=== PATIENT | female | born 1960 | race Caucasian/White ===

== ENCOUNTER 2016-07-20 15:25 | Emergency (ER) | payer BC ==
[2015-07-27 12:39] VITALS: BMI 34.2
[~2016-07-20 15:25] MED LIST: ADVAIR 500/501 DISK INH; AMITRIPTYLINE100 MG PO; HYDROCODONE-APA1 TAB PO; KLONOPIN0.5 MG PO; LASIX20 MG PO; LEVAQUIN500 MG PO; LISINOPRIL10 MG PO; NEURONTIN600 MG PO; PLAVIX75 MG PO; PREDNISONE20 MG PO; TESSALON PERLE100 MG PO; ZANAFLEX4 MG PO
[2016-07-20 16:06] LABS: BASOPHILS 0.3 % (0.0-2.0); EOSINOPHILS 2.7 % (0-7); HEMATOCRIT 42.4 % (36.0-48.0); HEMOGLOBIN 12.9 g/dL (12-16); IMMATURE GRANULOCYTES 0.4 % (0-5); MCH 30.1 pg (26.0-34.0); MCHC 30.4 g/dL (31.0-37.0); MCV 99.1 fL (80.0-100.0); MEAN PLATELET VOLUME 10.4 fL (7.4-10.4); MONOCYTES 8.1 % (2-11); NEUTROPHILS 71.5 % (40-80); PLATELET COUNT 229 10x3/uL (130-400); RBC 4.28 10x6/uL (4.00-5.40); RDW 15.4 % (11.5-14.5); WBC 11.9 10x3/uL (4.8-10.8)
[2016-07-20 16:35] LABS: ALBUMIN 3.5 g/dL (3.4-5.0); ANION GAP 14.5 mmol/L (8-16); BILIRUBIN - TOTAL 0.31 mg/dL (0.2-1.3); CALCIUM 8.7 mg/dL (8.5-10.1); CARBON DIOXIDE 29.9 mmol/L (21.0-32.0); CREATININE - SERUM 1.4 mg/dL (0.6-1.3); POTASSIUM - SERUM 4.4 mmol/L (3.5-5.1); PROTEIN - SERUM 7.3 g/dL (6.4-8.2)
[2016-07-20 19:43] LABS: APPEARANCE CLEAR (CLEAR); BILIRUBIN NEGATIVE (NEGATIVE); COLOR YELLOW (YELLOW); GLUCOSE 100 mg/dL (NEGATIVE); KETONE NEGATIVE (NEGATIVE); LEUKOCYTE ESTERASE NEGATIVE (NEGATIVE); NITRITE NEGATIVE (NEGATIVE); PROTEIN TRACE mg/dL (NEGATIVE); UROBILINOGEN NORMAL (NORMAL)
[2016-07-20 19:44] LABS: HEMOGLOBIN A1C 5.6 % (4.8-6.0)
[2016-07-20 19:55] LABS: CREATINE KINASE 150 UL (21-215); PRO BNP 970 pg/mL (0-125)
[2016-07-20 19:56] LABS: TROPONIN-I < 0.017 ng/mL (0.000-0.060)
== END 2016-07-20 22:32 | disposition home or self-care (01) ==
LOC: D.ER 15:25
PROVIDERS: Emergency Medicine; Family Medicine
DX: E11.9 Type 2 diabetes mellitus without complications (principal); R53.1 Weakness; I50.9 Heart failure, unspecified; J44.9 Chronic obstructive pulmonary disease, unspecified; I10 Essential (primary) hypertension; E87.5 Hyperkalemia

== ENCOUNTER → 2016-07-31 17:04 | Outpatient (CLI) | payer BC ==
[2015-07-27 12:39] VITALS: BMI 34.2
[~2016-07-31 17:04] MED LIST changes: +LOPRESSOR25 MG PO; +PRINIVIL20 MG PO; +PROAIR HFA8.5 GM INH
== END | disposition home or self-care (01) ==
LOC: D.US 11:30 → D.MAMMO 11:30
DX: N63 Unspecified lump in breast (principal); N64.4 Mastodynia

== ENCOUNTER → 2016-08-07 09:44 | Outpatient (CLI) | payer BC ==
[2015-07-27 12:39] VITALS: BMI 34.2
[~2016-08-07 09:44] MED LIST changes: -LOPRESSOR25 MG PO; -PRINIVIL20 MG PO; -PROAIR HFA8.5 GM INH
== END | disposition home or self-care (01) ==
LOC: D.US 09:44
DX: N63 Unspecified lump in breast (principal)

== ENCOUNTER 2016-08-14 19:47 | Emergency (ER) | payer BC ==
[2015-07-27 12:39] VITALS: BMI 34.2
[2016-08-14 20:49] LABS: BASOPHILS 0.2 % (0.0-2.0); EOSINOPHILS 0.2 % (0-7); HEMATOCRIT 44.4 % (36.0-48.0); HEMOGLOBIN 14.5 g/dL (12-16); IMMATURE GRANULOCYTES 0.4 % (0-5); LYMPHOCYTES 18.6 % (15-50); MCH 30.1 pg (26.0-34.0); MCHC 32.7 g/dL (31.0-37.0); MCV 92.3 fL (80.0-100.0); MEAN PLATELET VOLUME 10.7 fL (7.4-10.4); MONOCYTES 8.2 % (2-11); NEUTROPHILS 72.4 % (40-80); PLATELET COUNT 247 10x3/uL (130-400); RBC 4.81 10x6/uL (4.00-5.40); RDW 14.2 % (11.5-14.5); WBC 5.7 10x3/uL (4.8-10.8)
[2016-08-14 21:26] LABS: ALBUMIN 3.8 g/dL (3.4-5.0); ANION GAP 16.2 mmol/L (8-16); BILIRUBIN - TOTAL 0.63 mg/dL (0.2-1.3); CALCIUM 9.7 mg/dL (8.5-10.1); CARBON DIOXIDE 27.3 mmol/L (21.0-32.0); CREATININE - SERUM 1.2 mg/dL (0.6-1.3); POTASSIUM - SERUM 4.5 mmol/L (3.5-5.1)
[2016-08-15 01:32] LABS: APPEARANCE CLOUDY (CLEAR); BILIRUBIN NEGATIVE (NEGATIVE); COLOR YELLOW (YELLOW); GLUCOSE 500 mg/dL (NEGATIVE); KETONE NEGATIVE (NEGATIVE); LEUKOCYTE ESTERASE TRACE (NEGATIVE); NITRITE NEGATIVE (NEGATIVE); PH 7.5 (5.0-6.0); PROTEIN 1+ mg/dL (NEGATIVE); SPECIFIC GRAVITY 1.015 (1.005-1.020); UROBILINOGEN NORMAL (NORMAL)
[2016-08-15 01:40] LABS: BACTERIA MANY /hpf (NONE SEEN); EPITHELIAL CELLS 0-5 /hpf (0-5); GRANULAR CAST OCC /lpf (NONE SEEN); HYALINE CAST OCC /lpf (NONE SEEN); RED CELLS - URINE OCC /hpf (0-5); WHITE CELLS - URINE 0-5 /hpf (0-5); YEAST >1+ /hpf (NONE SEEN)
[2016-09-20] MEDS ORDERED: PROAIR HFA8.5 GM INH (14:16)
[2016-09-20] MEDS ORDERED: AMITRIPTYLINE100 MG PO (14:17)
[2016-09-20] MEDS ORDERED: LOPRESSOR25 MG PO (14:17)
[2016-09-20] MEDS ORDERED: PRINIVIL20 MG PO (14:17)
== END 2016-08-15 03:27 | disposition home or self-care (01) ==
LOC: D.ER 19:47
PROVIDERS: Family Medicine
DX: R11.2 Nausea with vomiting, unspecified (principal); J44.9 Chronic obstructive pulmonary disease, unspecified; I10 Essential (primary) hypertension; E87.5 Hyperkalemia; E11.9 Type 2 diabetes mellitus without complications; C50.919 Malignant neoplasm of unspecified site of unspecified female breast

== ENCOUNTER 2016-09-21 05:30 | Day surgery (SDC) | payer OTHER ==
--- NOTE | 2016-09-20 14:35 | NUR ---
JACKSON NOTE: PATIENT REPORTS CURRENTLY TAKING PLAVIX 75MG DAILY WITH LAST DOSE 09/20/16. CHANTEL AT DR. CHAMBERS'S OFFICE NOTIFIED.
[~2016-09-21] VITALS: Ht 149.9 cm; Wt 108.9 kg
[2016-09-21] VITALS (9 sets, daily range): BP systolic 94–183; BP diastolic 62–85; BMI 48.6
--- NOTE | ~2016-09-21 | CN ---
PATIENT NAME:ANNY CALVILLO MEDICAL RECORD: [id number] : 62 LOCATION:D.MS Lee2204 ADMIT DATE: ACCOUNT: [id number] CONSULTING PHYSICIAN: ROOPA BRYANT MD REFERRING PHYSICIAN: MAHSA CHAMBERS MD DATE OF CONSULTATION: 09/22/2016 HISTORY OF PRESENT ILLNESS: Ms. Calvillo is a 56-year-old female who underwent bilateral mastectomy for CA of the breast yesterday. Overnight, the patient had fever of 102. This morning, the patient became severely hypoxic after x-ray, her oxygen flow was off. A rapid response was called, the patient was resuscitated and now the patient is doing well, but she is very weak and lethargic. Also, she has running fever and shortness of breath. She is coughing with very little sputum production. The patient does have history of COPD and chronic hypoxic respiratory failure in the past. REVIEW OF SYSTEMS: Mainly in the history of present illness. PAST MEDICAL HISTORY: 1. COPD. 2. Chronic hypoxic respiratory failure. 3. Coronary artery disease. 4. Type 2 diabetes mellitus. 5. Hypertension. 6. History of peripheral neuropathy secondary to diabetes. 7. Chronic kidney disease. 8. Hypertension. PAST SURGICAL HISTORY: She is status post CABG and now she is status post bilateral mastectomy. ALLERGIES: SHE IS ALLERGIC TO ASPIRIN AND LYRICA. CURRENT MEDICATIONS: [employer] was reviewed. PERSONAL AND SOCIAL HISTORY: The patient has remote history of smoking. She is a nondrinker. FAMILY HISTORY: Noncontributory. PHYSICAL EXAMINATION: GENERAL: Now, the patient is lying comfortably. She is not in acute distress. VITAL SIGNS: The blood pressure is 91/53, pulse is 102, respirations 18, temperature 99.9 and SpO2 is 94% on 4 liters oxymizer. HEENT: Conjunctivae are pink, sclerae nonicteric. NECK: Supple. No JVD. CHEST: There are bilateral crackles, wheeze on forceful expiration and very decreased breath sounds at the lower base. HEART: Rhythm regular, normal sound, no murmur. ABDOMEN: Soft. Bowel sounds present. No hepatosplenomegaly. RECTAL: Deferred. EXTREMITIES: No cyanosis, no clubbing and no pedal edema. SKIN: Warm, normal turgor. CENTRAL NERVOUS SYSTEM: The patient is awake and alert, but she was sleepy and lethargic. There is no obvious cranial nerve abnormality. CONSULT REPORT [id number] ANNY CALVILLO LABORATORY DATA: ABG: The pH is 7.727, pCO2 is 65, pO2 is 101, bicarb is 30. Chemistry: Sodium 138, potassium 4.9, BUN is 18, creatinine 1.2, glucose 137. CBC: The WBC is 10.7, hemoglobin 11.9, hematocrit 38.2 and platelet count 257. IMPRESSION: 1. Ogkik-vk-ioxytsv hypoxic hypercapnic respiratory failure. 2. Respiratory acidosis secondary to zihuu-hx-ywmenqd hypoxic hypercapnic respiratory failure. 3. Pneumonia, left lower lobe, possible community-acquired pneumonia. 4. Pulmonary edema, possible secondary to congestive heart failure, possible fluid overload. 5. Left pleural effusion. 6. Chronic obstructive pulmonary disease exacerbation, status post mastectomy. RECOMMENDATION: 1. Start on albuterol/ipratropium nebulizer, Brovana and budesonide nebulizer. Start her on doxycycline and cefepime to cover for Gram-positive cocci and Gram-negative rods. 2. Check the CTA of the chest. Followup labs in the morning. 3. BiPAP if required. Check the ammonia level. Dr. Chambers, once again thank you for involving me in the care of Ms. Calvillo. TRANSINT:[id number] Voice Confirmation ID: [id number] DOCUMENT ID: [id number] ROOPA BRYANT MD CC: MAHSA CHAMBERS MD [id number] DICTATION DATE: 09/22/16 1438 TRAUMA COORDINATOR: 09/22/16 2314 [facility] [address] [id number]
--- NOTE | ~2016-09-21 | OP ---
PATIENT NAME: ANNY HERRERA MEDICAL RECORD: [id number] :62 LOCATION:D.MS Lee2205 ADMISSION DATE: SURGEON: CHARLI CHAMBERS MD DATE OF OPERATION: 09/21/2016 PREOPERATIVE DIAGNOSES: 1. Left breast cancer. 2. Morbid obesity. 3. Hypertension. 4. Diabetes mellitus. 5. Coronary artery disease. 6. Congestive heart failure. 7. Chronic obstructive pulmonary disease. POSTOPERATIVE DIAGNOSES: 1. Left breast cancer. 2. Morbid obesity. 3. Hypertension. 4. Diabetes mellitus. 5. Coronary artery disease. 6. Congestive heart failure. 7. Chronic obstructive pulmonary disease. PROCEDURE: Bilateral simple mastectomies with left sentinel lymph node biopsy. SURGEON: Charli Chambers MD REPORT OF PROCEDURE: The patient's chest was prepped and draped in sterile fashion. The right breast was approached first. An ovoid incision was made around the patient's nipple areolar complex. An electrocautery was used to dissect under the subcutaneous tissue and the entire breast was removed off of the patient's pectoral muscle. This dissection was continued medially from the sternum and superiorly from the clavicle this extended out laterally into the axillary space. Once this entire breast was removed, it was marked appropriately and sent off for permanent specimen. We then packed this wound and approached the left side. Again, an ovoid incision was made around the nipple areolar complex. The breast tissue was removed from the subcutaneous tissues and the breast was completely removed off the patient's pectoral muscle. The margins medially started at the sternum and superiorly started at the patient's clavicle. We extended laterally to the patient's axillary space. Once in the axilla, we inspected the area and found a firm nodular tissue which had some radiotracer within it. Preoperatively, the patient had undergone lymphoscintigraphy for sentinel lymph node localization. This had a reading of around 20, this was at the highest reading we found in the area. This firm nodule was sent off for permanent specimen and at this point, the remainder of breast tissue was removed from the patient's chest wall. This was marked appropriately and sent off for permanent specimen. We then irrigated out the wound with sterile water solution then inserted a 10 flat LORAINE drains times 2 into each side. The subcutaneous tissues were inspected closely and any bleeding that was found was treated either with electrocautery or with 3-0 silk stick ties. At the conclusion of the case, there was no sign of any active bleeding. The subcutaneous tissues were reapproximated with multiple interrupted 3-0 Vicryl and the skin was closed with suha. COMPLICATIONS: None. OPERATIVE REPORT [id number] ANNY HERRERA CONDITION: Stable. ANESTHESIA: General endotracheal. BLOOD LOSS: 150 mL. TRANSINT:[id number] Voice Confirmation ID: [id number] DOCUMENT ID: [id number] CHARLI CHAMBERS MD CC: ALMA ADAMS MD [id number] DICTATION DATE: 09/21/16 1423 CONTAINER COORDINATOR: 09/22/16 0045 [facility] [address] [id number]
[~2016-09-21 05:30] MED LIST changes: +LOPRESSOR25 MG PO; +PRINIVIL20 MG PO; +PROAIR HFA8.5 GM INH
[2016-09-21 06:49] LABS: ANION GAP 7.1 mmol/L (8-16); CALCIUM 9.4 mg/dL (8.5-10.1); CREATININE - SERUM 1.3 mg/dL (0.6-1.3); POTASSIUM - SERUM 4.1 mmol/L (3.5-5.1)
[2016-09-21] MEDS ORDERED: PROAIR HFA8.5 GM INH (06:49)
[2016-09-21] MEDS ORDERED: ZOFRAN4 MG PO (06:52)
[2016-09-21 07:00] LABS: APTT 27.4 SECONDS (22.8-39.4); INR 0.9 (0.85-1.17)
[2016-09-21 07:02] LABS: BASOPHILS 0.2 % (0-2); EOSINOPHILS 2.7 % (0-7); HEMOGLOBIN 12.3 g/dL (12-16); IMMATURE GRANULOCYTES 0.2 % (0-5); LYMPHOCYTES 31.4 % (15-50); MCH 29.3 pg (26.0-34.0); MCHC 30.8 g/dL (31.0-37.0); MCV 95.2 fL (80.0-100.0); MEAN PLATELET VOLUME 11.4 fL (7.4-10.4); MONOCYTES 9.7 % (2-11); NEUTROPHILS 55.8 % (40-80); PLATELET COUNT 219 10x3/uL (130-400); RDW 13.8 % (11.5-14.5); WBC 6.4 10x3/uL (4.8-10.8)
[2016-09-21] MEDS ORDERED: GLUCOTROL ER2.5 MG PO (07:39)
--- NOTE | 2016-09-21 16:05 | NUR ---
RECEIVED TO ROOM 2205 VIA BED FROM PACU. A/O X3. NO C/O AT THIS TIME. DRESSINGS TO BILATERAL BREAST DRY AND INTACT.
--- NOTE | 2016-09-21 17:30 | NUR ---
ATE ABOUT HALF OF SUPPER. DENIES NEEDS AT THIS TIME.
--- NOTE | 2016-09-21 19:44 | NUR ---
REQUESTED AND GIVNE 1MG DILAUDID SLOW IVP FOR C/O BILATERAL BREAST PAIN LEVEL 9. WILL MONITOR.
[2016-09-22] VITALS: BP 133/85
--- NOTE | 2016-09-22 01:07 | NUR ---
ASSESSED AT THE BEGINNING OF THE SHIFT. PT IS ALERT AND ORIENTED, WITH FAMILY AT THE BEDSIDE. SHE IS WEARING AN OXYMIZER WITH O2 AT 5 LITERS. ALL 4 LORAINE DRAINS ARE ACTIVATED. DRESSINGS ARE IN PLACE WITH NO BLEEDING NOTED. PAIN MEDS GIVEN ORDERED AND NEEDED.
[2016-09-22 04:00] VITALS: BP 105/54
[2016-09-22 05:21] LABS: BASOPHILS 0.2 % (0-2); EOSINOPHILS 0.3 % (0-7); HEMATOCRIT 38.2 % (36.0-48.0); HEMOGLOBIN 11.9 g/dL (12-16); IMMATURE GRANULOCYTES 0.3 % (0-5); LYMPHOCYTES 14.6 % (15-50); MCH 29.7 pg (26.0-34.0); MCHC 31.2 g/dL (31.0-37.0); MCV 95.3 fL (80.0-100.0); MEAN PLATELET VOLUME 11.2 fL (7.4-10.4); MONOCYTES 10.3 % (2-11); NEUTROPHILS 74.3 % (40-80); PLATELET COUNT 257 10x3/uL (130-400); RBC 4.01 10x6/uL (4.00-5.40); RDW 14.1 % (11.5-14.5)
[2016-09-22 05:24] LABS: WBC 10.7 10x3/uL (4.8-10.8)
[2016-09-22 05:41] LABS: ANION GAP 10.4 mmol/L (8-16); CALCIUM 8.9 mg/dL (8.5-10.1); CARBON DIOXIDE 32.5 mmol/L (21.0-32.0); CREATININE - SERUM 1.2 mg/dL (0.6-1.3); POTASSIUM - SERUM 4.9 mmol/L (3.5-5.1)
--- NOTE | 2016-09-22 07:30 | NUR ---
AWAKE AND ALERT. ORIENTED X3. UP TO BSC WITH STAFF ASSIST. VOIDED LESS THAN 50 CC OF URINE. WILL MONITOR. LUNGS ARE CLEAR BUT DIMINISHED THROUGHOUT LUNG MCCAIN. OCCASSIONAL DRY COUGH NOTED. SKIN IS INTACT WITHOUT REDNESS EXCEPT INCISIONS TO BILATERAL CHEST. THESE HAVE CLEAN AND DRY DRESSINGS IN PLACE. LORAINE X4 PATENT WITH SEROUS SANGUINESS DISCHARGE. IV TO RIGHT AC IS PATENT WITHOUT REDNESS AT INSERTION SITE. NO NEEDS NOTED.
[2016-09-22 08:05] VITALS: BP 91/53
--- NOTE | 2016-09-22 09:00 | NUR ---
ATE MOST OF BREAKFAST WITHOUT DIFFICULTY. SISTER AT BEDSIDE.
--- NOTE | 2016-09-22 09:45 | NUR ---
OFF UNIT VIA WC FOR EXRAY. UP TO WC PER SELF.
--- NOTE | 2016-09-22 10:10 | NUR ---
BLADDER SCAN SHOWED ONLY 14cc. WILL CONTINUE TO MONITOR.
--- NOTE | 2016-09-22 10:20 | NUR ---
PATIENT FOUND GURGELING AND NOT RESPONDING TO QUESTIONS EXCEPT YES/NO. RAPID RESPONSE CALLED. BP 116/65, HEART RATE 134, FSBS 198. SKIN IS DIAPHORETIC. SUCTIONED PER STAFF. O2 REPLACED AT 5L OXYMYZER. O2 SAT 78 WHEN FIRST FOUND. SATS UP TO 98% WHEN O2 APPLIED. WAS INCONTINENT OF URINE AT THIS TIME. RESPONDED READILY TO OXYGEN. ABG'S DRAWN WELL. WILL MONITOR.
--- NOTE | 2016-09-22 11:00 | NUR ---
NO CHANGES NOTED. RESPONDS TO VERBAL AND TACTILE STIMULATION BUT ONLY NODS IN RESPONSE. WILL CONTINUE TO MONITOR.
--- NOTE | 2016-09-22 12:30 | NUR ---
REFUSED OFFER OF LUNCH TRAY. INCONTINENT OF URINE AGAIN. I/O CATH DONE USING STERILE TECHNIQUE WITH 200cc CLEAR YELLOW URINE RETURNED. SKIN CARE PER STAFF. LINENS CHANGED.
[2016-09-22 12:33] VITALS: Ht 149.9 cm; Wt 108.9 kg
[2016-09-22 15:48] VITALS: BP 109/54
[2016-09-22 20:00] VITALS: BP 148/89
--- NOTE | 2016-09-22 20:06 | NUR ---
OFF UNIT VIA FOR CTA. RETURNED WITHOUT INCIDENT. RESTING QUIETLY IN BED. IN ROOM. DENIES NEEDS.
[2016-09-23] VITALS: BP 64/39
--- NOTE | 2016-09-23 01:01 | NUR ---
ASSESSED AT THE BEGINNING OF THE SHIFT. PT WAS ALERT AND ORIENTED, ABLE TO VERBALIZE NEEDS. SHE WAS ASSISTED UP TO THE BATHROOM TO VOID AND DID WELL WITH ASSIST. SHE HAD RECEIVED PAIN MEDS PRIOR TO SHIFT CHANGE. HER VISITED HER AND SHE WAS GIVEN HER NIGHT MEDS AND SETTLED DOWN TO SLEEP. AT MIDNIGHT WHEN THE PAPER REWINDER OPERATOR WENT TO TAKE VISTAL SIGNS SHE WAS SLEEPING AND THE B/P WAS 64/39 TAKEN SEVERAL TIMES IT STATED UNDER 75/25 AND PT WOUND NOT RESPOND. THE ICU NURSES WERE CALLED TO CHECK ON HER AND AT THAT TIME WERE WERE BOLUSING HER NORMAL SALINE. SHE ALSO HAD A TEMP OF 101.4 AND WHEN THE BLOOD SUGAR WAS TAKEN IT WAS 425. DR THAKKAR WAS AGRICULTURE TEACHER AND CONTACTED. ORDERS WERE RECEIVED AND STARTED. SHE NOW HAS A MCCULLOUGH AND WILL BE GETTING 2 LITERS OF BOLUSED NS. SHE HAS ALSO HAD ABG'S, CHEST X RAY, AND BLOOD CULTURES. THE EKG RESULTS WERE CALLED TO DR THAKKAR AND MORE LABS WERE ORDERED.AT 0100 SHE WAS GIVEN 10 UNITS OF REGULAR INSULIN FOR HER BLOOD SUGAR.
--- NOTE | 2016-09-23 01:40 | NUR ---
PLACED ON BIPAP AND IS STILL UNRESPONSIVE
[2016-09-23 01:59] LABS: CKMB 0.6 U/L (0.0-3.6); CREATINE KINASE 104 UL (21-215); TROPONIN-I 0.034 ng/mL (0.000-0.060)
[2016-09-23 02:00] LABS: APPEARANCE CLEAR (CLEAR); BILIRUBIN NEGATIVE (NEGATIVE); COLOR YELLOW (YELLOW); GLUCOSE NEGATIVE (NEGATIVE); KETONE NEGATIVE (NEGATIVE); LEUKOCYTE ESTERASE NEGATIVE (NEGATIVE); NITRITE NEGATIVE (NEGATIVE); PROTEIN NEGATIVE (NEGATIVE); SPECIFIC GRAVITY 1.015 (1.005-1.020); UROBILINOGEN NORMAL (NORMAL)
[2016-09-23 04:00] VITALS: BP 120/53
[2016-09-23 05:58] LABS: BASOPHILS 0 % (0-2); EOSINOPHILS 0 % (0-7); HEMATOCRIT 34.1 % (36.0-48.0); HEMOGLOBIN 10.6 g/dL (12-16); IMMATURE GRANULOCYTES 0.3 % (0-5); LYMPHOCYTES 4.8 % (15-50); MCH 29.5 pg (26.0-34.0); MCHC 31.1 g/dL (31.0-37.0); MEAN PLATELET VOLUME 10.8 fL (7.4-10.4); MONOCYTES 6.9 % (2-11); RBC 3.59 10x6/uL (4.00-5.40); RDW 13.9 % (11.5-14.5)
[2016-09-23 06:02] LABS: PLATELET COUNT 205 10x3/uL (130-400); WBC 13.7 10x3/uL (4.8-10.8)
[2016-09-23 06:29] LABS: ALBUMIN 2.5 g/dL (3.4-5.0); ALKALINE PHOSPHATASE 86 U/L (46-116); ALT (SGPT) 37 U/L (10-68); CALC OSMOLALITY 287 mosm/kg (275-300); CALCIUM 8.5 mg/dL (8.5-10.1); CARBON DIOXIDE 30.6 mmol/L (21.0-32.0); CHLORIDE - SERUM 100 mmol/L (98-107); CKMB 0.8 U/L (0.0-3.6); CREATINE KINASE 88 UL (21-215); CREATININE - SERUM 1.3 mg/dL (0.6-1.3); MAGNESIUM - SERUM 1.5 mg/dL (1.8-2.4); PHOSPHOROUS 3.1 mg/dL (2.5-4.9); POTASSIUM - SERUM 4.8 mmol/L (3.5-5.1); PROTEIN - SERUM 6.6 g/dL (6.4-8.2); SODIUM 137 mmol/L (136-145); TROPONIN-I 0.031 ng/mL (0.000-0.060); UREA NITROGEN 21 mg/dL (7-18); eGFR NON AFRICAN AMERICAN 45 mL/min (90-120)
[2016-09-23 06:32] LABS: GLUCOSE 293 mg/dL (74-106)
--- NOTE | 2016-09-23 09:27 | NUR ---
PATIENT IS RESTING IN BED. NO S/S OF DISTRESS NOTED. FAMILY AT THE BEDSIDE. SCHEDULED MORNING MEDICATIONS GIVEN TO PATIENT. PATIENT TOLERATED WELL. PATIENT DENIES ANY FURTHER NEEDS. CALL LIGHT IN PATIENT'S REACH. WILL MONITOR.
[2016-09-23 09:57] VITALS: BP 124/58
[2016-09-23 11:56] VITALS: BP 96/60
[2016-09-23 13:00] LABS: CKMB 0.7 U/L (0.0-3.6); CREATINE KINASE 53 UL (21-215); TROPONIN-I 0.023 ng/mL (0.000-0.060)
[2016-09-23 16:32] VITALS: BP 118/71
[2016-09-23 20:00] VITALS: BP 137/84
--- NOTE | 2016-09-23 20:00 | NUR ---
PT. IN BED WITH HOB UP FOR COMFORT AND WATCHING TV. ASSESSMENT COMPLETED. 4 LORAINE DRAINS COMPRESSED AND WITHOUT PROBLEM. CALL LIGHT WITHIN REACH.
--- NOTE | 2016-09-23 23:08 | NUR ---
PT. IN BED WITH HOB UP FOR COMFORT WITH OXIMIZER VIA N/C AT 5L/MIN. SPOUSE IN ROOM WITH PT. PT'S EYES CLOSED AND RESP. EVEN. CALL LIGHT WITHIN REACH.
--- NOTE | 2016-09-24 03:23 | NUR ---
PT. IN BED WITH HOB UP FOR COMFORT WITH EYES CLOSED AND RESP. EVEN. IV INFUSING VIA PUMP WITHOUT PROBLEMS. SPOUSE REMAINS IN ROOM WITH PT. CALL LIGHT WITHIN REACH.
[2016-09-24 04:00] VITALS: BP 126/66
[2016-09-24 07:00] VITALS: BP 109/54
--- NOTE | 2016-09-24 07:14 | NUR ---
PATIENT RESTING IN BED. PATIENT IS AWAKE, ALERT, AND ORIENTED X4. NO COMPLAINTS OF PAIN. PATIENT DENIES ANY NEEDS AT PRESENT TIME. CALL LIGHT IN PATIENT'S REACH. WILL MONITOR.
--- NOTE | 2016-09-24 08:17 | NUR ---
PATIENT IN BED AND EATING HER BREAKFAST TRAY. AT HER BEDSIDE. PATIENT IS AWAKE, ALERT, AND ORIENTED X4. NO COMPLAINTS OF PAIN AT PRESENT TIME. SCHEDULED MORNING MEDICATIONS GIVEN TO PATIENT. PATIENT TOLERATED WELL. ASSESSMENT COMPLETED. SEE FLOWSHEET FOR ANY DETAILS. PATIENT DENIES ANY NEEDS AT PRESENT TIME. CALL LIGHT IN PATIENT'S REACH. WILL MONITOR PATIENT.
[2016-09-24] MEDS ORDERED: OXYCODONE HCL5 MG PO (09:49)
--- NOTE | 2016-09-24 11:11 | NUR ---
PT LYING IN BED WITH AT BEDSIDE. REMOVED MCCULLOUGH AFTER DEFLATING BALLOON, TIP INTACT, TOLERATED WELL. REMOVED MCCULLOUGH SECURE TAB. PROVIDED PERICARE AND PATTED DRY. STATES NO FURTHER NEEDS AT THIS TIME.
--- NOTE | 2016-09-24 11:29 | NUR ---
DC'd IV ORDERED. PATENT TO RIGHT AC, TIP WAS INTACT. TOLERATED WELL. STATES NO FURTHER NEEDS AT THIS TIME. RESTATED THE NEED TO USE CALL LIGHT FOR NURSING HELP WHEN UP TO VOID FIRST TIME. PLACED HAT IN BR. PT STATES UNDERSTANDING.
[2016-09-24 12:32] VITALS: BP 124/78
--- NOTE | 2016-09-24 13:30 | NUR ---
NEW ABD DRESSINGS APPLIED TO BILATERAL BREAST/CHEST AREAS. DONNA ARE C/D/I TO INCISION AREAS. LARGE CHACE DRESSING APPLIED OVER ABD PADS AND WRAPPED AROUND PATIENT'S CHEST AND BREAST AREAS. PATIENT TOLERATED WELL.
--- NOTE | 2016-09-24 13:45 | NUR ---
DISCHARGE INSTRUCTIONS VERBALIZED TO PATIENT. PATIENT VERBALIZED UNDERSTANDING AND SIGNED DISCHARGE SHEETS. OXYCODONE IR PRESCRIPTION GIVEN TO PATIENT.
--- NOTE | 2016-09-24 14:00 | NUR ---
LORAINE DRAIN CARE AND INSTRUCTIONS TAUGHT TO PATIENT. PATIENT VERBALIZED UNDERSTANDING OF EMPTYING AND CARING FOR HER 4 LORAINE DRAINS. PATIENT DISCHARGED VIA WHEELCHAIR TO THE CAR. HERE TO DRIVE PATIENT HOME.
== END 2016-09-24 14:00 | disposition home or self-care (01) ==
LOC: D.MS 05:30 → D.OPS 05:30 → D.PAN 07:30 → D.NM 07:30 → D.MS 13:07 → D.OPS 09-24 14:00
PROVIDERS: Anesthesiology; Surgery
DX: C50.412 Malignant neoplasm of upper-outer quadrant of left female breast (principal); I25.10 Atherosclerotic heart disease of native coronary artery without angina pectoris; J44.9 Chronic obstructive pulmonary disease, unspecified; G47.30 Sleep apnea, unspecified; Z95.5 Presence of coronary angioplasty implant and graft; Z95.1 Presence of aortocoronary bypass graft; K21.9 Gastro-esophageal reflux disease without esophagitis; I11.0 Hypertensive heart disease with heart failure; I50.9 Heart failure, unspecified; E66.01 Morbid (severe) obesity due to excess calories; Z68.33 Body mass index [BMI] 33.0-33.9, adult; Z01.812 Encounter for preprocedural laboratory examination

== ENCOUNTER 2016-10-10 06:18 | Inpatient (IN) | payer OTHER ==
[~2016-10-10] VITALS: Ht 149.9 cm; Wt 106.6 kg
[2016-10-10] VITALS (31 sets, daily range): BP systolic 67–149; BP diastolic 49–97; BMI 46.7
[~2016-10-10 06:18] MED LIST changes: +GLUCOTROL ER2.5 MG PO; +OXYCODONE HCL5 MG PO; +ZOFRAN4 MG PO
[2016-10-10 06:42] LABS: BASOPHILS 0.2 % (0-2); EOSINOPHILS 3.9 % (0-7); HEMATOCRIT 36.9 % (36.0-48.0); HEMOGLOBIN 11.2 g/dL (12-16); IMMATURE GRANULOCYTES 0.6 % (0-5); MCH 28.9 pg (26.0-34.0); MCHC 30.4 g/dL (31.0-37.0); MCV 95.3 fL (80.0-100.0); MEAN PLATELET VOLUME 10.4 fL (7.4-10.4); MONOCYTES 10.3 % (2-11); RBC 3.87 10x6/uL (4.00-5.40); RDW 14.9 % (11.5-14.5); WBC 12.4 10x3/uL (4.8-10.8)
[2016-10-10 06:44] LABS: PLATELET COUNT 320 10x3/uL (130-400)
[2016-10-10 06:58] LABS: ANION GAP 14.2 mmol/L (8-16); BILIRUBIN - TOTAL 0.4 mg/dL (0.2-1.3); CALCIUM 9.5 mg/dL (8.5-10.1); CARBON DIOXIDE 28.7 mmol/L (21.0-32.0); CREATININE - SERUM 3.5 mg/dL (0.6-1.3); POTASSIUM - SERUM 5.9 mmol/L (3.5-5.1); PROTEIN - SERUM 8.2 g/dL (6.4-8.2)
[2016-10-10 07:03] LABS: HCG SERUM NEGATIVE (NEGATIVE)
[2016-10-10 07:07] LABS: UDS - AMPHET NEGATIVE QUAL (NEGATIVE); UDS - BARB NEGATIVE QUAL (NEGATIVE); UDS - BENZO NEGATIVE QUAL (NEGATIVE); UDS - COCAINE NEGATIVE QUAL (NEGATIVE); UDS - METH NEGATIVE QUAL (NEGATIVE); UDS - OPIATE POSITIVE QUAL (NEGATIVE); UDS - PCP NEGATIVE QUAL (NEGATIVE); UDS - THC NEGATIVE QUAL (NEGATIVE)
[2016-10-10 07:28] LABS: APPEARANCE SLT CLOUDY (CLEAR); BILIRUBIN NEGATIVE (NEGATIVE); COLOR YELLOW (YELLOW); GLUCOSE 250 mg/dL (NEGATIVE); KETONE NEGATIVE (NEGATIVE); NITRITE NEGATIVE (NEGATIVE); PROTEIN NEGATIVE (NEGATIVE); UROBILINOGEN NORMAL (NORMAL)
[2016-10-10 07:29] LABS: LEUKOCYTE ESTERASE TRACE (NEGATIVE)
[2016-10-10 07:30] LABS: AMORPHOUS SEDIMENT <1+ /lpf (NONE SEEN); BACTERIA FEW /hpf (NONE SEEN); EPITHELIAL CELLS 0-5 /hpf (0-5); GRANULAR CAST 0-5 /lpf (NONE SEEN); HYALINE CAST RARE /lpf (NONE SEEN); MUCUS <1+ /lpf (NONE SEEN); RED CELLS - URINE OCC /hpf (0-5); WHITE CELLS - URINE OCC /hpf (0-5)
--- NOTE | 2016-10-10 12:18 | NUR ---
2000ML NS BOLUS REPORTED GIVEN IN ER. ORDER FOR 1200ML NS BOLUS TO MEET SEPSIS PROTOCOL.
--- NOTE | 2016-10-10 12:38 | NUR ---
NOTIFIED DR. CHAMBERS OF BLOOD GASES AND LOW BP. ORDERS RECEIVED.
--- NOTE | 2016-10-10 12:39 | NUR ---
PAGED DR. BURTON ABOUT CONSULT
--- NOTE | 2016-10-10 12:59 | NUR ---
ADMITTING ASSESSMENT COMPLETE. PT LETHARGIC. OPENS EYES WITH DEEP STIMULI, SAYS HER NAME, THEN DRIFTS OFF TO SLEEP. SINUS TACHYCARDIA. S1S2 NOTED, RADIAL AND PEDAL PULSES PALP. 4L NC. RUL, RML EXPIRATORY WHEEZE. LLL, RLL DIMINISHED. FOLLOWS COMMANDS BUT IS INCONSITANT. PERRLA 2-3MM BRISK. HYPOACTIVE BOWEL SOUNDS X4. GENERALIZED WEAKNESS. MCCULLOUGH DRAINING CLOUDY URINE. LOWER EXTREMETY SCABS BILAT. LT BREAST INCISION, DONNA INTACT, REDNESS PRESENT. RT BREAST INCISION WITH DONNA INTACT, SOME RED AREAS BUT MOSTLY NECROTIC AT INCISION. DR. CHAMBERS PREPARING TO REMOVE NECROTIC TISSUE. LAC RAC PIV PATENT, SEE IV FLOWSHEET
--- NOTE | 2016-10-10 13:00 | NUR ---
DR. CHAMBERS AT BEDSIDE. REMOVING NECROTIC SKIN FROM RIGHT MASTECTOMY. ORDERS TO CLEAN OPEN AREA WITH HYDROGEN PEROXIDE THEN PUT GAUZE WRAP IN OPEN AREA. 2 GAUZE WRAPS APPLIED. PUT ABD PAD ON TOP OF MASTECTOMY/ OPEN AREA. DR. CHAMBERS THEN WENT OUT TO TALK WITH FAMILY.
--- NOTE | 2016-10-10 13:30 | NUR ---
DR. BURTON AT BEDSIDE.
--- NOTE | 2016-10-10 13:42 | NUR ---
NOTIFIED DR. EISENBERG'S OFFICE ABOUT CONSULT.
--- NOTE | 2016-10-10 13:42 | NUR ---
TRIED TO GIVE FAMILY UPDATE AFTER LETTING THEM VISIT PATIENT BUT THEY REFUSED AN UPDATE AND WALKED OUT THE DOOR.
--- NOTE | 2016-10-10 14:05 | NUR ---
DR. RAMIREZ AT BEDSIDE
--- NOTE | 2016-10-10 14:10 | NUR ---
SPOKE WITH ON PHONE. UPDATE PROVIDED. SAID HE WOULD BE ON HIS WAY UP HERE SOON
--- NOTE | 2016-10-10 15:10 | NUR ---
NOTIFIED DR. CHAMBERS THAT PATIENT'S LORAINE DRAIN IS NOT COMPRESSING. HE SAID TO LEAVE IT IN PLACE AND THAT HE DOES NOT EXPECT IT TO COMPRESS. ASKED IF HE WANTED TO PUT IN A CVL, SAID HE WANTED TO WAIT UNTIL RENAL SAW HER TO SEE IF THEY WANTED HIM TO PLACE A TRIALYSIS.
--- NOTE | 2016-10-10 16:45 | NUR ---
ADMISSION ASSESSMENT WAS COMPLETED AT 1300.
[2016-10-10 16:56] LABS: CKMB 7.1 U/L (0.0-3.6)
[2016-10-10 16:58] LABS: CREATINE KINASE 1137 UL (21-215); TROPONIN-I < 0.017 ng/mL (0.000-0.060)
--- NOTE | 2016-10-10 17:06 | NUR ---
SPOKE WITH PATIENT'S . GOT ADMISSION INFORMATION. DENIES NEEDS
--- NOTE | 2016-10-10 19:20 | NUR ---
ASSESSMENT COMPLETE. S1S2. NSR SHOWING ON MONITOR. RR SHALLOW. WHEEZE NOTED IN UPPER LOBES; DIMINISHED BILATERALLY IN LOWER LOBES. PT LETHARGIC; RESPONDS TO PAINFUL STIMULI. PERRLA. PIV TO LEFT AND RIGHT AC; BOTH PATENT. PT BIPAP @ 45%. RIGHT BREAST OPENED DONNA INCISION; LORAINE DRAIN IN PLACE; LORAINE DRAIN DOES NOT COMPRESS. NECROTIC TISSUE NOTED AT SITE. MCCULLOUGH CATH IN PLACE. HYPOACTIVE BOWEL SOUNDS X4.
--- NOTE | 2016-10-10 20:15 | NUR ---
CALLED TO CHECK ON PT. UPDATE GIVEN.
--- NOTE | 2016-10-10 21:12 | NUR ---
SPOKE WITH AND SISTER MANSI; BOTH AGREED TO RELEASE ANY INFORMATION TO WHO EVER CALLS; WOULD NOT LIKE TO SET UP PASSWORD
--- NOTE | 2016-10-10 22:14 | NUR ---
PT OPENS EYES SPONTANEOUSLY; KNODS HEAD TO QUESTIONS; UNCLEAR IF UNDERSTANDING WHAT IS BEING ASKED.
--- NOTE | 2016-10-10 23:15 | NUR ---
REASSESSMENT COMPLETE. S1S2. NSR SHOWING ON MONITOR. PT AROUSES TO SPEECH; QUICKLY CLOSES EYES AND GOES BACK TO RESTING.
[2016-10-11] VITALS (24 sets, daily range): BP systolic 113–154; BP diastolic 60–98; Ht 149.9 cm; Wt 106.6 kg
--- NOTE | 2016-10-11 01:35 | NUR ---
PT RESTING; EYES CLOSED. VSS. NO DISTRESS NOTED. ON BIPAP. WILL CONTINUE TO MONITOR CLOSELY.
--- NOTE | 2016-10-11 02:10 | NUR ---
PT AWAKE AND ALERT. ANSWERS QUESTIONS APPROPRIATELY. UNAWARE OF WHAT HAPPENED OR LOCATION. ANSWERED QUESTIONS. OBEYS COMMANDS. CLEAR SPEECH. REQUEST WATER. ORAL CARE PROVIDED.
--- NOTE | 2016-10-11 03:15 | NUR ---
REASSESSMENT COMPLETE. PT AWAKE AND ALERT. SHORT TERM MEMORY INTACT.
--- NOTE | 2016-10-11 03:40 | NUR ---
RIGHT BREAST WOUND CLEANED AND REPACKED WITH GAUZE X1. CLEANED AND REDRESSED.
--- NOTE | 2016-10-11 03:45 | NUR ---
BED BATH GIVEN. YEAST NOTED TO PERINEAL AREA AND UNDER ABDOMINAL SKIN FOLDS. PARTIAL LINEN CHANGE.
[2016-10-11 04:37] LABS: BASOPHILS 0.2 % (0-2); EOSINOPHILS 0.4 % (0-7); HEMATOCRIT 35.1 % (36.0-48.0); HEMOGLOBIN 10.8 g/dL (12-16); IMMATURE GRANULOCYTES 0.2 % (0-5); LYMPHOCYTES 5.6 % (15-50); MCH 28.7 pg (26.0-34.0); MCHC 30.8 g/dL (31.0-37.0); MCV 93.4 fL (80.0-100.0); MEAN PLATELET VOLUME 10.8 fL (7.4-10.4); MONOCYTES 7.7 % (2-11); NEUTROPHILS 85.9 % (40-80); PLATELET COUNT 307 10x3/uL (130-400); RBC 3.76 10x6/uL (4.00-5.40); RDW 14.1 % (11.5-14.5)
[2016-10-11 04:48] LABS: WBC 8.4 10x3/uL (4.8-10.8)
[2016-10-11 05:22] LABS: ALBUMIN 2.5 g/dL (3.4-5.0); BILIRUBIN - TOTAL 0.32 mg/dL (0.2-1.3); CALCIUM 8.5 mg/dL (8.5-10.1); CARBON DIOXIDE 34.6 mmol/L (21.0-32.0); MAGNESIUM - SERUM 1.9 mg/dL (1.8-2.4); PHOSPHOROUS 2.5 mg/dL (2.5-4.9); PROTEIN - SERUM 7.4 g/dL (6.4-8.2); TROPONIN-I 0.033 ng/mL (0.000-0.060); VANCOMYCIN - RANDOM 24.6 ug/mL (10.0-20.0)
[2016-10-11 05:31] LABS: ANION GAP 10.2 mmol/L (8-16); POTASSIUM - SERUM 4.8 mmol/L (3.5-5.1)
--- NOTE | 2016-10-11 18:11 | NUR ---
DCD LORAINE DRAIN AND DONNA REMOVED BILAT BREAST. WTD DSNG TO RT BREAST WND. PT ADINA WELL.
--- NOTE | 2016-10-11 19:00 | NUR ---
REPORT REC'D. ASSUMED PT'S CARE. ASSESSMENT COMPLETED. PT A/O X4, DENIES ANY DISSCOMFORT AT THIS TIME. SR ON CM. LUNG SOUNDS DIMINISHED TO LLB, UNLABORED ON 4L VIA NC. RT BREAST DRESSING C,D,I. LEFT BREAST INCISION WELL APPROXIMATED. NO DRAINGE NOTED. LEFT AC PIV INTACT INFUSING ZOSYN PER ORDER VIA PUMP. NO S/S OF IRRITATION OR REDNESS NOTED. LEFT AC PIV INTACT SL, NO S/S OF IRRITATION OR REDNESS NOTED..MCCULLOUGH INTACT TO GRAVITY WITH YELLOW DRAINAGE TO BAG. PPP. CALL LIGHT AND BST IN REACH. WILL CONT TO MONITOR.
--- NOTE | 2016-10-11 21:00 | NUR ---
NO VISITORS AT THIS TIME. SCHEDULED MEDS GIVEN PER ORDER. PT ADINA WELL. VSS. NO NEEDS VOICES. CALL LIGHT IN REACH.
--- NOTE | 2016-10-11 23:00 | NUR ---
REASSESSMENT COMPLETED. SEE FLOW SHEET FOR ALL FINDINGS. PT RESTING QUIETLY WITHOUT DISTRESS. SR ON CM. NO ACUTE CHANGES IN PT'S STATUS AT THIS TIME. CALL LIGHT IN REACH. WILL CONT TO MONITOR.
[2016-10-12] VITALS (13 sets, daily range): BP systolic 138–169; BP diastolic 72–97
--- NOTE | 2016-10-12 01:00 | NUR ---
PT RESTING QUIELTY WITHOUT DISTRESS, VSS, NO NEEDS VOICES AT THIS TIME. CALL LIGHT IN REACH. CPOC
--- NOTE | 2016-10-12 02:30 | NUR ---
REASSESSMENT COMPLETED PER FLOW SHEETS. NO ACUTE CHANGES NOTED ON PT'S STATUS. SR ON CM. DENIES ANY DISCOMFORT AT THIS TIME. CALL LIGHT IN REACH. CPOC.
[2016-10-12 04:18] LABS: BASOPHILS 0.1 % (0-2); EOSINOPHILS 0 % (0-7); HEMATOCRIT 31.4 % (36.0-48.0); HEMOGLOBIN 9.7 g/dL (12-16); IMMATURE GRANULOCYTES 0.4 % (0-5); LYMPHOCYTES 10.2 % (15-50); MCH 28.9 pg (26.0-34.0); MCHC 30.9 g/dL (31.0-37.0); MCV 93.5 fL (80.0-100.0); MEAN PLATELET VOLUME 10.5 fL (7.4-10.4); MONOCYTES 6.6 % (2-11); NEUTROPHILS 82.7 % (40-80); PLATELET COUNT 280 10x3/uL (130-400); RBC 3.36 10x6/uL (4.00-5.40); RDW 13.8 % (11.5-14.5)
[2016-10-12 04:41] LABS: ANION GAP 8.2 mmol/L (8-16); CALCIUM 7.8 mg/dL (8.5-10.1); CARBON DIOXIDE 37.7 mmol/L (21.0-32.0); CREATININE - SERUM 1.8 mg/dL (0.6-1.3); MAGNESIUM - SERUM 1.5 mg/dL (1.8-2.4)
[2016-10-12 04:46] LABS: PHOSPHOROUS 3.4 mg/dL (2.5-4.9); POTASSIUM - SERUM 3.9 mmol/L (3.5-5.1)
--- NOTE | 2016-10-12 15:03 | NUR ---
Is the patient Alert and Oriented? Yes 0 * How many steps to enter\exit or inside your home? RAMP 0 * PCP DR. ADAMS 0 * Pharmacy [facility] IN [facility] 0 * Preadmission Environment Home with Family 0 * ADLs Independent 0 * Equipment None 0 * List name and contact numbers for known caregivers / representatives who currently or will assist patient after discharge: SPOUSE: ALMA [phone] 0 * Community resources currently utilized None 0 * Additional services required to return to the preadmission environment? No 0 * Can the patient safely return to the preadmission environment? Yes 0 * Has this patient been hospitalized within the prior 30 days at any hospital? Yes PATIENT IS AWAKE AND ALERT. SHE STATES SHE LIVES AT HOME WITH HER , ALMA. SHE WAS INDEPENDENT IN HER ADL'S PRIOR TO COMING INTO THE HOSPITAL. SHE WILL BE AVAILABLE TO DRIVE HER HOME AT DISCHARGE. PATIENT'S PCP IS DR. ADAMS. SHE GETS HER MEDS FROM [facility] IN [place], [place]. PATIENT DENIES USE OF ANY DME. SHE STATES SHE HAD HOME HEALTH IN THE PAST BUT DOES NOT RECALL THE NAME OF THE AGENCY. PATIENT STATES THERE IS A RAMP TO ENTER HER HOME. PATIENT MAY BENEFIT FROM HOME HEALTH AT DISCHARGE.
--- NOTE | 2016-10-12 17:22 | NUR ---
WND CARE NS WTD PACKING TO RT BREAST WND. PT ADINA WELL.
--- NOTE | 2016-10-12 17:28 | NUR ---
RECIEVED PATIENT VIA WHEELCHAIR FROM ICU. PATIENT IS AWAKE, ALERT AND ORIENTED X'S 4. RESPIRATIONS ARE EVEN AND UNLABORED. PATIENT IS EATING DINNER. DENIES NEEDS. PATIENT IS RECIEVING OXYGEN VIA NASAL CANNULA AT 2L/MIN. ORIENTED PATIENT TO THE CALL LIGHT. PATIENT DENIES QUESTIONS. OFFERED TO CALL PATIENT'S FAMILY TO TELL THEM SHE HAS BEEN MOVED TO A NEW ROOM. PATIENT STATED "THE ICU NURSE I THINK ALREADY DID THAT." PUT PATIENT'S PHONE IN REACH.
--- NOTE | 2016-10-12 19:00 | NUR ---
BEDSIDE REPORT RECEIVED AND CARE OF PT ASSUMED. PT LYING IN HIGH RIVAS'S POSITION WATCHING TV. O2 IN USE AT 2L, WITH BIPAP AT BEDSIDE. IV IN LEFT AC PATENT WITH NS INFUSING AT 75 ML / HR. MCCULLOUGH CATHETER DRAINING TO GRAVITY WITY YELLOW URINE IN COLLECTION BAG. WILL MONITOR CLOSEY FOR NEEDS.
--- NOTE | 2016-10-12 20:15 | NUR ---
GAVE HS SNACK OF SHERBET AND ORANGE JUICE.
--- NOTE | 2016-10-12 20:48 | NUR ---
HS MEDICATIONS GIVEN. FSBS 91 THIS CHECK REQUIRING NO COVERAGE PER SLIDING SCALE.
--- NOTE | 2016-10-12 22:10 | NUR ---
ASSISTED PT UP TO USE BSC FOR BM.
--- NOTE | 2016-10-12 23:14 | NUR ---
PT BLOOD PRESSURE ELEVATED THIS CHECK AND C/O PAIN AT LEVEL 9/10 - GENERALIZED. CONSULTED RT ABOUT GIVING PATIENT DILAUDID FOR PAIN....OK TO GIVE AND WILL MONITOR CLOSELY. SIDE RAILS UP X2 FOR SAFETY.
[2016-10-13] VITALS (7 sets, daily range): BP systolic 154–179; BP diastolic 54–103
--- NOTE | 2016-10-13 01:13 | NUR ---
PT RESTING QUIETLY AT THIS TIME...BLOOD PRESSURE REDUCED AND PAIN CONTROLLED. WILL CONTINUE TO MONITOR FOR NEEDS. CALL LIGHT WITHIN REACH.
--- NOTE | 2016-10-13 07:45 | NUR ---
PT ASSESSMENT COMPLETE AWAKE AND ALERT ORIENTED X 3 LUNGS CLAER BIALTERALLY HAS DRESSING NOTED TO RIGHT BREAST AREA WET TO DRY DRESSING NOTED. BSA X 4 QUADS NO TENDERNESS WITH PALPATION NOTED CALL LIGHT IN REACH SIDE RAILS UP X 2
--- NOTE | 2016-10-13 10:32 | NUR ---
LYING IN BED,WITHOUT DISTRESS.DOOR OPEN.CALL LIGHT IN REACH
[2016-10-13 11:43] LABS: BASOPHILS 0.2 % (0-2); EOSINOPHILS 1.2 % (0-7); HEMATOCRIT 31.4 % (36.0-48.0); HEMOGLOBIN 9.3 g/dL (12-16); IMMATURE GRANULOCYTES 0.5 % (0-5); LYMPHOCYTES 10.2 % (15-50); MCH 28.4 pg (26.0-34.0); MCHC 29.6 g/dL (31.0-37.0); MEAN PLATELET VOLUME 10.7 fL (7.4-10.4); MONOCYTES 7.3 % (2-11); NEUTROPHILS 80.6 % (40-80); PLATELET COUNT 296 10x3/uL (130-400); RBC 3.27 10x6/uL (4.00-5.40); RDW 14.2 % (11.5-14.5)
[2016-10-13 11:45] LABS: WBC 9.4 10x3/uL (4.8-10.8)
[2016-10-13 12:03] LABS: ANION GAP 9.3 mmol/L (8-16); CALCIUM 7.7 mg/dL (8.5-10.1); CARBON DIOXIDE 34.5 mmol/L (21.0-32.0); CREATININE - SERUM 1.5 mg/dL (0.6-1.3); POTASSIUM - SERUM 3.8 mmol/L (3.5-5.1); VANCOMYCIN - RANDOM 16.4 ug/mL (10.0-20.0)
--- NOTE | 2016-10-13 18:37 | NUR ---
PT SITTING UP IN BED WITH NO ACUTE DISTRESS NOTED DRESSING CHANGED PER DR CHAMBERS EARLIER THIS SHIFT.
--- NOTE | 2016-10-13 20:42 | NUR ---
PATIENT RESTING IN BED. ALERT AND ORIENTED. C/O PAIN 01/28. PRN DILAUDID GIVEN ORDERED. SCHEDULED MEDS GIVEN. SHIFT ASSESSMENT COMPLETED. DENIES ANY OTHER NEEDS AT THIS TIME. BED LOW CALL LIGHT IN REACH
[2016-10-14] VITALS: BP 182/84
[2016-10-14 04:00] VITALS: BP 166/83
[2016-10-14 08:20] VITALS: BP 192/86
--- NOTE | 2016-10-14 08:49 | NUR ---
PT ASSESSMENT COMLETE ON WALKING ROUNDS AWAKE AND ALERT ORINETD X 3 LUNGS CLAER BIALTERALLY HAS INCISIONS NOTED TO BILATERAL MASTECTOMY SITES. DRESSING NOTED TO LEFT BREAST MCCULLOUGH PATENT TO DARK YELLOW URINE PER GRAVITY FLOW.
[2016-10-14 11:53] VITALS: BP 161/59
--- NOTE | 2016-10-14 12:27 | NUR ---
PT HAS BEEN UP IN HALLWAY NO ACUTE DISTRESS NOTED AMBULATED WITH THERAPY.
--- NOTE | 2016-10-14 14:27 | NUR ---
AWAKE AND ALERT. OXYGEN ON 3L VIA NC. BI-PAP ON STANDBY, BUT NOT IN USE. IV PATENT WITH NO S/S OF INFILTRATION PRESENT. PT UP WITH ASSIST FOR AMBULATION.
[2016-10-14 15:56] VITALS: BP 180/91
--- NOTE | 2016-10-14 17:32 | NUR ---
PT COMPLAINS OF GENERALIZED NOT FEELING WELL STATES THAT SHE THINKS HER LEFT BREAST HAS SOME SWELLING AND STATES IT FEELS LIKE A BAND AROUND HER SIDE INTO HER BACK UPON ASSESSMENT PT NOTED TO HAVE SOME SWELLING TO LEFT SIDE OF BACK HOWEVER PT IS OBESE SO UNSURE OF ACTUAL SWELLING VERSUS ANATOMY.
[2016-10-14 20:00] VITALS: BP 182/84
--- NOTE | 2016-10-14 20:00 | NUR ---
REPORT RECEIVED AND CARE ASSUMED. ASSESSMENT COMPLETED, SEE FLOW SHEET FOR FINDINGS. LYING IN BED RESTING QUIETLY. NO DISTRESS AT THIS TIME. RIGHT CHEST WALL DRESSING C/D/I. MCCULLOUGH PATENT WITH NONI COLOR URINE. CALL LIGHT IN REACH. WILL CONTINUE WITH PLAN OF CARE.
--- NOTE | 2016-10-14 23:52 | NUR ---
DILAUDID 1 MG IVP SLOWLY IN RIGHT AC FOR LEFT SIDE CHEST PAIN AT LEVEL #9.
[2016-10-15] VITALS: BP 115/49; BP 154/76
--- NOTE | 2016-10-15 01:14 | NUR ---
TELEMETRY = SINUS TACHYCARDIA RATE 103 RESTING WITH EYES CLOSED.
[2016-10-15 04:00] VITALS: BP 148/79
[2016-10-15 06:14] LABS: BASOPHILS 0.2 % (0-2); EOSINOPHILS 6.5 % (0-7); HEMATOCRIT 31.5 % (36.0-48.0); HEMOGLOBIN 9.5 g/dL (12-16); IMMATURE GRANULOCYTES 0.5 % (0-5); LYMPHOCYTES 19.2 % (15-50); MCH 28.7 pg (26.0-34.0); MCHC 30.2 g/dL (31.0-37.0); MCV 95.2 fL (80.0-100.0); MEAN PLATELET VOLUME 10.1 fL (7.4-10.4); MONOCYTES 9.5 % (2-11); NEUTROPHILS 64.1 % (40-80); PLATELET COUNT 282 10x3/uL (130-400); RBC 3.31 10x6/uL (4.00-5.40); RDW 14.6 % (11.5-14.5); WBC 8.4 10x3/uL (4.8-10.8)
[2016-10-15 06:24] LABS: ANION GAP 9.2 mmol/L (8-16); CALCIUM 7.8 mg/dL (8.5-10.1); CARBON DIOXIDE 31.5 mmol/L (21.0-32.0); CREATININE - SERUM 0.9 mg/dL (0.6-1.3); MAGNESIUM - SERUM 1.8 mg/dL (1.8-2.4); POTASSIUM - SERUM 3.7 mmol/L (3.5-5.1)
--- NOTE | 2016-10-15 07:20 | NUR ---
PATIENT RECEIVED IN LOW RIVAS POSITION RESTING WITH EYES CLOSED. RESPIRATIONS EVEN AND UNLABORED. SIDE RAILS UP X2. BED IN LOW POSITION. CALL LIGHT IN REACH.
[2016-10-15 08:23] VITALS: BP 166/77
--- NOTE | 2016-10-15 09:23 | NUR ---
ALERT IN BED EATING BREAKFAST. TOLERATING WELL. SCHEDULED MEDICATION ADMINISTERED. DENIES NEEDS. SIDE RAILS UP X2. BED IN LOW POSITION. CALL LIGHT IN REACH.
--- NOTE | 2016-10-15 11:10 | NUR ---
ALERT IN BED WITH FAMILY PRESENT. NO SIGNS OF DITSRESS NOTED. ACCU CHECK 143. NO INSULIN PER SLIDING SCALE. SIDE RAILS UP X2. BED IN LOW POSITION. CALL LIGHT IN REACH.
[2016-10-15 12:42] VITALS: BP 167/82
--- NOTE | 2016-10-15 13:50 | NUR ---
SITTING UP ON SIDE OF BED ALERT AFTER AMBULATING IN HALLWAY WITH PT. NO SIGNS OF DISTRESS NOTED. FAMILY AT BEDSIDE. CALL LIGHT IN REACH.
--- NOTE | 2016-10-15 14:50 | NUR ---
DRESSING TO RIGHT BREAST CHANGED PER ORDERS. WOUND BED BEEFY RED. NO DRAINAGE OR ODOR NOTED. SITE REPACKED WITH SALINE MOISTENED KERLEX, COVERED WITH 4X4, ABD PAD AND SECURED WITH TAPE. WELL TOLERATED.
--- NOTE | 2016-10-15 16:25 | NUR ---
ALERT IN BED. NO SIGNS OF DISTRESS NOTED. ACCU CHECK 144. IV ABX INITIATED PER ORDER. SIDE RAILS UP X2. BED IN LOW POSITION. CALL LIGHT IN REACH.
[2016-10-15 17:04] VITALS: BP 178/84
--- NOTE | 2016-10-15 17:40 | NUR ---
PATIENT ALERT IN BED EATING DINNER. TOLERATING WELL. SIDE RAILS UP X2. BED IN LOW POSITION. CLAL LIGHT IN REACH.
--- NOTE | 2016-10-15 21:55 | NUR ---
REC'D PATIENT DOING A BREATHING TREATMENT. ALERT AND ORIENTED X4. STATED PAIN WAS "8/10" IS WANTING SOMETHING FOR PAIN, WILL ADMINISTER PM MEDS PRESCRIBED. DENIED FURTHER NEEDS AT THIS TIME. INSTRUCTED TO CALL IF NEEDED ANYTHING. BED LOW, LOCKED, CALL LIGHT IN REACH. AT BEDSIDE.
[2016-10-15 23:24] VITALS: BP 155/77
[2016-10-16 04:00] VITALS: BP 145/77
--- NOTE | 2016-10-16 04:50 | NUR ---
PATIENT RESTING WITH EYES CLOSED. NO VISIBLE SIGNS OF DISTRESS. BED IN LOWEST POSITION AND CALL LIGHT WITHIN REACH.
--- NOTE | 2016-10-16 06:32 | NUR ---
PATIENT IS ASLEEP. NO DISTRESS NOTED. ADMIN AM MEDS PRESCRIBED. WILL CONT TO MONITOR AND REPORT OFF IN THE AM.
[2016-10-16 07:05] LABS: CALCIUM 8.6 mg/dL (8.5-10.1); CARBON DIOXIDE 32.9 mmol/L (21.0-32.0); POTASSIUM - SERUM 3.9 mmol/L (3.5-5.1)
--- NOTE | 2016-10-16 07:20 | NUR ---
PATIENT IS RESTING IN THE BED. PATIENT IS AWAKE, ALERT, AND ORIENTED X4. NO COMPLAINTS OF PAIN AT PRESENT TIME. PATIENT IS CURRENTLY RECEIVING A BREATHING TREATMENT PER RT. FAMILY AT HER BEDSIDE. PATIENT DENIES ANY NEEDS AT PRESENT TIME. CALL LIGHT IN PATIENT'S REACH. WILL MONITOR PATIENT.
[2016-10-16 08:24] VITALS: BP 198/106
[2016-10-16 11:20] VITALS: BP 132/60
[2016-10-16 16:12] VITALS: BP 153/77
[2016-10-16 19:00] VITALS: BP 136/63
--- NOTE | 2016-10-16 20:53 | NUR ---
REC'D PATIENT LYING IN BED. ALERT AND ORIENTED X4. REPORTED PAIN 8/10 AND IS WANTING SOME PAIN MEDICATION. WILL ADMINSITER PM MEDS PRESCRIBED. DENIED FURTHER NEEDS AT THIS TIME. INSTRUCTED TO CALL IF NEEDED ANYTHING. VERBALIZED UNDERSTANDING. NO DISTRESS NOTED. BED LOW, LOCKED, CALL LIGHT IN REACH.
[2016-10-17] VITALS: BP 153/75
[2016-10-17 04:00] VITALS: BP 171/92
--- NOTE | 2016-10-17 05:01 | NUR ---
EYES CLOSED RESPIRATIONS WITH EASE AND UNLABORED.
[2016-10-17 05:50] LABS: BASOPHILS 0.4 % (0-2); HEMATOCRIT 30.9 % (36.0-48.0); HEMOGLOBIN 9.3 g/dL (12-16); IMMATURE GRANULOCYTES 1.8 % (0-5); LYMPHOCYTES 16.5 % (15-50); MCH 28.6 pg (26.0-34.0); MCHC 30.1 g/dL (31.0-37.0); MCV 95.1 fL (80.0-100.0); MEAN PLATELET VOLUME 10.2 fL (7.4-10.4); MONOCYTES 6.8 % (2-11); NEUTROPHILS 68.5 % (40-80); PLATELET COUNT 320 10x3/uL (130-400); RBC 3.25 10x6/uL (4.00-5.40)
[2016-10-17 05:53] LABS: WBC 10.8 10x3/uL (4.8-10.8)
[2016-10-17 06:16] LABS: ALBUMIN 2.2 g/dL (3.4-5.0); ANION GAP 5.5 mmol/L (8-16); BILIRUBIN - TOTAL 0.3 mg/dL (0.2-1.3); CALCIUM 8.7 mg/dL (8.5-10.1); CARBON DIOXIDE 34.4 mmol/L (21.0-32.0); CREATININE - SERUM 0.9 mg/dL (0.6-1.3); MAGNESIUM - SERUM 1.8 mg/dL (1.8-2.4); PHOSPHOROUS 3.8 mg/dL (2.5-4.9); POTASSIUM - SERUM 3.9 mmol/L (3.5-5.1); PROTEIN - SERUM 6.2 g/dL (6.4-8.2)
--- NOTE | 2016-10-17 08:29 | NUR ---
PT ASSESSMENT COMPLETE AWAKE AND ALERT ORIENTED X 3 LUNGS WITH DIMINISHED BASES BILAT DRESSING NOTED TO RIGHT BREAST CDI. DENIES PAIN AT THIS TIME. WILL MONITOR SEE FLOWSHEET FOR COMPLETE ASSESSMENT
[2016-10-17 08:32] VITALS: BP 114/94
[2016-10-17 12:51] VITALS: BP 149/75
--- NOTE | 2016-10-17 14:21 | NUR ---
CM note: CM met with patient about home health. Explained to patient that Dr Brunner ordered HH for dressing changes. Pt ra REAVES with [facility]. Will send information to [facility] . CM will continue to follow and assist as needed Ambar Hernandez RN
--- NOTE | 2016-10-17 14:42 | NUR ---
CM NOTE: PT IS DISCHARGING TODAY, FAMILY TO DRIVE HOME. HOME HEALTH ORDERS RECEIVED & REFERRAL SENT TO [facility] , SPOKE TO MARCI. MARCI STATED THAT THE EARLIEST THEY CAN SEE PATIENT WILL BE SUNDAY, DR CHAMBERS NOTIFIED AND STATED THAT WAS OK. BLAYNE ARCHER RN
[2016-10-17] MEDS ORDERED: AUGMENTIN 875-11 TAB PO (14:44)
[2016-10-17] MEDS ORDERED: MEDROL DOSE PACK4 MG PO (14:45)
--- NOTE | 2016-10-17 16:14 | NUR ---
PT WITH DISCHARGE ORDERS TO DISCHARGE TO HOME WITH [facility]. DRESSING CHANGED PER ORDER. CATHETER DISCONTINUED 800 ML IN DRAIN BAG. PIV DISCONTINUED PER ORDER.
--- NOTE | 2016-10-17 16:53 | NUR ---
PT DISCHARGED TO HOME WITH SON AT THIS TIME VIA WHEELCHAIR HOME O2 AT 3LPM PER NASAL CANULA
--- NOTE | 2016-10-18 13:05 | NUR ---
RAMY note: Received a phone call from Cherie from [employer] tell me that the patients insurance does not cover Home Health. Pt opted out of this and does not have coverage. Dr Brunner's office notified and I spoke with Saad. Saad stated that she would let the patient know that the patient would need to come to the office and learn how to do the dressing changes. I also spoke with Dr Brunner to make him aware and he said that Saad was taking care of it. Ambar ARCHER RN
[2016-10-18 16:13] LABS: AEROBE ID Preliminary report (())
== END 2016-10-17 16:54 | disposition home or self-care (01) | DRG 871 ==
LOC: D.ER 06:18 → D.MS 11:25 → D.ICU 11:25 → D.MS 10-12 17:20
PROVIDERS: Family Medicine; Internal Medicine; Internal Medicine Pulmonary Disease; ADMIT Surgery
PROC: 3E10X8Z Irrigation of Skin and Mucous Membranes using Irrigating Substance (ICD-10-PCS; principal; 2016-10-10)
DX: A41.9 Sepsis, unspecified organism (principal); R65.21 Severe sepsis with septic shock; J96.22 Acute and chronic respiratory failure with hypercapnia; J96.21 Acute and chronic respiratory failure with hypoxia; N17.0 Acute kidney failure with tubular necrosis; E87.4 Mixed disorder of acid-base balance; J98.11 Atelectasis; J44.1 Chronic obstructive pulmonary disease with (acute) exacerbation; T81.31XA Disruption of external operation (surgical) wound, not elsewhere classified, initial encounter; Z68.42 Body mass index [BMI] 45.0-49.9, adult; I50.20 Unspecified systolic (congestive) heart failure; I11.0 Hypertensive heart disease with heart failure; G47.33 Obstructive sleep apnea (adult) (pediatric); F51.9 Sleep disorder not due to a substance or known physiological condition, unspecified; I08.1 Rheumatic disorders of both mitral and tricuspid valves; E87.5 Hyperkalemia; E83.42 Hypomagnesemia; I25.10 Atherosclerotic heart disease of native coronary artery without angina pectoris; E11.9 Type 2 diabetes mellitus without complications; Z99.81 Dependence on supplemental oxygen; E66.01 Morbid (severe) obesity due to excess calories; Z90.13 Acquired absence of bilateral breasts and nipples

== ENCOUNTER 2016-10-22 20:12 | Inpatient (IN) | payer OTHER ==
[~2016-10-22] VITALS: Ht 149.9 cm; Wt 104.6 kg
[~2016-10-22 20:12] MED LIST changes: +AUGMENTIN 875-11 TAB PO; +MEDROL DOSE PACK4 MG PO
[2016-10-22 22:30] LABS: BASOPHILS 0.2 % (0-2); EOSINOPHILS 2.9 % (0-7); HEMATOCRIT 34.8 % (36.0-48.0); LYMPHOCYTES 14.6 % (15-50); MCHC 31.6 g/dL (31.0-37.0); MCV 91.8 fL (80.0-100.0); MEAN PLATELET VOLUME 10.4 fL (7.4-10.4); MONOCYTES 11.6 % (2-11); NEUTROPHILS 69.7 % (40-80); PLATELET COUNT 360 10x3/uL (130-400); RBC 3.79 10x6/uL (4.00-5.40); RDW 15.4 % (11.5-14.5)
[2016-10-22 22:42] LABS: ALBUMIN 3.2 g/dL (3.4-5.0); ANION GAP 12.8 mmol/L (8-16); BILIRUBIN - TOTAL 0.57 mg/dL (0.2-1.3); CALCIUM 9.7 mg/dL (8.5-10.1); CARBON DIOXIDE 27.7 mmol/L (21.0-32.0); POTASSIUM - SERUM 4.5 mmol/L (3.5-5.1); PROTEIN - SERUM 7.9 g/dL (6.4-8.2)
[2016-10-22] MEDS ORDERED: VOLTAREN100 GM TOPICAL (22:42)
[2016-10-22 22:55] VITALS: BP 166/78
--- NOTE | 2016-10-23 00:52 | NUR ---
PATIENT RECIEVED FROM ER VIA WHEELCHAIR. LEAD INGOT MOLDER AND SPOUSE IN TOWE. 20G PIV TO LEFT AC INFILTRATED UPON RECIEVING PATIENT ON FLOOR WITH VANCOMYCIN INFUSING CONTROLLED BY THE CLAMP CLOSED HALF WAY. PALPATATION OF THE REDDENED AREA ABOVE THE IV INSERTION SITE HAD A SOFT/HARDENED SPOT 2 INCHES TALL AND 4 INCHES WIDE. NEW PIV STARTED IN LEFT WRIST AFTER 2 FAILED ATTEMPS IN RIGHT ARM. PATIENT DID REPORT THAT SHE MIGHT HAVE HAD 1 LYMPHNODE REMOVED FROM HER LEFT ARM AFTERWARDS. RIGHT BREAST DRESSING WAS REMOVED AND INSPECTED. INFECTED INCISION IS ABOUT 10 INCHES WIDE AND 3 TO 6 INCHES DEEP IN THE AREA TOWARDS THE AUXILLARY BEING THE DEEPEST. ESCHAR NOTED TOWARDS THE OUTER ASPECT OF THE BREAST WITH MODERATE ABOUT OF PURLENT DISCHARGE AND LARGE WHITE PATCHES. WOUND WAS FLUSHED WITH NORMAL SALINE AND WAS PACKED WITH 1 LARGE ROLL OF KERLEX AND COVERED WITH TAPE.
[2016-10-23 04:00] VITALS: BP 119/51
[2016-10-23 05:49] LABS: BASOPHILS 0.2 % (0-2); EOSINOPHILS 2.2 % (0-7); HEMATOCRIT 31.8 % (36.0-48.0); HEMOGLOBIN 9.6 g/dL (12-16); IMMATURE GRANULOCYTES 0.8 % (0-5); LYMPHOCYTES 11.7 % (15-50); MCH 28.2 pg (26.0-34.0); MCHC 30.2 g/dL (31.0-37.0); MCV 93.3 fL (80.0-100.0); MEAN PLATELET VOLUME 10.2 fL (7.4-10.4); MONOCYTES 10.7 % (2-11); NEUTROPHILS 74.4 % (40-80); PLATELET COUNT 346 10x3/uL (130-400); RBC 3.41 10x6/uL (4.00-5.40); RDW 15.5 % (11.5-14.5)
[2016-10-23 05:57] LABS: WBC 10.5 10x3/uL (4.8-10.8)
[2016-10-23 06:17] LABS: ALBUMIN 2.7 g/dL (3.4-5.0); ANION GAP 8.8 mmol/L (8-16); BILIRUBIN - TOTAL 0.37 mg/dL (0.2-1.3); CALCIUM 8.7 mg/dL (8.5-10.1); CARBON DIOXIDE 30.2 mmol/L (21.0-32.0); CREATININE - SERUM 1.2 mg/dL (0.6-1.3); PROTEIN - SERUM 6.8 g/dL (6.4-8.2)
--- NOTE | 2016-10-23 07:30 | NUR ---
A&O, DENIES NEEDS, BED LOWEST POSITION, CALL LIGHT IN REACH, WILL CONTINUE TO MONITOR
[2016-10-23 07:51] VITALS: BP 157/61
--- NOTE | 2016-10-23 08:55 | NUR ---
SITTING UP ON SIDE OF BED ALERT. NO SIGNS OF DISTRESS NOTED. BED IN LOW POSITION. CALL LIGHT IN REACH.
[2016-10-23 11:56] VITALS: BP 168/73
[2016-10-23 12:58] VITALS: Ht 149.9 cm; Wt 104.6 kg
--- NOTE | 2016-10-23 14:59 | NUR ---
Patient Name: ANNY HERRERA Admission Status: ER Accout number: [id number] Admission Date: 10-22-2016 : 1960 Admission Diagnosis: Attending: TAN Current LOS: 1 Anticipated DC Date: 10-26-2016 Planned Disposition: Home Primary Insurance: [facility] PPO Discharge Planning Comments: CM MET WITH PATIENT REGARDING D/C NEEDS AND PLANS. PATIENT STATED SHE LIVES WITH HER SPOUSE (ALMA) AND HE WILL DRIVE HER HOME AT DISCHARGE. PATIENT STATED SHE HAS A RAMP TO ENTER HER HOME AND NO STAIRS ONCE INSIDE. PATIENT IS INDEPENDENT WITH HER CARE AND HAS A WALKER, SHOWER CHAIR, OXYGEN (3L), NEBULIZER, PORTABLE O2, AND GLUCOMETER AT HOME. PATIENT STATED SHE DOES NOT CHECK HER SUGARS. PATIENTS PCP IS DR. ADAMS AND PHARMACY IS [facility] IN [place]. PCP DR. ANGIE JUNIOR IN [place]- [phone] ALMA (SPOUSE) [phone] Sales Team Leader: Josy Shannon Is the patient Alert and Oriented? Yes 0 * How many steps to enter\exit or inside your home? RAMP 0 * PCP ANGIE 0 * Pharmacy [facility] IN [place] 0 * Preadmission Environment Home with Family 0 * ADLs Independent 0 * Equipment Glucometer Nebulizer Oxygen Shower Chair Walker 0 * Other Equipment PORTABLE O2 ([employer] SUPPLIER OF O2) 0 * List name and contact numbers for known caregivers / representatives who currently or will assist patient after discharge: ALMA (SPOUSE) [phone] 0 * Community resources currently utilized None 0 * Additional services required to return to the preadmission environment? Yes 0 * Can the patient safely return to the preadmission environment? Yes 0 * Has this patient been hospitalized within the prior 30 days at any hospital? Yes 0 Grand Total: 0
[2016-10-23 16:13] VITALS: BP 137/67
[2016-10-23 18:00] VITALS: BP 134/54
--- NOTE | 2016-10-23 22:56 | NUR ---
REC'D PATIENT SITTING UP ON SIDE OF BED. ALERT AND ORIENTED X4. NO DISTRESS NOTED. DENIED PAIN AT THIS TIME. DENIED FURTHER NEEDS AT THIS TIME. INSTRUCTED TO CALL IF NEEDED ANYTHING. VERBLAIZED UNDERSTANDING. WILL ADMIN PM MEDS PRESCRIBED. BED LOW, LOCKED, CALL LIGHT IN REACH.
--- NOTE | 2016-10-23 23:00 | NUR ---
CHANGED WET TO DRY DRESSING ON RIGHT BREAST. NO BLEEDING OCCURED WHEN TAKING OF THE OLD DRESSING. PATIENT TOLERATED WELL. ADMIN PAIN MED. PATIENT STATED HER PAIN WAS 8/10. WILL REASSES. BED LOW, LOCKED CALL LIGHT IN REACH.
[2016-10-24 04:00] VITALS: BP 173/93
[2016-10-24 05:43] LABS: BASOPHILS 0.3 % (0-2); EOSINOPHILS 3.8 % (0-7); HEMATOCRIT 33.5 % (36.0-48.0); HEMOGLOBIN 10.1 g/dL (12-16); IMMATURE GRANULOCYTES 0.5 % (0-5); LYMPHOCYTES 11.9 % (15-50); MCH 28.6 pg (26.0-34.0); MCHC 30.1 g/dL (31.0-37.0); MCV 94.9 fL (80.0-100.0); MEAN PLATELET VOLUME 10.3 fL (7.4-10.4); MONOCYTES 11.8 % (2-11); NEUTROPHILS 71.7 % (40-80); PLATELET COUNT 308 10x3/uL (130-400); RBC 3.53 10x6/uL (4.00-5.40); RDW 16.1 % (11.5-14.5); WBC 8.7 10x3/uL (4.8-10.8)
[2016-10-24 06:33] LABS: ALBUMIN 2.8 g/dL (3.4-5.0); ANION GAP 14.4 mmol/L (8-16); BILIRUBIN - TOTAL 0.27 mg/dL (0.2-1.3); CALCIUM 8.4 mg/dL (8.5-10.1); CARBON DIOXIDE 26.6 mmol/L (21.0-32.0); PROTEIN - SERUM 6.6 g/dL (6.4-8.2)
--- NOTE | 2016-10-24 07:40 | NUR ---
ASSESSMENT PER FLOW SHEET.PT WITHOUT DISTRESS.DRESSING TO RIGHT BREAST CDI.INCISION LEFT BREAST HEALING WITHOUT DRAINAGE.REDNESS NOTED TO BUTTOCK.CALL LIGHT IN REACH
[2016-10-24 08:18] VITALS: BP 139/77
--- NOTE | 2016-10-24 10:00 | NUR ---
PT VERY SLEEPY TODAY.GAIT HAS BECOME UNSTEADY.PT IS WEAK.FALL PREVENTION INITIATED WITH BED ALARM,BAND,SOCKS.DOOR OPEN
[2016-10-24 11:47] VITALS: BP 160/74
--- NOTE | 2016-10-24 12:23 | NUR ---
PT SILL VERY SEDATED.DOES RESPOND TO STERNAL RUB,BUT THEN STATES TIRED AND GOES BACK TO SLEEP.ALSO STATES SHE DID NOT SLEEP LAST NIGHT.
--- NOTE | 2016-10-24 12:26 | NUR ---
AKIN PINA APN HAS BEEN IN PT ROOM TO SEE PT ALSO.LI RECIEVED AND INITIATED
--- NOTE | 2016-10-24 14:15 | NUR ---
AWAKE AND UP TO CHAIR.HAS EATEN SOME LUNCH.WITHOUT DISTRESS
--- NOTE | 2016-10-24 15:17 | NUR ---
DRESSING CHANGE TO RIGHT BREAST ORDERED.MINIMAL STRAW AND PINK TINTED DRAINAGE NOTED ON PACKING.MINIMAL SLOUGHING OF TISSUE ON OUTER BREAST SEGMENT.MIDDLE AND INNER SEGMENT PINK IN COLOR.SITE WITHOUT BLEEDING AND ODOR.TOLERATED WELL
[2016-10-24 15:40] VITALS: BP 126/51
--- NOTE | 2016-10-24 19:12 | NUR ---
REMAINS WITHOUT NEEDS,WITHOUT DISTRESS.CONT PLAN OF CARE
--- NOTE | 2016-10-24 20:23 | NUR ---
CORRECTION TO IV SITE. LEFT WRIST IV INFILTRATION
--- NOTE | 2016-10-24 20:23 | NUR ---
AWAKE,COMPLAINTS OF PAIN TO RIGHT BREAST. NORCO GIVEN FOR PAIN RELIEF. IV TO RIGHT HAND INFILTRATED. DC'D. AT BEDSIDE.
--- NOTE | 2016-10-24 22:15 | NUR ---
NURSING DIRECTOR WRITING CALLED TO ROOM PER NORA. PATIENT CONTINUES TO COMPLAIN OF PAIN AND ASK IF IV CAN STAY OUT BECAUSE SHE IS A HARD STICK,AND ABTIBIOTICS BE GIVEN PO?. CALL PLACED TO SAW MAKER WITH ORDERS RECIEVED TO RESTART HOME MED NORCO AND TO LEAVE IV OUT UNTIL MAKES ROUNDS IN AM.
[2016-10-25 00:04] VITALS: BP 137/62
--- NOTE | 2016-10-25 01:21 | NUR ---
RESTING QUIETYL NO DISTRESS NOTED. CL IN REACH.
--- NOTE | 2016-10-25 02:00 | NUR ---
PT IN BED WITH NO DISTRESS. RESPIRATIONS EVEN AND UNLABORED. SIDE RAILS X 2. BED LOW. CALL LIGHT IN REACH.
[2016-10-25 04:00] VITALS: BP 112/39
[2016-10-25 05:17] LABS: BASOPHILS 0.1 % (0-2); HEMATOCRIT 30.7 % (36.0-48.0); HEMOGLOBIN 9.2 g/dL (12-16); IMMATURE GRANULOCYTES 0.4 % (0-5); LYMPHOCYTES 22.6 % (15-50); MCH 28.7 pg (26.0-34.0); MCV 95.6 fL (80.0-100.0); MEAN PLATELET VOLUME 10.1 fL (7.4-10.4); MONOCYTES 12.8 % (2-11); NEUTROPHILS 59.1 % (40-80); PLATELET COUNT 289 10x3/uL (130-400); RBC 3.21 10x6/uL (4.00-5.40); RDW 15.9 % (11.5-14.5)
[2016-10-25 05:47] LABS: ALBUMIN 2.5 g/dL (3.4-5.0); ANION GAP 10.3 mmol/L (8-16); BILIRUBIN - TOTAL 0.23 mg/dL (0.2-1.3); CALCIUM 8.2 mg/dL (8.5-10.1); CARBON DIOXIDE 27.7 mmol/L (21.0-32.0); CREATININE - SERUM 1.2 mg/dL (0.6-1.3); PROTEIN - SERUM 6.5 g/dL (6.4-8.2)
--- NOTE | 2016-10-25 06:13 | NUR ---
AWAKE WIHT NO COMPLIANTS VOICED. CL IN REACH
--- NOTE | 2016-10-25 07:20 | NUR ---
REPORT RECEIVED FROM WASTE CHOPPER NURSE. KIM LIGHT IN REACH.
[2016-10-25 07:49] VITALS: BP 105/56
--- NOTE | 2016-10-25 08:57 | NUR ---
ASSEESSMENT COMPLETED. NORCO PO PER PATIENT REQUEST WITH AM MEDS. SCDs APPLIED TO BLE. DRSG TO RIGHT BREAST CHANGED PER MD ORDER AND PATIENT REQUEST. ONE PAIN PILL WAS DROPPED BY PATIENT SO SHE HAD TO GET ANOTHER ONE. STATES "I KEEP DROPPING THINGS". ALSO REQUESTING HER GAPAPENTIN. WILL SPEAK WITH DR. LANCASTER OR CONSTANCE. CALL LIGHT IN REACH. WILL CONTINUE WITH PLAN OF CARE.
--- NOTE | 2016-10-25 10:20 | NUR ---
FAMILY IN ROOM. NO NEEDS VOICED AT THIS TIME. STATES PAIN IS DOWN TO A 6. ALSO REQUESTING ROOM TO GET CLEANED. HOUSEKEEPING IN ROOM AT THIS TIME.
--- NOTE | 2016-10-25 11:54 | NUR ---
ROSAS PO. FSBS 141 SO NO COVERAGE REQUIRED. FAMILY IN ROOM. CALL LIGHT IN REACH.
[2016-10-25 12:19] VITALS: BP 107/41
[2016-10-25] MEDS ORDERED: FLORAJEN3 CAPS460 MG PO (12:51)
--- NOTE | 2016-10-25 12:53 | NUR ---
RAMY SPOKE WITH ROJELIO AT [facility] REGARDING PATIENTS D/C PLANS. HOME HEALTH WAS AN ISSUE AT LAST VISIT. ROJELIO STATED FOR HOME HEALTH TO TRY RE-AUTH HER FOR CARE WHEN DISCHARGED. [facility] HAD TRIED LAST VISIT AND WILL TRY AGAIN THIS VISIT.
--- NOTE | 2016-10-25 13:25 | NUR ---
NO NEEDS VOICED AT THIS TIME. CALL LIGHT IN REACH.
--- NOTE | 2016-10-25 15:20 | NUR ---
DENIES PAIN OR DISTRESS AT THIS TIME. FAMILY IN ROOM. CALL LIGHT IN REACH.
--- NOTE | 2016-10-25 15:20 | NUR ---
NO NEEDS VOICED AT THIS TIME. CALL LIGHT IN REACH.
[2016-10-25 15:35] VITALS: BP 128/71
--- NOTE | 2016-10-25 16:19 | NUR ---
CM REASSESSMENT NOTE: PHONE CALL FROM [facility] STATING PATIENT COULD HAVE 10 HH VISITS BUT HAS NOT BEEN APPROVED. CM EXPLAINED PATIENT WAS DISCHARGING TODAY AND TO CALL DR. RAMIREZ OFFICE IF APPROVAL COMES IN TO SEE WHAT HE WOULD WANT TO DO ABOUT VISITS SINCE THERE WOULD ONLY BE 10. DR. RAMIREZ OFFICE IS CHANGING DRESSINGS 3X A WEEK AND SPOUSE THE OTHER DAYS
--- NOTE | 2016-10-25 16:27 | NUR ---
DC INSTRUCTIONS EXPLAINED TO PATIENT AND FAMILY. SUPPLIES SENT HOME FOR DRSG CARE FOR MULTIPLE DAYS. WAITING ON RIDE HOME.
--- NOTE | 2016-10-25 16:30 | NUR ---
PATIENT IS SITTING UP ON THE SIDE OF THE BED. PATIENT IS RECIEVING OXYGEN VIA NASAL CANNULA AT 3L/MIN. FAMILY AT BEDSIDE.
--- NOTE | 2016-10-25 17:14 | NUR ---
DC'D TO VEHICLE VIA WC WITH FAMILY.
== END 2016-10-25 17:14 | disposition home health service (06) | DRG 949 ==
LOC: D.ER 20:12 → D.MS 21:36
PROVIDERS: Family Medicine; Nurse Practitioner Family; ADMIT Family Medicine
DX: T81.4XXD Infection following a procedure, subsequent encounter (principal); N17.9 Acute kidney failure, unspecified; T81.32XD Disruption of internal operation (surgical) wound, not elsewhere classified, subsequent encounter; G62.9 Polyneuropathy, unspecified; E11.9 Type 2 diabetes mellitus without complications; I25.10 Atherosclerotic heart disease of native coronary artery without angina pectoris; I50.9 Heart failure, unspecified; J44.9 Chronic obstructive pulmonary disease, unspecified

== ENCOUNTER 2016-11-10 05:21 | Inpatient (IN) | payer OTHER ==
[2016-11-10] VITALS (9 sets, daily range): BP systolic 93–129; BP diastolic 42–81; BMI 45.1; BMI 44.3
[~2016-11-10] VITALS: Ht 149.9 cm; Wt 99.3 kg
[~2016-11-10 05:21] MED LIST changes: +FLORAJEN3 CAPS460 MG PO; +VOLTAREN100 GM TOPICAL
[2016-11-10 06:05] LABS: BASOPHILS 0.2 % (0-2); HEMATOCRIT 35.6 % (36.0-48.0); HEMOGLOBIN 10.8 g/dL (12-16); IMMATURE GRANULOCYTES 1.3 % (0-5); LYMPHOCYTES 17.4 % (15-50); MCH 28.2 pg (26.0-34.0); MCHC 30.3 g/dL (31.0-37.0); MEAN PLATELET VOLUME 10.1 fL (7.4-10.4); MONOCYTES 9.5 % (2-11); NEUTROPHILS 67.6 % (40-80); RBC 3.83 10x6/uL (4.00-5.40); RDW 16.3 % (11.5-14.5); WBC 14.3 10x3/uL (4.8-10.8)
[2016-11-10 06:13] LABS: PLATELET COUNT 352 10x3/uL (130-400)
[2016-11-10 06:15] LABS: ANION GAP 16.9 mmol/L (8-16); CARBON DIOXIDE 27.7 mmol/L (21.0-32.0); CREATININE - SERUM 2.8 mg/dL (0.6-1.3); POTASSIUM - SERUM 4.6 mmol/L (3.5-5.1)
[2016-11-10 06:17] LABS: INR 0.97 (0.85-1.17); PROTIME 12.7 SECONDS (11.6-15.0)
[2016-11-10 06:18] LABS: APTT 28.7 SECONDS (22.8-39.4)
--- NOTE | 2016-11-10 09:34 | NUR ---
CONSULTED DR MOBLEY REGARDING LOW BLOOD PRESSURE. NO CONCERNS AT THIS TIME. NO FURTHER ORDERS AT THIS TIME. WILL CONTINUE TO MONITOR. INCREASED IV FLOW RATE TO KVO. PT ASYMTOMATIC. ALERT X4. PT STATES SHE DID TAKE ALL OF HER BLOOD PRESSURE MEDICINES THIS MORNING BEFORE SURGERY.
--- NOTE | 2016-11-10 13:12 | OP ---
PATIENT NAME: ANNY HERRERA MEDICAL RECORD: [id number] :[birth year] LOCATION:D.[id number] ADMISSION DATE: SURGEON: CHARLI CHAMBERS MD DATE OF OPERATION: 11/10/2016 PREOPERATIVE DIAGNOSES: 1. Open right breast wound. 2. Breast cancer. 3. Chronic obstructive pulmonary disease. 4. Congestive heart failure. 5. Hypertension. POSTOPERATIVE DIAGNOSES: 1. Open right breast wound. 2. Breast cancer. 3. Chronic obstructive pulmonary disease. 4. Congestive heart failure. 5. Hypertension. PROCEDURE: Revision and debridement of right chest wound. SURGEON: Charli Chambers MD REPORT OF PROCEDURE: The patient's right chest was prepped and draped in sterile fashion. There was an opening in the previous mastectomy incision, totalling 30 cm in length. This incision tract into the subcutaneous space overlying the pectoral fascia, there was some necrotic tissue present on the most medial aspect and this was debrided with sharp excisional debridement. There was no sign of any purulence or abscess present. There was no sign of any infection visible. The wound edges were firm with granulation tissue and the skin edges were rolled over. We excised the skin edges and took out a lot of the excess granulation tissue in order to allow more aesthetically appealing closure. Once these were done, then we elevated the superior flap because this had adhered to the chest wall incorrectly causing some dimpling of the tissue. Once this flap was elevated then we treated any bleeding that was noted with electrocautery. We then irrigated out the wound bed with peroxide and saline solution. A 19-Wolof Matt drain was then inserted into the subcutaneous space and the subcutaneous tissues were reapproximated with interrupted 3-0 Vicryls. The skin was closed with suha and dressed appropriately. The drain was sutured into place with 3-0 nylon. COMPLICATIONS: None. CONDITION: Stable. ANESTHESIA: General endotracheal. BLOOD LOSS: 100 mL. TRANSINT:[id number] Voice Confirmation ID: [id number] DOCUMENT ID: [id number] OPERATIVE REPORT [id number] JAVIERKIRSTENANNYCHARLI MCDONALD MD at 1312 CC: ALMA ADAMS MD [id number] DICTATION DATE: 11/10/16 0904 RECEPTIONIST: 11/10/16 1109 [facility] [address] [place] [address]
--- NOTE | 2016-11-10 16:49 | NUR ---
IV KEPT BEEPING OCCULDED IN RIGHT HAND. STARTED IV TO RIGHT UPPER ARM X'S 2 ATTEMPTS. 22G, PATIENT TOLERATED WELL. D/C IV WITH CATHETER INTACT FROM RIGHT HAND.
[2016-11-11] VITALS (63 sets, daily range): BP systolic 81–135; BP diastolic 43–88
--- NOTE | 2016-11-11 07:30 | NUR ---
WALKING ROUNDS THIS AM.PT ONLY AWAKENS BRIEFLY,100.7,91,16,97 ON 2 LITERS PER NASAL CANULA,BP 64/37.RAPID RESPONCE CALLED,SEE SHEET.
--- NOTE | 2016-11-11 07:32 | NUR ---
ARRIVED AT THIS TIME FROM RR CALL. DISORIENTED TO TIME. WAS SATTING IN 80'S ON 2L VIA NC. INCREASED O2 TO 3L VIA NC. SATTING 92%. HYPOTENSIVE, BP 64/37. GAVE 250 CC NS BOLUS AND CALLED DR. CHAMBERS. ORDERS REC'D FOR ANOTHER 250 CC BOLUS IF NEEDED. ABG'S DRAWN. PLACED ON BIPAP BY ALLISON CASEY. SATTING 98% ON BIPAP. BP INCREASED TO 100/70 AFTER 250 CC NS BOLUS.
[2016-11-11 07:35] LABS: BASOPHILS 0.2 % (0-2); EOSINOPHILS 2.1 % (0-7); HEMATOCRIT 29.5 % (36.0-48.0); HEMOGLOBIN 8.8 g/dL (12-16); IMMATURE GRANULOCYTES 0.7 % (0-5); LYMPHOCYTES 12.7 % (15-50); MCH 27.8 pg (26.0-34.0); MCHC 29.8 g/dL (31.0-37.0); MCV 93.4 fL (80.0-100.0); MEAN PLATELET VOLUME 10.4 fL (7.4-10.4); MONOCYTES 12.8 % (2-11); NEUTROPHILS 71.5 % (40-80); PLATELET COUNT 293 10x3/uL (130-400); RBC 3.16 10x6/uL (4.00-5.40); RDW 16.3 % (11.5-14.5); WBC 13.8 10x3/uL (4.8-10.8)
--- NOTE | 2016-11-11 08:15 | NUR ---
CONTINUING TO MONITOR. BP DROPPED AGAIN IN 60'S. ADMN ORDERED BOLUS OF 250 CC NS. WILL ASSESS AFTER INFUSING.
[2016-11-11 08:16] LABS: ALBUMIN 2.7 g/dL (3.4-5.0); ANION GAP 13.6 mmol/L (8-16); BILIRUBIN - TOTAL 0.39 mg/dL (0.2-1.3); CARBON DIOXIDE 23.7 mmol/L (21.0-32.0); CREATININE - SERUM 2.4 mg/dL (0.6-1.3); POTASSIUM - SERUM 5.3 mmol/L (3.5-5.1); PROTEIN - SERUM 6.7 g/dL (6.4-8.2)
--- NOTE | 2016-11-11 08:23 | NUR ---
CONFFTINIES TO RESPOND TO VERBAL STIMULI. REMAINS ON BIPAP SATTING ON 96% RR 16 EVEN AND UNLABORED.
--- NOTE | 2016-11-11 08:25 | NUR ---
CONTINUES TO BED HYPOTENSIVE. I CALLED DR. CHAMBERS AND ORDERS REC'D TO START LEVOPHED AND MOVE TO ICU.
--- NOTE | 2016-11-11 08:40 | NUR ---
PT TRANSFERRED TO ICU VIA BED.
--- NOTE | 2016-11-11 08:45 | NUR ---
RECIEVED PT AT THIS TIME TO UNIT. NOTED PT IS HYPERTENSIVE AND LETHARGIC. BIPAP AT 30% NOTED AT THIS TIME. WILL CONTACT PHYSICIAN TO RECIEVE ORDERS. ALSO RECIEVED REPORT FROM TREY. PT ARRIVED TO UNIT VIA BED ACCOMPANIED BY HOSPITAL STAFF. WILL CONTINUE PLAN OF CARE.
--- NOTE | 2016-11-11 08:59 | NUR ---
TITRATING LEVOPHED TO EFFECT.
--- NOTE | 2016-11-11 09:14 | NUR ---
SPOKE WITH PTS HIUSBAND AT THIS TIME, UPDATES GIVEN. WILL CONTINUE PLAN OF CARE.
--- NOTE | 2016-11-11 09:30 | NUR ---
PTS SISTER HERE AT THIS TIME. UDPATE GIVEN. PTS SISTER HAS TAKEN PTS CELLPHONE HOME TO BRING TO PTS . WILL CONTINUE PLAN OF CARE.
[2016-11-11 09:54] LABS: ALBUMIN 2.7 g/dL (3.4-5.0); ALKALINE PHOSPHATASE 99 U/L (46-116); ALT (SGPT) 24 U/L (10-68); CALC OSMOLALITY 277 mosm/kg (275-300); CARBON DIOXIDE 24.2 mmol/L (21.0-32.0); CHLORIDE - SERUM 103 mmol/L (98-107); CREATINE KINASE 31 UL (21-215); CREATININE - SERUM 2.5 mg/dL (0.6-1.3); GLUCOSE 149 mg/dL (74-106); POTASSIUM - SERUM 5.5 mmol/L (3.5-5.1); PROTEIN - SERUM 6.8 g/dL (6.4-8.2); SODIUM 134 mmol/L (136-145); TROPONIN-I < 0.017 ng/mL (0.000-0.060); UREA NITROGEN 33 mg/dL (7-18); eGFR NON AFRICAN AMERICAN 21 mL/min (90-120)
--- NOTE | 2016-11-11 11:06 | NUR ---
MCCULLOUGH PLACED AT THIS TIME, NOTED CLEAR YELLOW RETURN INTO CLOSED CONTAINER. IVORY CUTE DISTRESS NOTED. WILL CONTINUE PLAN OF CARE.
[2016-11-11 11:10] LABS: APPEARANCE CLEAR (CLEAR); BILIRUBIN NEGATIVE (NEGATIVE); COLOR YELLOW (YELLOW); GLUCOSE 100 mg/dL (NEGATIVE); KETONE NEGATIVE (NEGATIVE); LEUKOCYTE ESTERASE NEGATIVE (NEGATIVE); NITRITE NEGATIVE (NEGATIVE); PROTEIN NEGATIVE (NEGATIVE); UROBILINOGEN NORMAL (NORMAL)
--- NOTE | 2016-11-11 13:14 | NUR ---
NO CHANGE NOTED AT THIS TIME, NO ACUTE DISTRESS NOTED. BIPAP IN PLACE. WILL CONTINUE PLAN OF CARE.
--- NOTE | 2016-11-11 14:20 | NUR ---
PT AWOKE AT THIS TIME, TOOK OFF BIPAP, AND STATED SHE WANTED TO GO HOME. EXPALINED TO PT MEDICAL SITUATION AND THAT SHE NEEDED TO STAY IN THE HOSPITAL AT THIS TIME. DR MORALES CALLED AND NOTIFIED. DR CHAMBERS CAME TO THE UNIT AND ASSESSED THE PT. DR CHAMBERS ALSO SPOKE WITH PT THAT SHE STILL REQUIRED MEDICAL CARE. PT STATED UNDERSTANDING. ALSO AT THIS TIME CALLED AND NOTIFIED PTS SISTER TAMY. WILL CONTINUE PLAN OF CARE.
[2016-11-11 15:46] LABS: CKMB 0.3 U/L (0.0-3.6); CREATINE KINASE 30 UL (21-215)
[2016-11-11 15:47] LABS: TROPONIN-I < 0.017 ng/mL (0.000-0.060)
--- NOTE | 2016-11-11 16:00 | NUR ---
RECIEVED CALL FROM PTS SISTER STATING THAT SHE BELIEVED PT HAD SOME MEDICATIONS IN HER PURSE AND WAS AFRAID THAT SHE HAD BEEN TAKING THEM. LOOKED THROUGH PTS PURSE WITH SUPERVISION OF CHARGE NURSE, AND FOUND AMITRIPTYLINE 100MG (2 TABLETS LEFT), TIZANIDINE 4MG (2 TABLETS LEFT), AND HYDROCODONE 10-325MG (ONE TABLET LEFT). CALLED DR CHAMBERS TO NOTIFY, DID NOT RECIEVE FURTHER ORDERS. CALLED PHARMACY TO HAVE MEDS PICKED UP FOR SAFE KEEPING.
--- NOTE | 2016-11-11 17:42 | NUR ---
PT LETHARGIC AT THIS TIME. RESTING WITH EYES CLOSED, NO DISTRESS NOTED. ABLE TO WAKE PT UP WITH RUBBING SHOULDER THEN PATIENT QUICKLY GOES BACK TO SLEEP. OXYGEN SATURATION AT 96% AT 3L O2 VIA NC. LEVOFED TITRATED TO PARAMETERS FOR BLOOD PRESSURE. WILL CONTINUE PLAN OF CARE.
--- NOTE | 2016-11-11 17:53 | NUR ---
SPOKE WITH DR EISENBERG OF CONSULT, NO NEW ORDERS. WILL CONTINUE PLAN OF CARE.
--- NOTE | 2016-11-11 18:15 | NUR ---
PT RESTING AT THIS TIME. NO ACUTE DISTRESS NOTED. PT AWAKENS EASILY WHEN STAFF STATES PT NAME. DENIES ANY NEEDS. WILL CONTINUE PLAN OF CARE.
--- NOTE | 2016-11-11 18:29 | NUR ---
ALL MEDS ADMIN VIA MANIFOLD
--- NOTE | 2016-11-11 19:40 | NUR ---
PT SLEEPING UPON ENTERING ROOM, EASILY AROUSES, AOX4. VSS AT THIS TIME, LEVOPHED INFUSING @ 5MCG/MIN TO MAINTAIN BP WITHIN GIVEN PARAMETERS. O2 @ 3L NC, SPO2 98, RESPIRATIONS UNLABORED AT THIS TIME. LUNG SOUNDS DIMINISHED THROUGHOUT. S1S2 HEARD, PERIPHERAL PULSES PRESENT. BOWEL SOUNDS ACTIVE IN ALL QUADS. RT BREAST WITH INCISION AND LORAINE DRAIN. DSG CDI. LT BREAST WITH SCAR FROM PREVIOUS MASTECTOMY. COUGH/DB WITH GOOD EFFORT. PT REPOSITIONED FOR COMFORT. FRESH WATER TO BEDSIDE. PT DENIES FURTHER NEEDS AT THIS TIME. CALL LIGHT AND BEDSIDE TABLE WITHIN PT REACH. CPOC.
--- NOTE | 2016-11-11 21:52 | NUR ---
COMPLETE LINEN CHANGE AND PARTIAL BATH GIVEN. PRN PAIN MED GIVEN UPON REQUEST, PAIN 8. VSS AT THIS TIME, LEVOPHED INFUSING AT 5MCG/MIN. FRESH WATER TO BEDSIDE. PT REPOSITIONED FOR COMFORT. DENIES FURTHER NEEDS AT THIS TIME. CALL LIGHT AND BEDSIDE TABLE WITHIN PT REACH. CPOC.
[2016-11-11 22:00] LABS: UDS - AMPHET NEGATIVE QUAL (NEGATIVE); UDS - BARB NEGATIVE QUAL (NEGATIVE); UDS - BENZO NEGATIVE QUAL (NEGATIVE); UDS - COCAINE NEGATIVE QUAL (NEGATIVE); UDS - METH NEGATIVE QUAL (NEGATIVE); UDS - OPIATE POSITIVE QUAL (NEGATIVE); UDS - PCP NEGATIVE QUAL (NEGATIVE); UDS - THC NEGATIVE QUAL (NEGATIVE)
[2016-11-11 22:27] LABS: CKMB 0.2 U/L (0.0-3.6); CREATINE KINASE 62 UL (21-215)
[2016-11-11 22:28] LABS: TROPONIN-I < 0.017 ng/mL (0.000-0.060)
--- NOTE | 2016-11-11 23:36 | NUR ---
DR. HARRISON AT BEDSIDE TO PRONOUCE PT.
--- NOTE | 2016-11-11 23:50 | NUR ---
PT REFUSES BIPAP. SPO2 98, RESPIRATIONS UNLABORED. LUNG SOUNDS DIMINISHED.
[2016-11-12] VITALS (30 sets, daily range): BP systolic 91–141; BP diastolic 50–114
--- NOTE | 2016-11-12 01:45 | NUR ---
LEVOPHED WEANED OFF AT THIS TIME.
--- NOTE | 2016-11-12 03:28 | NUR ---
PT RESTING QUIETLY WITH UNLABORED RESPIRATIONS. SPO2 96, LUNG SOUNDS DIMINISHED ON 3L O2 NC. PT REPOSITIONED FOR COMFORT. VSS, MAP REMAINS GREATER THAN 65 WITH LEVOPHED OFF. PT DENIES FURTHER NEEDS AT THIS TIME. CALL LIGHT AND BEDSIDE TABLE WITHIN PT REACH. CPOC.
--- NOTE | 2016-11-12 07:00 | NUR ---
REC'D CARE OF PT. A&O X3.
[2016-11-12 07:32] LABS: BASOPHILS 0.2 % (0-2); EOSINOPHILS 2.4 % (0-7); HEMATOCRIT 29.2 % (36.0-48.0); HEMOGLOBIN 8.7 g/dL (12-16); IMMATURE GRANULOCYTES 0.7 % (0-5); LYMPHOCYTES 15.3 % (15-50); MCHC 29.8 g/dL (31.0-37.0); MCV 93.9 fL (80.0-100.0); MEAN PLATELET VOLUME 10.1 fL (7.4-10.4); MONOCYTES 12.6 % (2-11); NEUTROPHILS 68.8 % (40-80); PLATELET COUNT 294 10x3/uL (130-400); RBC 3.11 10x6/uL (4.00-5.40); RDW 16.2 % (11.5-14.5)
[2016-11-12 07:34] LABS: WBC 9.4 10x3/uL (4.8-10.8)
[2016-11-12 07:43] LABS: ALBUMIN 2.7 g/dL (3.4-5.0); ANION GAP 12.7 mmol/L (8-16); BILIRUBIN - TOTAL 0.3 mg/dL (0.2-1.3); CALCIUM 8.2 mg/dL (8.5-10.1); CARBON DIOXIDE 25.2 mmol/L (21.0-32.0); POTASSIUM - SERUM 4.9 mmol/L (3.5-5.1); PROTEIN - SERUM 6.6 g/dL (6.4-8.2)
--- NOTE | 2016-11-12 07:49 | NUR ---
BREAKFAST TRAY SERVED. DENIES NEEDS. RATES INCISIONAL PAIN 10/10 ACHING/THROBBING. CHECKING ON AVAILABILITY OF PAIN MEDS. CPOC. CLWR.
[2016-11-12 07:52] LABS: CREATININE - SERUM 1.3 mg/dL (0.6-1.3)
--- NOTE | 2016-11-12 08:18 | NUR ---
INITIAL ASSESSENT COMPLETED PER FLOW SHEET. ON 3L O2 VIA NC. SATTING 95%. LUNGS WITH SOME FINE CRACKLES. DIMINISHED IN LOWER LOBES. BS + X4 QUADS. RR 24 EVEN AND UNLABORED. RIGHT BREAST INCISIONAL DRSG CD&I. RIGHT BREAST LORAINE DRAIN WITH BLOODY DRAINAGE. BULB COMPRESSED. PPP. NARAYANAN. FOLLOWS COMMANDS. DENIES NEEDS. CLWR. CPOC. MCCULLOUGH PATENT TO GRAVITY.
[2016-11-12 08:41] LABS: MAGNESIUM - SERUM 1.6 mg/dL (1.8-2.4); PHOSPHOROUS 2.9 mg/dL (2.5-4.9)
--- NOTE | 2016-11-12 08:56 | NUR ---
CONTINUES TO RATE INCISIONAL PAIN 10/10. NORCO GAVE EARLIER. WILL CONTINUE TO MONITOR.
--- NOTE | 2016-11-12 08:57 | NUR ---
ALL IV MEDS/INFUSIONS BEING ADMN VIA MANIFOLD AT RIGHT UPPER ARM PIV. NO S/S OF INFILTRATION. STERILE CAPS ARE ON. DRSG IN PLACE. CLWR. CPOC.
--- NOTE | 2016-11-12 09:00 | NUR ---
VISITORS AT BEDSIDE. UPDATED.
--- NOTE | 2016-11-12 09:30 | NUR ---
REMAINS OFF OF LEVOPHED.
--- NOTE | 2016-11-12 10:20 | NUR ---
REASSESSMENT PER FLOW SHEET COPLETED.NO ACUTE CHANGES
--- NOTE | 2016-11-12 12:10 | NUR ---
LUNCH TRAY SERVED
--- NOTE | 2016-11-12 13:12 | NUR ---
DENIES NEEDS.VSS.
--- NOTE | 2016-11-12 14:21 | NUR ---
REASSESSMENT COMPLETED PER FLOW SHEET. NO ACUTE CHANGES.
--- NOTE | 2016-11-12 16:29 | NUR ---
ZOFRAN GAVE FOR NAUSEATED.
--- NOTE | 2016-11-12 17:04 | NUR ---
NAUSEA IS BETTER.
--- NOTE | 2016-11-12 17:25 | NUR ---
DINNER TRAY HELD FOR NAUSEA.
--- NOTE | 2016-11-12 19:45 | NUR ---
SHIFT ASSESSMENT COMPLETE. LOC X4. PUPILS 3MM, BRISK REACTION TO LIGHT. NC @ 2 L/MIN. RIGHT BREAST TENDER, RED. DONNA IN TACT. RIGHT LORAINE DRAIN DRAINING BLOODY FLUID. LT BREAST MASECTOMY SCAR. BOWEL SOUNDS ACTIVE X4. PULSES PALP. S1S2 AUDIBLE. HR 103 SINUS TACH, VIA TELEMETRY. BP CUFF MOVED TO HER R ARM. RESERVING HER L ARM. 20 G IV IN R UPPER ARM. SEE IV FLOWSHEET FOR FLUIDS. SKIN PINK AND WARM TO TOUCH. RATES PAIN IS A 10/10 GENERALIZED OVER HER WHOLE BODY. SCDS REMOVED AND SKIN ASSESSED, WNL. BED IN LOWEST POSITION, CALL LIGHT IN REACH. WILL CONTINUE TO MONITOR.
--- NOTE | 2016-11-12 21:00 | NUR ---
WILL ADMINISTER PRN PAIN MEDS RX. EXPLAINED THIS TO THE PT. REPOSITIONED FOR COMFORT. WILL CONTINUE TO MONITOR.
--- NOTE | 2016-11-12 21:00 | NUR ---
CLEANED WOUND AND COVERED R BREAST INCISION PER PT REQUEST. REASSESSED HER PAIN AND SHE STATES IT IS A 04/29. I INFORMED HER THAT SHE DOES NOT HAVE ANY MORE PAIN MEDS AT THIS TIME. ROOTBEER GIVEN TO PT PER REQUEST. WILL CONTINUE TO MONITOR. CALL LIGHT IN REACH.
--- NOTE | 2016-11-12 21:20 | NUR ---
PT SHOWING NO S/S OF PAIN VIA FLACC SCALE. REPOSITONED FOR COMFORT. WILL CONTINUE TO MONITOR.
--- NOTE | 2016-11-12 23:20 | NUR ---
PT WEARING BIPAP. JON EDUCATED HER ON THE BENEFITS OF WEARING THE BIPAP AND SHE IS COMPLIANT AT THIS TIME. REASSESSMENT COMPLETE. VSS. CALL LIGHT IN REACH. RT BREAST DRESSING CDI. NO FURTHER REQUESTS. IV TUBING SWAB CAPPED AND LABELED. BED IN LOWEST POSITION. WILL CONTINUE TO MONITOR.
[2016-11-13] VITALS (16 sets, daily range): BP systolic 116–151; BP diastolic 53–94; Ht 149.9 cm; Wt 99.3 kg
--- NOTE | 2016-11-13 00:20 | NUR ---
RT IN TO DO TREATMENT AND PT VOMITED. RINSED MOUTH OUT WITH MOUTHWASH. ZOFRAN ADMINISTERED. CLEANED PT UP AND GAVE HER NEW GOWN, SHEETS, AND BLANKET. BIPAP OFF FOR REST. WILL CONTINUE TO MONITOR.
--- NOTE | 2016-11-13 02:10 | NUR ---
ADMINISTERED PRN PAIN MED PER PT REQUEST. SHE STATES THAT HER ABDOMEN IS HURTING HER. PT SWEATING. REPOSITIONED HER FOR COMFORT. APPLIED COOL, WET CLOTHS TO HER FOREHEAD AND NECK AREA. PT STATES THAT IT IS HELPING HER. TOOK TEMP AND IT READ 98.2 ORAL. FOLDED BACK BLANKETS AND SHEETS. WILL CONTINUE TO MONITOR.
--- NOTE | 2016-11-13 02:40 | NUR ---
PT PROJECTILE VOMITED 200 ML GREEN VOMIT. ADMIN ZOFRAN IV. NEW GOWN, SHEETS, AND BLANKETS. APPLIED NEW COLD RAGS TO CHEST AND NECK. PT STATING THAT SHE FEELS A "TINY" BIT BETTER AT THIS TIME. WILL REASSESS IN 20 MINUTES.
--- NOTE | 2016-11-13 03:15 | NUR ---
PT ASLEEP IN BED. REASSESSMENT COMPLETE. PT STATES NO NAUSEA AT THIS TIME. RAISED HOB TO 40-45 DEGREES AND EMESIS BAG IS WITHIN REACH. BED IN LOWEST POSITON. WILL CONTINUE TO MONITOR.
[2016-11-13 03:35] LABS: BASOPHILS 0.1 % (0-2); EOSINOPHILS 1.7 % (0-7); HEMATOCRIT 29.5 % (36.0-48.0); HEMOGLOBIN 8.8 g/dL (12-16); IMMATURE GRANULOCYTES 0.8 % (0-5); LYMPHOCYTES 13.6 % (15-50); MCH 27.8 pg (26.0-34.0); MCHC 29.8 g/dL (31.0-37.0); MCV 93.4 fL (80.0-100.0); MEAN PLATELET VOLUME 10.2 fL (7.4-10.4); MONOCYTES 12.6 % (2-11); NEUTROPHILS 71.2 % (40-80); PLATELET COUNT 303 10x3/uL (130-400); RBC 3.16 10x6/uL (4.00-5.40); RDW 15.9 % (11.5-14.5); WBC 8.4 10x3/uL (4.8-10.8)
[2016-11-13 03:58] LABS: ALBUMIN 2.7 g/dL (3.4-5.0); ANION GAP 11.7 mmol/L (8-16); BILIRUBIN - TOTAL 0.3 mg/dL (0.2-1.3); CARBON DIOXIDE 27.8 mmol/L (21.0-32.0); MAGNESIUM - SERUM 1.6 mg/dL (1.8-2.4); PHOSPHOROUS 3.3 mg/dL (2.5-4.9); POTASSIUM - SERUM 4.5 mmol/L (3.5-5.1); PROTEIN - SERUM 6.9 g/dL (6.4-8.2)
--- NOTE | 2016-11-13 04:30 | NUR ---
PT IV D/C. NEHA FUENTES PUT A 22 G IN THE R HAND, ONE ATTEMPT. IV FLUID INFUSING.
--- NOTE | 2016-11-13 05:20 | NUR ---
PT SLEEPING. BED IN LOWEST POSITION. DID NOT DISTURB AT THIS TIME. SKIN COOL TO TOUCH. WILL CONTINUE TO MONITOR.
--- NOTE | 2016-11-13 06:17 | NUR ---
PT REFUSED MCCULLOUGH CATH CARE. TRIED TO EDUCATE ON WHY THIS IS IMPORTANT, BUT STILL REFUSED. BED IN LOWEST POSITION. WILL CONTINUE TO MONITIOR.
--- NOTE | 2016-11-13 07:00 | NUR ---
SHIFT REPORT RECEIVED. PT ASLEEP BUT AWAKES EASILY. R-HAND IV PATENT. WITH NS RUNNING AT 50ML/HR. NO REDNESS OR SWELLING NOTED. DRESSING INTACT. DRESSING ON RIGHT BREAST INTACT. SCD'S ON BOTH LEGS. MCCULLOUGH SECURED TO LEFT THIGH. BED IN LOW POSITION, CALL LIGHT IN REACH. NO OTHER NEEDS AT THIS TIME. BREAKFAST TRAY BROUGHT TO ROOM. PT DOES NOT WANT TO SIT UP TO EAT AT THIS TIME.
--- NOTE | 2016-11-13 09:19 | NUR ---
AM MEDS GIVEN WITH NO COMPLICATIONS. PT SAT UP FOR BREAKFAST. PAIN 3/10, NO PAIN MEDS GIVEN. REPOSITIONED PT. TALKED TO SON ON PHONE AND GAVE UPDATE.
--- NOTE | 2016-11-13 10:00 | NUR ---
PT REPORTED BEING COLD. WARM BLANKET PROVIDED.
--- NOTE | 2016-11-13 10:23 | NUR ---
PT RESTING QUIETLY IN ROOM.
--- NOTE | 2016-11-13 11:01 | NUR ---
* Is the patient Alert and Oriented? Yes 0 * How many steps to enter\exit or inside your home? Ramp 0 * PCP Dr. Gottlieb 0 * Pharmacy [facility] in [place] 0 * Preadmission Environment Home with Family 0 * ADLs Independent 0 * Equipment Bedside Commode Nebulizer Oxygen Rolling Walker Shower Chair 0 * List name and contact numbers for known caregivers / representatives who currently or will assist patient after discharge: Spouse - Arcadio [phone] 0 * Community resources currently utilized Home Health 0 * Please name any agencies selected above. [facility] 0 * Additional services required to return to the preadmission environment? No 0 * Can the patient safely return to the preadmission environment? Yes 0 * Has this patient been hospitalized within the prior 30 days at any hospital? Yes 11/13/2016 10:53 DCP: Discharge Planning Patient Name: ANNY HERRERA Admission Status: Elective Accout number: [id number] Admission Date: 11-11-2016 : 1960 Admission Diagnosis: Attending: JOSY Current LOS: 2 Planned Disposition: Home with Home Health Primary Insurance: [employer] O Discharge Planning Comments: CM met with patient to assess dc plans/needs. Patient is alert & oriented, but sleepy - is easily awakened. She states she lives at home with her , Arcadio, and two of their adult children. She reports she is independent with ADL's. She has a walker & shower chair at home but states she hasn't been using them. She also has home O2 @ 3L & home nebulizer through [facility]. Order rec'd to arrange home Bipap - Order sent to [facility] - patient will have to have a home overnight pulse ox, which will be completed by [facility]. CM will follow. Foundry Supervisor: Poppy Alcantar
--- NOTE | 2016-11-13 11:53 | NUR ---
LUNCH TRAY PLACED ON BEDSIDE TABLE. PT REFUSES TO EAT IT AT THIS TIME. WILL LET ME KNOW WHEN SHE IS READY TO EAT. DR. HICKS ASSESESSED PT. ENCOURAGED PT TO USE BIPAP DURING THE NIGHT. PT AGREED TO USE IT. DR. BURTON WANTS TO SEND HER HOME ON THE BIPAP BUT PT NEEDS TO USE IT HERE IN THE HOSPITAL IN ORDER TO QUALIFY.
--- NOTE | 2016-11-13 12:23 | NUR ---
PT APPEARS ASLEEP. O2 SAT AT 96%, RR 16. NO NEEDS AT THIS TIME.
--- NOTE | 2016-11-13 13:21 | NUR ---
PT RESTING COMFORTABLY. APPEARS DIAPHORETIC AROUND THE UPPER LIP. TEMPERATURE REASSESED 98.7. REPORTS NO PAIN AT THIS TIME. WET WASHCLOTH USED TO WIPE FACE.
--- NOTE | 2016-11-13 13:29 | NUR ---
BLOOD SUGAR 115.
--- NOTE | 2016-11-13 13:39 | NUR ---
PT PULLED UP IN BED. PILLOW PLACED UNDER RIGHT SIDE. X 2 ASSIST. REMOVED ONE OF THE BLANKETS.
--- NOTE | 2016-11-13 14:06 | NUR ---
SPOKE WITH SISTER TAMY. UPDATED HER ON HOW PT IS DOING.
--- NOTE | 2016-11-13 14:30 | NUR ---
RECEIVED TO ROOM 2234 FROM ICU VIA BED AT THIS TIME. ALERT AND ORIENTED. CALL LIGHT IN REACH, WILL CONTINUE WITH PLAN OF CARE.
--- NOTE | 2016-11-13 14:49 | NUR ---
PT TRANSFERRED TO ROOM 2234. REPORT GIVEN TO NURSE. TRANSFERRED WITH BELONGINGS PURSE, DENTURE, CELL PHONE.
--- NOTE | 2016-11-13 15:40 | NUR ---
SCHEDULED MEDICATIONS ADMINISTERED AT THIS TIME WELL PRN NORCO FOR PAIN 8/10 TO RIGHT BREAST AREA. DENIES FURTHER NEEDS AT THIS TIME. WILL CONTINUE WITH PLAN OF CARE.
--- NOTE | 2016-11-13 17:45 | NUR ---
PRN ZOFRAN ADMINISTERED PER ORDER FOR C/O NAUSEA WITHOUT EMESIS. DENIES FUTHER NEEDS. CALL LIGHT IN REACH, WILL CONTINUE WITH PLAN OF CARE.
--- NOTE | 2016-11-13 23:40 | NUR ---
REC'D PATIENT LYING IN BED. ALERT AND ORIENTED X 4. DENIED PAIN AT THIS TIME. REPORTED FEELING NAUSOUS. HAD PHENERGRAN IM AROUND 1830. DENIED FURTHER NEEDS AT THIS TIME. WILL ADMIN PM/AM MEDS PRESCRIBED. WILL CONT TO MONITOR THOUGHOUT NIGHT. BED LOW, LOCKED, CALL LIGHT IN REACH.
--- NOTE | 2016-11-13 23:42 | NUR ---
THREW UP AROUND 2100. REPORTS FEELING MUCH BETTER SINCE. TOOK HER NIGHT MEDS AND TOLERATED THEM WELL. WILL CONT TO MONITOR.
[2016-11-14 03:47] LABS: BASOPHILS 0.3 % (0-2); EOSINOPHILS 4.2 % (0-7); HEMATOCRIT 30.4 % (36.0-48.0); HEMOGLOBIN 9.3 g/dL (12-16); IMMATURE GRANULOCYTES 0.9 % (0-5); LYMPHOCYTES 26.1 % (15-50); MCH 28.2 pg (26.0-34.0); MCHC 30.6 g/dL (31.0-37.0); MCV 92.1 fL (80.0-100.0); MEAN PLATELET VOLUME 10.1 fL (7.4-10.4); MONOCYTES 12.1 % (2-11); NEUTROPHILS 56.4 % (40-80); PLATELET COUNT 303 10x3/uL (130-400); RDW 15.7 % (11.5-14.5); WBC 6.9 10x3/uL (4.8-10.8)
[2016-11-14 04:00] VITALS: BP 127/57
[2016-11-14 04:03] LABS: ALBUMIN 2.6 g/dL (3.4-5.0); BILIRUBIN - TOTAL 0.32 mg/dL (0.2-1.3); CALCIUM 9.1 mg/dL (8.5-10.1); CARBON DIOXIDE 27.4 mmol/L (21.0-32.0); CREATININE - SERUM 0.9 mg/dL (0.6-1.3); PROTEIN - SERUM 7.4 g/dL (6.4-8.2)
[2016-11-14 04:04] LABS: ANION GAP 13.3 mmol/L (8-16); POTASSIUM - SERUM 3.7 mmol/L (3.5-5.1)
--- NOTE | 2016-11-14 05:26 | NUR ---
RESTING IN BED COMFORTABLY. DENIED NEEDS AT THIS TIME. REPORTED PAIN 12/28 WILL ADMIN PAIN MEDS PRESCRIBED. WILL CONT TO MONITOR. BED LOW, LOCKED, CALL LIGHT IN REACH.
--- NOTE | 2016-11-14 08:00 | NUR ---
PT AOX4 RESP EVEN AND NONLABORED PT DENIES NEEDS AT THIS TIME IV TO RIGHT FOREARM PATENT AND INTACT SRX2 BED AT LOWEST SETTING CALL LIGHT WITHIN REACH WILL CONTINUE TO MONITOR
[2016-11-14 08:58] VITALS: BP 109/43
[2016-11-14 11:44] VITALS: BP 93/44
[2016-11-14] MEDS ORDERED: VIBRAMYCIN 100100 MG PO (14:52)
[2016-11-14] MEDS ORDERED: IPRAT-ALBUT 0.5-3 ML UPD (14:55)
[2016-11-14] MEDS ORDERED: PULMICORT0.5 MG/21 INH (14:55)
[2016-11-14] MEDS ORDERED: BROVANA15 MCG/2 M INH (14:55)
--- NOTE | 2016-11-14 15:24 | NUR ---
CM REASSESSMENT NOTE: PATIENT IS DISCHARGING HOME-FAMILY DRIVING HER. PATIENT IS HAVING AN OVERNIGHT PULSE OX TO QUALIFY FOR BI-PAP. [employer] IS CURRENT WITH PATIENT AND HAS BEEN NOTIFIED OF PATIENTS D/C TODAY.
[2016-11-14 16:06] VITALS: BP 92/41
--- NOTE | 2016-11-14 18:01 | NUR ---
PT IV DISCONTINUED WITH CATHETER INTACT AT THIS TIME PT GIVEN PERSONAL MEDICATIONS FROM PHARMACY AT THIS TIME. PT GIVEN DISCHARGE INSTRUCTIONS AND 3 PRESCRIPTIONS AT THIS TIME PT TAKEN VIA WHEELCHAIR VIA PRIVATE VEHICLE AT THIS TIME
== END 2016-11-14 18:03 | disposition home health service (06) | DRG 189 ==
LOC: D.OPS 05:21 → D.MS 05:21 → D.PAN 07:30 → D.OPS 07:30 → D.MS 10:56 → D.OPS 11-11 08:39 → D.MS 11-11 08:39 → D.ICU 11-11 08:39 → D.MS 11-13 14:36
PROVIDERS: Family Medicine; Internal Medicine Pulmonary Disease; ADMIT Surgery
PROC: 5A09357 Assistance with Respiratory Ventilation, Less than 24 Consecutive Hours, Continuous Positive Airway Pressure (ICD-10-PCS; principal; 2016-11-11)
DX: J96.22 Acute and chronic respiratory failure with hypercapnia (principal); N17.9 Acute kidney failure, unspecified; E66.2 Morbid (severe) obesity with alveolar hypoventilation; Z68.41 Body mass index [BMI] 40.0-44.9, adult; E87.2 Acidosis; I13.0 Hypertensive heart and chronic kidney disease with heart failure and stage 1 through stage 4 chronic kidney disease, or unspecified chronic kidney disease; I50.20 Unspecified systolic (congestive) heart failure; J96.21 Acute and chronic respiratory failure with hypoxia; F17.200 Nicotine dependence, unspecified, uncomplicated; J44.9 Chronic obstructive pulmonary disease, unspecified; E11.40 Type 2 diabetes mellitus with diabetic neuropathy, unspecified; E11.21 Type 2 diabetes mellitus with diabetic nephropathy; I08.1 Rheumatic disorders of both mitral and tricuspid valves; I25.10 Atherosclerotic heart disease of native coronary artery without angina pectoris; D64.9 Anemia, unspecified; Z99.81 Dependence on supplemental oxygen; E83.42 Hypomagnesemia; E87.5 Hyperkalemia; N18.9 Chronic kidney disease, unspecified; E11.22 Type 2 diabetes mellitus with diabetic chronic kidney disease

== ENCOUNTER 2016-12-02 12:30 | Emergency (ER) | payer OTHER ==
[2016-11-13 09:36] VITALS: BMI 44.2
[~2016-12-02 12:30] MED LIST changes: +BROVANA15 MCG/2 M INH; +IPRAT-ALBUT 0.5-3 ML UPD; +PULMICORT0.5 MG/21 INH; +VIBRAMYCIN 100100 MG PO
== END 2016-12-02 15:05 | disposition home or self-care (01) ==
LOC: D.ER 12:30
DX: J44.1 Chronic obstructive pulmonary disease with (acute) exacerbation (principal); Z87.891 Personal history of nicotine dependence; I10 Essential (primary) hypertension

== ENCOUNTER 2016-12-10 23:23 | Observation (INO) | payer OTHER ==
[~2016-12-10] VITALS: Ht 149.9 cm; Wt 99.8 kg
[2016-12-10 23:54] LABS: HEMATOCRIT 30.2 % (36.0-48.0); HEMOGLOBIN 9.5 g/dL (12-16); LYMPHOCYTES 13.7 % (15-50); MCH 28.7 pg (26.0-34.0); MCHC 31.5 g/dL (31.0-37.0); MCV 91.2 fL (80.0-100.0); MEAN PLATELET VOLUME 9.8 fL (7.4-10.4); NEUTROPHILS 75.9 % (40-80); RBC 3.31 10x6/uL (4.00-5.40); WBC 8.5 10x3/uL (4.8-10.8)
[2016-12-10 23:57] LABS: PLATELET COUNT 237 10x3/uL (130-400)
[2016-12-11 00:07] LABS: ANION GAP 10.5 mmol/L (8-16); BILIRUBIN - TOTAL 0.3 mg/dL (0.2-1.3); CALCIUM 8.5 mg/dL (8.5-10.1); CARBON DIOXIDE 30.2 mmol/L (21.0-32.0); CREATININE - SERUM 1.6 mg/dL (0.6-1.3); POTASSIUM - SERUM 4.7 mmol/L (3.5-5.1); PROTEIN - SERUM 7.1 g/dL (6.4-8.2)
[2016-12-11 00:12] LABS: APPEARANCE CLEAR (CLEAR); BILIRUBIN NEGATIVE (NEGATIVE); COLOR YELLOW (YELLOW); GLUCOSE 50 mg/dL (NEGATIVE); KETONE NEGATIVE (NEGATIVE); LEUKOCYTE ESTERASE 1+ (NEGATIVE); NITRITE NEGATIVE (NEGATIVE); PROTEIN TRACE mg/dL (NEGATIVE); UROBILINOGEN NORMAL (NORMAL)
[2016-12-11 00:14] LABS: BACTERIA MANY /hpf (NONE SEEN); EPITHELIAL CELLS 0-5 /hpf (0-5); RED CELLS - URINE 0-5 /hpf (0-5); WHITE CELLS - URINE 0-5 /hpf (0-5)
[2016-12-11 03:34] VITALS: BP 131/69; BMI 44.5
--- NOTE | 2016-12-11 07:30 | NUR ---
PT ASSESSMENT COMPLETE AWAKE AND ALERT ORINETD X 3 LORAINE DRAIN NOTED TO RIGHT CHEST BSA X 4 QUADS COMPLAINS OF PAIN TO LEFT HAND AND ARM S/P FALL WELL PAIN TO BILATERAL LOWER EXTREMITES FROM FALL. CALL LIGHT IN REACH SIDE RAILS UP X 2
[2016-12-11 08:25] VITALS: BP 130/59
[2016-12-11 10:57] LABS: BASOPHILS 0.3 % (0-2); EOSINOPHILS 5.4 % (0-7); HEMOGLOBIN 9.6 g/dL (12-16); IMMATURE GRANULOCYTES 0.6 % (0-5); LYMPHOCYTES 18.8 % (15-50); MCH 28.2 pg (26.0-34.0); MEAN PLATELET VOLUME 10.7 fL (7.4-10.4); MONOCYTES 11.6 % (2-11); NEUTROPHILS 63.3 % (40-80); PLATELET COUNT 258 10x3/uL (130-400); RDW 17.1 % (11.5-14.5); WBC 7.2 10x3/uL (4.8-10.8)
[2016-12-11 11:00] LABS: MCV 94.1 fL (80.0-100.0)
--- NOTE | 2016-12-11 11:30 | NUR ---
PATIENT SITTING UP IN BED WITH NO COMPLAINTS AT THIS TIME. IV INTACT. FAMILY AT BEDSIDE. CALL LIGHT WITHIN REACH.
--- NOTE | 2016-12-11 12:00 | NUR ---
IV OUT AND LEAKING REMOVED AND DISPOSED OF IN SHARPS. REISTED TO RIGHT UPPER ARM 20 GA X 1 STICK TOLERATED WELL
[2016-12-11 13:20] VITALS: Ht 149.9 cm; Wt 99.8 kg
--- NOTE | 2016-12-11 14:28 | NUR ---
PT RESTING WELL IN BED SEMI FOWLERS POSITION NO DISTRESS NOTD
[2016-12-11 16:15] VITALS: BP 122/68
[2016-12-11 19:00] VITALS: BP 133/63
--- NOTE | 2016-12-11 19:25 | NUR ---
RECIEVED SHIFT REPORT. PT IS LYING IN BED. ALERT AND ORIENTED AND ABLE TO VERBALIZE NEEDS. IV IS PATENT AND FLUIDS ARE RUNNING PER ORDER. MCCULLOUGH IS DRAINING URINE BY GRAVITY. PT REQUIRES ASSISTANCE TURNING IN BED FOR COMFORT AND SKIN CARE, HOWEVER PT NEEDS MORE TEACHING ON THIS BECAUSE SHE DOES NOT ALWAYS WANT TO TURN. PT DENIES ANY PAIN AT THIS TIME. NO NEEDS ARE VERBALIZED AT THIS TIME. WILL CONTINUE TO MONITOR. SIDE RAILS ARE UP X 2. BED IS IN LOWEST POSITION. CALL LIGHT IS WITHIN REACH.
--- NOTE | 2016-12-11 21:12 | NUR ---
SHIFT ASSESSMENT COMPLETED. NIGHT MEDS GIVEN WITH NO PROBLEMS. PT RECIEVED NO INSULIN PER SLIDING SCALE FOR [id number]. NO NEEDS ARE VOICED AT THIS TIME. WILL MONITOR. SIDE RAILS X 2. BED LOW. CALL LIGHT IN REACH.
[2016-12-12 04:00] VITALS: BP 113/57
[2016-12-12 06:38] LABS: BASOPHILS 0.7 % (0-2); EOSINOPHILS 5.9 % (0-7); HEMATOCRIT 32.3 % (36.0-48.0); HEMOGLOBIN 9.6 g/dL (12-16); IMMATURE GRANULOCYTES 0.7 % (0-5); LYMPHOCYTES 23.3 % (15-50); MCHC 29.7 g/dL (31.0-37.0); MCV 94.2 fL (80.0-100.0); MEAN PLATELET VOLUME 10.4 fL (7.4-10.4); MONOCYTES 16.3 % (2-11); NEUTROPHILS 53.1 % (40-80); PLATELET COUNT 230 10x3/uL (130-400); RBC 3.43 10x6/uL (4.00-5.40); RDW 16.9 % (11.5-14.5); WBC 5.7 10x3/uL (4.8-10.8)
[2016-12-12 06:49] LABS: ALBUMIN 2.7 g/dL (3.4-5.0); ANION GAP 8.9 mmol/L (8-16); BILIRUBIN - TOTAL 0.2 mg/dL (0.2-1.3); CALCIUM 8.7 mg/dL (8.5-10.1); CARBON DIOXIDE 30.8 mmol/L (21.0-32.0); POTASSIUM - SERUM 4.7 mmol/L (3.5-5.1); PROTEIN - SERUM 6.6 g/dL (6.4-8.2)
[2016-12-12 06:52] LABS: CREATININE - SERUM 0.9 mg/dL (0.6-1.3)
--- NOTE | 2016-12-12 07:00 | NUR ---
REPORT RECIEVED ASSUMED CARE. PATIENT IN BED WITH IV INTACT. NO COMPLAINTS, CALL LIGHT WITHIN REACH.
[2016-12-12 08:30] VITALS: BP 111/63
--- NOTE | 2016-12-12 10:20 | NUR ---
PATIENT DONNA REMOVED AT THIS TIME PER PHYSICIAN ORDER. PATIENT TOLERATED WITH SMALL AMOUNT OF PAIN. INCISION CDI. NO DRAINAGE. SMALL SCABS NOTED OVER SOME OF THE STAPLE SITES.
--- NOTE | 2016-12-12 18:45 | NUR ---
PATIENT IN BED WITH IV INTACT. NO COMPLAINTS. FAMILY AT BEDSIDE. CALL LIGHT WITHIN REACH.
[2016-12-12 19:00] VITALS: BP 133/56
--- NOTE | 2016-12-12 19:20 | NUR ---
RECIEVED SHIFT REPORT. PT IS LYING IN BED. ALERT AND ORIENTED AND ABLE TO VERBALIZE NEEDS. IV IS PATENT AND FLUIDS ARE RUNNING PER ORDER. PT HAS AMBULATED WITH ASSISTANCE OF WALKER TO CHAIR TODAY. PT STATES PAIN IS 7/10. MCCULLOUGH IS DRAINING URINE BY GRAVITY. PT REFUSES SCD'S. NO NEEDS ARE VERBALIZED AT THIS TIME. WILL CONTINUE TO MONITOR. SIDE RAILS ARE UP X 2. BED IS IN LOWEST POSITION. BOX ALARM IS ON FOR SAFETY. CALL LIGHT IS WITHIN REACH.
--- NOTE | 2016-12-12 20:38 | NUR ---
SHIFT ASSESSMENT COMPLETED. NIGHT MEDS GIVEN WITH NO PROBLEMS. PT RECIEVED 2 UNITS INSULIN PER SLIDING SCALE FOR [id number]. NO NEEDS ARE VOICED. WILL MONITOR. SIDE RAILS X 2. BED LOW. BOX ALARM ON. CALL LIGHT IN REACH.
[2016-12-13 04:00] VITALS: BP 107/63
[2016-12-13 06:01] LABS: BASOPHILS 0.3 % (0-2); EOSINOPHILS 5.9 % (0-7); HEMATOCRIT 31.9 % (36.0-48.0); HEMOGLOBIN 9.6 g/dL (12-16); IMMATURE GRANULOCYTES 0.7 % (0-5); LYMPHOCYTES 25.4 % (15-50); MCH 27.9 pg (26.0-34.0); MCHC 30.1 g/dL (31.0-37.0); MCV 92.7 fL (80.0-100.0); MEAN PLATELET VOLUME 10.5 fL (7.4-10.4); NEUTROPHILS 54.7 % (40-80); PLATELET COUNT 237 10x3/uL (130-400); RBC 3.44 10x6/uL (4.00-5.40); RDW 17.2 % (11.5-14.5); WBC 7.1 10x3/uL (4.8-10.8)
[2016-12-13 06:17] LABS: ALBUMIN 2.7 g/dL (3.4-5.0); ANION GAP 13.9 mmol/L (8-16); BILIRUBIN - TOTAL 0.21 mg/dL (0.2-1.3); CALCIUM 8.3 mg/dL (8.5-10.1); CARBON DIOXIDE 27.5 mmol/L (21.0-32.0); POTASSIUM - SERUM 4.4 mmol/L (3.5-5.1); PROTEIN - SERUM 6.3 g/dL (6.4-8.2)
--- NOTE | 2016-12-13 07:00 | NUR ---
PT REC'D FROM NAVID SHAY. RESTING IN BED WATCHING TV AND EATING BREAKFAST. AAOX4. RATING CURRENT PAIN AT INCISION SITE 11/27. WILL REASSESS. REGULAR HEART RATE AND RHYTHM. LUNG SOUNDS CLEAR AND EQAUL BILAT. BOWEL SOUNDS ACTIVE X4 QUADS. INCISION SITE TO R CHEST FREE OF REDNESS AND SWELLING. SITE APPROXIMATE AND NO DRAINAGE NOTED. MCCULLOUGH CATHETER IN PLACE DRAINING YELLOW URINE WITH SOME SEDIMENT TO GRAVITY. PIV TO R UPPER ARM FREE OF REDNESS AND SWELLING. BED LOW, CALL LIGHT IN REACH, DENIES NEEDS. CPOC.
[2016-12-13 08:18] VITALS: BP 114/45
--- NOTE | 2016-12-13 09:00 | NUR ---
MONRING MEDS PASSED AT THIS TIME. TOLERATED WELL. LYNDSAY SIFUENTES, AT BEDSIDE DISCUSSING DISCHARGE. MCCULLOUGH CATHETER CLAMPED AT THIS TIME. WILL BLADDER TRAIN. BED LOW, CALL LIGHT IN REACH, DENIES NEEDS. CPOC.
[2016-12-13] MEDS ORDERED: MACROBID100 MG PO (11:09)
[2016-12-13] MEDS ORDERED: OMNICEF300 MG PO (11:43)
--- NOTE | 2016-12-13 12:13 | NUR ---
Wound care consult: Incision site to right breast is intact with a few scabs at site of suha. LORAINE drain and suha were removed 12/12 by primary RN. Wound care will monitor as needed.
--- NOTE | 2016-12-13 13:00 | NUR ---
PRN PAIN MEDICATION ADMINISTERED PER PT COMPLAINTS OF 01/28 TO INCISION AND R FOOT PAIN. WILL REASSESS. PARTIAL BED BATH AND LINEN CHANGE PROVIDED DUE TO INCONTINENCE OF BOWEL. REPOSITIONED UP IN BED. BED LOW, CALL LIGHT IN REACH, DENIES NEEDS. CPOC.
--- NOTE | 2016-12-13 13:42 | NUR ---
MCCULLOUGH CATHETER PULLED AT THIS TIME. PT ABLE TO VOID LARGE AMOUNT OF CLOUDY YELLOW URINE. JACOB CARE PROVIDED. BED LOW, CALL LIGHT IN REACH, DENIES NEEDS. CPOC.
--- NOTE | 2016-12-13 13:46 | NUR ---
PT AOX4 RESP EVEN AND NONLABORED PT DENIES NEEDS AT THIS TIME IV TO RIGHT UPPER ARM PATENT AND INTACT AT THIS TIME SRX2 BED AT LOWEST SETTING CALL LIGHT WITHIN REACH WILL CONTINUE TO MONITOR PT HERE FOR DISABILITY FOR THIS VISIT
--- NOTE | 2016-12-13 16:24 | NUR ---
PT DISCHARGE INSTRUCTIONS DISCUSSED AND REVIEWED AT THIS TIME. NO QUESTIONS OR CONCERNS VOICED. UNDERSTANDS WHEN F/U APPOINTMENTS WILL BE AND WHEN TO PICK PRESCRIPTIONS UP. PIV TO R UPPER ARM DC'D WITH CATHETER INTACT. PRESSURE AND DRESSING APPLIED. ESCORTED OUT BY TAMMY BARRIOS, VIA WC.
== END 2016-12-13 16:29 | disposition home or self-care (01) ==
LOC: D.ER 23:23 → D.MS 12-11 02:33 → OBSVTIME 12-11 02:33 → D.MS 12-11 02:33
PROVIDERS: Nurse Practitioner Family; ADMIT Family Medicine
DX: N39.0 Urinary tract infection, site not specified (principal); W17.89XA Other fall from one level to another, initial encounter; I95.9 Hypotension, unspecified; S70.01XA Contusion of right hip, initial encounter; E11.40 Type 2 diabetes mellitus with diabetic neuropathy, unspecified; Z99.81 Dependence on supplemental oxygen; I10 Essential (primary) hypertension; J44.9 Chronic obstructive pulmonary disease, unspecified; I25.10 Atherosclerotic heart disease of native coronary artery without angina pectoris

== ENCOUNTER 2017-04-05 12:08 | Inpatient (IN) | payer OTHER ==
[2017-04-05] VITALS (17 sets, daily range): BP systolic 61–113; BP diastolic 35–92; BMI 44.5
[~2017-04-05] VITALS: Ht 149.9 cm; Wt 99.0 kg
[~2017-04-05 12:08] MED LIST changes: +HYDROCODONE-APA1 TAB; -HYDROCODONE-APA1 TAB PO; +MACROBID100 MG PO; +OMNICEF300 MG PO
[2017-04-05 12:33] LABS: HEMATOCRIT 38.3 % (36.0-48.0); HEMOGLOBIN 11.9 g/dL (12-16); MCH 27.4 pg (26.0-34.0); MCHC 31.1 g/dL (31.0-37.0); MCV 88.2 fL (80.0-100.0); PLATELET COUNT 415 10x3/uL (130-400); RBC 4.34 10x6/uL (4.00-5.40); WBC 16.8 10x3/uL (4.8-10.8)
[2017-04-05 12:50] LABS: ALBUMIN 3.4 g/dL (3.4-5.0); ALKALINE PHOSPHATASE 195 U/L (46-116); ALT (SGPT) 82 U/L (10-68); BILIRUBIN - TOTAL 0.28 mg/dL (0.2-1.3); CALC OSMOLALITY 284 mosm/kg (275-300); CALCIUM 9.3 mg/dL (8.5-10.1); CARBON DIOXIDE 23.9 mmol/L (21.0-32.0); CHLORIDE - SERUM 98 mmol/L (98-107); CKMB 0.9 U/L (0.0-3.6); CREATINE KINASE 83 UL (21-215); CREATININE - SERUM 2.6 mg/dL (0.6-1.3); GLUCOSE 140 mg/dL (74-106); POTASSIUM - SERUM 5.6 mmol/L (3.5-5.1); PROTEIN - SERUM 7.6 g/dL (6.4-8.2); SODIUM 136 mmol/L (136-145); UREA NITROGEN 42 mg/dL (7-18); eGFR NON AFRICAN AMERICAN 20 mL/min (90-120)
[2017-04-05 12:56] LABS: TROPONIN-I < 0.017 ng/mL (0.000-0.060)
[2017-04-05 13:01] LABS: ANISOCYTOSIS OCC; EOSINOPHILS 6 % (0-7); LYMPHOCYTES 12 % (15-50); MONOCYTES 23 % (2-11); NEUTROPHILS 35 % (40-80); PLATELET ESTIMATE INCREASED; POLYCHROMASIA OCC
[2017-04-05 14:55] LABS: UDS - AMPHET NEGATIVE QUAL (NEGATIVE); UDS - BARB NEGATIVE QUAL (NEGATIVE); UDS - BENZO NEGATIVE QUAL (NEGATIVE); UDS - COCAINE NEGATIVE QUAL (NEGATIVE); UDS - OPIATE POSITIVE QUAL (NEGATIVE); UDS - PCP NEGATIVE QUAL (NEGATIVE); UDS - THC NEGATIVE QUAL (NEGATIVE)
[2017-04-05 14:57] LABS: APPEARANCE CLOUDY (CLEAR); BILIRUBIN NEGATIVE (NEGATIVE); COLOR YELLOW (YELLOW); GLUCOSE NEGATIVE (NEGATIVE); KETONE NEGATIVE (NEGATIVE); NITRITE POSITIVE (NEGATIVE); PROTEIN TRACE mg/dL (NEGATIVE); SPECIFIC GRAVITY 1.015 (1.005-1.020); UROBILINOGEN NORMAL (NORMAL)
[2017-04-05 14:58] LABS: BACTERIA MANY /hpf (NONE SEEN)
[2017-04-05 14:59] LABS: AMORPHOUS SEDIMENT <1+ /lpf (NONE SEEN)
[2017-04-05 19:58] LABS: CREATINE KINASE 66 UL (21-215)
[2017-04-05 19:59] LABS: TROPONIN-I < 0.017 ng/mL (0.000-0.060)
--- NOTE | 2017-04-05 20:00 | NUR ---
PT ARRIVES TO ICU VIA HOSPITAL BED. PT ABLE TO MOVE INDEPENDENTLY TO ICU HOSPITAL BED. BP ON ARRIVAL 70/48 ON 12 MCG OF DOPAMINE. 4L VIA NC. PIV TO RIGHT UPPER ARM AND RIGHT FOREARM; PATENT.
--- NOTE | 2017-04-05 21:15 | NUR ---
SPOKE WITH SISTER; UPDATE GIVEN. QUESTIONS ANSWERED.
--- NOTE | 2017-04-05 21:53 | NUR ---
ASSESSMENT COMPLETE. S1S2. NSR SHOWING ON MONITOR. RR SHALLOW; DYSPNEA ON EXERTION. DIMINISHED BILATERALLY IN MID AND LOWER LOBES. RADIAL PULSES +2; PEDAL PULSES +1. C/O FEET TENDERNESS. BRUSING NOTED BILATERALLY TO UPPER EXTREMITIES. BUTTOCKS REDDENED. SCARS NOTED TO BILATERAL BREAST; BILATERAL MASECTOMY 2016. PT STATED HAVING RADIATION 2 WEEKS PRIOR TO ADMISSION. AAO. PERRLA. MAKES CHANGES IN POSITION INDEPENDENTLY. URINARY INCONTINENCE NOTED WITH COUGHING EPISODES. OCCASIONAL COUGH; NO PRODUCTIVE. C/O HIP PAIN FROM FALL BEFORE ADMISSION.
--- NOTE | 2017-04-05 22:20 | NUR ---
SPOKE WITH SISTER, TAMY, UPDATE GIVEN.
--- NOTE | 2017-04-05 23:30 | NUR ---
REASSESSMENT COMPLETE. NO ACUTE CHANGES FROM PREVIOUS ASSESSMENT. MONITORING BP CLOSELY. ATTEMPTING TO TITRATE DOPAMINE.
[2017-04-06] VITALS (74 sets, daily range): BP systolic 60–157; BP diastolic 35–118; Ht 149.9 cm; Wt 99.0 kg
--- NOTE | 2017-04-06 00:52 | NUR ---
PT RESTING; EYES CLOSED. VSS. MONITORING BP CLOSELY.
--- NOTE | 2017-04-06 01:45 | NUR ---
20 GAUGE PIV STARTED TO RIGHT SHOULDER.
[2017-04-06 01:51] LABS: CKMB 0.8 U/L (0.0-3.6); CREATINE KINASE 70 UL (21-215); TROPONIN-I < 0.017 ng/mL (0.000-0.060)
--- NOTE | 2017-04-06 03:20 | NUR ---
REASSESSMENT COMPLETE. NO ACUTE CHANGES FROM PREVIOUS ASSESSMENT. PIV TO RIGHT SHOULDER.
--- NOTE | 2017-04-06 04:30 | NUR ---
PT INCONTINENT OF URINE. LINENS CHANGED. NEW GOWN PROVIDED. PT CLEANED.
--- NOTE | 2017-04-06 06:19 | NUR ---
PT ASSISTED TO BEDPAN. VSS. MINIMAL ASSISTANCE. CALL LIGHT IN REACH.
--- NOTE | 2017-04-06 06:44 | NUR ---
COMPLETE LINEN CHANGE. NEW GOWN PROVIDED.
[2017-04-06 07:00] LABS: ALKALINE PHOSPHATASE 164 U/L (46-116); ALT (SGPT) 45 U/L (10-68); CALC OSMOLALITY 292 mosm/kg (275-300); CALCIUM 8.3 mg/dL (8.5-10.1); CARBON DIOXIDE 22.6 mmol/L (21.0-32.0); CHLORIDE - SERUM 101 mmol/L (98-107); CKMB 0.9 U/L (0.0-3.6); CREATINE KINASE 104 UL (21-215); CREATININE - SERUM 2.8 mg/dL (0.6-1.3); GLUCOSE 182 mg/dL (74-106); HEMATOCRIT 34.2 % (36.0-48.0); HEMOGLOBIN 10.7 g/dL (12-16); MAGNESIUM - SERUM 1.9 mg/dL (1.8-2.4); MCH 27.4 pg (26.0-34.0); MCHC 31.3 g/dL (31.0-37.0); MCV 87.7 fL (80.0-100.0); MEAN PLATELET VOLUME 10.9 fL (7.4-10.4); PHOSPHOROUS 4.4 mg/dL (2.5-4.9); PLATELET COUNT 363 10x3/uL (130-400); RDW 16.2 % (11.5-14.5); SODIUM 139 mmol/L (136-145); TROPONIN-I < 0.017 ng/mL (0.000-0.060); UREA NITROGEN 41 mg/dL (7-18); WBC 25.7 10x3/uL (4.8-10.8); eGFR NON AFRICAN AMERICAN 19 mL/min (90-120)
[2017-04-06 08:16] LABS: EOSINOPHILS 2 % (0-7); LYMPHOCYTES 16 % (15-50); MONOCYTES 13 % (2-11); NEUTROPHILS 44 % (40-80); PLATELET ESTIMATE NORMAL; ROULEAUX OCC
--- NOTE | 2017-04-06 08:39 | NUR ---
IHSAN GERARDO NOTIFIED OF NEED FOR PICC LINE PLACEMENT.
--- NOTE | 2017-04-06 10:52 | NUR ---
PATIENT'S BP HAS DECREASED TO 70'S INCREASED LEVOPHED TO 7MCG/MIN BP INCREASED TO SYSTOLIC OF 103 WITH MAP OF 80.
--- NOTE | 2017-04-06 12:30 | NUR ---
PATIENT VOIDED IN BED [place]ACKSON WITH YELLOW URINE NOTED 400ML. PATIENT SITTING UP TALKING WITH AT THIS TIME.
--- NOTE | 2017-04-06 13:54 | NUR ---
DECREASED DOPAMINE TO 5MCG/KG/MIN. PATIENT VOIDED 400ML OF YELLOW URINE NOTED.
--- NOTE | 2017-04-06 15:39 | NUR ---
SPOKE WITH LYNDSAY COVARRUBIAS ABOUT INABLILITY OF VASCULAR ACCESS NURSE BEING ABLE TO DO A PICC LINE ON THIS PATIENT. WILL CONSULT DR. CHAMBERS FOR CVL.
--- NOTE | 2017-04-06 15:51 | NUR ---
PATIENT VOIDED 400ML OF CLEAR YELLOW URINE. PATIENT HAD URGENCY STATES IT JUST HIT HER.
--- NOTE | 2017-04-06 17:00 | NUR ---
PATIENT VOIDED 400ML OF YELLOW URINE, DENIES ANY NEEDS AT THIS TIME. DINNER SERVED.
--- NOTE | 2017-04-06 17:00 | NUR ---
DOPAMINE DC'D DUE TO SYSTOLIC BP IN 140'S
--- NOTE | 2017-04-06 17:08 | NUR ---
LEVOPHED STOPPED AT THIS TIME D/T BP BEING IN 140'S SYSTOLIC
--- NOTE | 2017-04-06 17:09 | NUR ---
DR. THAKKAR IN TO SEE PATIENT DECISION MADE TO WAIT ON CVL SINCE PATIENT IS IMPROVING.
--- NOTE | 2017-04-06 20:16 | NUR ---
REC'D LYING IN BED. ALERT AND ORIENTED X4. REPORTED PAIN 5/10. IS WANTING SOMETHING FOR PAIN. WILL ADMIN PAIN MEDS PRESCRIBED. DENIED FURTHER NEEDS AT THIS TIME. NO DISTRESS NOTED. INSTRUCTED TO CALL IF NEEDED ANYTHING. VERBALIZED UNDERSTANDING. BED LOW, LOCKED, CALL LIGHT IN REACH.
--- NOTE | 2017-04-06 20:41 | NUR ---
SISTER IS HERE AND IS VERY UPSET WITH [facility]. IS UPSET THAT WHEN SHE CALLED UP HERE TO CHECK ON HIS SISTER, SHE WOULD NOT TELL HER ANYTHING AFTER SHE TOLD HER THE PASSWORD. IS WANTING TO BE THE EMERGENCY CONTACT AND THEN THE BECAUSE SHE CAN GET UP HERE FASTER THAN THE . MANSI PURDY [phone] IS TO BE CONTACTED FIRST. WILL UPDATE EMERGENCY CONTACT PER MRS. HERRERA.
--- NOTE | 2017-04-06 22:00 | NUR ---
HAD COMPLAINTS OF [place] EARLIER IN THE NIGHT. CALLED DR. PRADO AND LYNDSAY COVARRUBIAS CALLED BACK AND ORDERED 4MG ZOFRAN Q4 PRN. ADMIN PRESCRIBED. WILL CONT TO MONITOR.
--- NOTE | 2017-04-06 22:33 | NUR ---
CHECKED IN ON PATIENT, AWAKE AND SITTING UP IN BED, C/O NAUSEA, DENIES PAIN BUT WORRIED ABOUT DISTENTION IN ABDOMEN. VSS ATT, RR EVEN AND UNLABORED BUT TACHYPNIC DUE TO NAUSEA. NOTIFIED JANIE QUINTANA OF PATIENT CONCERNS AND SHE IS AWARE, SHE STATED SHE NOTIFIED MD AND RECIEVED ORDERS FOR ZOFRAN TO GIVE AND THAT THE MD IS AWARE OF DISTENTION AND IS NORMAL ATT. NO S&S OF ACUTE DISTRESS NOTED. BED IS LOW AND LOCKED, CALL LIGHT IN REACH. WILL CPOC.
--- NOTE | 2017-04-06 23:01 | NUR ---
IV LINE THAT HAD NS GOING INTO THE SHOULDER WAS HOOKED UP TO THE LEVOPHED, I DID NOT REALIZE. LEVOPHED WAS TURNED OFF ON DAY SHIFT SO IT WAS NOT RUNNING. PUSHED SOME ZOFRAN INTO THAT LINE AND SHE COMPLAINED OF ELECTRICTY GOING THROUGHOUT HER BODY. STOPPED PUSHING. GOT NAVID BRITO AND SHE ASSESSED. EDUCATIED THAT THERE WAS STILL A LITTLE LEVOPHED LEFT IN THE LINE AND SHE GOT IT. BP GOT TO 161/83. STAYED WITH HER FOR 10 MINS AFTERWARDS BP CAME DOWN TO 146/61. IS NO LONGER SYMTOMATIC. WILL CONT TO MONITOR.
[2017-04-07] VITALS (21 sets, daily range): BP systolic 129–186; BP diastolic 72–97
--- NOTE | 2017-04-07 01:16 | NUR ---
HAS THROWN UP 3 TIMES IS COMPLAINING OF SEVERE PAIN IN HER UPPER ABDOMEN, REPORTED PAIN 20/10. ABDOMEN IS RIGID. CALLED DR. PRADO AND LYNDSAY COVARRUBIAS CALLED BACK AND AM TO ORDER A CT SCAN OF THE ABDOMEN WITH CONTRAST, AND IV MORPHINE 4MG Q4 PRN. PUT IN THE ORDER AND CANNOT GIVE WITH CONTRAST BC CREATINE IS HIGH AT A 2.5.
--- NOTE | 2017-04-07 02:00 | NUR ---
CALLED LYNDSAY COVARRUBIAS BACK WITH THE RESULTS OF THE CT SCAN AND WAS TOLD TO PLACE HER NPO, START HER ON MIRALAX IN AM IF ABD IS BETTER. IF NOT AND STILL COMPLAINING OF ABD PAIN TO PLACE AND NGT IN. RELAYED TO PATIENT AND SHE REFUSED THE NGT.
--- NOTE | 2017-04-07 04:23 | NUR ---
BELL RN TALKED TO HER AND SHE LET US ATTEMPT TO PLACE THE NGT. WE TRIED TWICE AND SHE DID NOT TOLERATE IT WELL. STATED "IT HURTS TOO MUCH" NOTIFIED FAMILY BEFORE TRYING AND THEY AGREED THEY WANTED HER TO HAVE IT IN PLACE. NOTIFIED FAMILY AFTERWARDS THAT WE DID NOT GET IT DOWN, THEY STATED "WE WILL BE UP THERE IN THE MORNING" IS NOW SITTING STRAIGHT UP IN BED, SEEMS TO BE MORE COMFORTABLE THAT WAY. WILL CONT TO MONITOR.
[2017-04-07 05:05] LABS: BASOPHILS 0.7 % (0-2); EOSINOPHILS 0.4 % (0-7); HEMATOCRIT 31.6 % (36.0-48.0); HEMOGLOBIN 9.9 g/dL (12-16); IMMATURE GRANULOCYTES 16.8 % (0-5); LYMPHOCYTES 5.9 % (15-50); MCH 27.6 pg (26.0-34.0); MCHC 31.3 g/dL (31.0-37.0); MEAN PLATELET VOLUME 10.7 fL (7.4-10.4); MONOCYTES 7.8 % (2-11); NEUTROPHILS 68.4 % (40-80); PLATELET COUNT 314 10x3/uL (130-400); RBC 3.59 10x6/uL (4.00-5.40); WBC 24.8 10x3/uL (4.8-10.8)
[2017-04-07 05:27] LABS: ALBUMIN 2.7 g/dL (3.4-5.0); ANION GAP 11.7 mmol/L (8-16); BILIRUBIN - TOTAL 0.13 mg/dL (0.2-1.3); CALCIUM 7.4 mg/dL (8.5-10.1); CARBON DIOXIDE 31.4 mmol/L (21.0-32.0); CREATININE - SERUM 1.3 mg/dL (0.6-1.3); POTASSIUM - SERUM 4.1 mmol/L (3.5-5.1); PROTEIN - SERUM 6.2 g/dL (6.4-8.2)
--- NOTE | 2017-04-07 08:25 | NUR ---
PT NOTED TO HAVE MULTIPLE EMESIS AT THIS TIME, CLEAR YELLOW. PT ALSO AT THIS TIME REFUSED NGT STATING "THEY TRIED PUTTING THAT THING IN TWICE LAST NIGHT, AINT NOONE GOING TO TRY TO PUT THAT THING DOWN MY NOSE AGAIN." VOMITING HAS STOPPED FOR A FEW MINUITES, PT STATED IT COMES IN WAVES. ALSO NOTED PT TO HAVE HYPERTENSION. WILL NOTIFY PHYSICIAN AND CONTINUE PLAN OF CARE.
--- NOTE | 2017-04-07 08:38 | NUR ---
DR PRADO PAGED AT THIS TIME. WAITING FOR CALLBACK.
--- NOTE | 2017-04-07 08:46 | NUR ---
DR EVE COVARRUBIAS CALLED BACK AT THIS TIME. ORDERS RECIEVED FOR CONSULT DR THAKKAR FOR NAUSEA/VOMITING, DECREASE FLUID RATE FROM NS 200 TO NS 100ML/HOUR. AND START LABETALOL IV 10MG Q6H PRN FOR SYSTOLIC BP ABOVE 140 OR DIASTOLIC BP OVER [address]. [address] ORDERS.
--- NOTE | 2017-04-07 11:25 | NUR ---
UP IN BED AWAKE AT THIS TIME. NO ACUTE DISTRESS NOTED. PT ALERT AND ORIENTED. ABLE TO STATE NEEDS. ASSISTED WITH TURNING Q2H. WILL CONTINUE PLAN OF CARE.
--- NOTE | 2017-04-07 14:24 | NUR ---
LYING IN BED AT THIS TIME. NO ACUTE DISTRESS NOTED. WILL CONTINUE PLAN OF CARE.
--- NOTE | 2017-04-07 16:00 | NUR ---
ATTEMPTED TO PLACE NGT PER ORDERS. ATTEMPTED X 2 TIMES AT THIS TIME AND NOTED UNSUSSCESSFUL. DR THAKKAR NOTIFIED. NO NEW ORDERS.
--- NOTE | 2017-04-07 18:04 | NUR ---
INCONTINENT BOWEL MOVEMENT AND VOID NOTED AT THIS TIME. JACOB CARE PROVIDED AND TOTAL LINEN CHANGE PROVIDED. NO ACUTE DISTRESS NOTED. WILL CONTINUE PLAN OF CARE.
--- NOTE | 2017-04-07 19:00 | NUR ---
REPORT RECIEVED, SHIFT ASSESSMENT COMPLETE, PLEASE SEE FLOW SHEETS FOR DETAILS. ALERT AND ORIENTED X4, C/O PAIN 8/10 IN ABDOMEN, ALSO C/O HEART BURN WILL CONTACT MD AND HAVE THIS ADDESSED. LUNGS CLEAR IN ALL LOBES, NO RESPIRATORY DISTRESS NOTED. 3L NC ON. S1S2 HEARD, NSR NOTED ON MONITOR AT 86. PPP. CAP REFIL <3 SECONDS. BS HYPOACTIVE X4, ABDOMINAL DISTENTION NOTED, FIRM TO PALPATION AND TENDER. INCONTINENT OF STOOL AND URINE AT MOST TIMES WHEN COUGHING ESPECIALLY. PIV IN RIGHT UPPER ARM INFUSING D5LR @ 100 DRESSING CDI. PROVIDES SELF ORAL CARE AND TURNING. BED LOW AND LOCKED, CALL LIGHT IN REACH. WILL CPOC.
--- NOTE | 2017-04-07 20:15 | NUR ---
CALLED AND SPOKE WITH ANGEL UMANA, RECIEVED NEW ORDERS CONCERNING PT COMPLAINTS OF HEART BURN. WILL CPOC.
--- NOTE | 2017-04-07 21:00 | NUR ---
INSTRUCTED ON ORAL CARE, GAVE ORDERED CARAFATE AND PROTONIX, PT EXPERIENCED IMMEDIATE RELIEF. NO COMPLAINTS OF N/V. VSS, PROVIDES SELF ORAL CARE AND TURNING. BED LOW AND LOCKED, CALL LIGHT IN REACH. WILL CPOC.
--- NOTE | 2017-04-07 23:00 | NUR ---
REASSESSMENT COMPLETE, PLEASE SEE FLOW SHEETS FOR DETAILS. NO CHANGES FROM PREVIOUS ASSESSMENT TO NOTE. PROVIDED TOILETING, VOIDED 160ML CONCENTRATED URINE. TURNS SELF, PROVIDES SELF ORAL CARE. VSS, BED LOW AND LOCKED, CALL LIGHT IN REACH. WILL CPOC.
[2017-04-08] VITALS (24 sets, daily range): BP systolic 153–193; BP diastolic 75–142
--- NOTE | 2017-04-08 00:55 | NUR ---
C/O HEART BURN, INFORMED HER I DID NOT HAVE ANYTHING FOR HER UNTIL 0700. SHE WAS NOT VERY HAPPY WITH THIS, SUGGESTED SHE TURN TO HER LEFT SIDE FOR SOME RELIEF, SHE SAID SHE WOULD TRY THIS. VSS ATT, BED LOW AND LOCKED, CALL LIGHT IN REACH. WILL CPOC.
--- NOTE | 2017-04-08 03:00 | NUR ---
REASSESSMENT COMPLETE, PLEASE SEE FLOW SHEETS FOR DETAILS. DOES NOT C/O PAIN ATT, THOUGH IN SOME DISCOMFORT, DENIES ANY NEEDS. NO OTHER CHANGES FROM PREVIOUS ASSESSMENT TO NOTED. VSS, BED LOW AND LOCKED, CALL LIGHT IN REACH. WILL CPOC.
--- NOTE | 2017-04-08 05:00 | NUR ---
SLEEPING, NO S&S OF DISTRESS NOTED. BED LOW AND LOCKED, CALL LIGHT IN REACH. VSS, WILL CPOC.
--- NOTE | 2017-04-08 07:23 | NUR ---
LYING IN BED RESTING AT THIS TIME. FOWLERS POSITION. RESPIRATIONS STEADY AND UNLABORED. AWAKENS EASILY WHEN SPOKEN TO. NO ACUTE DISTRESS NOTED. WILL CONTINUE PLAN OF CARE.
--- NOTE | 2017-04-08 09:19 | NUR ---
NOTED PT HAS HYPERTENSION. DR EVE UMANA ROUNDING ON PT AT THIS TIME. NOTIFIED. ORDERS RECIEVED. WILL CONTINUE PLAN OF CARE.
[2017-04-08 10:24] LABS: BASOPHILS 0.8 % (0-2); EOSINOPHILS 0.7 % (0-7); HEMATOCRIT 32.8 % (36.0-48.0); HEMOGLOBIN 9.7 g/dL (12-16); IMMATURE GRANULOCYTES 14.9 % (0-5); LYMPHOCYTES 11.3 % (15-50); MCH 27.1 pg (26.0-34.0); MCHC 29.6 g/dL (31.0-37.0); MEAN PLATELET VOLUME 10.4 fL (7.4-10.4); MONOCYTES 5.5 % (2-11); NEUTROPHILS 66.8 % (40-80); PLATELET COUNT 260 10x3/uL (130-400); RBC 3.58 10x6/uL (4.00-5.40); RDW 16.3 % (11.5-14.5); WBC 19.8 10x3/uL (4.8-10.8)
[2017-04-08 10:32] LABS: MCV 91.6 fL (80.0-100.0)
[2017-04-08 10:39] LABS: ALBUMIN 2.5 g/dL (3.4-5.0); ANION GAP 12.1 mmol/L (8-16); BILIRUBIN - TOTAL 0.19 mg/dL (0.2-1.3); CALCIUM 7.9 mg/dL (8.5-10.1); POTASSIUM - SERUM 4.1 mmol/L (3.5-5.1); PROTEIN - SERUM 6.6 g/dL (6.4-8.2)
--- NOTE | 2017-04-08 11:50 | NUR ---
PT EXPERIENCED EPISODE OF SHORTNESS OF BREATH WITH PRESSURE PAIN ON CHEST LIKE AN "ELEPHANT IS SITTING ON MY CHEST" PER PT. CALLED DR EVE COVARRUBIAS, RECIEVED ORDERS FOR EKG, CARDIAC ENZYMES, AND ATIVAN. NOTED CTA CHEST HAS ALREADY BEEN ORDERED TO RULE PUT PE. WILL PLACE ORDERS. WILL CONTINUE PLAN OF CARE.
[2017-04-08 12:34] LABS: CKMB 0.9 U/L (0.0-3.6); CREATINE KINASE 77 UL (21-215); TROPONIN-I 0.031 ng/mL (0.000-0.060)
--- NOTE | 2017-04-08 13:03 | NUR ---
PER DR THAKKAR, ONLY SWABS AND ICE CHIPS BY MOUTH.
--- NOTE | 2017-04-08 13:25 | NUR ---
LEFT AT THIS TIME FOR CT VIA BED WITH HOSPITAL STAFF. NO ACUTE DISTRESS NOTED. WILL CONTINUE PLAN OF CARE.
--- NOTE | 2017-04-08 13:50 | NUR ---
RETURNED FROM CT AT THIS TIME. NOTED PT WAS UNABLE TO TOLERATE CT BECUASE OF SHORTNESS OF BREATH STATED PER PT AND PER CT STAFF. CALLED MARCI BOURNE APN AND NOTIFIED. NEW ORDERS OBTAINED OF ABRAHAN AND TO CONSULT DR BURTON FOR SUDDEN ONSET SHORTNESS OF BREATH, UNABLE TO LAY FLAT. WILL PLACE ORDERS. PT NOW UP IN BED SITTING IN HIGH FOWLERS POSITION VISITING WITH SISTER. PT RESPIRATIONS ARE BECOMING MORE STEADY AND UNLABORED AT THIS TIME. OXYGEN SATURATION 96% TO 3L O2. WILL CONTINUE PLAN OF CARE.
--- NOTE | 2017-04-08 14:38 | NUR ---
DR BURTON HAS SEEN PT. ORDERS PLACED.
--- NOTE | 2017-04-08 15:25 | NUR ---
INCONTINENT VOID AND BOWEL MOVEMENT NOTED. JACOB CARE PROVIDED VIA TOTAL ASSIST ALONG WITH TOTAL BED CHANGE. PT ABLE TO HELP STAFF WITH TURNING. NO ACUTE DISTRESS NOTED. PT TURNED Q2H. WILL CONTINUE PLAN OF CARE.
--- NOTE | 2017-04-08 17:23 | NUR ---
UP IN BED AT THIS TIME VISITING WITH . NO ACUTE DISTRESS NOTED. PT USES BIPAP AT 40% FIO2 PRN. DENIES ANY NEEDS. WILL CONTINUE PLAN OF CARE.
--- NOTE | 2017-04-08 18:39 | NUR ---
PT NOTED INCONTINENT VOID. TOTAL BED CHANGE PROVIDED AT THIS TIME. JACOB CARE PROVIDED VIA TOTAL ASSIST. PT ABLE TO HELP WITH TURNING. NO ACUTE DISTRESS NOTED. SITTING UP IN BED WATCHING TV NOW. WILL CONTINUE PLAN OF CARE.
--- NOTE | 2017-04-08 19:35 | NUR ---
PT IN BED WITH EYES OPEN WATCHING TV WITH NO S/S OF DISTRESS. B/P CONTINUES TO BE ELEVATED. RECEIVING D5LR AT 5 MLS/HR VIA RIGHT UPPER ARM WITH A SALINE LOCK TO LOWER RIGHT UPPER ARM AND IS PATENT. INCONTENT OF BOWEL WITH PERICARE PROVIDED AND NEW PAD PROVIDED. CALL LIGHT IN REACH. WILL CONTINUE TO OBSERVE.
--- NOTE | 2017-04-08 21:25 | NUR ---
PT UP SITTING ON SIDE OF BED WITH NO CONCERNS NOTED. NO S/S OF DISTRESS NOTED. CALL LIGHT IN REACH. WILL CONTINUE TO OBSERVE.
--- NOTE | 2017-04-08 23:30 | NUR ---
PT SITTING ON SIDE OF BED WITH ASSISTANCE GIVEN TO BEDSIDE COMMODE AND BACK TO BED. IN BED WITH NO CONCERNS NOTED AT THIS TIME. CALL LIGHT IN REACH. WILL CONTINUE TO OBSERVE.
[2017-04-09] VITALS (24 sets, daily range): BP systolic 147–200; BP diastolic 67–110
--- NOTE | 2017-04-09 01:20 | NUR ---
PT IN BED WITH EYES CLOSED AND CHEST RISING. NO S/S OF DISTRESS. O2 SAT WITHIN NORMAL LIMITS ON 3LPM N/C. CALL LIGHT IN REACH. WILL CONTINUE TO OBSERVE.
--- NOTE | 2017-04-09 03:13 | NUR ---
PT IN BED WITH EYES CLOSED AND CHEST RISING. AROUSED TO VERBAL STIMULI. ON BIPAP AT 40%. NO S/S OF DISTRES. WILL CONTINUE TO OBSERVE. CALL LIGHT IN REACH.
[2017-04-09 03:55] LABS: BASOPHILS 0.6 % (0-2); EOSINOPHILS 0.2 % (0-7); HEMATOCRIT 33.7 % (36.0-48.0); HEMOGLOBIN 10.2 g/dL (12-16); IMMATURE GRANULOCYTES 11.5 % (0-5); LYMPHOCYTES 5.7 % (15-50); MCH 27.3 pg (26.0-34.0); MCHC 30.3 g/dL (31.0-37.0); MCV 90.1 fL (80.0-100.0); MEAN PLATELET VOLUME 10.2 fL (7.4-10.4); MONOCYTES 3.4 % (2-11); NEUTROPHILS 78.6 % (40-80); PLATELET COUNT 249 10x3/uL (130-400); RBC 3.74 10x6/uL (4.00-5.40); RDW 16.2 % (11.5-14.5)
[2017-04-09 04:21] LABS: ANION GAP 16.8 mmol/L (8-16); BILIRUBIN - TOTAL 0.36 mg/dL (0.2-1.3); CALCIUM 8.3 mg/dL (8.5-10.1); CARBON DIOXIDE 27.5 mmol/L (21.0-32.0); CREATININE - SERUM 1.1 mg/dL (0.6-1.3); MAGNESIUM - SERUM 1.6 mg/dL (1.8-2.4); PHOSPHOROUS 4.1 mg/dL (2.5-4.9); POTASSIUM - SERUM 4.3 mmol/L (3.5-5.1)
--- NOTE | 2017-04-09 10:26 | NUR ---
PT UP TO BSC TO VOID. NEUROCRITICAL CARE PHYSICIAN HERE. REPORTED THAT PT REFUSED MOM AND SHE DID TAKE HER MIRALAX. CTA ORDERED.
--- NOTE | 2017-04-09 10:41 | NUR ---
NUTRITION F/U PT REMAINS NPO. MAY BENEFIT FROM PROCALAMINE AND INTRALIPIDS IF UNABLE TO RESUME DIET [address] FOLLOWING
--- NOTE | 2017-04-09 17:55 | NUR ---
PT INC OF URINE AND STOOL. ASSISTED UP TO BSC. BATHED AND LINENS CHANGED. PT C/O PAIN GENERALIZED PAIN. RATES 5 ON SCALE OF 1 TO 10.
--- NOTE | 2017-04-09 19:35 | NUR ---
PT IN BED WITH EYES CLOSED AND CHEST RISING. PT USES CALL LIGHT WITH PT INCONTINENT OF BLADDER. LINENS CHANGED AND PERICARE PROVIDED. NO S/S OF DISTRESS. PT RECEIVING IV FUROSIMIDE. NO COMPLAINTS OR OTHER CONCERNS MADE KNOWN AT THIS TIME. CALL LIGHT IN REACH. WILL CONTINUE TO OBSERVE.
--- NOTE | 2017-04-09 21:20 | NUR ---
PT IN BED WITH EYES OPEN WATCHING TV. PT RECEIVED MEDICATION WITH DIFFICULTY. NO CONCERNS OR COMPLAINTS MADE KNOWN. WILL CONTINUE TO OBSERVE. CALL LIGHT IN REACH.
--- NOTE | 2017-04-09 23:37 | NUR ---
PT IN BED WITH EYES CLOSED AND CHEST RISING. NO S/S OF DISTRESS NOTED. BP ELEVATED AND PRN CLONIDINE TO BE GIVEN. CALL LIGHT IN REACH. WILL CONTINUE TO OBSERVE.
[2017-04-10] VITALS (10 sets, daily range): BP systolic 139–178; BP diastolic 65–94
--- NOTE | 2017-04-10 01:15 | NUR ---
PT IN BED WITH EYES OPEN WATCHING TV. NO CONCERNS MADE KNOWN. INCONTINENT OF BLADDER WITH COMPLETE LINEN CHANGE. WILL CONTINUE TO OBSERVE.
--- NOTE | 2017-04-10 03:35 | NUR ---
PT IN BED WITH EYES OPEN WATCHING TV. NO COMPLAINTS NOTED AT THIS TIME. NO S/S OF DISTRESS. CALL LIGHT IN REACH. WILL CONTINUE TO OBSERVE.
[2017-04-10 03:57] LABS: BASOPHILS 0.7 % (0-2); EOSINOPHILS 0.1 % (0-7); HEMATOCRIT 33.3 % (36.0-48.0); HEMOGLOBIN 10.3 g/dL (12-16); IMMATURE GRANULOCYTES 11.1 % (0-5); LYMPHOCYTES 7.8 % (15-50); MCH 27.3 pg (26.0-34.0); MCHC 30.9 g/dL (31.0-37.0); MCV 88.3 fL (80.0-100.0); MEAN PLATELET VOLUME 10.5 fL (7.4-10.4); MONOCYTES 3.8 % (2-11); NEUTROPHILS 76.5 % (40-80); PLATELET COUNT 225 10x3/uL (130-400); RBC 3.77 10x6/uL (4.00-5.40)
[2017-04-10 04:06] LABS: WBC 16.4 10x3/uL (4.8-10.8)
[2017-04-10 04:16] LABS: ALBUMIN 3.1 g/dL (3.4-5.0); ANION GAP 16.9 mmol/L (8-16); BILIRUBIN - TOTAL 0.39 mg/dL (0.2-1.3); CALCIUM 8.5 mg/dL (8.5-10.1); CREATININE - SERUM 1.2 mg/dL (0.6-1.3); MAGNESIUM - SERUM 1.9 mg/dL (1.8-2.4); PHOSPHOROUS 4.4 mg/dL (2.5-4.9); POTASSIUM - SERUM 3.9 mmol/L (3.5-5.1); PROTEIN - SERUM 6.9 g/dL (6.4-8.2)
--- NOTE | 2017-04-10 05:11 | NUR ---
PT IN BED WITH EYES OPEN WATCHING TV. ON BEDPAN AT THIS TIME. NO OTHER CONCERNS NOTED AT THIS TIME. CALL LIGHT IN REACH. WILL CONTINUE TO OBSERVE.
--- NOTE | 2017-04-10 08:19 | NUR ---
ASSISTED PT WITH [facility]. SERVICE WORKER FROM DR CALVO OFFICE HERE. PT DENIES NEEDS.
--- NOTE | 2017-04-10 14:00 | NUR ---
PT INC OF URINE AND STOOL. LINENS CHANGED AND PT BATHED.
--- NOTE | 2017-04-10 15:05 | NUR ---
PT ARRIVED TO MED SURGICAL FLOOR WITH HOSPITAL STAFF, PT ALERT AND ORIENTED.
--- NOTE | 2017-04-10 16:01 | NUR ---
REST IN BED AND WATCH TV.
--- NOTE | 2017-04-10 17:55 | NUR ---
PT TAKE OUT IV. AND COMBATIVE.
--- NOTE | 2017-04-10 19:59 | NUR ---
PATIENT RESTING IN BED WITH GUEST AT BEDSIDE. NO VISIBLE SIGNS OF DISTRESS. PATIENT DENIES NEEDS AT THIS TIME. BED IN LOWEST POSITION AND CALL LIGHT WITHIN REACH. ENCOURAGED THE PATIENT TO CALL IF SHE HAS NEEDS.
[2017-04-11] VITALS: BP 169/71
[2017-04-11 04:00] VITALS: BP 172/73
[2017-04-11 05:42] LABS: BASOPHILS 0.3 % (0-2); EOSINOPHILS 0 % (0-7); HEMOGLOBIN 10.5 g/dL (12-16); IMMATURE GRANULOCYTES 7.3 % (0-5); LYMPHOCYTES 5.4 % (15-50); MCH 27.4 pg (26.0-34.0); MCHC 30.9 g/dL (31.0-37.0); MCV 88.8 fL (80.0-100.0); MEAN PLATELET VOLUME 10.8 fL (7.4-10.4); MONOCYTES 3.6 % (2-11); NEUTROPHILS 83.4 % (40-80); PLATELET COUNT 238 10x3/uL (130-400); RBC 3.83 10x6/uL (4.00-5.40); RDW 16.3 % (11.5-14.5)
[2017-04-11 06:13] LABS: ALBUMIN 3.1 g/dL (3.4-5.0); ANION GAP 17.4 mmol/L (8-16); BILIRUBIN - TOTAL 0.45 mg/dL (0.2-1.3); CALCIUM 8.7 mg/dL (8.5-10.1); CARBON DIOXIDE 29.2 mmol/L (21.0-32.0); CREATININE - SERUM 1.5 mg/dL (0.6-1.3); POTASSIUM - SERUM 3.6 mmol/L (3.5-5.1); PROTEIN - SERUM 7.5 g/dL (6.4-8.2)
--- NOTE | 2017-04-11 08:39 | NUR ---
Patient Name: ANNY HERRERA Admission Status: ER Accout number: [id number] Admission Date: 04-05-2017 : 1960 Admission Diagnosis:WEAKNESS Attending: JERAMY PRADO Current LOS: 1 Planned Disposition: Home with Home Health Primary Insurance: [facility] PPO Discharge Planning Comments: CM met with patient to assess dc plans/needs. Patient states she lives at home with her , Arcadio. She reports she uses a walker for ambulating, but otherwise is independent with ADL's. She states she has had home health in the past but unable to recall which agency. At dc, she is agreeable to home health services. CM will follow & assist as needed. Pot Reliner: Poppy Alcantar
[2017-04-11 08:45] VITALS: BP 141/80
--- NOTE | 2017-04-11 11:09 | NUR ---
Vancomycin trough completed 04-11 at 0930 was 32.4. Held Vancomycin and ordered random level for 11-23 AM. Will dose further based on random level.
--- NOTE | 2017-04-11 11:56 | NUR ---
PT IS RESTING IN BED. SHE REQUESTED HER PAIN BED. I TOLD HER THAT HER PAIN MED WAS ORDERED Q 8 HRS. IT WAS GIVEN AT 0630. SHE WAS OK WITH THIS.
--- NOTE | 2017-04-11 12:22 | NUR ---
FAXED ORDER FOR HER ZOSYN AND TOLD THEM WE NEEDED THIS FOR HER 12:00 DOSE.
[2017-04-11 12:36] VITALS: BP 159/83
--- NOTE | 2017-04-11 13:06 | NUR ---
NUTRITION F/U CHART REVIEWED, PT VISIT. TOLERATING REG DIET. GOOD INTAKE RECENT MEALS. WILL CONTINUE TO PROVIDE DIET, MONITOR INTAKE. RD FOLLOWING
--- NOTE | 2017-04-11 16:30 | NUR ---
DR BURTON CAME BY TO SEE PT. HE STATED THAT SHE COULS PROBABLY GO HOME IN THE AM. PT IS HAPPY.
[2017-04-11 16:47] VITALS: BP 144/72
--- NOTE | 2017-04-11 17:00 | NUR ---
PT UP TO SHOWER. IV SALINE LOCKED. PT IS FEELING OK.
--- NOTE | 2017-04-11 17:55 | NUR ---
PT IS OUT OF SHOWER. IS HELPING HER. TOLERATED WELL.
[2017-04-11 21:36] VITALS: BP 170/77
--- NOTE | 2017-04-12 02:19 | NUR ---
EYES CLOSED RESPIRATIONS WITH EASE AND UNLABORED. SR UP X2 CALL LIGHT WITHIN REACH.
[2017-04-12 04:00] VITALS: BP 113/86
[2017-04-12 06:40] VITALS: BP 142/75
--- NOTE | 2017-04-12 07:59 | NUR ---
RANDOM VANCOMYCIN THIS AM = 15.4 ORDERED 1 GRAM X 1 AND A RANDOM LEVEL IN AM. WILL DOSE FURTHER BASED ON LEVEL
--- NOTE | 2017-04-12 09:11 | NUR ---
PT AOX4 RESP EVEN AND NONLABORED PT DENIES NEEDS AT THIS TIME IV TO RIGHT UPPER ARM PATENT AND INTACT AT THIS TIME SRX2 BED AT LOWEST SETTING CALL LIGHT WITHIN REACH WILL CONTINUE TO MONITOR
[2017-04-12 09:13] VITALS: BP 136/76
[2017-04-12 12:30] VITALS: BP 139/76
[2017-04-12 17:39] VITALS: BP 160/85
--- NOTE | 2017-04-12 17:51 | NUR ---
IV TO RIGHT UPPER ARM LEAKING. RESITED TO RIGHT FOREARM AC AREA AFTER ONE ATTEMPT WITH 22G. OLD IV D/C WITH CATHETER INTACT.
[2017-04-12 21:54] VITALS: BP 186/91
[2017-04-13] VITALS: BP 163/75
--- NOTE | 2017-04-13 02:47 | NUR ---
2000) REC'D. SITTING ON SIDE OF BED UPSET OVER NOT BE DISCHARGED TODAY.DENIES ANY FURTHER COMPLAINTS WILL CONTINUE TO MOITOR FOR ANY CHGES AND FOLLOW CURRENT PLAN OF CARE
--- NOTE | 2017-04-13 03:31 | NUR ---
PT RESTING QUIETLY WITH RESPIRATIONS EQUAL AT THIS TIME. NO DISTRESS NOTED. CALL LIGHT IN REACH, BED IN LOWEST POSITION. WILL CONTINUE WITH PLAN OF CARE.
[2017-04-13 04:00] VITALS: BP 141/81
[2017-04-13 06:18] LABS: ALBUMIN 3.1 g/dL (3.4-5.0); ANION GAP 14.2 mmol/L (8-16); BILIRUBIN - TOTAL 0.4 mg/dL (0.2-1.3); CALCIUM 9.1 mg/dL (8.5-10.1); CARBON DIOXIDE 29.2 mmol/L (21.0-32.0); CREATININE - SERUM 1.3 mg/dL (0.6-1.3); POTASSIUM - SERUM 4.4 mmol/L (3.5-5.1); PROTEIN - SERUM 7.2 g/dL (6.4-8.2); VANCOMYCIN - RANDOM 16.9 ug/mL (10.0-20.0)
[2017-04-13 06:24] LABS: BASOPHILS 0.1 % (0-2); EOSINOPHILS 0 % (0-7); HEMATOCRIT 36.5 % (36.0-48.0); HEMOGLOBIN 11.2 g/dL (12-16); IMMATURE GRANULOCYTES 4.3 % (0-5); MCH 27.7 pg (26.0-34.0); MCHC 30.7 g/dL (31.0-37.0); MCV 90.1 fL (80.0-100.0); MEAN PLATELET VOLUME 11.3 fL (7.4-10.4); MONOCYTES 7.5 % (2-11); NEUTROPHILS 80.1 % (40-80); PLATELET COUNT 255 10x3/uL (130-400); RBC 4.05 10x6/uL (4.00-5.40); RDW 15.9 % (11.5-14.5)
--- NOTE | 2017-04-13 07:04 | NUR ---
RANDOM VANCOMYCIN LEVEL WAS 16.9. PATIENT SEEMS TO BE TOLERATING 1 GRAM Q 24H. WILL GO AHEAD AND SCHEDULE THE REMAINING 4 DAYS OF TREATMENT AT A Q 24H INTERVAL. I WILL ALSO GET RANDOMS WITH AM LABS JUST TO KEEP AN EYE ON THE LEVELS.
[2017-04-13 08:29] VITALS: BP 176/70
[2017-04-13] MEDS ORDERED: K-DUR20 MEQ PO (10:56)
[2017-04-13] MEDS ORDERED: MOBIC7.5 MG PO (10:56)
[2017-04-13] MEDS ORDERED: CARAFATE1 G/10 ML PO (10:59)
[2017-04-13] MEDS ORDERED: PROTONIX40 MG PO (10:59)
[2017-04-13] MEDS ORDERED: MIRALAX17 GM PO (10:59)
[2017-04-13] MEDS ORDERED: PREDNISONE20 MG PO (11:01)
--- NOTE | 2017-04-13 11:53 | NUR ---
CM REASSESSMENT NOTE: PATIENT IS DISCHARGING HOME TODAY / SPOUSE DRIVING/ DID NOT WANT HH
[2017-04-13] MEDS ORDERED: AUGMENTIN 875-11 TAB PO (11:55)
[2017-04-13] MEDS ORDERED: LEVAQUIN500 MG PO (11:55)
--- NOTE | 2017-04-13 13:33 | NUR ---
IV DISCONTINUED WITH CATHETER INTACT AT THIS TIME PT GIVEN DISCHARGE INSTRUCTIONS AND TAKEN VIA WHEELCHAIR VIA PRIVATE VEHICLE AT THIS TIME
== END 2017-04-13 13:34 | disposition home or self-care (01) | DRG 871 ==
LOC: D.ER 12:08 → D.ICU 18:48 → D.MS 04-10 15:03
PROVIDERS: Family Medicine; Nurse Practitioner Family; ADMIT Legal Medicine
DX: A41.9 Sepsis, unspecified organism (principal); R65.21 Severe sepsis with septic shock; J15.6 Pneumonia due to other Gram-negative bacteria; J15.211 Pneumonia due to Methicillin susceptible Staphylococcus aureus; J96.21 Acute and chronic respiratory failure with hypoxia; N17.9 Acute kidney failure, unspecified; J44.1 Chronic obstructive pulmonary disease with (acute) exacerbation; N30.00 Acute cystitis without hematuria; K56.600 Partial intestinal obstruction, unspecified as to cause; E11.40 Type 2 diabetes mellitus with diabetic neuropathy, unspecified; F32.9 Major depressive disorder, single episode, unspecified; J44.9 Chronic obstructive pulmonary disease, unspecified; I25.10 Atherosclerotic heart disease of native coronary artery without angina pectoris; Z95.5 Presence of coronary angioplasty implant and graft; W19.XXXA Unspecified fall, initial encounter; Z72.0 Tobacco use

== ENCOUNTER 2017-09-13 02:25 | Inpatient (IN) | payer MEDICAID ==
[2017-09-13] VITALS (20 sets, daily range): BP systolic 74–202; BP diastolic 35–117; Ht 149.9 cm; Wt 101.3 kg
[~2017-09-13] VITALS: Ht 149.9 cm; Wt 101.3 kg
[~2017-09-13 02:25] MED LIST changes: +CARAFATE1 G/10 ML PO; +K-DUR20 MEQ PO; +MIRALAX17 GM PO; +MOBIC7.5 MG PO; +PROTONIX40 MG PO
[2017-09-13 03:25] LABS: BASOPHILS 0.3 % (0-2); EOSINOPHILS 2.5 % (0-7); HEMATOCRIT 32.8 % (36.0-48.0); HEMOGLOBIN 10.1 g/dL (12-16); IMMATURE GRANULOCYTES 0.4 % (0-5); LYMPHOCYTES 23.8 % (15-50); MCH 27.5 pg (26.0-34.0); MCHC 30.8 g/dL (31.0-37.0); MCV 89.4 fL (80.0-100.0); MEAN PLATELET VOLUME 10.1 fL (7.4-10.4); MONOCYTES 14.1 % (2-11); NEUTROPHILS 58.9 % (40-80); RBC 3.67 10x6/uL (4.00-5.40); RDW 15.5 % (11.5-14.5); WBC 9.3 10x3/uL (4.8-10.8)
[2017-09-13 03:29] LABS: UDS - AMPHET NEGATIVE QUAL (NEGATIVE); UDS - BARB NEGATIVE QUAL (NEGATIVE); UDS - BENZO NEGATIVE QUAL (NEGATIVE); UDS - COCAINE NEGATIVE QUAL (NEGATIVE); UDS - OPIATE POSITIVE QUAL (NEGATIVE); UDS - PCP NEGATIVE QUAL (NEGATIVE); UDS - THC NEGATIVE QUAL (NEGATIVE)
[2017-09-13 03:32] LABS: PLATELET COUNT 197 10x3/uL (130-400)
[2017-09-13 03:37] LABS: ALBUMIN 2.6 g/dL (3.4-5.0); ANION GAP 8.6 mmol/L (8-16); BILIRUBIN - TOTAL 0.22 mg/dL (0.2-1.3); CALCIUM 8.3 mg/dL (8.5-10.1); CARBON DIOXIDE 33.2 mmol/L (21.0-32.0); CREATININE - SERUM 1.9 mg/dL (0.6-1.3); POTASSIUM - SERUM 4.8 mmol/L (3.5-5.1); PROTEIN - SERUM 6.8 g/dL (6.4-8.2)
[2017-09-13 03:39] LABS: APPEARANCE CLOUDY (CLEAR); COLOR YELLOW (YELLOW); SPECIFIC GRAVITY 1.015 (1.005-1.020)
[2017-09-13 03:40] LABS: BACTERIA MANY /hpf (NONE SEEN); BILIRUBIN NEGATIVE (NEGATIVE); EPITHELIAL CELLS 0-5 /hpf (0-5); GLUCOSE 1000 mg/dL (NEGATIVE); KETONE NEGATIVE (NEGATIVE); NITRITE NEGATIVE (NEGATIVE); PROTEIN 1+ mg/dL (NEGATIVE); RED CELLS - URINE 0-5 /hpf (0-5); UROBILINOGEN NORMAL (NORMAL)
[2017-09-14] VITALS (21 sets, daily range): BP systolic 79–201; BP diastolic 48–102
[2017-09-14 04:33] LABS: BASOPHILS 0.1 % (0-2); EOSINOPHILS 3.4 % (0-7); HEMATOCRIT 33.6 % (36.0-48.0); HEMOGLOBIN 10.1 g/dL (12-16); IMMATURE GRANULOCYTES 0.1 % (0-5); LYMPHOCYTES 28.4 % (15-50); MCH 26.7 pg (26.0-34.0); MCHC 30.1 g/dL (31.0-37.0); MCV 88.9 fL (80.0-100.0); MEAN PLATELET VOLUME 9.9 fL (7.4-10.4); MONOCYTES 10.1 % (2-11); NEUTROPHILS 57.9 % (40-80); PLATELET COUNT 170 10x3/uL (130-400); RBC 3.78 10x6/uL (4.00-5.40); RDW 15.3 % (11.5-14.5); WBC 7.9 10x3/uL (4.8-10.8)
[2017-09-14 04:47] LABS: ANION GAP 9.8 mmol/L (8-16); CALCIUM 7.5 mg/dL (8.5-10.1); CARBON DIOXIDE 29.2 mmol/L (21.0-32.0); CREATININE - SERUM 1.5 mg/dL (0.6-1.3)
[2017-09-15] VITALS (13 sets, daily range): BP systolic 132–225; BP diastolic 81–118
[2017-09-15 04:09] LABS: BASOPHILS 0.1 % (0-2); EOSINOPHILS 2.3 % (0-7); HEMATOCRIT 33.3 % (36.0-48.0); HEMOGLOBIN 10.4 g/dL (12-16); IMMATURE GRANULOCYTES 0.2 % (0-5); LYMPHOCYTES 19.9 % (15-50); MCH 27.3 pg (26.0-34.0); MCHC 31.2 g/dL (31.0-37.0); MCV 87.4 fL (80.0-100.0); MEAN PLATELET VOLUME 10.1 fL (7.4-10.4); MONOCYTES 8.6 % (2-11); NEUTROPHILS 68.9 % (40-80); PLATELET COUNT 197 10x3/uL (130-400); RBC 3.81 10x6/uL (4.00-5.40); RDW 15.4 % (11.5-14.5); WBC 8.3 10x3/uL (4.8-10.8)
[2017-09-15 04:20] LABS: CALCIUM 8.1 mg/dL (8.5-10.1); CARBON DIOXIDE 26.6 mmol/L (21.0-32.0); POTASSIUM - SERUM 4.6 mmol/L (3.5-5.1)
[2017-09-15 04:21] LABS: CREATININE - SERUM 1.1 mg/dL (0.6-1.3)
[2017-09-16] VITALS (9 sets, daily range): BP systolic 112–158; BP diastolic 60–90
[2017-09-16 03:27] LABS: BASOPHILS 0.2 % (0-2); EOSINOPHILS 1.4 % (0-7); HEMATOCRIT 37.7 % (36.0-48.0); HEMOGLOBIN 12.1 g/dL (12-16); IMMATURE GRANULOCYTES 0.4 % (0-5); MCH 27.3 pg (26.0-34.0); MCHC 32.1 g/dL (31.0-37.0); MEAN PLATELET VOLUME 10.1 fL (7.4-10.4); MONOCYTES 8.5 % (2-11); NEUTROPHILS 69.5 % (40-80); PLATELET COUNT 227 10x3/uL (130-400); RBC 4.43 10x6/uL (4.00-5.40); WBC 9.8 10x3/uL (4.8-10.8)
[2017-09-16 03:34] LABS: MCV 85.1 fL (80.0-100.0)
[2017-09-16 03:49] LABS: ANION GAP 14.5 mmol/L (8-16); CALCIUM 8.5 mg/dL (8.5-10.1); CARBON DIOXIDE 27.4 mmol/L (21.0-32.0); CREATININE - SERUM 1.2 mg/dL (0.6-1.3)
[2017-09-16 03:51] LABS: POTASSIUM - SERUM 3.9 mmol/L (3.5-5.1)
[2017-09-16] MEDS ORDERED: NORVASC5 MG PO (12:06)
[2017-09-16] MEDS ORDERED: PRINIVIL20 MG PO (12:06)
== END 2017-09-16 14:11 | disposition home or self-care (01) | DRG 918 ==
LOC: D.ER 02:25 → D.ICU 04:00 → D.EDHOLD 04:00 → D.ICU 04:09
PROVIDERS: Emergency Medicine; Internal Medicine Nephrology
DX: T50.901A Poisoning by unspecified drugs, medicaments and biological substances, accidental (unintentional), initial encounter (principal); N17.9 Acute kidney failure, unspecified; N39.0 Urinary tract infection, site not specified; I95.9 Hypotension, unspecified; J44.9 Chronic obstructive pulmonary disease, unspecified; K59.00 Constipation, unspecified; E11.9 Type 2 diabetes mellitus without complications; D64.9 Anemia, unspecified; I10 Essential (primary) hypertension; G89.29 Other chronic pain; I25.10 Atherosclerotic heart disease of native coronary artery without angina pectoris; Z90.13 Acquired absence of bilateral breasts and nipples; E86.9 Volume depletion, unspecified

== ENCOUNTER 2018-04-21 16:32 | Inpatient (IN) | payer MEDICAID ==
[~2018-04-21] VITALS: Ht 149.9 cm; Wt 110.5 kg
--- NOTE | ~2018-04-21 | MORECARE ---
CASE MANAGEMENT DISCHARGE SUMMARY PATIENT: ANNY HERRERA UNIT: [id number] ADM DATE: 04/21/18 AGE: 57 : 62 SEX: F ROOM/BED: D.3056 AUTHOR: MAINE,DOC PHYSICIAN: REFERRING PHYSICIAN: KEIKO KELLY MD DATE OF SERVICE: 04/24/18 Discharge Plan Patient Name: ANNY HERRERA Facility: [facility]:[place] : 1960 Planned Disposition: Home Anticipated Discharge Date: 04/24/18 Discharge Date: 04/24/2018 Expected LOS: 3 Initial Reviewer: [email or web address] Initial Review Date: 04/24/2018 Generated: 04/24/18 7:50 pm Comments DCP- Discharge Planning Updated by [email or web address]: Abraham Price on 04/24/18 5:[address] Patient Name: ANNY HERRERA Admission Status: ER Accout number: [id number] Admission Date: 04-21-2018 : 1960 Admission Diagnosis:SHORTNESS OF BREATH Attending: KEIKO KELLY Current LOS: 3 Anticipated DC Date: 04-24-2018 Planned Disposition: Home Primary Insurance: [employer] Verbal [facility] [facility] Discharge Planning Comments: CM MET WITH PT IN ROOM TO DISCUSS DISCHARGE PLANNING AND NEEDS. PT REPORTS LIVING AT HOME INDEPENDENTLY WITH SPOUSE. PT HAS WALKER THAT SHE DOES NOT USE, HOME AND PORTABLE OXYGEN, NEBULIZER AND CPAP FROM [facility] [place]. PT HAS NO OUTSIDE SERVICES ASSISTING IN THE HOME. CM DISCUSSED AVAILABILITY OF HOME HEALTH, REHAB SERVICES AND MEDICAL EQUIPMENT. PT DENIES DISCHARGE NEEDS, REPORTS HER SPOUSE WILL PICK HER UP FOR DISCHARGE HOME. HOT KNIFE FOXING CUTTER NURSE NOTIFIED. Trader: Abraham Price DCPIA - Discharge Planning Initial Assessment Updated by [id number]: Abraham Price on 04/24/18 6:48 pm * Is the patient Alert and Oriented? Yes * How many steps to enter\exit or inside your home? NONE * PCP DR. ADAMS * Pharmacy [facility] IN [place] * Preadmission Environment Home with Family * ADLs Independent * Equipment CPAP Nebulizer Oxygen Walker * Other Equipment HOME AND PORTABLE OXYGEN [employer] - MEDICAL EQUIPMENT PROVIDER * List name and contact numbers for known caregivers / representatives who currently or will assist patient after discharge: ALMA HERRERA, SPOUSE, * Verbal permission to speak to the caregivers and representatives has been obtained from the patient. N/A * Community resources currently utilized None * Please name any agencies selected above. NONE * Additional services required to return to the preadmission environment? No * Can the patient safely return to the preadmission environment? Yes * Has this patient been hospitalized within the prior 30 days at any hospital? No Patient Name: ANNY HERRERA Page [phone] at 1850 All edits/amendments must be made on the electronic document DICTATION DATE: 04/24/181849 LABORATORY ASSISTANT: ELE 04/24/181849 RPT#: [id number] PA DATE:04/24/18 STATUS: DIS IN [facility] [address] [place] [address] END OF REPORT
[~2018-04-21 16:32] MED LIST changes: -HYDROCODONE-APA1 TAB; +NORCO 10-325 TA1 TAB PO; +NORVASC5 MG PO
[2018-04-21 16:47] VITALS: BP 109/64
[2018-04-21] MEDS ORDERED: LIPITOR20 MG PO (16:47)
[2018-04-21] MEDS ORDERED: LOMOTIL 2.5-0.1 EAC1 PO (16:48)
[2018-04-21 17:20] LABS: BASOPHILS 0.3 % (0-2); EOSINOPHILS 1.1 % (0-7); HEMATOCRIT 36.6 % (36.0-48.0); HEMOGLOBIN 11.1 g/dL (12-16); IMMATURE GRANULOCYTES 0.4 % (0-5); MCHC 30.3 g/dL (31.0-37.0); MCV 92.4 fL (80.0-100.0); MEAN PLATELET VOLUME 10.6 fL (7.4-10.4); MONOCYTES 8.2 % (2-11); PLATELET COUNT 320 10x3/uL (130-400); RBC 3.96 10x6/uL (4.00-5.40); RDW 14.1 % (11.5-14.5)
[2018-04-21 17:41] LABS: ALBUMIN 2.9 g/dL (3.4-5.0); ALKALINE PHOSPHATASE 115 U/L (46-116); ALT (SGPT) 79 U/L (10-68); BILIRUBIN - TOTAL 0.26 mg/dL (0.2-1.3); CALC OSMOLALITY 287 mosm/kg (275-300); CALCIUM 8.8 mg/dL (8.5-10.1); CARBON DIOXIDE 31.5 mmol/L (21.0-32.0); CHLORIDE - SERUM 100 mmol/L (98-107); CREATININE - SERUM 2.5 mg/dL (0.6-1.3); GLUCOSE 152 mg/dL (74-106); POTASSIUM - SERUM 4.5 mmol/L (3.5-5.1); PROTEIN - SERUM 7.7 g/dL (6.4-8.2); SODIUM 139 mmol/L (136-145); UREA NITROGEN 32 mg/dL (7-18); eGFR NON AFRICAN AMERICAN 21 mL/min (90-120)
[2018-04-21 17:57] LABS: CKMB 11.3 U/L (0.0-3.6); CREATINE KINASE 587 UL (21-215); MAGNESIUM - SERUM 1.6 mg/dL (1.8-2.4); PRO BNP 15618 pg/mL (0-125)
[2018-04-21 18:00] VITALS: BP 105/47
[2018-04-21 19:00] VITALS: BP 112/69
[2018-04-21 20:05] VITALS: BP 105/67
[2018-04-21 23:53] VITALS: BP 125/79; BMI 49.0
[2018-04-22 01:09] VITALS: BP 141/67
[2018-04-22 05:32] VITALS: BP 128/68
[2018-04-22 05:50] LABS: BASOPHILS 0.3 % (0-2); EOSINOPHILS 3.3 % (0-7); HEMATOCRIT 35.1 % (36.0-48.0); HEMOGLOBIN 10.9 g/dL (12-16); IMMATURE GRANULOCYTES 0.5 % (0-5); LYMPHOCYTES 25.9 % (15-50); MCHC 31.1 g/dL (31.0-37.0); MEAN PLATELET VOLUME 10.4 fL (7.4-10.4); MONOCYTES 11.4 % (2-11); NEUTROPHILS 58.6 % (40-80); PLATELET COUNT 295 10x3/uL (130-400); RBC 3.89 10x6/uL (4.00-5.40); RDW 14.1 % (11.5-14.5); WBC 9.2 10x3/uL (4.8-10.8)
[2018-04-22 06:00] LABS: MCV 90.2 fL (80.0-100.0)
[2018-04-22 06:30] LABS: ALBUMIN 2.7 g/dL (3.4-5.0); ALKALINE PHOSPHATASE 105 U/L (46-116); ALT (SGPT) 73 U/L (10-68); CALC OSMOLALITY 291 mosm/kg (275-300); CALCIUM 8.6 mg/dL (8.5-10.1); CARBON DIOXIDE 31.2 mmol/L (21.0-32.0); CHLORIDE - SERUM 101 mmol/L (98-107); GLUCOSE 135 mg/dL (74-106); POTASSIUM - SERUM 4.7 mmol/L (3.5-5.1); PROTEIN - SERUM 7.3 g/dL (6.4-8.2); SODIUM 141 mmol/L (136-145); UREA NITROGEN 37 mg/dL (7-18)
[2018-04-22 06:31] LABS: CREATINE KINASE 357 UL (21-215); CREATININE - SERUM 1.6 mg/dL (0.6-1.3); TROPONIN-I 0.875 ng/mL (0.000-0.060); eGFR NON AFRICAN AMERICAN 35 mL/min (90-120)
[2018-04-22 07:00] LABS: CKMB 6.5 U/L (0.0-3.6); PRO BNP 9408 pg/mL (0-125)
[2018-04-22 08:54] VITALS: BP 114/54
[2018-04-22 13:05] VITALS: BMI 48.9
[2018-04-22 15:14] VITALS: Ht 149.9 cm; Wt 110.5 kg
[2018-04-22 15:58] LABS: % SATURATION 22 % (15-55); IRON 58 ug/dl (35-150); TOTAL IRON BIND CAPACITY 263 ug/dl (260-445); UNSAT IRON BIND CAPACITY 205 ug/dl (150-375)
[2018-04-22 21:04] VITALS: BP 116/82
[2018-04-23] VITALS: BP 125/53
[2018-04-23 04:45] LABS: BASOPHILS 0.2 % (0-2); EOSINOPHILS 3.6 % (0-7); HEMOGLOBIN 12.7 g/dL (12-16); IMMATURE GRANULOCYTES 0.6 % (0-5); LYMPHOCYTES 23.4 % (15-50); MCH 28.3 pg (26.0-34.0); MCV 91.3 fL (80.0-100.0); MEAN PLATELET VOLUME 10.9 fL (7.4-10.4); MONOCYTES 10.1 % (2-11); NEUTROPHILS 62.1 % (40-80); RBC 4.49 10x6/uL (4.00-5.40); RDW 14.1 % (11.5-14.5); WBC 9.9 10x3/uL (4.8-10.8)
[2018-04-23 05:01] LABS: PLATELET COUNT 381 10x3/uL (130-400)
[2018-04-23 05:03] VITALS: BP 126/76
[2018-04-23 05:14] LABS: CALCIUM 9.5 mg/dL (8.5-10.1); CHOL - HDL RATIO 4.6 ratio (2.3-4.1); MAGNESIUM - SERUM 1.6 mg/dL (1.8-2.4)
[2018-04-23 05:59] LABS: CREATININE - SERUM 1.1 mg/dL (0.6-1.3)
[2018-04-23 07:06] LABS: ANION GAP 13.2 mmol/L (8-16); POTASSIUM - SERUM 5.2 mmol/L (3.5-5.1)
[2018-04-23 08:20] LABS: FOLATE (FOLIC ACID) - SERUM 6.6 ng/mL (>3.0)
[2018-04-23 08:49] LABS: APPEARANCE CLEAR (CLEAR); BILIRUBIN NEGATIVE (NEGATIVE); COLOR STRAW (YELLOW); GLUCOSE NEGATIVE (NEGATIVE); KETONE NEGATIVE (NEGATIVE); NITRITE NEGATIVE (NEGATIVE); PROTEIN NEGATIVE (NEGATIVE); SPECIFIC GRAVITY 1.015 (1.005-1.020); UROBILINOGEN NORMAL (NORMAL)
[2018-04-23 08:56] VITALS: BP 107/60
[2018-04-23 11:36] VITALS: BP 108/61
[2018-04-23 15:46] VITALS: BP 114/76
[2018-04-23 21:10] VITALS: BP 104/57
[2018-04-24] VITALS: BP 104/56
[2018-04-24 05:43] LABS: BASOPHILS 0.2 % (0-2); EOSINOPHILS 2.9 % (0-7); HEMOGLOBIN 12.3 g/dL (12-16); IMMATURE GRANULOCYTES 0.9 % (0-5); LYMPHOCYTES 27.1 % (15-50); MCH 28.3 pg (26.0-34.0); MCHC 30.8 g/dL (31.0-37.0); MEAN PLATELET VOLUME 10.8 fL (7.4-10.4); MONOCYTES 13.5 % (2-11); NEUTROPHILS 55.4 % (40-80); PLATELET COUNT 322 10x3/uL (130-400); RBC 4.35 10x6/uL (4.00-5.40); RDW 14.6 % (11.5-14.5); WBC 9.4 10x3/uL (4.8-10.8)
[2018-04-24 05:44] VITALS: BP 122/63
[2018-04-24 06:08] LABS: ANION GAP 13.5 mmol/L (8-16); CALCIUM 8.9 mg/dL (8.5-10.1); CARBON DIOXIDE 35.9 mmol/L (21.0-32.0); CREATININE - SERUM 1.2 mg/dL (0.6-1.3)
[2018-04-24 06:11] LABS: POTASSIUM - SERUM 4.4 mmol/L (3.5-5.1)
[2018-04-24 08:48] VITALS: BP 101/45
[2018-04-24] MEDS ORDERED: COREG 3.1253.125 MG PO (08:59)
== END 2018-04-24 13:34 | disposition home or self-care (01) | DRG 291 ==
LOC: D.ER 16:32 → D.M2 18:45 → D.EDHOLD 18:45 → D.M2 19:54
PROVIDERS: Family Medicine; Internal Medicine Nephrology
DX: I11.0 Hypertensive heart disease with heart failure (principal); J96.22 Acute and chronic respiratory failure with hypercapnia; I50.21 Acute systolic (congestive) heart failure; J96.21 Acute and chronic respiratory failure with hypoxia; J44.1 Chronic obstructive pulmonary disease with (acute) exacerbation; N17.9 Acute kidney failure, unspecified; I25.10 Atherosclerotic heart disease of native coronary artery without angina pectoris; E78.5 Hyperlipidemia, unspecified; E11.42 Type 2 diabetes mellitus with diabetic polyneuropathy; F32.9 Major depressive disorder, single episode, unspecified; F41.9 Anxiety disorder, unspecified; G47.00 Insomnia, unspecified; E83.42 Hypomagnesemia; Z95.1 Presence of aortocoronary bypass graft; Z95.5 Presence of coronary angioplasty implant and graft; Z85.3 Personal history of malignant neoplasm of breast

== ENCOUNTER 2019-04-08 05:23 | Inpatient (IN) | payer MEDICAID ==
[~2019-04-08] VITALS: Ht 149.9 cm; Wt 101.7 kg
[2019-04-08] VITALS (36 sets, daily range): BP systolic 93–156; BP diastolic 42–93; BMI 51.2
[~2019-04-08 05:23] MED LIST changes: +COREG 3.1253.125 MG PO; +LIPITOR20 MG PO; +LOMOTIL 2.5-0.1 EAC1 PO
--- NOTE | 2019-04-08 06:10 | NUR ---
ASSISTED MD WITH RSI. PLACED IN NONVIOLENT RESTRAINTS
[2019-04-08 06:23] LABS: BASOPHILS 0.1 % (0-2); EOSINOPHILS 1.1 % (0-7); HEMATOCRIT 35.3 % (36.0-48.0); HEMOGLOBIN 10.4 g/dL (12-16); IMMATURE GRANULOCYTES 0.5 % (0-5); MCH 28.2 pg (26.0-34.0); MCHC 29.5 g/dL (31.0-37.0); MCV 95.7 fL (80.0-100.0); MEAN PLATELET VOLUME 10.9 fL (7.4-10.4); NEUTROPHILS 82.3 % (40-80); RBC 3.69 10x6/uL (4.00-5.40)
[2019-04-08 06:33] LABS: ALBUMIN 2.7 g/dL (3.4-5.0); BILIRUBIN - TOTAL 0.25 mg/dL (0.2-1.3); CALCIUM 7.6 mg/dL (8.5-10.1); CARBON DIOXIDE 29.2 mmol/L (21.0-32.0); CREATININE - SERUM 3.1 mg/dL (0.6-1.3); MAGNESIUM - SERUM 2.2 mg/dL (1.8-2.4); PROTEIN - SERUM 7.1 g/dL (6.4-8.2)
[2019-04-08 06:47] LABS: UDS - AMPHET NEGATIVE QUAL (NEGATIVE); UDS - BARB NEGATIVE QUAL (NEGATIVE); UDS - BENZO NEGATIVE QUAL (NEGATIVE); UDS - COCAINE NEGATIVE QUAL (NEGATIVE); UDS - OPIATE NEGATIVE QUAL (NEGATIVE); UDS - PCP NEGATIVE QUAL (NEGATIVE); UDS - THC NEGATIVE QUAL (NEGATIVE)
[2019-04-08 06:50] LABS: APPEARANCE SL CLDY (CLEAR); BILIRUBIN NEGATIVE (NEGATIVE); COLOR YELLOW (YELLOW); GLUCOSE 500 mg/dL (NEGATIVE); KETONE NEGATIVE (NEGATIVE); NITRITE POSITIVE (NEGATIVE); PROTEIN 1+ mg/dL (NEGATIVE); SPECIFIC GRAVITY 1.015 (1.005-1.020); UROBILINOGEN NORMAL (NORMAL)
[2019-04-08 06:55] LABS: PLATELET COUNT 166 10x3/uL (130-400)
[2019-04-08 06:55] LABS: AMORPHOUS SEDIMENT <1+ /lpf (NONE SEEN); BACTERIA MODERATE /hpf (NEGATIVE); EPITHELIAL CELLS 0-5 /hpf (0-5); MUCUS <1+ /lpf (NONE SEEN); RED CELLS - URINE 0-5 /hpf (0-5); WHITE CELLS - URINE 0-5 /hpf (NEGATIVE)
--- NOTE | 2019-04-08 07:05 | NUR ---
ASSUMED CARE OF PT. VSS. INTUBATED. PROPOFOLA ND IVF BOLUS INFUSING
--- NOTE | 2019-04-08 07:08 | NUR ---
PT BITING ET AND PULLING AT RESTRAINTS. PROPOFOL GTT INCREASED TO 10 MCG
[2019-04-08 07:15] LABS: ANION GAP 13.1 mmol/L (8-16)
--- NOTE | 2019-04-08 07:16 | NUR ---
RESTING COMFORABLY, NO AGGITATION NOTED. AWAITING RT TO TRANSPORT TO CT
[2019-04-08 07:17] LABS: POTASSIUM - SERUM 6.3 mmol/L (3.5-5.1)
--- NOTE | 2019-04-08 07:25 | NUR ---
TO CT VIA STRETCHER WITH CM, RT AND PORTABLE VENT, AND SOLAR PROJECT COORDINATION SPECIALIST
--- NOTE | 2019-04-08 07:40 | NUR ---
RTN TO T2, CONDITION STABLE.
--- NOTE | 2019-04-08 07:55 | NUR ---
BC X 2 DRAWN PER BAG BLEACHER THEN ABXS INITIATED AND IVF BOLUSES
--- NOTE | 2019-04-08 08:13 | NUR ---
NOEMY SEDATION SCORE 3 (SEDATED)
--- NOTE | 2019-04-08 08:35 | NUR ---
REPORT CALLED TO NAVID SOLER
--- NOTE | 2019-04-08 08:42 | NUR ---
FSBS= 356 MG/DL
--- NOTE | 2019-04-08 08:50 | NUR ---
NS X 3 LITERS AND PROPOFOL GTT INFUSING UPON TRANSPORT TO ICU
--- NOTE | 2019-04-08 08:50 | NUR ---
TRANSPORTED TO ICU ROOM #2304. CONDITION STABLE. WITH, RT, RNX2, CM AND PORTABLE VENT.
--- NOTE | 2019-04-08 08:52 | MORECARE ---
CASE MANAGEMENT DISCHARGE SUMMARY PATIENT: ANNY HERRERA UNIT: [id number] ADM DATE: 04/08/19 AGE: 58 : 62 SEX: F ROOM/BED: D.2304 AUTHOR: SUZI GROVE PHYSICIAN: REFERRING PHYSICIAN: PRIYA HARDING MD DATE OF SERVICE: 04/08/19 Discharge Plan Patient Name: ANNY HERRERA Facility: [facility]:[place] : 1960 Planned Disposition: Home Anticipated Discharge Date: 04/11/19 Discharge Date: Expected LOS: 3 Initial Reviewer: [email or web address] Initial Review Date: 04/08/2019 Generated: 04/08/19 9:52 am Patient Name: ANNY HERRERA Page [phone] at 0852 All edits/amendments must be made on the electronic document DICTATION DATE: 04/08/19851 PEDIATRIC NURSE: ELE 04/08/19851 RPT#: [id number] DC DATE: STATUS: ADM IN [facility] [address] [place] [address] END OF REPORT
--- NOTE | 2019-04-08 08:59 | MORECARE ---
CASE MANAGEMENT DISCHARGE SUMMARY PATIENT: ANNY CALVILLO UNIT: [id number] ADM DATE: 04/08/19 AGE: 58 : 62 SEX: F ROOM/BED: D.2304 AUTHOR: SUZI GROVE PHYSICIAN: REFERRING PHYSICIAN: PRIYA HARDING MD DATE OF SERVICE: 04/08/19 Discharge Plan Patient Name: ANNY CALVILLO Facility: [facility]:[place] : 1960 Planned Disposition: Home Anticipated Discharge Date: 04/11/19 Discharge Date: Expected LOS: 3 Initial Reviewer: [email or web address] Initial Review Date: 04/08/2019 Generated: 04/08/19 9:59 am DCPIA - Discharge Planning Initial Assessment Updated by [email or web address]: Annette Cole on 04/08/19 8:52 am * Is the patient Alert and Oriented? No * PCP Dr. Gottlieb * Pharmacy Sister unsure of pharmacy * Preadmission Environment Home with Family * ADLs Partial Dependent * Partial ADLs (Assistance needed) Ambulation Bathing Dressing Medication Management Toileting Transfers * Equipment Bedside Commode Nebulizer Oxygen Rolling Walker * Other Equipment Sister unsure who O2 provider is. She does have portability. She is pretty sure the patient has a nebulizer at home. * List name and contact numbers for known caregivers / representatives who currently or will assist patient after discharge: Arcadio Calvillo - spouse - [phone] Mariel Ayers - sister - [phone] * Verbal permission to speak to the caregivers and representatives has been obtained from the patient. Yes * Community resources currently utilized None * Can the patient safely return to the preadmission environment? Yes * Has this patient been hospitalized within the prior 30 days at any hospital? No Last DP export: 04/08/19 7:52 Patient Name: ANNY CALVILLO Page [phone] at 0859 All edits/amendments must be made on the electronic document DICTATION DATE: 04/08/19858 CHUCK WAGON COOK: ELE 04/08/1958 RPT#: [id number] DC DATE: STATUS: ADM IN [facility] [address] [place] [address] END OF REPORT
--- NOTE | 2019-04-08 09:00 | NUR ---
RECEIVED PATIENT FROM ER VIA STRETCHER, SEDATED ON VENT, PATIENT RESPONSIVE TO DEEP PAINFUL STIMULI, PUPILS AT 2 MM AND SLUGGISH, BBS - CLEAR AND EQUAL, DIMINSHED IN BASES, VENT SETTINGS, TV - 450, A/C - 25, FIO2 - 80%, PEEP - 5. BILATERAL FA IVS 20, PATENT AND INFUSING 4/4 NS BOLUS AND PROPOFOL AT 10 MCG/KG/MIN. MCCULLOUGH CATH IN PLACE WITH APPROXIMATELY 200 CC STRAW COLORED URING OUTPUT, STATLOCK IN PLACE. PATIENT IN SOFT WRIST RESTRAINTS, BILATERALLY. SCDS PLACED. HEAD TO TOE ASSESSMENT COMPLETE.
[2019-04-08 09:15] LABS: CKMB 5.8 U/L (0.0-3.6); CREATINE KINASE 378 UL (21-215); TROPONIN-I 0.029 ng/mL (0.000-0.060)
--- NOTE | 2019-04-08 09:20 | MORECARE ---
CASE MANAGEMENT DISCHARGE SUMMARY PATIENT: ANNY CALVILLO UNIT: [id number] ADM DATE: 04/08/19 AGE: 58 : 62 SEX: F ROOM/BED: D.2304 AUTHOR: SUZI GROVE PHYSICIAN: REFERRING PHYSICIAN: PRIYA HARDING MD DATE OF SERVICE: 04/08/19 Discharge Plan Patient Name: ANNY CALVILLO Facility: [facility]:[place] : 1960 Planned Disposition: Home Anticipated Discharge Date: 04/11/19 Discharge Date: Expected LOS: 3 Initial Reviewer: [email or web address] Initial Review Date: 04/08/2019 Generated: 04/08/19 10:20 am DCP- Discharge Planning Updated by [email or web address]: Annette Cole on 04/08/19 8:[address] DC PLAN: Return home with if able. ANTICIPATED DC NEEDS: Unknown at this time. Patient on the vent. CM met with patient who is on the vent and unable to complete assessment. CM called her and phone went to voice mail. CM called her sister, next emergency contact, Mariel Ayers [phone] to complete initial dc planning assessment. CM educated Mariel on the CM role and verbal consent given by Mariel to complete assessment. CM verified patient's address, phone number, and emergency contact phone numbers. Patient's phone number is actually [phone]. Patient lives at home with her who is her primary caregiver. Mariel reports he assists her in all areas of her ADL's. She wears oxygen at 3 liters all the time and she does have portability. She is not sure who her DME provider is nor does she know what pharmacy she gets her medication from. She stated the patient stays in her bedroom most of the time. At discharge the patient will return home with her if able. Being the patient is on the vent the dc plan will have to be re-evaluated once she closer to discharge. CM tried to contact patient's but voice mail was an automated voice mail with no name given. No message left. CM will continue to follow and will assist as needed with dc plans/needs. Annette Cole RN, [facility] DCPIA - Discharge Planning Initial Assessment Updated by [email or web address]: Annette Cole on 04/08/19 8:52 am * Is the patient Alert and Oriented? No * PCP Dr. Gottlieb * Pharmacy Sister unsure of pharmacy * Preadmission Environment Home with Family * ADLs Partial Dependent * Partial ADLs (Assistance needed) Ambulation Bathing Dressing Medication Management Toileting Transfers * Equipment Bedside Commode Nebulizer Oxygen Rolling Walker * Other Equipment Sister unsure who O2 provider is. She does have portability. She is pretty sure the patient has a nebulizer at home. * List name and contact numbers for known caregivers / representatives who currently or will assist patient after discharge: Arcadio Calvillo - spouse - [phone] Mariel Ayers - sister - [phone] * Verbal permission to speak to the caregivers and representatives has been obtained from the patient. Yes * Community resources currently utilized None * Can the patient safely return to the preadmission environment? Yes * Has this patient been hospitalized within the prior 30 days at any hospital? No Last DP export: 04/08/19 7:59 Patient Name: ANNY CALVILLO Page [phone] at 0920 All edits/amendments must be made on the electronic document DICTATION DATE: 04/08/19919 ASSISTANT BRAND MANAGER: ELE 04/08/19919 RPT#: [id number] [place] DATE: STATUS: ADM IN [facility] [address] [place] [address] END OF REPORT
--- NOTE | 2019-04-08 09:30 | NUR ---
LYNDSAY GALLAGHER WITH RENAL AT ROOM UPDATED AND EXAMINES PATIENT.
--- NOTE | 2019-04-08 09:58 | NUR ---
LAB AT ROOM TO DRAW BMP AND AMMONIA LEVEL.
--- NOTE | 2019-04-08 10:00 | NUR ---
PATIENT SEDATED ON VENT. ETT 7.5, 23 AT THE TEETH. OGT PLACED TO LIWS WITH YELLOW BILIOUS OUTPUT NOTED.
[2019-04-08 10:23] LABS: ANION GAP 12.8 mmol/L (8-16); CALCIUM 7.1 mg/dL (8.5-10.1); CARBON DIOXIDE 25.5 mmol/L (21.0-32.0); CREATININE - SERUM 2.8 mg/dL (0.6-1.3)
[2019-04-08 10:24] LABS: POTASSIUM - SERUM 6.3 mmol/L (3.5-5.1)
--- NOTE | 2019-04-08 10:43 | NUR ---
JANNIE UMANA CALLED AND NOTIFIED ABOUT ELEVATED AMMONIA AND K. SEE ORDERS.
--- NOTE | 2019-04-08 11:00 | NUR ---
REASSESSMENT COMPLETE. VSS.
--- NOTE | 2019-04-08 11:05 | NUR ---
PATIENT GIVEN 12 UNITS OF REGULAR INSULIN IV, WITH AMP OF D50 IVP WITH NS FLUSH FOR POTASSIUM OF 6.3. ALSO GIVEN KAYEXELATE AND LACTULOSE VIA NG TUBE AND FLUSHED WITH 30 CC WATER. AMMONIA LEVEL - 49.
--- NOTE | 2019-04-08 11:18 | NUR ---
DR. HARDING AT ROOM UPATED AND EXAMINES PATIENT. ORDERS RECEIVED.
--- NOTE | 2019-04-08 12:10 | NUR ---
DR. BURTON AT ROOM UPDATED AND EXAMINES PATIENT. WILL NOT WEAN FROM VENT OR EXTUBATE TODAY. SPOKE TO PATIENTS , ALMA LUCASSAMMI VIA TELEPHONE, STATES HE WILL BE ENROUTE.
--- NOTE | 2019-04-08 13:12 | NUR ---
PATIENT RESTING QUIETLY, SEDATED ON VENT, AROUSES TO STIMULI AND EASILY DRIFTS BACK TO SLEEP. VENT SETTINGS CHANGED TO A/C - 20, TV - 500, FIO2 - 40% PER DR. BURTON BY RT. PATIENT TURNED AND REPOSITIONED IN BED.
--- NOTE | 2019-04-08 13:17 | NUR ---
SPUTUM CULTURE COLLECTED BY RT AND SENT TO LAB. YELLOW SPUTUM SUCTIONED FROM ETT.
--- NOTE | 2019-04-08 13:33 | NUR ---
POURER BUGGY LADLE AT ROOM.
--- NOTE | 2019-04-08 14:10 | NUR ---
URINE SODIUM AND OSMOLALITY COLLECTED AND TAKEN TO LAB.
--- NOTE | 2019-04-08 15:12 | NUR ---
REASSESSMENT COMPLETE. PATIENT TURNED AND REPOSITIONED. US TECH AT ROOM FOR US OF ABDOMEN.
[2019-04-08 15:46] LABS: CALC OSMOLALITY 297 mosm/kg (275-300); CARBON DIOXIDE 26.5 mmol/L (21.0-32.0); CHLORIDE - SERUM 107 mmol/L (98-107); CKMB 5.9 U/L (0.0-3.6); CREATINE KINASE 370 UL (21-215); CREATININE - SERUM 2.7 mg/dL (0.6-1.3); GLUCOSE 232 mg/dL (74-106); POTASSIUM - SERUM 4.7 mmol/L (3.5-5.1); SODIUM 141 mmol/L (136-145); TROPONIN-I 0.033 ng/mL (0.000-0.060); UREA NITROGEN 41 mg/dL (7-18); eGFR NON AFRICAN AMERICAN 19 mL/min (90-120)
--- NOTE | 2019-04-08 16:36 | NUR ---
PATIENTS SISTER AND GRANDSON AT ROOM, UPDATED AND QUESTIONS ANSWERED.
--- NOTE | 2019-04-08 16:45 | NUR ---
PATIENT TURNED AND REPOSITIONED IN BED. VSS. SISTER AT BEDSIDE.
--- NOTE | 2019-04-08 19:00 | NUR ---
BEDSIDE SHIFT REPORT AND SHIFT ASSESSMENT COMPLETE, SEE FLOWSHEET. VSS, NO SIGNS OF ACUTE DISTRESS NOTED. PT SEDATED, FOLLOWS COMMANDS. BILAT WRIST RESTRAINTS IN PLACE, NO SIGNS OF SKIN BREAKDOWN NOTED. OGT TO LIS. MCCULLOUGH WITH NONI URINE. VENTILATED, SEE FLOWSHEET FOR VENT SETTINGS. WILL MONITOR.
--- NOTE | 2019-04-08 20:00 | NUR ---
FAMILY AT BEDSIDE, UPDATE GIVEN. ORAL CARE COMPLETE.
[2019-04-08 21:23] LABS: CKMB 3.9 U/L (0.0-3.6); CREATINE KINASE 308 UL (21-215); TROPONIN-I 0.026 ng/mL (0.000-0.060)
--- NOTE | 2019-04-08 23:00 | NUR ---
REASSESSMENT COMPLETE, SEE FLOWSHEET. VSS, NO SIGNS OF ACUTE DISTRESS NOTED. PT INTUBATED, SEDATED, OPENS EYES AND FOLLOWS COMMANDS. WILL MONITOR.
[2019-04-09] VITALS (23 sets, daily range): BP systolic 112–189; BP diastolic 60–97; BMI 52.0
--- NOTE | 2019-04-09 01:00 | NUR ---
PT SEDATED, OPENS EYES AND FOLLOWS COMMANDS. VSS, NO SIGNS OF ACUTE DISTRESS NOTED. WILL MONITOR.
--- NOTE | 2019-04-09 03:00 | NUR ---
REASSESSMENT COMPLETE, SEE FLOWSHEET. VSS, NO SIGNS OF ACUTE DISTRESS NOTED. CHG BATH, LINEN CHANGE, MCCULLOUGH CARE COMPLETE. RED AREA NOTED ON BOTTOM, NO SIGNS OF SKIN BREAKDOWN. PT SEDATED, EASILY AROUSABLE. WILL MONITOR.
[2019-04-09 04:26] LABS: BASOPHILS 0 % (0-2); EOSINOPHILS 0.1 % (0-7); HEMATOCRIT 34.4 % (36.0-48.0); HEMOGLOBIN 10.5 g/dL (12-16); IMMATURE GRANULOCYTES 0.3 % (0-5); LYMPHOCYTES 6.7 % (15-50); MCH 27.9 pg (26.0-34.0); MCHC 30.5 g/dL (31.0-37.0); MEAN PLATELET VOLUME 11.2 fL (7.4-10.4); MONOCYTES 2.9 % (2-11); PLATELET COUNT 179 10x3/uL (130-400); RBC 3.77 10x6/uL (4.00-5.40)
[2019-04-09 04:28] LABS: MCV 91.2 fL (80.0-100.0)
[2019-04-09 04:45] LABS: ALBUMIN 2.4 g/dL (3.4-5.0); ANION GAP 12.9 mmol/L (8-16); BILIRUBIN - TOTAL 0.45 mg/dL (0.2-1.3); CALCIUM 7.6 mg/dL (8.5-10.1); CARBON DIOXIDE 25.3 mmol/L (21.0-32.0); CREATININE - SERUM 2.7 mg/dL (0.6-1.3); MAGNESIUM - SERUM 1.8 mg/dL (1.8-2.4); POTASSIUM - SERUM 4.2 mmol/L (3.5-5.1); PROTEIN - SERUM 6.6 g/dL (6.4-8.2)
[2019-04-09 04:49] LABS: PHOSPHOROUS 3.2 mg/dL (2.5-4.9)
--- NOTE | 2019-04-09 05:00 | NUR ---
SISTER, TAMY CALLED, UPDATE GIVEN.
--- NOTE | 2019-04-09 07:25 | NUR ---
AWAKES TO STIMULATION, OBEYING COMMANDS. ETT SECURE TO VENT BILATERAL LUNG SOUNDS EQUAL AND CLEAR. MONITOR SR. OG TO LOW INTERMITTENT SUCTION PIERRE GREEN DRAINAGE 700 ML IN CONTAINER. RIGHT FOREARM IV INFUSING WITH DIPRIVAN AT 20 MCG/KG/MIN. LEFT FOREARM INFUSING NS AT 75 ML HOUR. MCCULLOUGH CATH PATENT DRAINING CLEAR YELLOW URINE. HEAD OF BED ELEVATED 30 DEGREES. NO DISTRESS
--- NOTE | 2019-04-09 09:00 | NUR ---
REPOSITIONED ON RIGHT SIDE WITH WEDGES USED FOR POSITIONING. HANDS ELEVATED ON PILLOWS HEALS BRIDGED WITH PILLOW SCD ON LOWER LEGS. GROINS AREA BETWEEN THIGHS AND ABD RED PURPLISH IN COLOR NO RASH NOTED.
--- NOTE | 2019-04-09 11:00 | NUR ---
REPOSITIONED. SEDATION OFF, AWAKES EASILY ASSIST WITH TURNING SELF. NODES HEAD TO YES AND NO QUESITONS. NO DISTRESS. BILATERAL LUNG SOUNDS EQUAL. SOME CONGESTION NOTED. IV RIGHT FOREARM SWOLLEN AND RED RESTARTED WITH 20 G RIGHT UPPER ARM. PATIENT TOLERATED FAIR.
--- NOTE | 2019-04-09 13:30 | NUR ---
DR. BURTON HERE. BRONCHOSCOPY IN PROGRESS.
--- NOTE | 2019-04-09 14:08 | NUR ---
PATIENT TOLERATED BRONCH WELL.
--- NOTE | 2019-04-09 16:00 | NUR ---
RESTING WELL ON DIPRIVAN. NO DISTRESS. NOT GAGGING ON ETT TUBE. OR COUGHING AGAINST THE ETT TUBE. HEAD OF BED ELEVATED 30 DEGREES. FAMILY CALLING UPDATES GIVEN
--- NOTE | 2019-04-09 18:00 | NUR ---
NO CHANGES. RESTING COMFORTABLY NO DISTRESS
--- NOTE | 2019-04-09 19:00 | NUR ---
SHIFT ASSESSMENT COMPLETE. PT IS SEDATED ON VENT. ETT SIZE 7.5, 24 CM LIP. VENT SETTINGS: A/C RATE OF 20, TIDAL VOLUME 500, FIO2 @ 60%, PEEP 5.0. CLEAR BREATH SOUNDS HEARD THROUGHOUT MOST LOBES, DIMINISHED AT THE BASES. OGT LIWS, GREEN BILE NOTED. S1S2 AUDIBLE, HR 75 NSR SHOWING ON MONITOR. ABD LARGE AND SOFT, BS HYPOACTIVE X4. MCCULLOUGH CATH INTACT DRAINING CLEAR YELLOW URINE. R CHEST PIV INFUSING PROPOFOL @ 40 MCG/KG/MIN AND NS @ KVO. R SHOULDER AND R UPPER ARM PIV S/L. L FA PIV S/L. SCDS ON AND FUNCTIONING. SHE IS ABLE TO FOLLOW ALL COMMANDS. PERRLA, 4 MM, BRISK REACTION TO LIGHT. GENERALIZED SWELLING NOTED. REPOSITIONED FOR COMFORT. ORAL CARE PROVIDED VIA RT. WILL CONT TO MONITOR CLOSELY. TIGHT PARAMETERS SET ON ICU MONITORS.
--- NOTE | 2019-04-09 21:00 | NUR ---
REPOSITIONED FOR COMFORT. ORAL CARE PROVIDED. NO FAMILY AT PM VISITATION. FSBS 228, INSULIN ADMIN PER SLIDING SCALE. VSS. NO FURTHER FINDINGS. WILL CONT WITH POC.
--- NOTE | 2019-04-09 22:45 | NUR ---
CALLED [facility]SE [facility] FOR DIFLUCAN. AWAITING MED. PHARMACY NOT OPEN.
--- NOTE | 2019-04-09 23:00 | NUR ---
REASSESSMENT COMPLETE. NO CHANGES IN PT CONDITION. SEE FLOWSHEET FOR FURTHER DETAILS. PT SEDATED ON VENT, NO SIGNS OF ACUTE DISTRESS NOTED. WILL CONT TO MONITOR CLOSELY.
[2019-04-10] VITALS (23 sets, daily range): BP systolic 148–190; BP diastolic 66–98
--- NOTE | 2019-04-10 01:00 | NUR ---
CHG BATH AND COMPLETE LINEN CHANGE PROVIDED. LARGE LIQUID BM. PT TOLERATED WELL.
--- NOTE | 2019-04-10 03:00 | NUR ---
REASSESSMENT COMPLETE, SEE FLOWSHEET. VSS, NO SIGNS OF ACUTE DISTRESS NOTED. ORAL CARE AND REPOSITIONING COMPLETE. RT AT BEDSIDE FOR BREATHING TX.
[2019-04-10 04:11] LABS: BASOPHILS 0.1 % (0-2); EOSINOPHILS 0 % (0-7); HEMATOCRIT 35.5 % (36.0-48.0); HEMOGLOBIN 11.1 g/dL (12-16); IMMATURE GRANULOCYTES 0.3 % (0-5); LYMPHOCYTES 9.2 % (15-50); MCH 28.5 pg (26.0-34.0); MCHC 31.3 g/dL (31.0-37.0); MEAN PLATELET VOLUME 11.1 fL (7.4-10.4); MONOCYTES 6.4 % (2-11); RDW 15.3 % (11.5-14.5); WBC 9.9 10x3/uL (4.8-10.8)
[2019-04-10 04:30] LABS: ALBUMIN 2.5 g/dL (3.4-5.0); BILIRUBIN - TOTAL 0.33 mg/dL (0.2-1.3); CALCIUM 7.9 mg/dL (8.5-10.1); CREATININE - SERUM 2.8 mg/dL (0.6-1.3); PROTEIN - SERUM 6.7 g/dL (6.4-8.2)
[2019-04-10 04:34] LABS: PLATELET COUNT 231 10x3/uL (130-400)
--- NOTE | 2019-04-10 05:00 | NUR ---
MEDS GIVEN PER MAR. ORAL CARE COMPLETE. VSS, NO SIGNS OF DISTRESS NOTED. WILL MONITOR.
--- NOTE | 2019-04-10 07:00 | NUR ---
REPORT RECEIVED. PT ON VENT AND SEDATED. MULTIPLE IVS TO RIGHT UPPER ARM, RIGHT SHOULDER, RIGHT CHEST, AND LEFT FOREARM. PT HAS PROPOFOL AND NS INFUSING. SHE IS IN RESTRAINTS. SHE HAS A MCCULLOUGH. SHE IS A FSBS ACHS. VSS. WILL CONTINUE TO MONITOR.
--- NOTE | 2019-04-10 09:00 | NUR ---
PT RESTING QUIETLY. VSS. ON VENT. IN RESTRAINTS. WILL CONTINUE TO MONITOR.
--- NOTE | 2019-04-10 11:45 | NUR ---
PT RESTING QUIETLY. DR BURTON ROUNDED. STATED WE WOULD TRY CPAP TRIAL TOMORROW.
--- NOTE | 2019-04-10 13:00 | NUR ---
PT REPOSITIONED. VSS. WILL CONTINUE TO MONITOR.
--- NOTE | 2019-04-10 14:21 | NUR ---
PT INCONTINENT OF BOWEL. CLEANED AND REPOSITIONED. VSS. WILL CONTINUE TO MONITOR.
[2019-04-10 17:08] LABS: ACID FAST SMEAR Negative (()); AFB SPECIMEN PROCESSING Concentration (())
--- NOTE | 2019-04-10 17:39 | NUR ---
PT LEAKING AROUND MCCULLOUGH CATHETER. CHANGED LINENS. CLEANED PT. PLACED NEW 16 [place] MCCULLOUGH. QUICK RETURN OF LIGHT YELLOW URINE (400ML).
--- NOTE | 2019-04-10 19:00 | NUR ---
PT REPORT RECEIVED FROM DAY SHIFT NURSE. SHIFT ASSESSMENT COMPLETED AT THIS TIME. NO VISIBLE SIGNS OF DISTRESS NOTED. WILL CONTINUE TO MONITOR
--- NOTE | 2019-04-10 21:00 | NUR ---
PT RESTING IN BED. SEDATED OPENS EYES. NO VISIBLE SIGNS OF DISTRESS NOTED. WILL CONTINUE TO MONITOR
--- NOTE | 2019-04-10 23:00 | NUR ---
PT RESTING IN BED. NO VISIBLE SIGNS OF DISTRESS NOTED. REASSESSMENT COMPLETED. WILL CONTINUE TO MONITOR
[2019-04-11] VITALS (25 sets, daily range): BP systolic 136–181; BP diastolic 54–102
--- NOTE | 2019-04-11 01:00 | NUR ---
PT RESTING IN BED. NO VISIBLE SIGNS OF DISTRESS NOTED. VSS. WILL CONTINUE TO MONITOR
--- NOTE | 2019-04-11 03:00 | NUR ---
PT RESTING IN BED. HAD A BM. CLEANED UP AND CHANGED LINEN. PT TOLERATED WELL. REASSESSMENT COMPLETED. WILL CONTINUE TO MONITOR
[2019-04-11 03:41] LABS: ALBUMIN 2.6 g/dL (3.4-5.0); ANION GAP 17.1 mmol/L (8-16); BILIRUBIN - TOTAL 0.49 mg/dL (0.2-1.3); CALCIUM 8.4 mg/dL (8.5-10.1); CREATININE - SERUM 2.6 mg/dL (0.6-1.3); POTASSIUM - SERUM 4.1 mmol/L (3.5-5.1); PROTEIN - SERUM 7.1 g/dL (6.4-8.2); VANCOMYCIN - RANDOM 16.5 ug/mL (10.0-20.0); VANCOMYCIN - TROUGH 16.5 ug/mL (10.0-20.0)
[2019-04-11 03:42] LABS: PHOSPHOROUS 4.5 mg/dL (2.5-4.9)
--- NOTE | 2019-04-11 04:56 | NUR ---
PT RESTING IN BED. ORAL CARE PROVIDED BY RN. NO VISIBLE SIGNS OF DISTRESS NOTED. VSS. WILL CONTINUE TO MONITOR
--- NOTE | 2019-04-11 06:32 | NUR ---
PAGED DR QUIÑONES CONCERNING 15 BEAT RUN OF V-TAC. AWAITING CALL BACK.
[2019-04-11 07:00] LABS: HEMATOCRIT 35.8 % (36.0-48.0); HEMOGLOBIN 11.5 g/dL (12-16); LYMPHOCYTES 6.6 % (15-50); MCH 28.3 pg (26.0-34.0); MCHC 32.1 g/dL (31.0-37.0); MEAN PLATELET VOLUME 10.7 fL (7.4-10.4); PLATELET COUNT 225 10x3/uL (130-400); RBC 4.06 10x6/uL (4.00-5.40); RDW 15.1 % (11.5-14.5); WBC 10.7 10x3/uL (4.8-10.8)
[2019-04-11 07:05] LABS: MCV 88.2 fL (80.0-100.0)
--- NOTE | 2019-04-11 07:20 | NUR ---
REPORT RECEIVED. PT INTUBATED. IN RESTRAINTS. IV TO RIGHT SHOULDER, RIGHT CHEST, AND RIGHT UPPER ARM. NS AND PROPOFOL INFUSING. PT HAS MCCULLOUGH. VSS. WILL CONTINUE TO MONITOR.
--- NOTE | 2019-04-11 09:24 | NUR ---
PT RESTING QUIETLY. VANCOMYCIN INFUSING. SUCTION TURNED OFF AFTER GIVING FAMVIR. WILL TURN BACK TO LIS AFTER 30 MINUTES. VSS. WILL CONTINUE TO MONITOR.
--- NOTE | 2019-04-11 09:32 | NUR ---
Nutrition follow-up: Pt NPO; intubated, sedated Now with pneumonia, sepsis Labs reviewed Wt: 249# Recommend Pulmocare start @ 20 ml/hr with increase to goal rate of l50 ml/hr RDN following.
--- NOTE | 2019-04-11 10:13 | NUR ---
PT INCONTINENT OF BOWEL. PT CLEANED UP AND LINENS CHANGED. REPOSITIONED TO LEFT SIDE. SCDS ON. VSS. WILL CONTINUE TO MONITOR.
--- NOTE | 2019-04-11 10:19 | NUR ---
NANCY, CARDIOLOGY RESEARCH TECHNICIAN, AWARE OF RUN ON EKG THIS AM. WILL LOOK AT MEDICATIONS AND ADDRESS.
--- NOTE | 2019-04-11 11:45 | NUR ---
DR BURTON WANTS TO WAIT TO EXTUBATE PT SINCE PT HAD ARRHYTHMIAS DURING THE NIGHT. PT HAS HAD SOME PVCS TODAY. NANCY MACIAS APN, AWARE. WILL CONTINUE TO MONITOR.
[2019-04-11 13:10] LABS: FUNGUS STAIN Final report (())
--- NOTE | 2019-04-11 13:48 | NUR ---
PT SUCTIONED AND REPOSITIONED. RECEIVING BREATHING TREATMENT AT THIS TIME. WILL CONTINUE TO MONITOR.
--- NOTE | 2019-04-11 14:19 | NUR ---
HYDRALAZINE GIVEN FOR ELEVATED BP OF 173/78.
--- NOTE | 2019-04-11 16:19 | NUR ---
PULMOCARE TUBE FEED INITIATED. AT 20ML/HR. TO INCREASE BY 10ML Q12H. RESIDUAL IS 50. REINSTILLED. WILL CONTINUE TO MONITOR.
--- NOTE | 2019-04-11 17:21 | NUR ---
PT SUCTIONED. ORAL CARE PROVIDED. VSS. WILL CONTINUE TO MONITOR.
--- NOTE | 2019-04-11 19:00 | NUR ---
REPORT RECEIVED. INITIAL ASSESSMENT COMPLETE SEE FLOWSHEET FOR COMPLETE DETAILS. PT LYING IN BED HOB 30 MORBIDLY OBESE ORALLY INTUBATED TO VENT SEE RESP THERAPIST NOTES AND FLOWSHEETS. SEDATED OPENS EYES SPOMTANEOUSLY. CM READING SR WITH PVC'S ALARMS ON AND AUDIBLE. BED IN LOW POSITION SIDE RAILS UP TIMES 3 FOR BED MOBILITY AND SAFETY CL IN REACH. WILL CONTINUE TO MONITOR
--- NOTE | 2019-04-11 20:00 | NUR ---
FAMILY AT BEDSIDE FOR VISITATION UPDATE GIVEN
--- NOTE | 2019-04-11 23:00 | NUR ---
REASSESSMENT MADE NO CHANGES CPOC REPOSITIONED FOR COMFORT ORAL CARE DONE
[2019-04-12] VITALS (24 sets, daily range): BP systolic 038–165; BP diastolic 59–107
--- NOTE | 2019-04-12 00:08 | NUR ---
ACCUCHECK 248 COVERED PER SLIDING SCALE SEE EMAR. VSS CPOC
--- NOTE | 2019-04-12 01:35 | NUR ---
PT INCONTINENT BOWEL LIQUID BROWN STOOL PARTIAL BED BATH AND LINEN CHANGE
--- NOTE | 2019-04-12 03:00 | NUR ---
REASSESSMENT MADE VSS CPOC
[2019-04-12 04:04] LABS: BASOPHILS 0 % (0-2); EOSINOPHILS 0 % (0-7); HEMATOCRIT 38.5 % (36.0-48.0); HEMOGLOBIN 12.1 g/dL (12-16); IMMATURE GRANULOCYTES 1.3 % (0-5); LYMPHOCYTES 7.3 % (15-50); MCH 28.5 pg (26.0-34.0); MCHC 31.4 g/dL (31.0-37.0); MEAN PLATELET VOLUME 10.6 fL (7.4-10.4); MONOCYTES 7.2 % (2-11); NEUTROPHILS 84.2 % (40-80); RBC 4.25 10x6/uL (4.00-5.40); RDW 15.9 % (11.5-14.5); WBC 10.8 10x3/uL (4.8-10.8)
[2019-04-12 04:13] LABS: MCV 90.6 fL (80.0-100.0); PLATELET COUNT 299 10x3/uL (130-400)
[2019-04-12 04:20] LABS: ALBUMIN 2.7 g/dL (3.4-5.0); ANION GAP 14.7 mmol/L (8-16); BILIRUBIN - TOTAL 0.4 mg/dL (0.2-1.3); CALCIUM 8.5 mg/dL (8.5-10.1); CARBON DIOXIDE 25.3 mmol/L (21.0-32.0); CREATININE - SERUM 2.4 mg/dL (0.6-1.3); PROTEIN - SERUM 7.3 g/dL (6.4-8.2)
--- NOTE | 2019-04-12 06:00 | NUR ---
INCONTINENT BOWEL COMPLETE CHG BED BATH AND COMPLETE LINEN CHANGE
--- NOTE | 2019-04-12 07:00 | NUR ---
OPENS EYES TO VERBAL STIMULI SKIN WARM AND DRY. IV RIGHT SHOULDER WITHOUT REDNESS OR SWELLING INFUSING WITH DIPRIVAN AT 50 MCG/KG/MIN. NS AT KVO FOR IVPB. MCCULLOUGH CATH PATENT DRAINING CLEAR YELLOW URINE. TRACH SECURE BILATERAL LUNGS EQUAL. LARGE AMOUNT OF FROTHY SPUTUM, MOSTLY ORALLY, SOME FROM ETT. OG INFUSING WITH PULMOCARE AT 30 ML HOUR. MONITOR SR WITH OCC BIGEMINAL PJC AND OCC PAC. NO PVC'S NOTED.
--- NOTE | 2019-04-12 09:00 | NUR ---
NO RESIDUAL FROM OG TUBE. PULMOCARE CONTINUES AT 30 ML HOUR. REPOSITIONED. TOLERATES FAIR. STILL LARGE AMOUNT OF FROTHY SPUTUM ORALLY, AND SMALL AMOUNT FROM ETT.
--- NOTE | 2019-04-12 19:00 | NUR ---
REPORT RECEIVED. INITIAL ASSESSMENT COMPLETE. PT SEDATED ORALLY INTUBATED TO VENT SEE RESP THERAPISTS NOTES FOR SETTINGS. BREATH SOUNDS CLEAR DIMINISHED TO BASES. O2 SAT 100%. CM READING SR WITH PAC'S/PVC'S ALARMS ON AND AUDBILE. ABD SOFT PT MORBIDLY OBESE BS ACTIVE PT INCONTINENT OF BOWEL. GENERALIZED EDEMA BLE ELEVATED WITH PILLOWS. BED LOW POSITION SIDE RAILS UP TIMES 3 FOR BED MOBILITY AND SAFETY. VSS CPOC WILL CONTINUE TO MONITOR
--- NOTE | 2019-04-12 20:00 | NUR ---
FAMILY HERE AT BEDSIDE CPOC
--- NOTE | 2019-04-12 23:00 | NUR ---
REASSESSMENT COMPLETE VSS NO DISTRESS NOTED ORAL CARE PROVIDED CPOC
[2019-04-13] VITALS (24 sets, daily range): BP systolic 102–149; BP diastolic 56–85
--- NOTE | 2019-04-13 03:00 | NUR ---
REASSESSMENT COMPLETE NO CHANGES VSS CPOC
[2019-04-13 03:42] LABS: BASOPHILS 0.1 % (0-2); EOSINOPHILS 0 % (0-7); HEMATOCRIT 37.1 % (36.0-48.0); HEMOGLOBIN 11.7 g/dL (12-16); IMMATURE GRANULOCYTES 1.4 % (0-5); LYMPHOCYTES 5.8 % (15-50); MCH 28.3 pg (26.0-34.0); MCHC 31.5 g/dL (31.0-37.0); MCV 89.6 fL (80.0-100.0); MEAN PLATELET VOLUME 10.9 fL (7.4-10.4); MONOCYTES 8.4 % (2-11); NEUTROPHILS 84.3 % (40-80); PLATELET COUNT 322 10x3/uL (130-400); RBC 4.14 10x6/uL (4.00-5.40); RDW 15.6 % (11.5-14.5)
[2019-04-13 04:06] LABS: ALBUMIN 2.8 g/dL (3.4-5.0); ANION GAP 14.6 mmol/L (8-16); BILIRUBIN - TOTAL 0.35 mg/dL (0.2-1.3); CALCIUM 8.4 mg/dL (8.5-10.1); CARBON DIOXIDE 25.8 mmol/L (21.0-32.0); CREATININE - SERUM 2.5 mg/dL (0.6-1.3); PHOSPHOROUS 4.6 mg/dL (2.5-4.9); POTASSIUM - SERUM 4.4 mmol/L (3.5-5.1); PROTEIN - SERUM 7.1 g/dL (6.4-8.2); VANCOMYCIN - RANDOM 14.4 ug/mL (10.0-20.0)
--- NOTE | 2019-04-13 05:00 | NUR ---
COMPLETE BED BATH AND LINEN CHANGE.
--- NOTE | 2019-04-13 07:00 | NUR ---
ETT SECURE TO VENT. BILATERAL LUNG SOUNDS EQUAL AND FAIRLY CLEAR. SLOW TO RESPOND TO VERBAL STIMULI, GAGGING ON ETT WHEN AWAKEN. SUCTIONED MOD. AMOUNT OF FROTHY SPUTUM PER ETT. NONE FROM MOUTH. RIGHT SHOULDER WITHOUT REDNESS OR SWELLING IV'S INFUSING WITH DIPRIVAN AT 50 MCG/KG/MIN. NS KVO. MCCULLOUGH CATH PATENT. HEAD OF BED ELEVATED 30 DEGREES. NO DISTRESS. RESTING COMFORTABLY.
--- NOTE | 2019-04-13 08:31 | NUR ---
DR. CAMPBELL NOTIFIED OF CONTINUED ATRIAL ARRHYTHMIAS BIGEMINAL PAC, MULTIPLE FOCAL PAC'S. ORDERS RECEIVED FOR DIGOXIN 0.25 IV, CALL IF PATIENT GOES INTO ATRIAL FIB.
--- NOTE | 2019-04-13 09:00 | NUR ---
FAMILY HERE UPDATE GIVEN. OG CHECK FOR PLACEMENT WITH AIR BOLUS, AUDIBLE IN ABD. MINIMAL RESIDUAL. REPOSITIONED. ORAL CARE DONE
--- NOTE | 2019-04-13 11:00 | NUR ---
REPOSITIONED. RESTING COMFORTABLY. NO ORAL FROTHY SPUTUM NOTED THIS AM. SMALL AMOUNT PER ETT.
--- NOTE | 2019-04-13 12:00 | NUR ---
DIPRIVAN TURNED DOWN TO 20 MCG/KG/MIN TO ALLOW PATIENT TO WAKE UP SOME FOR CPAP TRIALS.
--- NOTE | 2019-04-13 13:00 | NUR ---
DR. KELLY AND DR. BURTON NOTIFIED OF ACCUCHECK'S IN 200'S LAST 24 HOURS. NO NEW ORDERS RECEIVED. REPOSITIONED. STILL RESTING COMFORTABLY WITH DIPRIVAN AT 20 MCG/KG/MIN. NO DISTRESS. RESP DEEP AND REGULAR. WILL TURN TO CPAP WHEN RESP THERAPY AVAILABLE
--- NOTE | 2019-04-13 16:00 | NUR ---
VIDHI TURNED OFF PATIENT ON CPAP. AWAKE BREAKING 20-30 TV 300-400. NO DISTRESS. OPENS EYES WHEN SPOKEN TOO
--- NOTE | 2019-04-13 17:00 | NUR ---
TOLERATING CPAP ON VENT WELL. NEEDING CALMING TALK AT TIMES TO KEEP RESP RATE BELOW 35 AND NOT TO GAG ON ETT. NO RESP DISTRESS NOTED
--- NOTE | 2019-04-13 18:00 | NUR ---
NO CHANGE TOLERATING CPAP WELL. RESP RATE 20-30. OCC GAGGING ONE TUBE, BUT WILL STOP WHEN YOU TALK WITH HER. DIPRIVAN AT 10 MCG/KG/MIN. TV IN 300'S. WILL TAKE DEEP BREATHS GREATER THAN 1200ML TV. HEAD OF BED ELEVATED.
--- NOTE | 2019-04-13 18:30 | NUR ---
NO CHANGES STILL RESTING COMFORTABLY. RESPOSITIONED. NO DISTRESS
--- NOTE | 2019-04-13 19:00 | NUR ---
REPORT RECEIVED INITIAL ASSESSMENT PT SEDATED ON VENT SEE FLOWSHEETS. BED LOW POSITION SR X 3 CL IN REACH. CPOC
--- NOTE | 2019-04-13 23:00 | NUR ---
REASSESSMENT MADE NO CHANGES ORAL CARE REPOSITIONED FOR COMFORT. VSS CPOC
[2019-04-14] VITALS (24 sets, daily range): BP systolic 112–166; BP diastolic 65–97
--- NOTE | 2019-04-14 03:00 | NUR ---
REASSESSMENT MADE NO CHANGES
[2019-04-14 03:35] LABS: BASOPHILS 0.3 % (0-2); EOSINOPHILS 0.1 % (0-7); HEMATOCRIT 36.9 % (36.0-48.0); HEMOGLOBIN 11.6 g/dL (12-16); IMMATURE GRANULOCYTES 1.7 % (0-5); LYMPHOCYTES 9.9 % (15-50); MCH 28.4 pg (26.0-34.0); MCHC 31.4 g/dL (31.0-37.0); MCV 90.2 fL (80.0-100.0); MEAN PLATELET VOLUME 11.5 fL (7.4-10.4); MONOCYTES 14.5 % (2-11); NEUTROPHILS 73.5 % (40-80); PLATELET COUNT 379 10x3/uL (130-400); RBC 4.09 10x6/uL (4.00-5.40); RDW 15.8 % (11.5-14.5)
[2019-04-14 03:40] LABS: ALBUMIN 2.8 g/dL (3.4-5.0); ANION GAP 16.9 mmol/L (8-16); BILIRUBIN - TOTAL 0.37 mg/dL (0.2-1.3); CALCIUM 8.7 mg/dL (8.5-10.1); CARBON DIOXIDE 25.4 mmol/L (21.0-32.0); CREATININE - SERUM 2.4 mg/dL (0.6-1.3); POTASSIUM - SERUM 4.3 mmol/L (3.5-5.1); PROTEIN - SERUM 6.9 g/dL (6.4-8.2); VANCOMYCIN - RANDOM 9.5 ug/mL (10.0-20.0)
--- NOTE | 2019-04-14 07:15 | NUR ---
COMPLETE BED BATH LINEN CHANGE
--- NOTE | 2019-04-14 07:51 | NUR ---
REPORT RECIEVED. ASSESSMENT DONE. R GREAT TOE WOUND. R SHOULDER IV X2. PATIENT SQUIRMS WHEN PRESSURE IS PUT ON IT. FLUSHES. NO SIGNS OF INFILTRATION AT THIS TIME. WILL CONTINUE TO MONITOR THIS SITE.
--- NOTE | 2019-04-14 08:59 | NUR ---
PER DR CARREON.. STOP LACTULOSE. WILL EXTUBATE TODAY.
--- NOTE | 2019-04-14 09:00 | NUR ---
TUBE FEEDING ON HOLD
--- NOTE | 2019-04-14 09:17 | NUR ---
Nutrition follow-up: Intubated; weaning trials with pt fully awake at this time Pulmocare @ 30 ml/hr with 50 ml goal rate via OGT Labs reviewed Wt: 247# Generalized edema Liquid stools RDN following.
--- NOTE | 2019-04-14 09:47 | NUR ---
PATIENT IS IN NS WITH PAC AND PVC. HR 93.
--- NOTE | 2019-04-14 10:35 | NUR ---
PATIENT DC RESTRAINTS. ON 4 L NC
--- NOTE | 2019-04-14 10:36 | NUR ---
family called. passcode given. update given.
--- NOTE | 2019-04-14 11:19 | NUR ---
PATIENT AWAKE. RESPONSIVE. DOES NOT PAYROLL AND BENEFITS MANAGER HANDS BILAT BUT WILL WIGGLE TOES. WHEN PROMPTED TO SUCTION PATIENT WILL TURN AWAY. PATIENT WILL NOT COUGH WHEN DIRECTED BUT WILL COUGH ON HER OWN. PATIENT HAS NO VERBALLY SAID ANYTHING. FOLLOWS SOME BUT NOT ALL COMMANDS. TOLERATING BEING EXTUBATED. WILL CONTINUE TO MONITOR
--- NOTE | 2019-04-14 12:35 | NUR ---
SPOKE WITH DR LANDIN REGARDING R ARM RED WARM AND SWOLLEN. STOPPED IV FLUIDS THAT WERE GOING IN AT KVO. ORDERS TO GET XRAY AND DOPPLER OF R ARM TO RULE OUT DVT AND FRACTURE SINCE PATIENT FELL AT HOME AND WAS FOUND DOWN.
--- NOTE | 2019-04-14 17:02 | CN ---
PATIENT NAME:ANNY CALVILLO MEDICAL RECORD: [id number] : 62 LOCATION:[facility].2304 ADMIT DATE: 04/08/19 ACCOUNT: [id number] CONSULTING PHYSICIAN: ELIOT QUIÑONES MD REFERRING PHYSICIAN: PRIYA HARDING MD DATE OF CONSULTATION: 04/08/2019 DIAGNOSES: 1. Respiratory failure requiring intubation. 2. Coronary artery disease. 3. Previous cardiac stent. 4. Previous coronary artery bypass graft surgery. 5. Hypertension. 6. Diabetes. 7. Chronic obstructive pulmonary disease. 8. Smoking history. 9. Obesity. HISTORY OF PRESENT ILLNESS: Mrs. Calvillo was found down. She is now intubated in the ICU. Her troponins are normal. She has no EKG changes. She does have a history of cardiac disease as above. We cannot get a history of any chest pain or chest discomfort. SOCIAL HISTORY: Unobtainable. FAMILY HISTORY: Unobtainable. REVIEW OF SYSTEMS: Unobtainable secondary to the patient being sedated and intubated. PHYSICAL EXAMINATION: CONSTITUTIONAL/GENERAL APPEARANCE: Well nourished, well developed, appears stated age. EYES: Lids and conjunctivae noninjected. No discharge. No pallor. ENT: Lips within normal limit. No cyanosis. No pallor. NECK: Carotid arteries, bilateral normal upstroke. No bruits. No thrills. No jugular venous pressure or distention. CERVICAL LYMPH NODES: Nontender. Nonenlarged. THYROID: Not enlarged. No nodules. CARDIOVASCULAR: Precordial exam, nondisplaced. No heaves or pericardial thrills. Rate and rhythm, regular. Heart sounds, normal S1, normal S2. No S3, no gallop, no rub. Systolic murmur, not heard. Diastolic murmur, not heard. RESPIRATORY: Respiratory effort, unlabored. Normal curvature. No thoracic deformity. No chest wall tenderness. Percussion, resonant. Auscultation, clear. No wheezes, no rales, no rhonchi. ABDOMEN: Soft, nondistended, nontender. No abdominal pain, no vomiting and normal appetite. MUSCULOSKELETAL: No joint tenderness, normal gait, normal tone. SKIN: Warm and dry. OVERALL IMPRESSION: Respiratory failure requiring mechanical intubation. At this time, there is no reason to believe that this is cardiac. We have a normal troponin, no EKG changes. Even though she does have a past history of coronary artery disease, she appears to be stable from the standpoint of ischemic heart disease. We will get an echocardiogram for an accurate ejection fraction at CONSULT REPORT [id number] ANNY CALVILLO this time. Otherwise, at this point, no other cardiac workup or treatment is necessary. TRANSINT:[id number] Voice Confirmation ID: [id number] DOCUMENT ID: [id number] ELIOT QUIÑONES MD at 1702 CC: [id number] DICTATION DATE: 04/08/19 1237 MACHINE MOLDER SQUEEZE: 04/08/19 1244 ADM IN [place] [id number] [place] [id number]
--- NOTE | 2019-04-14 17:02 | EC ---
PATIENT:NANY HERRERA DATE OF SERVICE: 04/08/19 SEX: F MEDICAL RECORD: [id number] DATE OF : 62 LOCATION:[facility] D230 AGE OF PATIENT: 58 ADMISSION DATE: 04/08/19 REFERRING PHYSICIAN: INTERPRETING PHYSICIAN: ELIOT PEREYRA MD ECHOCARDIOGRAM REPORT ECHO CHARGES 4 ECHO COMPLETE Date: 04/08/19 CLINICAL DIAGNOSIS: RESP.FAILURE ECHOCARDIOGRAPHIC MEASUREMENTS (adult normal given) AC root (d.<3.7cm) 2.7 cm LV Septum d (<1.2 cm> 0.9 cm Valve Excursion 1.5 cm LV Septum (systole) 1.4 cm Left Atria (s.<4.0cm> 3.3 cm LVPW d(<1.2cm) 1.0 cm RV (d.<2.3cm) 2.6 cm LVPW (sytole) 1.4 cm LV diastole(<5.6CM) 5.5 cm MV E-F(>70mm/sec) cm LV systole 3.8 cm LVOT Diameter 1.6 cm MV exc.(>10mm) cm Est.ejection fraction (50-75%) % DOPPLER: LVIT cm/sec A 63.0 cm/sec E 165 cm/sec LA cm/sec RVSP mmHg LVOT 97.0 cm/sec AOP1/2T m/s Asc. Ao 161 cm/sec RVOT 62.0 cm/sec RA cm/sec PA 112 cm/sec AV Gradient Peak 10.4 mmHg AV Mean 6.5 mmHg AV Area 0.9 cm MV Gradient Peak 13.0 mmHg MV Mean 3.1 mmHg MV Area cm COMMENTS: Equine Vet: 1 CALIXTO STEWARTOE Pool Finisher: 1 Dr. Pereyra TAPE# PACS Pericardial Effusion N DATE OF SERVICE: FINDINGS: 1. Left ventricular chamber size is within normal limits. Left ventricular systolic function is mildly depressed at 40%. 2. Left atrium, right atrium, and right ventricular chamber sizes are within normal limits. 3. Valvular structures have normal structure and motion. 4. Doppler interrogation reveals moderate mitral regurgitation, no other valvular insufficiency or stenosis. ECHOCARDIOGRAM REPORT [id number] ANNY HERRERA 5. No evidence of pericardial effusion or left ventricular thrombus. TRANSINT:[id number] Voice Confirmation ID: [id number] DOCUMENT ID: [id number] ELIOT PEREYRA MD at 1702 CC: [id number] DICTATION DATE: 04/08/19 1550 NURSE CLINICAL: 04/08/19 1748 ADM IN [facility] [address] [place] [id number]
--- NOTE | 2019-04-14 19:00 | NUR ---
SHIFT ASSESSMENT COMPLETE. VITAL SIGNS STABLE. NO VISUAL CUES OF DISTRESS NOTED. WILL CONTINUE TO MONITOR.
--- NOTE | 2019-04-14 21:00 | NUR ---
VITAL SIGNS STABLE. NO VISUAL CUES OF DISTRESS NOTED. WILL CONTINUE TO MONITOR.
--- NOTE | 2019-04-14 23:00 | NUR ---
VITAL SIGNS STABLE. NO VISUAL CUES OF DISTRESS NOTED. WILL CONTINUE TO MONITOR.
[2019-04-15] VITALS (24 sets, daily range): BP systolic 139–175; BP diastolic 65–104; Ht 149.9 cm; Wt 101.7 kg
--- NOTE | 2019-04-15 01:00 | NUR ---
VITAL SIGNS STABLE. NO VISUAL CUES OF DISTRESS NOTED. WILL CONTINUE TO MONITOR.
--- NOTE | 2019-04-15 03:00 | NUR ---
VITAL SIGNS STABLE. NO VISUAL CUES OF DISTRESS NOTED. WILL CONTINUE TO MONITOR.
--- NOTE | 2019-04-15 05:00 | NUR ---
VITAL SIGNS STABLE. NO VISUAL CUES OF DISTRESS NOTED. WILL CONTINUE TO MONITOR.
--- NOTE | 2019-04-15 07:20 | NUR ---
REPORT RECEIVED. PT AWAKE IN BED. HEAD TO TOE ASSESSMENT PERFORMED. SLOW TO RESPOND TO QUESTIONS. IV TO LEFT HAND WITH NS INFUSING. PT HAS MCCULLOUGH IN PLACE. VSS. WILL CONTINUE TO MONITOR.
[2019-04-15 08:02] LABS: ALBUMIN 3.1 g/dL (3.4-5.0); BILIRUBIN - TOTAL 0.54 mg/dL (0.2-1.3); CALCIUM 9.7 mg/dL (8.5-10.1); CARBON DIOXIDE 29.9 mmol/L (21.0-32.0); CREATININE - SERUM 2.2 mg/dL (0.6-1.3); PHOSPHOROUS 5.9 mg/dL (2.5-4.9); POTASSIUM - SERUM 4.9 mmol/L (3.5-5.1); PROTEIN - SERUM 7.5 g/dL (6.4-8.2)
[2019-04-15 08:06] LABS: BASOPHILS 0.1 % (0-2); EOSINOPHILS 0.1 % (0-7); HEMATOCRIT 39.9 % (36.0-48.0); HEMOGLOBIN 12.8 g/dL (12-16); IMMATURE GRANULOCYTES 2.2 % (0-5); LYMPHOCYTES 6.7 % (15-50); MCHC 32.1 g/dL (31.0-37.0); MCV 90.3 fL (80.0-100.0); MEAN PLATELET VOLUME 11.4 fL (7.4-10.4); MONOCYTES 4.6 % (2-11); NEUTROPHILS 86.3 % (40-80); PLATELET COUNT 339 10x3/uL (130-400); RBC 4.42 10x6/uL (4.00-5.40); RDW 15.7 % (11.5-14.5)
--- NOTE | 2019-04-15 09:45 | NUR ---
PT PASSED SWALLOW EVAL WITH SPEECH THERAPY. ON THIN LIQUIDS AND PUREED FOODS. PT ABLE TO TAKE ORAL MEDICATION. VSS. WILL CONTINUE TO MONITOR.
--- NOTE | 2019-04-15 11:45 | NUR ---
BLOOD SUGAR 149. NO COVERAGE NEEDED. ATTEMPTED TO ASSIST PT WITH LUNCH. PT GAGGED AFTER 1ST BITE. STATED SHE WASN'T HUNGRY. WILL CONTINUE TO MONITOR.
--- NOTE | 2019-04-15 13:29 | NUR ---
PT RESTING QUIETLY WITH EVEN, UNLABORED RESPIRATIONS. VSS. WILL CONTINUE TO MONITOR.
--- NOTE | 2019-04-15 15:39 | NUR ---
PT INCONTINENT OF BOWEL. CHG BATH GIVEN. LINENS CHANGED. VSS. WILL CONTINUE TO MONITOR.
--- NOTE | 2019-04-15 17:47 | NUR ---
PT REFUSED TO TRY TO EAT DINNER. TOOK ORAL MEDICATION WITH NO ISSUES. VSS. WILL CONTINUE TO MONITOR.
--- NOTE | 2019-04-15 18:20 | NUR ---
PAGED DR AYALA REGARDING FREQUENT PACS.
--- NOTE | 2019-04-15 19:00 | NUR ---
ASSESSMENT COMPLETED. DENIES ANY NEEDS OR COMPLAINTS. CALL LIGHT IN REACH. DISORIENTED TO TIME AND SITUATION. SOFT AND SLOW TO SPEAK. O2 AT 4L VIA NC. PIV SALINE LOCK TO LEFT HAND.
--- NOTE | 2019-04-15 21:00 | NUR ---
LAYING IN BED. FAMILY AT SIDE. DENIES ANY NEEDS. DENIES ANY NAUSEA. NO CPAP AT THIS TIME PER RT D/T HAD N/V RECENTLY. DRINKING WATER WITHOUT DIFFICULTY
--- NOTE | 2019-04-15 23:00 | NUR ---
RE-ASSESSMENT COMPLETED. NO CHANGES SINCE LAST ASSESSMENT. CALL LIGHT IN REACH
[2019-04-16] VITALS (24 sets, daily range): BP systolic 106–193; BP diastolic 63–101
--- NOTE | 2019-04-16 01:00 | NUR ---
LAYING BACK IN BED. EASILY WAKES. DENIES ANY NEEDS. CALL LIGHT IN REACH
--- NOTE | 2019-04-16 03:00 | NUR ---
BATH COMPLETE WITH LINEN CHANGE. DENIES ANY NEEDS AT THIS TIME. CALL LIGHT IN REACH
[2019-04-16 04:24] LABS: BASOPHILS 0.2 % (0-2); EOSINOPHILS 0.3 % (0-7); HEMATOCRIT 45.2 % (36.0-48.0); HEMOGLOBIN 14.1 g/dL (12-16); IMMATURE GRANULOCYTES 2.2 % (0-5); LYMPHOCYTES 7.1 % (15-50); MCH 28.6 pg (26.0-34.0); MCHC 31.2 g/dL (31.0-37.0); MCV 91.7 fL (80.0-100.0); MEAN PLATELET VOLUME 11.2 fL (7.4-10.4); MONOCYTES 11.2 % (2-11); PLATELET COUNT 369 10x3/uL (130-400); RBC 4.93 10x6/uL (4.00-5.40); RDW 15.8 % (11.5-14.5)
[2019-04-16 04:25] LABS: ALBUMIN 3.4 g/dL (3.4-5.0); BILIRUBIN - TOTAL 0.65 mg/dL (0.2-1.3); CALCIUM 9.7 mg/dL (8.5-10.1); CARBON DIOXIDE 34.1 mmol/L (21.0-32.0); CREATININE - SERUM 2.2 mg/dL (0.6-1.3)
[2019-04-16 04:26] LABS: WBC 18.1 10x3/uL (4.8-10.8)
[2019-04-16 04:32] LABS: POTASSIUM - SERUM 4.1 mmol/L (3.5-5.1)
--- NOTE | 2019-04-16 04:53 | NUR ---
SBP ELEVATED, GIVEN PRN HYDRALAZINE PER ORDERS IV. C/O PAIN ALL OVER, STATES AT HOME SHE TAKES EVERYTHING. REPOSITIONED PATIENT. WHEN ASKED, PT STATED THAT REPOSITIONING HELPED. ALSO, PVC NOTED IN LAST HOUR. HAD THEM YESTERDAY ON DAY SHIFT AND DR. AYALA WAS NOTIFIED VIA DAY NURSE WITH NO NEW ORDERS. NO OTHER ARRHYTHMIAS NOTED. HEART RATE WOULD DROP TO 30'S FOR JUST A FEW SECONDS BUT WAVE FORM WOULD NOT SHOW A 30 HEARTRATE. APICAL HEART RATE SHOWN 80'S HEART RATE. CHANGED LEADS WELL
--- NOTE | 2019-04-16 05:00 | NUR ---
LAYING IN BED, EYES OPEN. WATCHING TV. CALL LIGHT IN REACH.
--- NOTE | 2019-04-16 06:12 | NUR ---
DR. AYALA PAGED AWAITING CALL BACK
--- NOTE | 2019-04-16 06:28 | NUR ---
DR. AYALA NOTIFIED OF RHYTHM, PVC'S THAT ARE NOT PERFUSING BEATS, BP STABLE AT 170/88 AT THIS TIME, AND RUN OF [address] AYALA STATED HE WOULD COME BY TO SEE PATIENT TODAY, NO NEW ORDERS AT THIS TIME.
--- NOTE | 2019-04-16 07:00 | NUR ---
PT HR 44 WITH BIGEMINAL PVC. PT COMPLAINING OF CP. EKG PERFORMED. HERE AND GAVE ORDER TO GIVE ASA 325 AND NITRO SL. PAGED WELL. RETURNED PAGE AND STATES HE WILL BE HERE SHORTLY. PLACED ORDERS FOR STAT LABS AND ASKED RESP THERAPY TO OBTAIN ABG. PT IS HOOKED TO CRASH CART WITH PADS ATTACHED AT THIS TIME. PT HAS ONE 22G PIV THAT IS NOT FLUSHING EASILY. 2 NURSES TRIED AND FAILED X2 TIMES EACH TO PLACE PIV. GAVE ORDER TO CONSULT FOR CENTRAL LINE PLACEMENT. PAGED. PT IS CONFUSED TO YEAR. VERBAL CONSENT GIVEN WITH 2ND NURSE WITNESS TO PLACE CENTRAL LINE AND BLOOD CONSENT. WILL CONT TO FOLLOW POC
--- NOTE | 2019-04-16 07:08 | NUR ---
GIVEN INFORMATION ABOUT CALLING DR. AYALA, HEART RATE, PVC IN REPORT.
[2019-04-16 07:38] LABS: MAGNESIUM - SERUM 2.6 mg/dL (1.8-2.4); PHOSPHOROUS 5.4 mg/dL (2.5-4.9)
--- NOTE | 2019-04-16 08:30 | NUR ---
HERE AND PLACED RIGHT IJ CENTRAL LINE. PT TOLERATED WELL. CHEST XRAY ORDERED TO VERIFY PLACEMENT
--- NOTE | 2019-04-16 09:33 | NUR ---
NUTRITION F/U PT STARTED ON PUREED, THIN LIQUID DIET. PT REQUIRES FEEDING ASSIST. WILL ADD ENSURE TO MEALS. RD FOLLOWING
--- NOTE | 2019-04-16 10:30 | NUR ---
SPOKE WITH PT SPOUSE, ALMA REGARDING PTS LOW HR. ALMA STATES HE STILL WOULD LIKE PT TO BE A FULL CODE WITH INTUBATION IF NEEDED.
--- NOTE | 2019-04-16 10:54 | NUR ---
PER , RIGHT IJ IS OK FOR USE.
--- NOTE | 2019-04-16 12:00 | NUR ---
ATTEMPTED TO ASSIST PT WITH EATING LUNCH. PT TOOK A COUPLE OF BITES OF APPLESAUCE BUT WOULDN'T EAT ANYTHING ELSE. VSS AND WNL. CALL LIGHT WITHIN REACH. DENIES ANY NEEDS AT THIS TIME. WILL CONT TO FOLLOW POC
[2019-04-16 12:11] LABS: APPEARANCE CLEAR (CLEAR); BILIRUBIN NEGATIVE (NEGATIVE); COLOR YELLOW (YELLOW); GLUCOSE NEGATIVE (NEGATIVE); KETONE NEGATIVE (NEGATIVE); NITRITE NEGATIVE (NEGATIVE); PROTEIN TRACE mg/dL (NEGATIVE); UROBILINOGEN NORMAL (NORMAL)
[2019-04-16 12:12] LABS: BACTERIA FEW /hpf (NEGATIVE); RED CELLS - URINE 0-5 /hpf (0-5); WHITE CELLS - URINE 0-5 /hpf (NEGATIVE); YEAST <1+ /hpf (NONE SEEN)
[2019-04-16 12:15] LABS: URIC ACID CRYSTALS 25-50 /hpf (NONE SEEN)
--- NOTE | 2019-04-16 14:00 | NUR ---
PT HAD A BM, FULL LINEN CHANGE PROVIDED. VSS AND WNL. CRASH CART STILL CONNECTED TO PT AT THIS TIME, CALL LIGHT WITHIN REACH. WILL CONT TO FOLLOW POC
--- NOTE | 2019-04-16 14:07 | OP ---
PATIENT NAME: ANNY HERRERA MEDICAL RECORD: [id number] :62 LOCATION:[facility] D.2304 ADMISSION DATE:04/08/19 SURGEON: JONO JOHNSON MD DATE OF OPERATION: 04/16/2019 PREOPERATIVE DIAGNOSES: 1. Bigeminy. 2. Lack of significant peripheral IV access. POSTOPERATIVE DIAGNOSES: 1. Bigeminy. 2. Lack of significant peripheral IV access. PROCEDURE: Insertion of right internal jugular triple lumen central venous catheter. SURGEON: Jono Johnson MD MEDICAL REVIEWER: None. BLOOD LOSS: Minimal. ANESTHESIA: Local. COMPLICATIONS: None. The risks, possible complications and alternatives to the procedure were explained to the patient. She elects to proceed. OPERATIVE COURSE: The patient was seen in her ICU bed. Entire procedure was performed in the presence of a female nurse. The patient was positioned in the Trendelenburg position. The right neck was sterilely prepped and draped. We tried to access the right internal jugular vein several times and this was not fruitful. I brought the sterile ultrasound probe on to the field and identified that the internal jugular vein was collapsing when she inspired. I was able to percutaneously access the internal jugular vein in an antegrade fashion. A guidewire passed easily. A small skin lindsey was accomplished. A vessel dilator was used to dilate the subcutaneous tract. A 16-cm triple lumen central venous catheter was inserted to the hub. It was sutured in place times 3. All lumens flushed easily and aspirated dark, nonpulsatile blood. A stat portable chest x-ray revealed adequate placement of the central venous line. TRANSINT:[id number] Voice Confirmation ID: [id number] DOCUMENT ID: [id number] JONO JOHNSON MD at 1407 CC: [id number] DICTATION DATE: 04/16/19 1038 CAN TECHNICIAN: 04/16/19 1046 ADM IN [place] [id number] [place] [address]
--- NOTE | 2019-04-16 16:00 | NUR ---
PT RESTING IN BED. VSS AND WNL. MCCULLOUGH CATHETER EMPTIED. PT REPOSITIONED IN BED. CALL LIGHT WITHIN REACH. DENIES ANY NEEDS AT THIS TIME. WILL CONT TO FOLLOW POC
[2019-04-16 16:08] LABS: FUNGUS MYCOLOGY CULTURE Preliminary report (())
[2019-04-16 16:26] LABS: ANION GAP 14.8 mmol/L (8-16); CALCIUM 9.9 mg/dL (8.5-10.1); CARBON DIOXIDE 29.5 mmol/L (21.0-32.0); CREATININE - SERUM 2.1 mg/dL (0.6-1.3); MAGNESIUM - SERUM 3.1 mg/dL (1.8-2.4); POTASSIUM - SERUM 4.3 mmol/L (3.5-5.1)
--- NOTE | 2019-04-16 16:56 | NUR ---
PT SITTING UP IN BED EATING SUPPER WITH FAMILY ASSISTING. DENIES ANY NEEDS AT THIS TIME, VSS AND WNL. DENIES ANY NEEDS AT THIS TIME, CALL LIGHT WITHIN REACH. BED ALARM ON AND TESTED, WILL CONT TO FOLLOW POC
--- NOTE | 2019-04-16 18:17 | NUR ---
PT RESTING IN BED, VSS AND WNL. DENIES ANY NEEDS AT THIS TIME. CALL LIGHT WITHIN REACH. WILL CONT TO FOLLOW POC
--- NOTE | 2019-04-16 19:00 | NUR ---
ASSESSMENT COMPLETE. O2 AT 4L VIA NC. RIGHT IJ KVO. L HAND PIV STILL INTACT. DENIES ANY NEEDS. CALL LIGHT IN REACH
--- NOTE | 2019-04-16 21:00 | NUR ---
ATTEMPTED TO FLUSH LEFT PIV BUT WAS INFILTRATED. REMOVED THAT IV WITH TIP STILL INTACT. TOLERATED MEDS WITHOUT ANY DIFFICULTY.
--- NOTE | 2019-04-16 23:00 | NUR ---
RE-ASSESSMENT COMPLETE. NO CHANGES SINCE LAST ASSESSMENT. CPAP ON PATIENT PER ORDERS PER RT. CALL LIGHT IN REACH
[2019-04-17] VITALS (23 sets, daily range): BP systolic 95–151; BP diastolic 56–87
--- NOTE | 2019-04-17 01:00 | NUR ---
LAYING BACK IN BED, EYES CLOSED, EASILY WAKES. DENIES ANY NEEDS. CALL LIGHT IN REACH. CPAP STILL ON.
--- NOTE | 2019-04-17 03:00 | NUR ---
RE-ASSESSMENT COMPLETED. PT IS SINUS AYLA AT 41. ASYMPTOMATIC. PVC CONT. NO OTHER COMPLAINTS. CALL LIGHT IN REACH
[2019-04-17 04:22] LABS: BASOPHILS 0.1 % (0-2); EOSINOPHILS 0.2 % (0-7); HEMATOCRIT 42.8 % (36.0-48.0); HEMOGLOBIN 12.9 g/dL (12-16); IMMATURE GRANULOCYTES 1.7 % (0-5); LYMPHOCYTES 6.3 % (15-50); MCH 28.2 pg (26.0-34.0); MCHC 30.1 g/dL (31.0-37.0); MCV 93.7 fL (80.0-100.0); MEAN PLATELET VOLUME 11.7 fL (7.4-10.4); MONOCYTES 13.1 % (2-11); NEUTROPHILS 78.6 % (40-80); PLATELET COUNT 394 10x3/uL (130-400); RBC 4.57 10x6/uL (4.00-5.40); RDW 16.3 % (11.5-14.5); WBC 19.4 10x3/uL (4.8-10.8)
[2019-04-17 04:36] LABS: ALBUMIN 3.2 g/dL (3.4-5.0); ANION GAP 14.1 mmol/L (8-16); BILIRUBIN - TOTAL 0.61 mg/dL (0.2-1.3); CALCIUM 9.6 mg/dL (8.5-10.1); CARBON DIOXIDE 32.3 mmol/L (21.0-32.0); CREATININE - SERUM 2.2 mg/dL (0.6-1.3); PHOSPHOROUS 6.2 mg/dL (2.5-4.9); POTASSIUM - SERUM 4.4 mmol/L (3.5-5.1); PROTEIN - SERUM 7.5 g/dL (6.4-8.2)
--- NOTE | 2019-04-17 05:00 | NUR ---
LAYING BACK IN BED. CALL LIGHT IN REACH. DENIES NEEDS AT THIS TIME. CHG BATH WITH COMPLETE LINEN CHANGE
--- NOTE | 2019-04-17 07:00 | NUR ---
PT RESTING IN BED, SHIFT ASSESSMENT PERFORMED. VSS AND WNL. PT O2 96% ON 4L NC, TURNED PT O2 DOWN TO 3L NC. CALL LIGHT WITHIN REACH. BED ALARM ON AND TESTED. WILL CONT TO FOLLOW POC
--- NOTE | 2019-04-17 09:00 | NUR ---
PT SITTING UP IN BED, FAMILY AT BEDSIDE. VSS AND WNL. DENIES ANY NEEDS AT THIS TIME, WILL CONT TO FOLLOW POC
--- NOTE | 2019-04-17 10:18 | NUR ---
PHYSICAL THERAPY HERE TO EVALUTATE PT.
--- NOTE | 2019-04-17 10:30 | NUR ---
PT WILL NOT FOLLOW COMMANDS FOR PT.
--- NOTE | 2019-04-17 11:00 | NUR ---
PT RESTING IN BED, VSS AND WNL. CALL LIGHT WITHIN REACH. DENIES ANY NEEDS AT THIS TIME, BED ALARM ON. WILL CONT TO FOLLOW POC
--- NOTE | 2019-04-17 13:00 | NUR ---
PT RESTING IN BED, VSS AND WNL. PT REPOSITIONED AND JACOB CARE PROVIDED. DENIES ANY NEEDS AT THIS TIME, WILL CONT TO FOLLOW POC
--- NOTE | 2019-04-17 15:00 | NUR ---
PT RESTING IN BED, WASHED PT HAIR AND BRUSHED IT. VSS AND WNL. CALL LIGHT WITHIN REACH. BED ALARM ON AND TESTED. DENIES ANY NEEDS AT THIS TIME, WILL CONT TO FOLLOW POC
--- NOTE | 2019-04-17 16:00 | NUR ---
PT REPORT RECEIVED FROM DAY SHIFT NURSE. TAKING OVER CARE OF PATIENT NOW. WILL CONTINUE TO MONITOR
--- NOTE | 2019-04-17 17:00 | NUR ---
PT RESTING IN BED. ATE A COUPLE OF BITES OF FOOD. NO VISIBLE SIGNS OF DISTRESS NOTED. WILL CONTINUE TO MONITOR
[2019-04-17 18:11] LABS: ANION GAP 15.2 mmol/L (8-16); CALCIUM 9.7 mg/dL (8.5-10.1); POTASSIUM - SERUM 4.2 mmol/L (3.5-5.1)
--- NOTE | 2019-04-17 18:30 | NUR ---
PT BMP LAB RESULTS CALLED TO DR OAKLEY. WISHES TO CONTINUE CURRENT TREATMENT PLAN. WILL CONTINUE TO MONITOR
--- NOTE | 2019-04-17 19:00 | NUR ---
SHIFT ASSESSMENT COMPLETED, PT CARE ASSUMED, MONITORS ON AND WORKING, CALL LIGHT WITHIN REACH, SEE FLOW SHEET FOR FURTHER DETAILS. WILL CONTINUE TO OBSERVE.
--- NOTE | 2019-04-17 21:00 | NUR ---
PT SITTING UP IN BED, MONITORS ON AND WORKING, VITALS STABLE. FAMILY AT BEDSIDE, UPDATE PROVIDED, NO SIGNS/SYMPTOMS OF PAIN OR DISCOMFORT NOTED AT THIS TIME, CALL LIGHT WITHIN REACH, WILL CONTINUE TO OBSERVE.
--- NOTE | 2019-04-17 23:00 | NUR ---
PT LYING IN BED RESTING, MONITORS ON AND WORKING, NO SIGNS/SYMPTOMS OF PAIN OR DISCOMFORT NOTED AT THIS TIME, CALL LIGHT WITHIN REACH, WILL CONTINUE TO OBSERVE.
[2019-04-18] VITALS (25 sets, daily range): BP systolic 119–183; BP diastolic 60–99
--- NOTE | 2019-04-18 01:00 | NUR ---
COMPLETE LINEN CHANGE AND CHG BED BATH GIVEN AT THIS TIME, MONITORS ON AND WORKING, VITALS STABLE. NO FURTHER CHANGES AT THIS TIME, CALL LIGHT WITHIN REACH WILL CONTINUE TO OBSERVE.
--- NOTE | 2019-04-18 03:00 | NUR ---
PT TURNED AND REPOSTIONED FOR COMFORT, PT RESTING, MONITORS ON AND WORKING, VITALS STABLE, CALL LIGHT WITHIN REACH, SEE FLOW SHEET FOR FURTHER DETAILS. WILL CONTINUE TO OBSERVE.
--- NOTE | 2019-04-18 05:00 | NUR ---
NO CHNAGES, MONITORS ON AND WORKING, VITALS STABLE, CALL LIGHT WITHIN REACH WILL CONTINUE TO OBSERVE.
[2019-04-18 05:17] LABS: BASOPHILS 0.1 % (0-2); EOSINOPHILS 1.2 % (0-7); HEMOGLOBIN 12.2 g/dL (12-16); IMMATURE GRANULOCYTES 1.2 % (0-5); LYMPHOCYTES 14.2 % (15-50); MCH 28.1 pg (26.0-34.0); MCHC 29.8 g/dL (31.0-37.0); MCV 94.5 fL (80.0-100.0); MEAN PLATELET VOLUME 11.7 fL (7.4-10.4); MONOCYTES 13.8 % (2-11); NEUTROPHILS 69.5 % (40-80); PLATELET COUNT 331 10x3/uL (130-400); RBC 4.34 10x6/uL (4.00-5.40); RDW 15.9 % (11.5-14.5)
[2019-04-18 05:44] LABS: ANION GAP 11.6 mmol/L (8-16); BILIRUBIN - TOTAL 0.62 mg/dL (0.2-1.3); CARBON DIOXIDE 31.4 mmol/L (21.0-32.0); PROTEIN - SERUM 7.1 g/dL (6.4-8.2)
--- NOTE | 2019-04-18 07:00 | NUR ---
PT REPORT RECEIVED FROM INSPECTOR SEMICONDUCTOR WAFER NURSE. SHIFT ASSESSMENT COMPLETED. NO VISIBLE SIGNS OF DISTRESS NOTED. VSS. WILL CONTINUE TO MONITOR
--- NOTE | 2019-04-18 07:30 | NUR ---
PT ATE TWO BITES OF APPLESAUCE. STATED SHE DID NOT WANT ANYMORE TO EAT
--- NOTE | 2019-04-18 08:20 | NUR ---
NUTRITION F/U PT CURRENTLY ON BIPAP. NURSING REPORTS PT WITH POOR INTAKE PUREED DIET. WILL CONTINUE TO PROVIDE DIET, MONITOR INTAKE. MAY BENEFIT FROM DOBHOFF TUBE FEEDS. RD FOLLOWING
--- NOTE | 2019-04-18 09:00 | NUR ---
PT RESTING IN BED CURRENTLY. PHYSICAL THERAPY IN ROOM ATTEMPTING TO SIT PT UP.
--- NOTE | 2019-04-18 09:15 | NUR ---
PT UP IN BEDSIDE CHAIR. TOLERAED WITH TWO PERSON ASSIST. NO VISIBLE SIGNS OF DISTRESS NOTED. WILL CONTINUE TO MONITOR
--- NOTE | 2019-04-18 11:00 | NUR ---
PT SITTING IN CHAIR WATCHING TV. REASSESSMENT COMPLETED. NO VISIBLE SIGNS OF DISTRESS NOTED. WILL CONTINUE TO MONITOR
--- NOTE | 2019-04-18 11:30 | NUR ---
PT REFUSED TO EAT LUNCH TRAY. TOOK TRAY TO ROOM HOWEVER PT REFUSED TO TAKE A BITE.
--- NOTE | 2019-04-18 13:00 | NUR ---
PT MOVED BACK TO BED WITH TWO PERSON ASSIST. TOLERATED WELL. NO VISIBLE SIGNS OF DISTRESS NOTED. WILL CONTINUE TO MONITOR
--- NOTE | 2019-04-18 15:00 | NUR ---
PT RESTING IN BED. REASSESSMENT COMPLETED. NO VISIBLE SIGNS OF DISTRESS NOTED. WILL CONTINUE TO MONITOR
--- NOTE | 2019-04-18 16:00 | NUR ---
PT REFUSED TO EAT DINNER TRAY. WILL CONTINUE TO MONITOR
--- NOTE | 2019-04-18 17:00 | NUR ---
PT RESTING IN BED. NO VISIBLE SIGNS OF DISTRESS NOTED. WILL CONTINUE TO MONITOR
[2019-04-18 17:23] LABS: ANION GAP 13.6 mmol/L (8-16); CALCIUM 9.3 mg/dL (8.5-10.1); CARBON DIOXIDE 29.1 mmol/L (21.0-32.0); POTASSIUM - SERUM 3.7 mmol/L (3.5-5.1)
--- NOTE | 2019-04-18 19:00 | NUR ---
PT ASSESSMENT COMPLETED AT THIS TIME, NO CHANGES NOTED FROM NURSE REPORT, PT IS AWAKE AND ALERT WATCHING TV. NO DISTRESS NOTED. WILL MONITOR FOR CHANGES
--- NOTE | 2019-04-18 21:20 | NUR ---
SPOKE WITH SOCIAL SCIENCE MANAGER SOFI UMANA ABOUT FSBS AND INULIN DOSING, ADVISED TO HOLD SFSB COVERAGE AT THIS TIME
--- NOTE | 2019-04-18 23:00 | NUR ---
PT REASSESSMENT COMPLETED AT THIS TIME, NO CHANGES NOTED, PT RESTING WITH EYES CLOSED, RESP SHALLOW BUT EVEN AND NON LABORED. VSS, WILL CONT TO MONITOR FOR CHANGES
[2019-04-19] VITALS (14 sets, daily range): BP systolic 126–177; BP diastolic 43–98
--- NOTE | 2019-04-19 01:00 | NUR ---
Patient resting with eyes closed, respirations are even and nonlabored. Vital signs stable at this time. No changes noted, will continue to monitor for changes.
--- NOTE | 2019-04-19 03:00 | NUR ---
Patient reassessment completed at this time. No significant changes noted. Vital signs remained stable. We will continue to monitor for changes.
--- NOTE | 2019-04-19 05:00 | NUR ---
Patient waking up watching TV at this time. Respirations even nonlabored. Vital signs remained stable. No distress noted, will continue to monitor for changes.
[2019-04-19 05:21] LABS: BASOPHILS 0.1 % (0-2); EOSINOPHILS 3.2 % (0-7); HEMATOCRIT 40.3 % (36.0-48.0); HEMOGLOBIN 12.5 g/dL (12-16); IMMATURE GRANULOCYTES 1.2 % (0-5); LYMPHOCYTES 15.2 % (15-50); MCH 28.7 pg (26.0-34.0); MCV 92.6 fL (80.0-100.0); MEAN PLATELET VOLUME 11.6 fL (7.4-10.4); MONOCYTES 11.4 % (2-11); NEUTROPHILS 68.9 % (40-80); PLATELET COUNT 302 10x3/uL (130-400); RBC 4.35 10x6/uL (4.00-5.40); WBC 16.4 10x3/uL (4.8-10.8)
[2019-04-19 05:41] LABS: ALBUMIN 3.1 g/dL (3.4-5.0); ANION GAP 15.4 mmol/L (8-16); BILIRUBIN - TOTAL 0.72 mg/dL (0.2-1.3); CARBON DIOXIDE 26.6 mmol/L (21.0-32.0); CREATININE - SERUM 1.9 mg/dL (0.6-1.3)
--- NOTE | 2019-04-19 07:00 | NUR ---
BEDSIDE REPORT RECEIVED. SHIFT ASSESSMENT COMPLETED PER FLOWSHEET, SEE FLOWSHEET FOR INFORMATION. PT SITTING IN CHAIR AT BEDSIDE, NO ACUTE NEEDS OR DISTRESS NOTED AT THIS TIME. PT DENIED WANTING TO GET BACK IN BED. WILL CONT TO MONITOR.
--- NOTE | 2019-04-19 09:00 | NUR ---
PT CALLED AND GIVEN UPDATE. WILL CONT TO MONITOR.
--- NOTE | 2019-04-19 11:00 | NUR ---
REASSESSMENT COMPLETED PER FLOWSHEET, SEE FLOWSHEET FOR INFORMATION. CALLED PHYSICAL THERAPY TO HELP GET PT BACK IN BED. COMPLETE LINEN CHANGE COMPLETED. WILL CONT TO MONITOR.
[2019-04-19 12:15] LABS: APPEARANCE CLEAR (CLEAR); BILIRUBIN NEGATIVE (NEGATIVE); COLOR YELLOW (YELLOW); GLUCOSE NEGATIVE (NEGATIVE); KETONE NEGATIVE (NEGATIVE); NITRITE NEGATIVE (NEGATIVE); PROTEIN NEGATIVE (NEGATIVE); SPECIFIC GRAVITY 1.015 (1.005-1.020); UROBILINOGEN NORMAL (NORMAL)
[2019-04-19 12:16] LABS: BACTERIA MANY /hpf (NEGATIVE); EPITHELIAL CELLS 0-5 /hpf (0-5); RED CELLS - URINE 0-5 /hpf (0-5)
[2019-04-19 12:18] LABS: YEAST >1+ /hpf (NONE SEEN)
--- NOTE | 2019-04-19 13:00 | NUR ---
CALLED, GAVE HIM AN UPDATE. PT IN BED RESTING WITH HER EYES CLOSED. WILL CONT TO MONITOR.
--- NOTE | 2019-04-19 15:00 | NUR ---
PT IN BED RESTING WITH EYES CLOSED. NO ACUTE NEEDS OR DISTRESS NOTED AT THIS TIME. WILL CONT TO MONITOR.
--- NOTE | 2019-04-19 17:00 | NUR ---
PT FAMILY AT BEDSIDE. UPDATE GIVEN. WILL CONT TO MONITOR.
--- NOTE | 2019-04-19 17:24 | NUR ---
REPORT CALLED TO SRINATH SHOEMAKER IN MED 2. PT WILL BE TRANSFERING TO ROOM 2130. FAMILY AT BEDSIDE. WILL CONT TO MONITOR.
--- NOTE | 2019-04-19 18:15 | NUR ---
RECIVED TO ROOM 2130 PER BED FROM ICU
--- NOTE | 2019-04-19 19:36 | NUR ---
REPORT RECEIVED. PT RESTING IN BED C/O PAIN. RR EVEN AND UNALBORED ON 3L NC. NO S/S OF DISTRESS NOTED AT THIS TIME. NO FAMILY PRESENT. FALL PRECUATIONS IN PLACE. SR X2, CALL LIGHT IN REACH. WILL CTM.
[2019-04-20 00:30] VITALS: BP 123/80
--- NOTE | 2019-04-20 00:46 | NUR ---
PT JUST REPEATING "PLEASE HELP ME" BUT DOES NOT SAY WHAT SHE NEEDS. PT ALERT AND ORIENTED TO SLEF AND PLACE. REFUSES BIPAP
--- NOTE | 2019-04-20 02:33 | NUR ---
PT CONTINUES TO ASK FOR HELP. C/O FULL BODY PAIN. NO FURTHER NEEDS EXPRESSED. STILL REFUSING BIPAP FROM RT. WILL CTM.
[2019-04-20 06:58] LABS: HEMATOCRIT 44.6 % (36.0-48.0); HEMOGLOBIN 13.5 g/dL (12-16); MCH 28.5 pg (26.0-34.0); MCHC 30.3 g/dL (31.0-37.0); MCV 94.1 fL (80.0-100.0); MEAN PLATELET VOLUME 12.5 fL (7.4-10.4); PLATELET COUNT 146 10x3/uL (130-400); RBC 4.74 10x6/uL (4.00-5.40); RDW 16.2 % (11.5-14.5); WBC 17.9 10x3/uL (4.8-10.8)
[2019-04-20 07:04] LABS: ALBUMIN 3.2 g/dL (3.4-5.0); ANION GAP 16.9 mmol/L (8-16); BILIRUBIN - TOTAL 0.83 mg/dL (0.2-1.3); CALCIUM 9.3 mg/dL (8.5-10.1); CARBON DIOXIDE 23.8 mmol/L (21.0-32.0); CREATININE - SERUM 1.9 mg/dL (0.6-1.3); PROTEIN - SERUM 7.7 g/dL (6.4-8.2)
[2019-04-20 07:05] LABS: POTASSIUM - SERUM 4.7 mmol/L (3.5-5.1)
[2019-04-20 07:31] LABS: EOSINOPHILS 1 % (0-7); LYMPHOCYTES 10 % (15-50); MONOCYTES 3 % (2-11); NEUTROPHILS 86 % (40-80)
[2019-04-20 07:32] LABS: PLATELET ESTIMATE NORMAL
[2019-04-20 08:00] VITALS: BP 158/41
[2019-04-20 12:00] VITALS: BP 122/71
[2019-04-20 16:00] VITALS: BP 190/120
--- NOTE | 2019-04-20 19:35 | NUR ---
REPORT RECEIVED. PT IN BED CRYING "PLEASE HELP". REPOSTIONED. SHE IS UNABLE TO VOICE WHAT SHE NEEDS. ALERT TO PLACE AND SITUATION. RR EVEN AND UNLABORED ON 3L. NO S/S OF DISTRESS NOTED. FALL PRECATIONS IN PLACE. SR X2, CALL LIGHT IN REACH. WILL CTM.
[2019-04-20 20:30] VITALS: BP 136/41
[2019-04-21 04:26] VITALS: BP 99/63
[2019-04-21 05:17] LABS: BASOPHILS 0.1 % (0-2); EOSINOPHILS 2.5 % (0-7); HEMATOCRIT 39.4 % (36.0-48.0); HEMOGLOBIN 12.1 g/dL (12-16); IMMATURE GRANULOCYTES 0.9 % (0-5); LYMPHOCYTES 10.4 % (15-50); MCH 28.7 pg (26.0-34.0); MCHC 30.7 g/dL (31.0-37.0); MCV 93.4 fL (80.0-100.0); MONOCYTES 9.7 % (2-11); NEUTROPHILS 76.4 % (40-80); RBC 4.22 10x6/uL (4.00-5.40); WBC 17.3 10x3/uL (4.8-10.8)
[2019-04-21 05:21] LABS: PLATELET COUNT 249 10x3/uL (130-400)
[2019-04-21 05:26] LABS: BILIRUBIN - TOTAL 0.74 mg/dL (0.2-1.3); CALCIUM 9.2 mg/dL (8.5-10.1); CARBON DIOXIDE 26.4 mmol/L (21.0-32.0); CREATININE - SERUM 1.6 mg/dL (0.6-1.3); PROTEIN - SERUM 7.1 g/dL (6.4-8.2)
[2019-04-21 05:27] LABS: ANION GAP 13.3 mmol/L (8-16); POTASSIUM - SERUM 3.7 mmol/L (3.5-5.1)
--- NOTE | 2019-04-21 07:10 | NUR ---
PT RESTING IN BED. NO SIGNS OF DISTRESS. IV TO RIGHT JUGULAR PATENT NO REDNESS OR TENDERNESS. ON 3L NC. HAS MCCULLOUGH NO KINKS PATENT. DENIES ANY FURTHER NEED AT THIS TIME. CALL LIGHT IN REACH. BED LOW POSITION. NO FAMILY AT BEDSIDE AT THIS TIME.
[2019-04-21 10:42] VITALS: BP 168/85
--- NOTE | 2019-04-21 12:35 | NUR ---
I have reviewed this patient and I concur with the Shift Assessment completed by the Licensed Practical Nurse today this shift.
[2019-04-21 13:34] VITALS: BP 140/81
--- NOTE | 2019-04-21 19:00 | NUR ---
EVENING ROUNDS COMPLETE. PT LAYING IN BED, NO SIGN OF DISTRESS. PT DENIES ANY NEEDS AT THIS TIME. CL IN REACH, BED IN LOWEST POSITION.
[2019-04-21 20:35] VITALS: BP 93/63
[2019-04-22 00:30] VITALS: BP 128/77
[2019-04-22 04:30] VITALS: BP 175/71
--- NOTE | 2019-04-22 07:12 | NUR ---
REPORT RECEIVED. WILL CONTINUE WITH POC. PT CURRENTLY LYING SEMI FOWLERS. CALL LIGHT W/I REACH. PT IS CURRENTLY UNDERGOING RESP TRX. PT IS AAO AND DENIES ANY NEEDS AT THIS TIME. NO S/S OF DISTRESS NOTED. R.IJ CVL IS SALINE LOCKED. MCCULLOUGH IN PLACE AND DRAINING URINE. WILL CTM.
[2019-04-22 09:24] VITALS: BP 185/85
[2019-04-22 09:28] LABS: ALBUMIN 3.1 g/dL (3.4-5.0); ANION GAP 15.4 mmol/L (8-16); BILIRUBIN - TOTAL 0.73 mg/dL (0.2-1.3); CALCIUM 9.7 mg/dL (8.5-10.1); CARBON DIOXIDE 24.6 mmol/L (21.0-32.0); CREATININE - SERUM 1.6 mg/dL (0.6-1.3); PROTEIN - SERUM 7.4 g/dL (6.4-8.2)
[2019-04-22 09:32] LABS: HEMATOCRIT 39.5 % (36.0-48.0); HEMOGLOBIN 12.3 g/dL (12-16); MCH 28.6 pg (26.0-34.0); MCHC 31.1 g/dL (31.0-37.0); MCV 91.9 fL (80.0-100.0); MEAN PLATELET VOLUME 12.8 fL (7.4-10.4); PLATELET COUNT 242 10x3/uL (130-400); RDW 15.6 % (11.5-14.5); WBC 20.6 10x3/uL (4.8-10.8)
--- NOTE | 2019-04-22 11:22 | MORECARE ---
CASE MANAGEMENT DISCHARGE SUMMARY PATIENT: ANNY CALVILLO UNIT: [id number] ADM DATE: 04/08/19 AGE: 58 : 62 SEX: F ROOM/BED: D.1180 AUTHOR: MAINE,DOC PHYSICIAN: REFERRING PHYSICIAN: PRIYA HARDING MD DATE OF SERVICE: 04/22/19 Discharge Plan Patient Name: ANNY CALVILLO Facility: [facility]:[place] : 1960 Planned Disposition: Home with Home Health Anticipated Discharge Date: 04/23/19 Discharge Date: Expected LOS: 15 Initial Reviewer: [email or web address] Initial Review Date: 04/08/2019 Generated: 04/22/19 12:22 pm Comments DCP- Discharge Planning Updated by [id number]: Abraham Price on 04/22/19 10:[address] Patient Name: ANNY CALVILLO Encounter No: [id number] : 1960 Primary Insurance: [employer] OPTIONS SONIA Anticipated DC Date: 04-11-2019 Planned Disposition: Home with Home Health External Planned Provider: TO BE DETERMINED, NO PREFERENCE ON PROVIDER DCP follow-up note: CM MET WITH PT IN ROOM TO DISCUSS DISCHARGE NEEDS AND PLANNING. CM DISCUSSED AVAILABILITY OF HOME HEALTH, REHAB SERVICES AND MEDICAL EQUIPMENT. PT DENIES NEED OF REHAB SERVICES AND PLACEMENT; PT REPORTS HAVING ALL NEEDED MEDICAL EQUIPMENT AT HOME AND HAVING HER SPOUSE AND TWO ADULT SONS TO ASSIST WITH CARE NEEDED. CM DISCUSSED THERAPY NOTES AND NEED FOR REHAB SERVICES. PT REFUSED AND STATES SHE WILL ACCEPT HOME HEALTH BUT ASSURES CM SHE IS GOING HOME AND FAMILY WILL TRANSPORT HOME AT DISCHARGE. IMPORTANT MESSAGE FROM MEDICARE PROVIDED AND EXPLAINED. CM TO FOLLOW AND ASSIST NEEDED. CM PROVIDED LISTING OF HOME HEALTH PROVIDERS, PT HAS NO CHOICE ON HOME HEALTH PROVIDER, CHOICE COMPLETED AND SIGNED. PT REFUSED REHAB AND [facility] FACILITY PLACEMENT, REPORTS HAVING ALL NEEDED MEDICAL EQUIPMENT AND CAFETERIA COOK FAMILY ASSISTANCE AT HOME. PT WILL ACCEPT HOME HEALTH SERVICES. CM TO ARRANGE HOME HEALTH SERVICES WITH PHYSICAN AGREEMENT AND ORDER; PCP DR. ADAMS. CM TO CONTINUE TO FOLLOW AND ASSIST NEEDED. Abraham Price CASE MANAGEMENT DCP- Discharge Planning Updated by [email or web address]: Annette Cole on 04/08/19 8:[address] DC PLAN: Return home with if able. ANTICIPATED DC NEEDS: Unknown at this time. Patient on the vent. CM met with patient who is on the vent and unable to complete assessment. CM called her and phone went to voice mail. CM called her sister, next emergency contact, Mariel Ayers [phone] to complete initial dc planning assessment. CM educated Mariel on the CM role and verbal consent given by Mariel to complete assessment. CM verified patient's address, phone number, and emergency contact phone numbers. Patient's phone number is actually [phone]. Patient lives at home with her who is her primary caregiver. Mariel reports he assists her in all areas of her ADL's. She wears oxygen at 3 liters all the time and she does have portability. She is not sure who her DME provider is nor does she know what pharmacy she gets her medication from. She stated the patient stays in her bedroom most of the time. At discharge the patient will return home with her if able. Being the patient is on the vent the dc plan will have to be re-evaluated once she closer to discharge. CM tried to contact patient's but voice mail was an automated voice mail with no name given. No message left. CM will continue to follow and will assist as needed with dc plans/needs. Annette Cole RN, [facility] DCPIA - Discharge Planning Initial Assessment Updated by [id number]: Annette Cole on 04/08/19 8:52 am * Is the patient Alert and Oriented? No * PCP Dr. Adams * Pharmacy Sister unsure of pharmacy * Preadmission Environment Home with Family * ADLs Partial Dependent * Partial ADLs (Assistance needed) Ambulation Bathing Dressing Medication Management Toileting Transfers * Equipment Bedside Commode Nebulizer Oxygen Rolling Walker * Other Equipment Sister unsure who O2 provider is. She does have portability. She is pretty sure the patient has a nebulizer at home. * List name and contact numbers for known caregivers / representatives who currently or will assist patient after discharge: Arcadio Calvillo - spouse - [phone] Mariel Ayers - sister - [phone] * Verbal permission to speak to the caregivers and representatives has been obtained from the patient. Yes * Community resources currently utilized None * Can the patient safely return to the preadmission environment? Yes * Has this patient been hospitalized within the prior 30 days at any hospital? No Coverage Notice Reviewer: [id number] Gabbie Price Notice Issued Date-Time: 04/22/2019 9:35 Notice Type: Patient Choice Letter Notice Delivered To: Patient Relationship to Patient: Pneumatic Deicer Inspector Name: Delivery Method: HAND - Hand Delivered Desiree Days: Prior Verbal Notification: Recipient Understood Notice: Yes Recipient Signature: Yes Med Rec Note Co-signed by Attending: Coverage Notice Comment: NO HOME HEALTH PROVIDER PREFERENCE Last DP export: 04/08/19 8:20 Patient Name: ANNY CALVILLO Page [phone] at 1122 All edits/amendments must be made on the electronic document DICTATION DATE: 04/22/191121 LABORER [employer]ER [employer]ARM: ELE 04/22/191121 RPT#: [id number] DC DATE: STATUS: ADM IN [facility] [address] [place] [address] END OF REPORT
[2019-04-22 11:43] LABS: EOSINOPHILS 6 % (0-7); LYMPHOCYTES 9 % (15-50); MONOCYTES 11 % (2-11); NEUTROPHILS 73 % (40-80)
[2019-04-22 11:44] LABS: PLATELET ESTIMATE NORMAL
--- NOTE | 2019-04-22 12:38 | NUR ---
I have reviewed this patient and I concur with the Shift Assessment completed by the Licensed Practical Nurse today this shift.
[2019-04-22 13:56] VITALS: BP 146/78
--- NOTE | 2019-04-22 14:20 | NUR ---
Nutrition Follow-up: Pt reports poor PO intake and nausea this AM; 0% of breakfast eaten. Agreed to try Glucerna. Puree foods per ST. Diet: Diabetic, Puree Wt: 223.7# (loss of 33.7# since 04/09) Last BM: 04/20 Labs noted: Glu 144, Alb 3.1 Meds noted: Lactulose, Pepcid, Humulin, Lantus -Pt with malnutrition of acute illness R/T hospital stay for AMS AEB: 1. <=50% intake of est energy needs for >=5 days. 2. wt loss of 13% in 2 wks. -+Glucerna with meals -Rec may consider appetite stimulant and/or nutrition support. -RD following.
[2019-04-22 17:02] VITALS: BP 126/69
--- NOTE | 2019-04-22 19:00 | NUR ---
EVENING ROUNDS COMPLETE. PT LAYING IN BED, NO SIGNS OF DISTRESS. AAOX4, PT DENIES ANY NEEDS AT THIS TIME. CL IN REACH, BED IN LOWEST POSITION.
--- NOTE | 2019-04-22 20:00 | NUR ---
PT C/O PAIN, ANTONINO FARAH APN RESTARTED PT HOME MEDS AND ZOFRAN. PT SATISFIED.
[2019-04-22 20:33] VITALS: BP 131/76
[2019-04-23] VITALS (7 sets, daily range): BP systolic 113–152; BP diastolic 61–95
[2019-04-23 04:37] LABS: BASOPHILS 0.2 % (0-2); EOSINOPHILS 3.9 % (0-7); HEMATOCRIT 36.5 % (36.0-48.0); HEMOGLOBIN 11.4 g/dL (12-16); IMMATURE GRANULOCYTES 0.8 % (0-5); LYMPHOCYTES 13.5 % (15-50); MCH 28.6 pg (26.0-34.0); MCHC 31.2 g/dL (31.0-37.0); MCV 91.7 fL (80.0-100.0); MEAN PLATELET VOLUME 12.6 fL (7.4-10.4); MONOCYTES 9.9 % (2-11); NEUTROPHILS 71.7 % (40-80); PLATELET COUNT 212 10x3/uL (130-400); RBC 3.98 10x6/uL (4.00-5.40); WBC 15.7 10x3/uL (4.8-10.8)
[2019-04-23 04:57] LABS: ALBUMIN 2.7 g/dL (3.4-5.0); ANION GAP 13.6 mmol/L (8-16); BILIRUBIN - TOTAL 0.5 mg/dL (0.2-1.3); CALCIUM 8.9 mg/dL (8.5-10.1); CARBON DIOXIDE 27.2 mmol/L (21.0-32.0); CREATININE - SERUM 1.8 mg/dL (0.6-1.3); POTASSIUM - SERUM 3.8 mmol/L (3.5-5.1); PROTEIN - SERUM 6.6 g/dL (6.4-8.2)
[2019-04-23 07:13] LABS: FUNGUS CULTURE RESULT 1 Candida glabrata (())
--- NOTE | 2019-04-23 08:02 | MORECARE ---
CASE MANAGEMENT DISCHARGE SUMMARY PATIENT: ANNY CALVILLO UNIT: [id number] ADM DATE: 04/08/19 AGE: 58 : 62 SEX: F ROOM/BED: D.7655 AUTHOR: MAINE,DOC PHYSICIAN: REFERRING PHYSICIAN: PRIYA HARDING MD DATE OF SERVICE: 04/23/19 Discharge Plan Patient Name: ANNY CALVILLO Facility: [facility]:[place] : 1960 Planned Disposition: Home with Home Health Anticipated Discharge Date: 04/23/19 Discharge Date: Expected LOS: 15 Initial Reviewer: [email or web address] Initial Review Date: 04/08/2019 Generated: 04/23/19 9:01 am Comments DCP- Discharge Planning Updated by [id number]: Abraham Price on 04/22/19 10:[address] Patient Name: ANNY CALVILLO Encounter No: [id number] : 1960 Primary Insurance: [employer] PRVT OPTIONS SONIA Anticipated DC Date: 04-11-2019 Planned Disposition: Home with Home Health External Planned Provider: TO BE DETERMINED, NO PREFERENCE ON PROVIDER DCP follow-up note: CM MET WITH PT IN ROOM TO DISCUSS DISCHARGE NEEDS AND PLANNING. CM DISCUSSED AVAILABILITY OF HOME HEALTH, REHAB SERVICES AND MEDICAL EQUIPMENT. PT DENIES NEED OF REHAB SERVICES AND PLACEMENT; PT REPORTS HAVING ALL NEEDED MEDICAL EQUIPMENT AT HOME AND HAVING HER SPOUSE AND TWO ADULT SONS TO ASSIST WITH CARE NEEDED. CM DISCUSSED THERAPY NOTES AND NEED FOR REHAB SERVICES. PT REFUSED AND STATES SHE WILL ACCEPT HOME HEALTH BUT ASSURES CM SHE IS GOING HOME AND FAMILY WILL TRANSPORT HOME AT DISCHARGE. IMPORTANT MESSAGE FROM MEDICARE PROVIDED AND EXPLAINED. CM TO FOLLOW AND ASSIST NEEDED. CM PROVIDED LISTING OF HOME HEALTH PROVIDERS, PT HAS NO CHOICE ON HOME HEALTH PROVIDER, CHOICE COMPLETED AND SIGNED. PT REFUSED REHAB AND CUSTODIAL FACILITY PLACEMENT, REPORTS HAVING ALL NEEDED MEDICAL EQUIPMENT AND SOLAR DESIGNER/INSTALLER FAMILY ASSISTANCE AT HOME. PT WILL ACCEPT HOME HEALTH SERVICES. CM TO ARRANGE HOME HEALTH SERVICES WITH PHYSICAN AGREEMENT AND ORDER; PCP DR. ADAMS. CM TO CONTINUE TO FOLLOW AND ASSIST NEEDED. Abraham Price CASE MANAGEMENT DCP- Discharge Planning Updated by [id number]: Annette Cole on 04/08/19 8:[address] DC PLAN: Return home with if able. ANTICIPATED DC NEEDS: Unknown at this time. Patient on the vent. CM met with patient who is on the vent and unable to complete assessment. CM called her and phone went to voice mail. CM called her sister, next emergency contact, Mariel Ayers [phone] to complete initial dc planning assessment. CM educated Mariel on the CM role and verbal consent given by Mariel to complete assessment. CM verified patient's address, phone number, and emergency contact phone numbers. Patient's phone number is actually [phone]. Patient lives at home with her who is her primary caregiver. Mariel reports he assists her in all areas of her ADL's. She wears oxygen at 3 liters all the time and she does have portability. She is not sure who her DME provider is nor does she know what pharmacy she gets her medication from. She stated the patient stays in her bedroom most of the time. At discharge the patient will return home with her if able. Being the patient is on the vent the dc plan will have to be re-evaluated once she closer to discharge. CM tried to contact patient's but voice mail was an automated voice mail with no name given. No message left. CM will continue to follow and will assist as needed with dc plans/needs. Annette Cole RN, [facility] DCPIA - Discharge Planning Initial Assessment Updated by [id number]: Annette Cole on 04/08/19 8:52 am * Is the patient Alert and Oriented? No * PCP Dr. Adams * Pharmacy Sister unsure of pharmacy * Preadmission Environment Home with Family * ADLs Partial Dependent * Partial ADLs (Assistance needed) Ambulation Bathing Dressing Medication Management Toileting Transfers * Equipment Bedside Commode Nebulizer Oxygen Rolling Walker * Other Equipment Sister unsure who O2 provider is. She does have portability. She is pretty sure the patient has a nebulizer at home. * List name and contact numbers for known caregivers / representatives who currently or will assist patient after discharge: Arcadio Calvillo - spouse - [phone] Mariel Ayers - sister - [phone] * Verbal permission to speak to the caregivers and representatives has been obtained from the patient. Yes * Community resources currently utilized None * Can the patient safely return to the preadmission environment? Yes * Has this patient been hospitalized within the prior 30 days at any hospital? No Coverage Notice Reviewer: [id number] Gabbie Price Notice Issued Date-Time: 04/22/2019 9:35 Notice Type: Patient Choice Letter Notice Delivered To: Patient Relationship to Patient: Pipe Fitter Apprentice Name: Delivery Method: HAND - Hand Delivered Desiree Days: Prior Verbal Notification: Recipient Understood Notice: Yes Recipient Signature: Yes Med Rec Note Co-signed by Attending: Coverage Notice Comment: NO HOME HEALTH PROVIDER PREFERENCE Last DP export: 04/22/19 10:22 a Patient Name: ANNY CALVILLO Page [phone] at 0802 All edits/amendments must be made on the electronic document DICTATION DATE: 04/23/19800 NIGHT NURSE: ELE 04/23/19800 RPT#: [id number] DC DATE: STATUS: ADM IN [facility] [address] [place] [address] END OF REPORT
--- NOTE | 2019-04-23 11:30 | NUR ---
RIGHT IJ CVL DRESSING CHANGED USING STERILE TECHNIQUE. CHANGED BLUE CONNECTORS AND PLACED ON NEW SWAB CAPS. TIME, DATED, AND INITALED.
--- NOTE | 2019-04-23 11:35 | NUR ---
STAT LOCK CAME OFF. PLACED NEW STAT LOCK ON RIHGT LEG.
--- NOTE | 2019-04-23 13:57 | NUR ---
I have reviewed this patient and I concur with the Shift Assessment completed by the Licensed Practical Nurse today this shift.
[2019-04-23 14:09] LABS: SPE - A/G RATIO 0.9 (0.7-1.7); SPE - ALBUMIN 3.2 g/dL (2.9-4.4); SPE - ALPHA-1 GLOBULIN 0.3 g/dL (0.0-0.4); SPE - ALPHA-2 GLOBULIN 0.8 g/dL (0.4-1.0); SPE - BETA GLOBULIN 1.3 g/dL (0.7-1.3); SPE - M-SPIKE Not Observed g/dL (Not Observed); SPE - TOTAL PROTEIN 6.6 g/dL (6.0-8.5)
[2019-04-23 14:09] LABS: UPE RAND - ALBUMIN 17.5 % (()); UPE RAND - ALPHA 1 GLOBULIN 6.7 % (()); UPE RAND - ALPHA 2 GLOBULIN 10.9 % (()); UPE RAND - BETA GLOBULIN 27.3 % (()); UPE RAND - GAMMA GLOBULIN 37.6 % (())
--- NOTE | 2019-04-23 14:27 | NUR ---
PT WANTING TO STAY IN RECLINER CHAIR. SIMON WITH P.T. STATES FREDI ASSOCIATE DIRECTOR DATA & ANALYTICS WOULD BE ABLE TO ASSIST PT BACK INTO BED. I ASKED IF PT HAS TO BE LIFTED AND HE STATES NO SHE WILL ONLY NEED A BOOST TO GET UP. I VERBALIZED UNDERSTANDING.
--- NOTE | 2019-04-23 16:43 | MORECARE ---
CASE MANAGEMENT DISCHARGE SUMMARY PATIENT: ANNY CALVILLO UNIT: [id number] ADM DATE: 04/08/19 AGE: 58 : 62 SEX: F ROOM/BED: D.0268 AUTHOR: MAINEDOC PHYSICIAN: REFERRING PHYSICIAN: PRIYA HARDING MD DATE OF SERVICE: 04/23/19 Discharge Plan Patient Name: ANNY CALVILLO Facility: [facility]:[place] : 1960 Planned Disposition: Home with Home Health Anticipated Discharge Date: 04/25/19 Discharge Date: Expected LOS: 17 Initial Reviewer: [email or web address] Initial Review Date: 04/08/2019 Generated: 04/23/19 5:43 pm Comments DCP- Discharge Planning Updated by [email or web address]: Abraham Price on 04/22/19 10:[address] Patient Name: ANNY CALVILLO Encounter No: [id number] : 1960 Primary Insurance: [employer] PRVT OPTIONS SONIA Anticipated DC Date: 04-11-2019 Planned Disposition: Home with Home Health External Planned Provider: TO BE DETERMINED, NO PREFERENCE ON PROVIDER DCP follow-up note: CM MET WITH PT IN ROOM TO DISCUSS DISCHARGE NEEDS AND PLANNING. CM DISCUSSED AVAILABILITY OF HOME HEALTH, REHAB SERVICES AND MEDICAL EQUIPMENT. PT DENIES NEED OF REHAB SERVICES AND PLACEMENT; PT REPORTS HAVING ALL NEEDED MEDICAL EQUIPMENT AT HOME AND HAVING HER SPOUSE AND TWO ADULT SONS TO ASSIST WITH CARE NEEDED. CM DISCUSSED THERAPY NOTES AND NEED FOR REHAB SERVICES. PT REFUSED AND STATES SHE WILL ACCEPT HOME HEALTH BUT ASSURES CM SHE IS GOING HOME AND FAMILY WILL TRANSPORT HOME AT DISCHARGE. IMPORTANT MESSAGE FROM MEDICARE PROVIDED AND EXPLAINED. CM TO FOLLOW AND ASSIST NEEDED. CM PROVIDED LISTING OF HOME HEALTH PROVIDERS, PT HAS NO CHOICE ON HOME HEALTH PROVIDER, CHOICE COMPLETED AND SIGNED. 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 PT WILL ACCEPT HOME HEALTH SERVICES. CM TO ARRANGE HOME HEALTH SERVICES WITH PHYSICAN AGREEMENT AND ORDER; PCP DR. ADAMS. CM TO CONTINUE TO FOLLOW AND ASSIST NEEDED. Abraham Price CASE KM DCP- Discharge Planning Updated by [email or web address]: Annette Cole on 04/08/19 8:[address] DC PLAN: Return home with if able. ANTICIPATED DC NEEDS: Unknown at this time. Patient on the vent. CM met with patient who is on the vent and unable to complete assessment. CM called her and phone went to voice mail. CM called her sister, next emergency contact, Mariel Ayers [phone] to complete initial dc planning assessment. CM educated Mariel on the CM role and verbal consent given by Mariel to complete assessment. CM verified patient's address, phone number, and emergency contact phone numbers. Patient's phone number is actually [phone]. Patient lives at home with her who is her primary caregiver. Mariel reports he assists her in all areas of her ADL's. She wears oxygen at 3 liters all the time and she does have portability. She is not sure who her DME provider is nor does she know what pharmacy she gets her medication from. She stated the patient stays in her bedroom most of the time. At discharge the patient will return home with her if able. Being the patient is on the vent the dc plan will have to be re-evaluated once she closer to discharge. CM tried to contact patient's but voice mail was an automated voice mail with no name given. No message left. CM will continue to follow and will assist as needed with dc plans/needs. Annette Cole RN, [facility] DCPIA - Discharge Planning Initial Assessment Updated by [email or web address]: Annette Cole on 04/08/19 8:52 am * Is the patient Alert and Oriented? No * PCP Dr. Adams * Pharmacy Sister unsure of pharmacy * Preadmission Environment Home with Family * ADLs Partial Dependent * Partial ADLs (Assistance needed) Ambulation Bathing Dressing Medication Management Toileting Transfers * Equipment Bedside Commode Nebulizer Oxygen Rolling Walker * Other Equipment Sister unsure who O2 provider is. She does have portability. She is pretty sure the patient has a nebulizer at home. * List name and contact numbers for known caregivers / representatives who currently or will assist patient after discharge: Arcadio Calvillo - spouse - [phone] Mariel Ayers - sister - [phone] * Verbal permission to speak to the caregivers and representatives has been obtained from the patient. Yes * Community resources currently utilized None * Can the patient safely return to the preadmission environment? Yes * Has this patient been hospitalized within the prior 30 days at any hospital? No External Providers External Provider: [facility] Next Contact Date: 04/23/2019 Service Request Date: Service Type: Resolution: Reviewer: Comments: Coverage Notice Reviewer: [email or web address] Gabbie Rosario Dee Notice Issued Date-Time: 04/22/2019 9:35 Notice Type: Patient Choice Letter Notice Delivered To: Patient Relationship to Patient: Backend Tester Name: Delivery Method: HAND - Hand Delivered Desiree Days: Prior Verbal Notification: Recipient Understood Notice: Yes Recipient Signature: Yes Med Rec Note Co-signed by Attending: Coverage Notice Comment: NO HOME HEALTH PROVIDER PREFERENCE Last DP export: 04/23/19 7:02 a Patient Name: ANNY CALVILLO Page [id number] at 1643 All edits/amendments must be made on the electronic document DICTATION DATE: 04/23/191642 PIN DRAFTING MACHINE OPERATOR: ELE 04/23/191642 RPT#: [id number] DC DATE: STATUS: ADM IN [facility] [address] [place] [address] END OF REPORT
--- NOTE | 2019-04-23 17:00 | MORECARE ---
CASE MANAGEMENT DISCHARGE SUMMARY PATIENT: ANNY CALVILLO UNIT: [id number] ADM DATE: 04/08/19 AGE: 58 : 62 SEX: F ROOM/BED: D.2130 AUTHOR: MAINE,DOC PHYSICIAN: REFERRING PHYSICIAN: PRIYA HARDING MD DATE OF SERVICE: 04/23/19 Discharge Plan Patient Name: ANNY CALVILLO Facility: [facility]:[place] : 1960 Planned Disposition: Home with Home Health Anticipated Discharge Date: 04/25/19 Discharge Date: Expected LOS: 17 Initial Reviewer: [email or web address] Initial Review Date: 04/08/2019 Generated: 04/23/19 6:00 pm Comments DCP- Discharge Planning Updated by [email or web address]: Abraham Price on 04/23/19 3:[address] Patient Name: ANNY CALVILLO Encounter No: [id number] : 1960 Primary Insurance: [employer] PRVT OPTIONS SONIA Anticipated DC Date: 04-25-2019 Planned Disposition: Home with Home Health External Planned Provider: [facility] DCP follow-up note: CM RECEIVED HOME HEALTH ORDER, CALLED [facility], , SPOKE TO SLIM WHO INFORMED CM THAT THEY WILL HAVE TO CONTACT PT'S INSURANCE COMPANY FOR PRIOR AUTHORIZATION OF SERVICES AND WILL NOTIFY CM WHAT SERVICES INSURANCE WILL COVER. CM PROVIDED REFERRAL INFORMATION, FAXED REFERRAL TO [facility] AT [phone]. CM WAITING FOR [facility] TO RECEIVE PRIOR AUTHORIZATION FOR HOME HEALTH SERVICES FROM PT'S INSURANCE COMPANY. Abraham Price, CASE MANAGEMENT DCP- Discharge Planning Updated by [id number]: Abraham Price on 04/22/19 10:[address] Patient Name: ANNY CALVILLO Encounter No: [id number] : 1960 Primary Insurance: [employer] PR[employer] OPTIONS SONIA Anticipated DC Date: 04-11-2019 Planned Disposition: Home with Home Health External Planned Provider: TO BE DETERMINED, NO PREFERENCE ON PROVIDER DCP follow-up note: CM MET WITH PT IN ROOM TO DISCUSS DISCHARGE NEEDS AND PLANNING. CM DISCUSSED AVAILABILITY OF HOME HEALTH, REHAB SERVICES AND MEDICAL EQUIPMENT. PT DENIES NEED OF REHAB SERVICES AND PLACEMENT; PT REPORTS HAVING ALL NEEDED MEDICAL EQUIPMENT AT HOME AND HAVING HER SPOUSE AND TWO ADULT SONS TO ASSIST WITH CARE NEEDED. CM DISCUSSED THERAPY NOTES AND NEED FOR REHAB SERVICES. PT REFUSED AND STATES SHE WILL ACCEPT HOME HEALTH BUT ASSURES CM SHE IS GOING HOME AND FAMILY WILL TRANSPORT HOME AT DISCHARGE. IMPORTANT MESSAGE FROM MEDICARE PROVIDED AND EXPLAINED. CM TO FOLLOW AND ASSIST NEEDED. CM PROVIDED LISTING OF HOME HEALTH PROVIDERS, PT HAS NO CHOICE ON HOME HEALTH PROVIDER, CHOICE COMPLETED AND SIGNED. PT REFUSED REHAB AND [facility] FACILITY PLACEMENT, REPORTS HAVING ALL NEEDED MEDICAL EQUIPMENT AND NEGATIVE CHECKER FAMILY ASSISTANCE AT HOME. PT WILL ACCEPT HOME HEALTH SERVICES. CM TO ARRANGE HOME HEALTH SERVICES WITH PHYSICAN AGREEMENT AND ORDER; PCP DR. ADAMS. CM TO CONTINUE TO FOLLOW AND ASSIST NEEDED. Abraham Price, CASE MANAGEMENT DCP- Discharge Planning Updated by [email or web address]: Annette Cole on 04/08/19 8:[address] DC PLAN: Return home with if able. ANTICIPATED DC NEEDS: Unknown at this time. Patient on the vent. CM met with patient who is on the vent and unable to complete assessment. CM called her and phone went to voice mail. CM called her sister, next emergency contact, Mariel Ayers [phone] to complete initial dc planning assessment. CM educated Mariel on the CM role and verbal consent given by Mariel to complete assessment. CM verified patient's address, phone number, and emergency contact phone numbers. Patient's phone number is actually [phone]. Patient lives at home with her who is her primary caregiver. Mariel reports he assists her in all areas of her ADL's. She wears oxygen at 3 liters all the time and she does have portability. She is not sure who her DME provider is nor does she know what pharmacy she gets her medication from. She stated the patient stays in her bedroom most of the time. At discharge the patient will return home with her if able. Being the patient is on the vent the dc plan will have to be re-evaluated once she closer to discharge. CM tried to contact patient's but voice mail was an automated voice mail with no name given. No message left. CM will continue to follow and will assist as needed with dc plans/needs. Annette Cole RN, [facility] DCPIA - Discharge Planning Initial Assessment Updated by [id number]: Annette Cole on 04/08/19 8:52 am * Is the patient Alert and Oriented? No * PCP Dr. Adams * Pharmacy Sister unsure of pharmacy * Preadmission Environment Home with Family * ADLs Partial Dependent * Partial ADLs (Assistance needed) Ambulation Bathing Dressing Medication Management Toileting Transfers * Equipment Bedside Commode Nebulizer Oxygen Rolling Walker * Other Equipment Sister unsure who O2 provider is. She does have portability. She is pretty sure the patient has a nebulizer at home. * List name and contact numbers for known caregivers / representatives who currently or will assist patient after discharge: Arcadio Calvillo - spouse - [phone] Mariel Ayers - sister - [phone] * Verbal permission to speak to the caregivers and representatives has been obtained from the patient. Yes * Community resources currently utilized None * Can the patient safely return to the preadmission environment? Yes * Has this patient been hospitalized within the prior 30 days at any hospital? No Coverage Notice Reviewer: [id number] Gabbie Price Notice Issued Date-Time: 04/22/2019 9:35 Notice Type: Patient Choice Letter Notice Delivered To: Patient Relationship to Patient: Fashion Illustrator Name: Delivery Method: HAND - Hand Delivered Desiree Days: Prior Verbal Notification: Recipient Understood Notice: Yes Recipient Signature: Yes Med Rec Note Co-signed by Attending: Coverage Notice Comment: NO HOME HEALTH PROVIDER PREFERENCE Last DP export: 04/23/19 3:43 p Patient Name: ANNY CALVILLO Page [phone] at 1700 All edits/amendments must be made on the electronic document DICTATION DATE: 04/23/19 1700 INVENTORY MANAGER: ELE 04/23/19 1700 RPT#: [id number] DC DATE: STATUS: ADM IN [facility] [address] [place] [address] END OF REPORT
--- NOTE | 2019-04-23 19:00 | NUR ---
EVENING ROUNDS COMPLETE. PT SITTING UP IN CHAIR BESIDE BED, NO SIGNS OF DISTRESS, AAOX4. CL IN REACH, PT DENIES ANY PAIN OR NEEDS AT THIS TIME.
[2019-04-24 04:00] VITALS: BP 114/60
[2019-04-24 06:02] LABS: ALBUMIN 3.2 g/dL (3.4-5.0); BILIRUBIN - TOTAL 0.54 mg/dL (0.2-1.3); CALCIUM 9.5 mg/dL (8.5-10.1); CARBON DIOXIDE 25.1 mmol/L (21.0-32.0); CREATININE - SERUM 2.1 mg/dL (0.6-1.3); PROTEIN - SERUM 7.7 g/dL (6.4-8.2)
[2019-04-24 06:03] LABS: ANION GAP 13.5 mmol/L (8-16); POTASSIUM - SERUM 4.6 mmol/L (3.5-5.1)
[2019-04-24 07:30] LABS: HEMATOCRIT 38.6 % (36.0-48.0); HEMOGLOBIN 12.1 g/dL (12-16); LYMPHOCYTES 8.6 % (15-50); MCH 28.1 pg (26.0-34.0); MCHC 31.3 g/dL (31.0-37.0); MCV 89.8 fL (80.0-100.0); MEAN PLATELET VOLUME 13.8 fL (7.4-10.4); RDW 13.9 % (11.5-14.5); WBC 13.9 10x3/uL (4.8-10.8)
[2019-04-24 07:44] LABS: PLATELET COUNT 151 10x3/uL (130-400)
[2019-04-24 08:03] VITALS: BP 124/71
--- NOTE | 2019-04-24 10:45 | NUR ---
ALERT AND ORIENTED. RIGHT IJ CVL SL. O2 AT 3 1/2 L/M PER NC. UP IN BEDSIDE CHAIR. ABDIFATAH MASTECTOMY. RESERVE RIGHT ARM. DENIES ANY NEEDS. BED AND CHAIR ALARMS ON
--- NOTE | 2019-04-24 10:52 | NUR ---
ALERT AND ORIENTED. TELEMERTY SHOWS ST 105. HARD OF HEARING. UP WITH ASSIST. LEFT FA IV WILTH NS A75. RIGHT FA SL. SHE HAS A BRUISE TO RIGHT HIP. DENIES ANY NEEDS. SR UP WITH CALL LIGHT IN REACH.
--- NOTE | 2019-04-24 11:47 | NUR ---
PATIENT IS SITTING IN CHAIR ALERT AND ORIENTED X1 TO SELF SHE APPEARED CONFUSED TO SURROUNDINGS SHE SAID SHE WAS TRYING TO FIGURE OUT WHAT WAS GOING ON REOIRIENTED TO PLAACE TIME AND SITUATION I ASK PT IF SHE HAD ANY FALLS SINCE SHE HAD BEEN IN THE HOSPITAL PT STATED NO WILL CONTINUE TO MONITOR AND REORIENT NEEDED
[2019-04-24 12:19] VITALS: BP 119/76
--- NOTE | 2019-04-24 14:58 | NUR ---
Nutrition Follow-up: Pt sleeping during visit this AM and did not arouse. Chart reviewed. Poor PO intake continues. Per renal, pt c/o poor appetite. Diet: Diabetic, Puree, Glucerna TID No new wt Last BM: 04/22 per chart Labs noted: Na 134, Glu 133, Alb 3.2, elev LFTs Meds noted: Humulin, Lantus, Lactulose, Pepcid -Rec appetite stimulant and/or nutrition support 2/2 continued poor PO intake. RD available for assistance. -RD following.
[2019-04-24 16:10] VITALS: BP 129/65
--- NOTE | 2019-04-24 17:19 | MORECARE ---
CASE MANAGEMENT DISCHARGE SUMMARY PATIENT: ANNY CALVILLO UNIT: [id number] ADM DATE: 04/08/19 AGE: 58 : 62 SEX: F ROOM/BED: D.2137 AUTHOR: MAINE,DOC PHYSICIAN: REFERRING PHYSICIAN: PRIYA HARDING MD DATE OF SERVICE: 04/24/19 Discharge Plan Patient Name: ANNY CALVILLO Facility: [facility]:[place] : 1960 Planned Disposition: Home with Home Health Anticipated Discharge Date: 04/25/19 Discharge Date: Expected LOS: 17 Initial Reviewer: [email or web address] Initial Review Date: 04/08/2019 Generated: 04/24/19 6:19 pm Comments DCP- Discharge Planning Updated by [email or web address]: Abraham Price on 04/24/19 4:[address] Patient Name: ANNY CALVILLO Encounter No: [id number] : 1960 Primary Insurance: [employer] PRVT OPTIONS SONIA Anticipated DC Date: 04-25-2019 Planned Disposition: Home with Home Health External Planned Provider: [facility] DCP follow-up note: CM RECEIVED CALL FROM SL[facility] . PT'S INSURANCE APPROVED HOME HEALTH FOR 10 VISITS FOR [facility], PHYSICAL THERAPY AND SPEECH THERAPY. PT PLANS TO DISCHARGE HOME WITH FAMILY. FOR DISCHARGE, NOTIFY [facility], , FAX DISCHARGE INFORMATION TO [facility] AT [phone]. Abraham Price, CASE MANAGEMENT DCP- Discharge Planning Updated by [id number]: Abraham Price on 04/23/19 3:[address] Patient Name: ANNY CALVILLO Encounter No: [id number] : 1960 Primary Insurance: [employer] PRVT OPTIONS SONIA Anticipated DC Date: 04-25-2019 Planned Disposition: Home with Home Health External Planned Provider: [facility] DCP follow-up note: CM RECEIVED HOME HEALTH ORDER, CALLED [facility], , SPOKE TO SLIM WHO INFORMED CM THAT THEY WILL HAVE TO CONTACT PT'S INSURANCE COMPANY FOR PRIOR AUTHORIZATION OF SERVICES AND WILL NOTIFY CM WHAT SERVICES INSURANCE WILL COVER. CM PROVIDED REFERRAL INFORMATION, FAXED REFERRAL TO [facility] AT [phone]. CM WAITING FOR [facility] TO RECEIVE PRIOR AUTHORIZATION FOR HOME HEALTH SERVICES FROM PT'S INSURANCE COMPANY. WEI Moseley MANAGEMENT DCP- Discharge Planning Updated by [email or web address]: Abraham Price on 04/22/19 10:[address] Patient Name: ANNY CALVILLO Encounter No: [id number] : 1960 Primary Insurance: [employer] PRVT OPTIONS SONIA Anticipated DC Date: 04-11-2019 Planned Disposition: Home with Home Health External Planned Provider: TO BE DETERMINED, NO PREFERENCE ON PROVIDER DCP follow-up note: CM MET WITH PT IN ROOM TO DISCUSS DISCHARGE NEEDS AND PLANNING. CM DISCUSSED AVAILABILITY OF HOME HEALTH, REHAB SERVICES AND MEDICAL EQUIPMENT. PT DENIES NEED OF REHAB SERVICES AND PLACEMENT; PT REPORTS HAVING ALL NEEDED MEDICAL EQUIPMENT AT HOME AND HAVING HER SPOUSE AND TWO ADULT SONS TO ASSIST WITH CARE NEEDED. CM DISCUSSED THERAPY NOTES AND NEED FOR REHAB SERVICES. PT REFUSED AND STATES SHE WILL ACCEPT HOME HEALTH BUT ASSURES CM SHE IS GOING HOME AND FAMILY WILL TRANSPORT HOME AT DISCHARGE. IMPORTANT MESSAGE FROM MEDICARE PROVIDED AND EXPLAINED. CM TO FOLLOW AND ASSIST NEEDED. CM PROVIDED LISTING OF HOME HEALTH PROVIDERS, PT HAS NO CHOICE ON HOME HEALTH PROVIDER, CHOICE COMPLETED AND SIGNED. PT REFUSED REHAB AND [facility] FACILITY PLACEMENT, REPORTS HAVING ALL NEEDED MEDICAL EQUIPMENT AND [employer] FAMILY ASSISTANCE AT HOME. PT WILL ACCEPT HOME HEALTH SERVICES. CM TO ARRANGE HOME HEALTH SERVICES WITH PHYSICAN AGREEMENT AND ORDER; PCP DR. ADAMS. CM TO CONTINUE TO FOLLOW AND ASSIST NEEDED. Abraham Price CASE MANAGEMENT DCP- Discharge Planning Updated by [email or web address]: Annette Cole on 04/08/19 8:[address] DC PLAN: Return home with if able. ANTICIPATED DC NEEDS: Unknown at this time. Patient on the vent. CM met with patient who is on the vent and unable to complete assessment. CM called her and phone went to voice mail. CM called her sister, next emergency contact, Mariel Ayers [phone] to complete initial dc planning assessment. CM educated Mariel on the CM role and verbal consent given by Mariel to complete assessment. CM verified patient's address, phone number, and emergency contact phone numbers. Patient's phone number is actually [phone]. Patient lives at home with her who is her primary caregiver. Mariel reports he assists her in all areas of her ADL's. She wears oxygen at 3 liters all the time and she does have portability. She is not sure who her DME provider is nor does she know what pharmacy she gets her medication from. She stated the patient stays in her bedroom most of the time. At discharge the patient will return home with her if able. Being the patient is on the vent the dc plan will have to be re-evaluated once she closer to discharge. CM tried to contact patient's but voice mail was an automated voice mail with no name given. No message left. CM will continue to follow and will assist as needed with dc plans/needs. Annette Cole RN, [facility] DCPIA - Discharge Planning Initial Assessment Updated by [email or web address]: Annette Cole on 04/08/19 8:52 am * Is the patient Alert and Oriented? No * PCP Dr. Adams * Pharmacy Sister unsure of pharmacy * Preadmission Environment Home with Family * ADLs Partial Dependent * Partial ADLs (Assistance needed) Ambulation Bathing Dressing Medication Management Toileting Transfers * Equipment Bedside Commode Nebulizer Oxygen Rolling Walker * Other Equipment Sister unsure who O2 provider is. She does have portability. She is pretty sure the patient has a nebulizer at home. * List name and contact numbers for known caregivers / representatives who currently or will assist patient after discharge: Arcadio Calvillo - spouse - [phone] Mariel Ayers - sister - [phone] * Verbal permission to speak to the caregivers and representatives has been obtained from the patient. Yes * Community resources currently utilized None * Can the patient safely return to the preadmission environment? Yes * Has this patient been hospitalized within the prior 30 days at any hospital? No Coverage Notice Reviewer: [id number] - Abraham Price Notice Issued Date-Time: 04/22/2019 9:35 Notice Type: Patient Choice Letter Notice Delivered To: Patient Relationship to Patient: Percussion Instrument Tuner Name: Delivery Method: HAND - Hand Delivered Desiree Days: Prior Verbal Notification: Recipient Understood Notice: Yes Recipient Signature: Yes Med Rec Note Co-signed by Attending: Coverage Notice Comment: NO HOME HEALTH PROVIDER PREFERENCE Last DP export: 04/23/19 4:00 p Patient Name: ANNY CALVILLO Page 61270 at 1719 All edits/amendments must be made on the electronic document DICTATION DATE: 04/24/191718 REAL ESTATE JOB TITLES: ELE 04/24/191718 RPT#: [id number] DC DATE: STATUS: ADM IN [facility] [address] [place] [address] END OF REPORT
--- NOTE | 2019-04-24 18:09 | NUR ---
UP IN BEDSIDE CHAIR. DENIES ANY NEEDS. CALL LIGHT IN REACH,
[2019-04-24 20:00] VITALS: BP 126/76
--- NOTE | 2019-04-24 20:00 | NUR ---
EVENING ROUNDS COMPLETED. VSS, AAOX4, NO S/S OF RT DISTRESS. CPAP @BEDSIDE. PT RESTING COMFORTABLE IN CHAIR. PT DENIES ANY FURTHER NEEDS AT THIS TIME. WILL CPOC.
[2019-04-25] VITALS: BP 131/76
--- NOTE | 2019-04-25 | NUR ---
PT REFUSES ROBUTUSSIN. RESTING COMFORTABLE. CPAP ON, NPO AFTER MIDNIGHT
[2019-04-25 04:00] VITALS: BP 130/92
--- NOTE | 2019-04-25 05:19 | NUR ---
OUTGOING NURSE STATES PROVIDER HAS ORDERED FOR CVL LINE TO BE REMOVED. CVL REMOVED, CATHETER TIP INTACT, NO S/S OF BLEEDING PT TOLERATE WELL. PT DENIES ANY FURTHER NEEDS AT THIS TIME. WILL CPOC. CL WITHIN REACH.
[2019-04-25 05:40] LABS: ALBUMIN 3.2 g/dL (3.4-5.0); ANION GAP 17.3 mmol/L (8-16); BILIRUBIN - TOTAL 0.44 mg/dL (0.2-1.3); CARBON DIOXIDE 23.6 mmol/L (21.0-32.0); CREATININE - SERUM 2.1 mg/dL (0.6-1.3); POTASSIUM - SERUM 4.9 mmol/L (3.5-5.1); PROTEIN - SERUM 7.4 g/dL (6.4-8.2)
[2019-04-25 05:50] LABS: BASOPHILS 0.2 % (0-2); EOSINOPHILS 2.8 % (0-7); HEMATOCRIT 37.2 % (36.0-48.0); HEMOGLOBIN 11.9 g/dL (12-16); IMMATURE GRANULOCYTES 0.5 % (0-5); LYMPHOCYTES 9.9 % (15-50); MCH 28.7 pg (26.0-34.0); MCV 89.6 fL (80.0-100.0); MONOCYTES 10.9 % (2-11); NEUTROPHILS 75.7 % (40-80); RBC 4.15 10x6/uL (4.00-5.40); RDW 14.8 % (11.5-14.5); WBC 13.7 10x3/uL (4.8-10.8)
[2019-04-25 06:04] LABS: PLATELET COUNT 195 10x3/uL (130-400)
[2019-04-25 06:11] LABS: APTT 28.5 SECONDS (22.8-39.4); INR 1.05 (0.85-1.17); PROTIME 13.2 SECONDS (11.6-15.0)
[2019-04-25 08:00] VITALS: BP 143/48
--- NOTE | 2019-04-25 09:59 | NUR ---
PT RECEIVED SITTING IN BEDSIDE CHAIR. SHE IS SLEEPING, AROUSED TO TOUCH. HELD NEURONTIN AND HYDROCODONE DUE TO SEDATE STATUS AND PT IS NPO FOR PROCEDURE.
[2019-04-25 12:02] VITALS: BP 136/65
--- NOTE | 2019-04-25 14:09 | MORECARE ---
CASE MANAGEMENT DISCHARGE SUMMARY PATIENT: ANNY CALVILLO UNIT: [id number] ADM DATE: 04/08/19 AGE: 58 : 62 SEX: F ROOM/BED: D.2137 AUTHOR: SUZI GROVE PHYSICIAN: REFERRING PHYSICIAN: RPIYA HARDING MD DATE OF SERVICE: 04/25/19 Discharge Plan Patient Name: ANNY CALVILLO Facility: [facility]:[place] : 1960 Planned Disposition: Home with Home Health Anticipated Discharge Date: 04/25/19 Discharge Date: Expected LOS: 17 Initial Reviewer: [id number] Initial Review Date: 04/08/2019 Generated: 04/25/19 3:09 pm Comments DCP- Discharge Planning Updated by [email or web address]: Abraham Price on 04/25/19 1:[address] Patient Name: ANNY CALVILLO Encounter No: [id number] : 1960 Primary Insurance: [employer] OPTIONS [place] Anticipated DC Date: 04-25-2019 Planned Disposition: Home with Home Health External Planned Provider:[facility] DCP follow-up note: CM WAS DIRECTED BY CM MANAGING MEMBER DURING MULTIDICIPLINARY TEAM MEETING TO GET PT TO SIGN REFUSAL OF REHAB SERVICES THERAPY IS RECOMMENDING REHAB TO PT. CM SPOKE TO PT IN ROOM TO DISCUSS DISCHARGE NEEDS AND PLANNING. PT STATES SHE HAS NOT CHANGED HER MIND, SHE IS STILL GOING HOME. CM INFORMED PT THAT THERAPY RECOMMENDS REHAB BEFORE GOING HOME, PT STATES SHE HAS FAMILY TO CARE FOR HER AND SHE CAN GET THERAPY AT HOME. REFUSAL OF REHAB SERVICES SIGNED BY PT. CM SPOKE TO SLIM OF [facility]. THEY HAVE ACCEPTED PT FOR HOME HEALTH. PT PLANS TO DISCHARGE HOME WITH FAMILY. FOR DISCHARGE, NOTIFY [facility], , FAX DISCHARGE INFORMATION TO [facility] AT [phone]. WEI Moseley MANAGEMENT DCP- Discharge Planning Updated by [id number]: Abraham Price on 04/24/19 4:[address] Patient Name: ANNY CALVILLO Encounter No: [id number] : 1960 Primary Insurance: [employer] OPTIONS [place] Anticipated DC Date: 04-25-2019 Planned Disposition: Home with Home Health External Planned Provider: [facility] DCP follow-up note: CM RECEIVED CALL FROM [facility] OF [facility]. PT'S INSURANCE APPROVED HOME HEALTH FOR 10 VISITS FOR PRISON, PHYSICAL THERAPY AND SPEECH THERAPY. PT PLANS TO DISCHARGE HOME WITH FAMILY. FOR DISCHARGE, NOTIFY [facility], , FAX DISCHARGE INFORMATION TO [facility] AT [phone]. Abraham Price CASE MANAGEMENT DCP- Discharge Planning Updated by [email or web address]: Abraham Price on 04/23/19 3:[address] Patient Name: ANNY CALVILLO Encounter No: [id number] : 1960 Primary Insurance: QUALCHOICE PRVT OPTIONS [facility] Anticipated DC Date: 04-25-2019 Planned Disposition: Home with Home Health External Planned Provider: [facility] DCP follow-up note: CM RECEIVED HOME HEALTH ORDER, CALLED [facility], , SPOKE TO [facility] WHO INFORMED CM THAT THEY WILL HAVE TO CONTACT PT'S INSURANCE COMPANY FOR PRIOR AUTHORIZATION OF SERVICES AND WILL NOTIFY CM WHAT SERVICES INSURANCE WILL COVER. CM PROVIDED REFERRAL INFORMATION, FAXED REFERRAL TO [facility] AT [phone]. CM WAITING FOR [facility] TO RECEIVE PRIOR AUTHORIZATION FOR HOME HEALTH SERVICES FROM PT'S INSURANCE COMPANY. Abraham Price CASE MANAGEMENT DCP- Discharge Planning Updated by [email or web address]: Abraham Price on 04/22/19 10:[address] Patient Name: ANNY CALVILLO Encounter No: [id number] : 1960 Primary Insurance: QU[employer]CHOICE PRVT OPTIONS [facility] Anticipated DC Date: 04-11-2019 Planned Disposition: Home with Home Health External Planned Provider: TO BE DETERMINED, NO PREFERENCE ON PROVIDER DCP follow-up note: CM MET WITH PT IN ROOM TO DISCUSS DISCHARGE NEEDS AND PLANNING. CM DISCUSSED AVAILABILITY OF HOME HEALTH, REHAB SERVICES AND MEDICAL EQUIPMENT. PT DENIES NEED OF REHAB SERVICES AND PLACEMENT; PT REPORTS HAVING ALL NEEDED MEDICAL EQUIPMENT AT HOME AND HAVING HER SPOUSE AND TWO ADULT SONS TO ASSIST WITH CARE NEEDED. CM DISCUSSED THERAPY NOTES AND NEED FOR REHAB SERVICES. PT REFUSED AND STATES SHE WILL ACCEPT HOME HEALTH BUT ASSURES CM SHE IS GOING HOME AND FAMILY WILL TRANSPORT HOME AT DISCHARGE. IMPORTANT MESSAGE FROM MEDICARE PROVIDED AND EXPLAINED. CM TO FOLLOW AND ASSIST NEEDED. CM PROVIDED LISTING OF HOME HEALTH PROVIDERS, PT HAS NO CHOICE ON HOME HEALTH PROVIDER, CHOICE COMPLETED AND SIGNED. PT REFUSED REHAB AND PRISON FACILITY PLACEMENT, REPORTS HAVING ALL NEEDED MEDICAL EQUIPMENT AND LEGAL REFEREE FAMILY ASSISTANCE AT HOME. PT WILL ACCEPT HOME HEALTH SERVICES. CM TO ARRANGE HOME HEALTH SERVICES WITH PHYSICAN AGREEMENT AND ORDER; PCP DR. ADAMS. CM TO CONTINUE TO FOLLOW AND ASSIST NEEDED. Abraham Price, CASE MANAGEMENT DCP- Discharge Planning Updated by [email or web address]: Annette Cole on 04/08/19 8:[address] DC PLAN: Return home with if able. ANTICIPATED DC NEEDS: Unknown at this time. Patient on the vent. CM met with patient who is on the vent and unable to complete assessment. CM called her and phone went to voice mail. CM called her sister, next emergency contact, Mariel Ayers [phone] to complete initial dc planning assessment. CM educated Mariel on the CM role and verbal consent given by Mariel to complete assessment. CM verified patient's address, phone number, and emergency contact phone numbers. Patient's phone number is actually [phone]. Patient lives at home with her who is her primary caregiver. Mariel reports he assists her in all areas of her ADL's. She wears oxygen at 3 liters all the time and she does have portability. She is not sure who her DME provider is nor does she know what pharmacy she gets her medication from. She stated the patient stays in her bedroom most of the time. At discharge the patient will return home with her if able. Being the patient is on the vent the dc plan will have to be re-evaluated once she closer to discharge. CM tried to contact patient's but voice mail was an automated voice mail with no name given. No message left. CM will continue to follow and will assist as needed with dc plans/needs. Annette Cole RN, [facility] DCPIA - Discharge Planning Initial Assessment Updated by [id number]: Annette Cole on 04/08/19 8:52 am * Is the patient Alert and Oriented? No * PCP Dr. Adams * Pharmacy Sister unsure of pharmacy * Preadmission Environment Home with Family * ADLs Partial Dependent * Partial ADLs (Assistance needed) Ambulation Bathing Dressing Medication Management Toileting Transfers * Equipment Bedside Commode Nebulizer Oxygen Rolling Walker * Other Equipment Sister unsure who O2 provider is. She does have portability. She is pretty sure the patient has a nebulizer at home. * List name and contact numbers for known caregivers / representatives who currently or will assist patient after discharge: Arcadio Calvillo - spouse - [phone] Mariel Ayers - sister - [phone] * Verbal permission to speak to the caregivers and representatives has been obtained from the patient. Yes * Community resources currently utilized None * Can the patient safely return to the preadmission environment? Yes * Has this patient been hospitalized within the prior 30 days at any hospital? No Coverage Notice Reviewer: [id number] Price Notice Issued Date-Time: 04/22/2019 9:35 Notice Type: Patient Choice Letter Notice Delivered To: Patient Relationship to Patient: Manager Consumer Name: Delivery Method: HAND - Hand Delivered Desiree Days: Prior Verbal Notification: Recipient Understood Notice: Yes Recipient Signature: Yes Med Rec Note Co-signed by Attending: Coverage Notice Comment: NO HOME HEALTH PROVIDER PREFERENCE Reviewer: DEAN Price Notice Issued Date-Time: 04/25/2019 11:22 Notice Type: Patient Choice Letter Notice Delivered To: Patient Relationship to Patient: Manager Consumer Name: Delivery Method: HAND - Hand Delivered Desiree Days: Prior Verbal Notification: Recipient Understood Notice: Yes Recipient Signature: Yes Med Rec Note Co-signed by Attending: Coverage Notice Comment: REFUSAL OF REHAB SERVICES Last DP export: 04/24/19 4:19 p Patient Name: ANNY CALVILLO Page 85034 at 1409 All edits/amendments must be made on the electronic document DICTATION DATE: 04/25/19 1409 MATURITY CHECKER: ELE 04/25/19 1409 RPT#: [id number] DC DATE: STATUS: ADM IN [facility] [address] [place] [address] END OF REPORT
[2019-04-25 16:00] VITALS: BP 115/68
--- NOTE | 2019-04-25 18:25 | NUR ---
PT WITH QUARTER SIZE BLISTER TO BACK AND MULTIPLE SMALLER ONES TO BACK OF LEGS FROM CHAIR. CHANGED BACK TO BED AND REPOSITIONED. WOUND CARE CONSULT PLACED.
--- NOTE | 2019-04-25 20:19 | NUR ---
RECIEVED UP IN BED WITH HOB ELEVATED. EASILY AROUSES WITH VERBAL STIMULI. ORIENTED TO PERSON ONLY. BABBLES WHEN ASKED OTHER QUESTIONS. BRUISING TO BILATERAL ARMS. GENERALIZED EDEMA. BLISTER TO LEFT UPPER BACK NEAR SHOULDER. F/C INTACT WITH CLEAR URINE TO BEDSIDE DRAINAGE BAG. DSG TO RIGHT SIDE OF NESK. O2 AT 3.5 LITERS PER N/C IN PLACE. IV TO RIGHT THUMB. DENIES ANY NEEDS AND NO SIGNS OF DISCOMFORT OBSERVED.
[2019-04-25 20:30] VITALS: BP 120/57
[2019-04-26] VITALS: BP 139/58
[2019-04-26 04:30] VITALS: BP 165/76
--- NOTE | 2019-04-26 07:54 | NUR ---
REPORT RECIEVED. PT SITTING UP IN BED AND STATES SHE IS GOING HOME TODAY! RR EVEN AND UNLABORED ON 3.5L NC. SHE HAS A MCCULLOUGH DRAINING URINE AND A R HAND PIV THAT IS SL. BED LOCKED AND IN LOWEST POSITION, CALL LIGHT WITHIN REACH. WILL CTM
[2019-04-26 08:00] VITALS: BP 155/63
--- NOTE | 2019-04-26 10:39 | MORECARE ---
CASE MANAGEMENT DISCHARGE SUMMARY PATIENT: ANNY CALVILLO UNIT: [id number] ADM DATE: 04/08/19 AGE: 59 : 62 SEX: F ROOM/BED: D.2130 AUTHOR: SUZI GROVE PHYSICIAN: REFERRING PHYSICIAN: PRIYA HARDING MD DATE OF SERVICE: 04/26/19 Discharge Plan Patient Name: ANNY CALVILLO Facility: [facility]:[place] : 1960 Planned Disposition: Home with Home Health Anticipated Discharge Date: 04/25/19 Discharge Date: Expected LOS: 17 Initial Reviewer: [email or web address] Initial Review Date: 04/08/2019 Generated: 04/26/19 11:39 am Comments DCP- Discharge Planning Updated by [email or web address]: Poppy Faustin on 04/26/19 9:[address] Patient Name: ANNY CALVILLO Admission Status: Elective Accout number: [id number] Admission Date: 04-08-2019 : 1960 Admission Diagnosis: Attending: PRIYA HARDING Current LOS: 18 Anticipated DC Date: 04-25-2019 Planned Disposition: Home with Home Health Primary Insurance: QUALCHOICE PRVT OPTIONS [facility] Discharge Planning Comments: CALL MARIEL PURDY, SISTER, AT [phone] WHEN READY FOR DISCHARGE. Management Nurse Rn: Poppy Faustin DCP- Discharge Planning Updated by [email or web address]: Abraham Price on 04/25/19 1:[address] Patient Name: ANNY CALVILLO Encounter No: [id number] : 1960 Primary Insurance: [employer]VT [employer]IONS [place] Anticipated DC Date: 04-25-2019 Planned Disposition: Home with Home Health External [facility] Provider[facility] DCP follow-up note: CM WAS DIRECTED BY CM DRYWALL STRIPPER DURING MULTIDICIPLINARY TEAM MEETING TO GET PT TO SIGN REFUSAL OF REHAB SERVICES THERAPY IS RECOMMENDING REHAB TO PT. CM SPOKE TO PT IN ROOM TO DISCUSS DISCHARGE NEEDS AND PLANNING. PT STATES SHE HAS NOT CHANGED HER MIND, SHE IS STILL GOING HOME. CM INFORMED PT THAT THERAPY RECOMMENDS REHAB BEFORE GOING HOME, PT STATES SHE HAS FAMILY TO CARE FOR HER AND SHE CAN GET THERAPY AT HOME. REFUSAL OF REHAB SERVICES SIGNED BY PT. CM SPOKE TO [facility] THEY HAVE ACCEPTED PT FOR HOME HEALTH. PT PLANS TO DISCHARGE HOME WITH FAMILY. FOR DISCHARGE, NOTIFY [facility], , FAX DISCHARGE INFORMATION TO [facility] AT [phone]. Abraham Price CASE MANAGEMENT DCP- Discharge Planning Updated by [id number]: Abraham Price on 04/24/19 4:[address] Patient Name: ANNY CALVILLO Encounter No: [id number] : 1960 Primary Insurance: QUALCHOICE PRVT OPTIONS [place] Anticipated DC Date: 04-25-2019 Planned Disposition: Home with Home Health External Planned Provider: [facility] DCP follow-up note: CM RECEIVED CALL FROM [facility] PT'S INSURANCE APPROVED HOME HEALTH FOR 10 VISITS FOR CORRECTION, PHYSICAL THERAPY AND SPEECH THERAPY. PT PLANS TO DISCHARGE HOME WITH FAMILY. FOR DISCHARGE, NOTIFY [facility], , FAX DISCHARGE INFORMATION TO [facility] AT [phone]. Abraham Price CASE MANAGEMENT DCP- Discharge Planning Updated by [id number]: Abraham Price on 04/23/19 3:[address] Patient Name: ANNY CALVILLO Encounter No: [id number] : 1960 Primary Insurance: QU[employer]CHOICE PRVT OPTIONS [employer] Anticipated DC Date: 04-25-2019 Planned Disposition: Home with Home Health External [facility] Provider[facility] DCP follow-up note: CM RECEIVED HOME HEALTH ORDER, CALLED [facility], , SPOKE TO [facility] WHO INFORMED CM THAT THEY WILL HAVE TO CONTACT PT'S INSURANCE COMPANY FOR PRIOR AUTHORIZATION OF SERVICES AND WILL NOTIFY CM WHAT SERVICES INSURANCE WILL COVER. CM PROVIDED REFERRAL INFORMATION, FAXED REFERRAL TO [facility] AT [phone]. CM WAITING FOR [facility] TO RECEIVE PRIOR AUTHORIZATION FOR HOME HEALTH SERVICES FROM PT'S INSURANCE COMPANY. Abraham Price CASE MANAGEMENT DCP- Discharge Planning Updated by [id number]: Abraham Price on 04/22/19 10:[address] Patient Name: ANNY CALVILLO Encounter No: [id number] : 1960 Primary Insurance: QUALCHOICE PRVT OPTIONS [place] Anticipated DC Date: 04-11-2019 Planned Disposition: Home with Home Health External Planned Provider: TO BE DETERMINED, NO PREFERENCE ON PROVIDER DCP follow-up note: CM MET WITH PT IN ROOM TO DISCUSS DISCHARGE NEEDS AND PLANNING. CM DISCUSSED AVAILABILITY OF HOME HEALTH, REHAB SERVICES AND MEDICAL EQUIPMENT. PT DENIES NEED OF REHAB SERVICES AND PLACEMENT; PT REPORTS HAVING ALL NEEDED MEDICAL EQUIPMENT AT HOME AND HAVING HER SPOUSE AND TWO ADULT SONS TO ASSIST WITH CARE NEEDED. CM DISCUSSED THERAPY NOTES AND NEED FOR REHAB SERVICES. PT REFUSED AND STATES SHE WILL ACCEPT HOME HEALTH BUT ASSURES CM SHE IS GOING HOME AND FAMILY WILL TRANSPORT HOME AT DISCHARGE. IMPORTANT MESSAGE FROM MEDICARE PROVIDED AND EXPLAINED. CM TO FOLLOW AND ASSIST NEEDED. CM PROVIDED LISTING OF HOME HEALTH PROVIDERS, PT HAS NO CHOICE ON HOME HEALTH PROVIDER, CHOICE COMPLETED AND SIGNED. PT REFUSED REHAB AND CORRECTION FACILITY PLACEMENT, REPORTS HAVING ALL NEEDED MEDICAL EQUIPMENT AND FIRE CAPTAIN MARINE FAMILY ASSISTANCE AT HOME. PT WILL ACCEPT HOME HEALTH SERVICES. CM TO ARRANGE HOME HEALTH SERVICES WITH PHYSICAN AGREEMENT AND ORDER; PCP DR. ADAMS. CM TO CONTINUE TO FOLLOW AND ASSIST NEEDED. Abraham Price, CASE MANAGEMENT DCP- Discharge Planning Updated by [id number]: Annette Cole on 04/08/19 8:[address] DC PLAN: Return home with if able. ANTICIPATED DC NEEDS: Unknown at this time. Patient on the vent. CM met with patient who is on the vent and unable to complete assessment. CM called her and phone went to voice mail. CM called her sister, next emergency contact, Mariel Purdy [phone] to complete initial dc planning assessment. CM educated Mariel on the CM role and verbal consent given by Mariel to complete assessment. CM verified patient's address, phone number, and emergency contact phone numbers. Patient's phone number is actually [phone]. Patient lives at home with her who is her primary caregiver. Mariel reports he assists her in all areas of her ADL's. She wears oxygen at 3 liters all the time and she does have portability. She is not sure who her DME provider is nor does she know what pharmacy she gets her medication from. She stated the patient stays in her bedroom most of the time. At discharge the patient will return home with her if able. Being the patient is on the vent the dc plan will have to be re-evaluated once she closer to discharge. CM tried to contact patient's but voice mail was an automated voice mail with no name given. No message left. CM will continue to follow and will assist as needed with dc plans/needs. Annette Cole RN, [facility] DCPIA - Discharge Planning Initial Assessment Updated by [id number]: Annette Cole on 04/08/19 8:52 am * Is the patient Alert and Oriented? No * PCP Dr. Adams * Pharmacy Sister unsure of pharmacy * Preadmission Environment Home with Family * ADLs Partial Dependent * Partial ADLs (Assistance needed) Ambulation Bathing Dressing Medication Management Toileting Transfers * Equipment Bedside Commode Nebulizer Oxygen Rolling Walker * Other Equipment Sister unsure who O2 provider is. She does have portability. She is pretty sure the patient has a nebulizer at home. * List name and contact numbers for known caregivers / representatives who currently or will assist patient after discharge: Arcadio Calvillo - spouse - [phone] Mariel Purdy - sister - [phone] * Verbal permission to speak to the caregivers and representatives has been obtained from the patient. Yes * Community resources currently utilized None * Can the patient safely return to the preadmission environment? Yes * Has this patient been hospitalized within the prior 30 days at any hospital? No Coverage Notice Reviewer: [id number] Gabbie Price Notice Issued Date-Time: 04/22/2019 9:35 Notice Type: Patient Choice Letter Notice Delivered To: Patient Relationship to Patient: Animal Feeder Name: Delivery Method: HAND - Hand Delivered Desiree Days: Prior Verbal Notification: Recipient Understood Notice: Yes Recipient Signature: Yes Med Rec Note Co-signed by Attending: Coverage Notice Comment: NO HOME HEALTH PROVIDER PREFERENCE Reviewer: [id number] Gabbie Price Notice Issued Date-Time: 04/25/2019 11:22 Notice Type: Patient Choice Letter Notice Delivered To: Patient Relationship to Patient: Animal Feeder Name: Delivery Method: HAND - Hand Delivered Desiree Days: Prior Verbal Notification: Recipient Understood Notice: Yes Recipient Signature: Yes Med Rec Note Co-signed by Attending: Coverage Notice Comment: REFUSAL OF REHAB SERVICES Last DP export: 04/25/19 1:09 p Patient Name: ANNY CALVILLO Page 79090 at 1039 All edits/amendments must be made on the electronic document DICTATION DATE: 04/26/19 1038 FIRE SPRINKLER APPARATUS INSPECTOR: ELE 04/26/19 1038 [facility]#: [id number] DC DATE: STATUS: ADM IN [facility] [address] [place] [address] END OF REPORT
[2019-04-26 12:00] VITALS: BP 151/68
[2019-04-26 14:14] LABS: ANION GAP 13.6 mmol/L (8-16); CALCIUM 8.8 mg/dL (8.5-10.1); CARBON DIOXIDE 24.4 mmol/L (21.0-32.0); CREATININE - SERUM 1.8 mg/dL (0.6-1.3)
[2019-04-26 16:00] VITALS: BP 147/64
--- NOTE | 2019-04-26 18:21 | NUR ---
I have reviewed this patient and I concur with the Shift Assessment completed by the Licensed Practical Nurse today this shift.
--- NOTE | 2019-04-26 19:30 | NUR ---
REPORT RECEIVED. PT JUST RETURNED TO ROOM FROM HAVING A MRI OF THE BRAIN. RR EVEN AND UNLABORED ON 3.5L NC. NO S/Sx OF DISTRESS NOTED. PT DENIES NEEDS AT THIS TIME. CALL LIGHT IN REACH. FALL PRECAUTIONS IN [place]. SRX2, WILL CTM.
[2019-04-26 20:30] VITALS: BP 149/66
[2019-04-27] VITALS: BP 183/61
--- NOTE | 2019-04-27 07:00 | NUR ---
RECEIVED REPORT. ASSUMED CARE OF PATIENT. PATIENT LYING IN BED WITH EYES CLOSED. RESP EVEN AND UNLABORED. PATIENT APPEARS TO BE RESTING PEACEFULLY. CALL LIGHT WITHIN REACH. NO DISTRESS.
--- NOTE | 2019-04-27 08:30 | NUR ---
PATIENT REFUSING TO EAT ANY OF HER AM MEAL AT THIS TIME.
[2019-04-27 08:50] VITALS: BP 120/52
--- NOTE | 2019-04-27 11:21 | NUR ---
FSBS 99. NO INSULIN PER SLIDING SCALE.
[2019-04-27 12:56] VITALS: BP 108/64
--- NOTE | 2019-04-27 17:05 | NUR ---
FSBS 107. NO INSULIN PER SLIDING SCALE.
--- NOTE | 2019-04-27 17:10 | NUR ---
PATIENT REFUSED ALL MEDICATIONS OFFERED TO HER AT THIS TIME. ASSISTED PATIENT TO SIT UP IN THE BED FOR PM MEAL. PATIENT REFUSED PM MEAL AT THIS TIME. PATIENT WOULD NOT EVEN TAKE A DRINK OF WATER. PATIENT STATED I DON'T WANT IT TO ALL THINGS OFFERED. CALL LIGHT WITHIN REACH.
[2019-04-27 17:30] VITALS: BP 133/43
--- NOTE | 2019-04-27 19:20 | NUR ---
PT BEDSIDE REPORT COMPLETED AT THIS TIME, NO CHANGES NOTED FROM NURSE REPORT, PT IS CONFUSED AND ORIENTED TO PERSON. PT DENIES COMPLAINTS AT THIS TIME, NO DISTRESS NOTED, WILL MONITOR FOR CHANGES
[2019-04-27 20:04] VITALS: BP 141/62
[2019-04-28 00:01] VITALS: BP 129/54
--- NOTE | 2019-04-28 02:25 | NUR ---
pt c/o pain all over, prn med given
[2019-04-28 05:28] VITALS: BP 169/78
[2019-04-28 06:21] LABS: BASOPHILS 0.3 % (0-2); EOSINOPHILS 4.2 % (0-7); HEMATOCRIT 32.6 % (36.0-48.0); HEMOGLOBIN 10.4 g/dL (12-16); IMMATURE GRANULOCYTES 0.3 % (0-5); LYMPHOCYTES 16.5 % (15-50); MCH 28.3 pg (26.0-34.0); MCHC 31.9 g/dL (31.0-37.0); MCV 88.8 fL (80.0-100.0); MEAN PLATELET VOLUME 12.2 fL (7.4-10.4); MONOCYTES 14.5 % (2-11); NEUTROPHILS 64.2 % (40-80); RBC 3.67 10x6/uL (4.00-5.40); RDW 15.3 % (11.5-14.5); WBC 6.4 10x3/uL (4.8-10.8)
[2019-04-28 06:31] LABS: PLATELET COUNT 64 10x3/uL (130-400)
[2019-04-28 06:39] LABS: ANION GAP 13.1 mmol/L (8-16); CALCIUM 9.3 mg/dL (8.5-10.1); POTASSIUM - SERUM 4.1 mmol/L (3.5-5.1)
[2019-04-28 06:40] LABS: CREATININE - SERUM 1.3 mg/dL (0.6-1.3)
--- NOTE | 2019-04-28 07:25 | NUR ---
ASSESSMENT DONE. DENIES NEEDS
[2019-04-28 07:40] LABS: APTT 26.1 SECONDS (22.8-39.4); INR 0.99 (0.85-1.17); PROTIME 12.6 SECONDS (11.6-15.0)
[2019-04-28 07:47] LABS: PLATELET ESTIMATE DECREASED
[2019-04-28 08:00] VITALS: BP 162/72
[2019-04-28 12:00] VITALS: BP 191/83
--- NOTE | 2019-04-28 14:00 | NUR ---
I have reviewed this patient and I concur with the Shift Assessment completed by the Licensed Practical Nurse today this shift.
[2019-04-28 16:00] VITALS: BP 174/80
[2019-04-28 18:08] LABS: IMMUNOFIXATION - URINE Note: (())
[2019-04-28 18:08] LABS: IMMUNOFIXATION Note: (()); IMMUNOGLOBULIN A 371 mg/dL (87-352); IMMUNOGLOBULIN G 1105 mg/dL (700-1600); IMMUNOGLOBULIN M 60 mg/dL (26-217)
[2019-04-28 19:08] LABS: SPE - A/G RATIO 0.9 (0.7-1.7); SPE - ALBUMIN 3.2 g/dL (2.9-4.4); SPE - ALPHA-1 GLOBULIN 0.3 g/dL (0.0-0.4); SPE - ALPHA-2 GLOBULIN 1.2 g/dL (0.4-1.0); SPE - BETA GLOBULIN 1.1 g/dL (0.7-1.3); SPE - GAMMA GLOBULIN 1.1 g/dL (0.4-1.8); SPE - M-SPIKE Not Observed g/dL (Not Observed); SPE - TOTAL PROTEIN 6.9 g/dL (6.0-8.5)
--- NOTE | 2019-04-28 19:30 | NUR ---
RECEIVED BEDSIDE REPORT. PATIENT IS ALERT AND ORIENTED, RESTING COMFORTABLY IN BED. RESPIRATIONS ARE EVEN AND UNLABORED. NO S/S OF DISTRESS. NO C/O PAIN. CALL LIGHT WITHIN REACH. WILL CPOC.
[2019-04-28 20:45] VITALS: BP 156/72
--- NOTE | 2019-04-28 21:00 | NUR ---
PATIENT HAS NO IV ACCESS. PATIENT HAS IV PEPCID CALLED TO HAVE ORDERED CHANGED TO PO. PATIENT REFUSING IV ACCESS. WILL TRY AGAIN AFTER THE PATIENT RESTS.
[2019-04-29 00:30] VITALS: BP 169/75
--- NOTE | 2019-04-29 02:40 | NUR ---
PATIENT APPEARS TO BE SLEEPING RESPIRATIONS ARE EVEN AND UNLABORED. NO S/S OF DISTRESS. NO C/O PAIN. CALL LIGHT WITHIN REACH. WILL CPOC.
[2019-04-29 04:43] VITALS: BP 184/79
[2019-04-29 06:12] LABS: ANION GAP 11.9 mmol/L (8-16); CALCIUM 9.3 mg/dL (8.5-10.1); CARBON DIOXIDE 26.8 mmol/L (21.0-32.0); CREATININE - SERUM 1.1 mg/dL (0.6-1.3); PHOSPHOROUS 2.7 mg/dL (2.5-4.9); POTASSIUM - SERUM 3.7 mmol/L (3.5-5.1)
--- NOTE | 2019-04-29 07:20 | NUR ---
ASSESSMENT DONE. DENIES NEEDS
[2019-04-29 08:00] VITALS: BP 194/90
[2019-04-29 08:25] LABS: BASOPHILS 0.1 % (0-2); EOSINOPHILS 3.9 % (0-7); HEMATOCRIT 34.2 % (36.0-48.0); HEMOGLOBIN 10.8 g/dL (12-16); IMMATURE GRANULOCYTES 0.4 % (0-5); LYMPHOCYTES 22.7 % (15-50); MCH 28.6 pg (26.0-34.0); MCHC 31.6 g/dL (31.0-37.0); MCV 90.5 fL (80.0-100.0); MEAN PLATELET VOLUME 11.7 fL (7.4-10.4); MONOCYTES 13.7 % (2-11); NEUTROPHILS 59.2 % (40-80); RBC 3.78 10x6/uL (4.00-5.40); RDW 15.5 % (11.5-14.5); WBC 7.1 10x3/uL (4.8-10.8)
[2019-04-29 08:31] LABS: PLATELET COUNT 172 10x3/uL (130-400)
[2019-04-29 12:00] VITALS: BP 178/85
--- NOTE | 2019-04-29 14:23 | NUR ---
Nutrition Follow-up: PO intake remains poor. Noted 0% of lunch eaten today but drinking some Glucerna. Noted ST recs alternative nutrition if poor PO intake continues. Diet: Diabetic, Puree, Glucerna with meals. PO intake: 0-10% No new wt Last BM: 04/28 per chart Labs noted: Glu 96 Meds noted: Pepcid, Megace, Humulin, Lantus, Lactulose -Rec initiate alternative nutrition (TF) 2/2 continued poor PO intake. RD available for assistance. -RD following.
[2019-04-29 16:00] VITALS: BP 141/72
--- NOTE | 2019-04-29 16:00 | NUR ---
I have reviewed this patient and I concur with the Shift Assessment completed by the Licensed Practical Nurse today this shift.
--- NOTE | 2019-04-29 17:29 | NUR ---
WITHOUT CHANGES OR DISTRESS NOTED AT THIS TIME.
--- NOTE | 2019-04-29 20:22 | NUR ---
HS MEDS GIVEN WITH FRESH ICE WATER. NORCO 1 TAB GIVEN FOR C/O PAIN, RATES PAIN AT AN 8 ON PAIN SCALE.
[2019-04-29 22:12] VITALS: BP 129/70
[2019-04-30 00:15] VITALS: BP 131/68
--- NOTE | 2019-04-30 02:37 | NUR ---
RESTING WITH EYES CLOSED, RESPERATIONS EVEN, NO S/S DISTRESS NOTED.
--- NOTE | 2019-04-30 04:20 | NUR ---
I have reviewed this patient and I concur with the Shift Assessment completed by the Licensed Practical Nurse today this shift.
[2019-04-30 04:30] VITALS: BP 135/66
[2019-04-30 05:32] LABS: ANION GAP 14.8 mmol/L (8-16); CALCIUM 9.4 mg/dL (8.5-10.1); CARBON DIOXIDE 24.5 mmol/L (21.0-32.0); CREATININE - SERUM 1.1 mg/dL (0.6-1.3)
[2019-04-30 05:39] LABS: POTASSIUM - SERUM 4.3 mmol/L (3.5-5.1)
--- NOTE | 2019-04-30 07:23 | NUR ---
REPORT RECEIVED. WILL CONTINUE WITH POC. PT CURRENTLY LYING SEMI FOWLERS. CALL LIGHT W/I REACH. PT IS ASLEEP WITH EYES CLOSED AT THIS TIME. RR EVEN AND UNLABORED ON 2L 02. NO PIV NOTED. MCCULLOUGH IN PLACE AND DRAINING URINE. NO S/S OF DISTRESS NOTED. PT DENIES ANY NEEDS. WILL CTM.
[2019-04-30 09:36] VITALS: BP 117/69
--- NOTE | 2019-04-30 13:53 | NUR ---
I have reviewed this patient and I concur with the Shift Assessment completed by the Licensed Practical Nurse today this shift.
[2019-04-30 14:31] LABS: BASOPHILS 0.3 % (0-2); EOSINOPHILS 3.6 % (0-7); HEMATOCRIT 36.6 % (36.0-48.0); HEMOGLOBIN 11.5 g/dL (12-16); IMMATURE GRANULOCYTES 0.4 % (0-5); LYMPHOCYTES 14.1 % (15-50); MCH 28.2 pg (26.0-34.0); MCHC 31.4 g/dL (31.0-37.0); MCV 89.7 fL (80.0-100.0); MONOCYTES 11.2 % (2-11); NEUTROPHILS 70.4 % (40-80); PLATELET COUNT 143 10x3/uL (130-400); RBC 4.08 10x6/uL (4.00-5.40); RDW 15.5 % (11.5-14.5)
[2019-04-30 14:40] LABS: WBC 11.3 10x3/uL (4.8-10.8)
[2019-04-30 14:47] VITALS: BP 142/77
[2019-04-30] MEDS ORDERED: COREG6.25 MG PO (15:15)
[2019-04-30] MEDS ORDERED: PROCARDIA10 MG PO (15:23)
--- NOTE | 2019-04-30 16:25 | NUR ---
BLADDER TRAINING IN PROCESS. WILL CTM.
--- NOTE | 2019-04-30 16:58 | NUR ---
OT NOTE: PT COMPLETED SUPINE TO SIT WITH MOD A. PT COMPLETED SIDE ROLL WITH MOD A. PT COMPETED HYGIENE TASKS WITH MAX A. THANK YOU,PARVEZ SIMPSON
--- NOTE | 2019-04-30 19:20 | NUR ---
EVENING ROUND COMPLETED. PT AAOX3, NO S/S OF DISTRESS. PT SITTING COMFORTABLY ON BEDSIDE CHAIR. RECIEVING BREATHING TX. NO PIV AT THIS TIME. PT DENIES ANY FURTHER NEEDS AT THIS TIME. ALTHOUGH STATES SHE IS EXCITING TO BE DC TOMORROW. PT ON BLADDER TRAINING AT THIS TIME. DENIES ANY FURTHER NEEDS. WILL CPOC. CL WITHIN REACH.
[2019-05-01 07:19] LABS: ANION GAP 11.8 mmol/L (8-16); CALCIUM 9.9 mg/dL (8.5-10.1); CARBON DIOXIDE 27.1 mmol/L (21.0-32.0); PHOSPHOROUS 3.6 mg/dL (2.5-4.9); POTASSIUM - SERUM 4.9 mmol/L (3.5-5.1)
[2019-05-01 07:20] LABS: CREATININE - SERUM 1.4 mg/dL (0.6-1.3)
--- NOTE | 2019-05-01 07:26 | NUR ---
PT RESTING. RR EVENA AND UNLABORED. NO DISTRESS NOTED. CURRENTLY ON BIPAP. MCCULLOUGH NOTED. BED IN LOWEST POSITION. CALL LIGHT WITHIN REACH. WILL CONTINUE TO MONITOR.
[2019-05-01 08:00] VITALS: BP 136/72
--- NOTE | 2019-05-01 11:38 | MORECARE ---
CASE MANAGEMENT DISCHARGE SUMMARY PATIENT: ANNY CALVILLO UNIT: [id number] ADM DATE: 04/08/19 AGE: 59 : 62 SEX: F ROOM/BED: D.2130 AUTHOR: MAINEDOC PHYSICIAN: REFERRING PHYSICIAN: PRIYA HARDING MD DATE OF SERVICE: 05/01/19 Discharge Plan Patient Name: ANNY CALVILLO Facility: [facility]:[place] : 1960 Planned Disposition: Home with Home Health Anticipated Discharge Date: 05/01/19 Discharge Date: Expected LOS: 23 Initial Reviewer: [id number] Initial Review Date: 04/08/2019 Generated: 05/01/19 12:37 pm DCP- Discharge Planning Updated by [id number]: Poppy Faustin on 04/26/19 9:[address] Patient Name: ANNY CALVILLO Admission Status: Elective Accout number: [id number] Admission Date: 04-08-2019 : 1960 Admission Diagnosis: Attending: PRIYA HARDING Current LOS: 18 Anticipated DC Date: 04-25-2019 Planned Disposition: Home with Home Health Primary Insurance: QUALCHOICE PRVT OPTIONS [facility] Discharge Planning Comments: CALL MARIEL PURDY, SISTER, AT [phone] WHEN READY FOR DISCHARGE. Academic Tutor: Poppy Faustin DCP- Discharge Planning Updated by [email or web address]: Abraham Price on 04/25/19 1:[address] Patient Name: ANNY CALVILLO Encounter No: [id number] : 1960 Primary Insurance: QUALCHOICE PRVT OPTIONS [place] Anticipated DC Date: 04-25-2019 Planned Disposition: Home with Home Health External Planned Provider:[facility] DCP follow-up note: CM WAS DIRECTED BY CM VP OUTCOMES DURING MULTIDICIPLINARY TEAM MEETING TO GET PT TO SIGN REFUSAL OF REHAB SERVICES THERAPY IS RECOMMENDING REHAB TO PT. CM SPOKE TO PT IN ROOM TO DISCUSS DISCHARGE NEEDS AND PLANNING. PT STATES SHE HAS NOT CHANGED HER MIND, SHE IS STILL GOING HOME. CM INFORMED PT THAT THERAPY RECOMMENDS REHAB BEFORE GOING HOME, PT STATES SHE HAS FAMILY TO CARE FOR HER AND SHE CAN GET THERAPY AT HOME. REFUSAL OF REHAB SERVICES SIGNED BY PT. CM SPOKE TO [facility] . THEY HAVE ACCEPTED PT FOR HOME HEALTH. PT PLANS TO DISCHARGE HOME WITH FAMILY. FOR DISCHARGE, NOTIFY [facility], , FAX DISCHARGE INFORMATION TO [facility] AT [phone]. Abraham rPice CASE MANAGEMENT DCP- Discharge Planning Updated by [email or web address]: Abraham Price on 04/24/19 4:[address] Patient Name: ANNY CALVILLO Encounter No: [id number] : 1960 Primary Insurance: QUALCHOICE PRVT OPTIONS [place] Anticipated DC Date: 04-25-2019 Planned Disposition: Home with Home Health External Planned Provider: [facility] DCP follow-up note: CM RECEIVED CALL FROM [facility] . PT'S INSURANCE APPROVED HOME HEALTH FOR 10 VISITS FOR RETIREMENT, PHYSICAL THERAPY AND SPEECH THERAPY. PT PLANS TO DISCHARGE HOME WITH FAMILY. FOR DISCHARGE, NOTIFY [facility], , FAX DISCHARGE INFORMATION TO [facility] AT [phone]. Abraham Price CASE MANAGEMENT DCP- Discharge Planning Updated by [id number]: Abraham Price on 04/23/19 3:[address] Patient Name: ANNY CALVILLO Encounter No: [id number] : 1960 Primary Insurance: QUALCHOICE PRVT OPTIONS [place] Anticipated DC Date: 04-25-2019 Planned Disposition: Home with Home Health External Planned Provider: [facility] DCP follow-up note: CM RECEIVED HOME HEALTH ORDER, CALLED [facility], , SPOKE TO SLIM WHO INFORMED CM THAT THEY WILL HAVE TO CONTACT PT'S INSURANCE COMPANY FOR PRIOR AUTHORIZATION OF SERVICES AND WILL NOTIFY CM WHAT SERVICES INSURANCE WILL COVER. CM PROVIDED REFERRAL INFORMATION, FAXED REFERRAL TO [facility] AT [phone]. CM WAITING FOR [facility] TO RECEIVE PRIOR AUTHORIZATION FOR HOME HEALTH SERVICES FROM PT'S INSURANCE COMPANY. Abraham Price CASE MANAGEMENT DCP- Discharge Planning Updated by [id number]: Abraham Price on 04/22/19 10:[address] Patient Name: ANNY CALVILLO Encounter No: [id number] : 1960 Primary Insurance: QUALCHOICE PRVT OPTIONS [place] Anticipated DC Date: 04-11-2019 Planned Disposition: Home with Home Health External Planned Provider: TO BE DETERMINED, NO PREFERENCE ON PROVIDER DCP follow-up note: CM MET WITH PT IN ROOM TO DISCUSS DISCHARGE NEEDS AND PLANNING. CM DISCUSSED AVAILABILITY OF HOME HEALTH, REHAB SERVICES AND MEDICAL EQUIPMENT. PT DENIES NEED OF REHAB SERVICES AND PLACEMENT; PT REPORTS HAVING ALL NEEDED MEDICAL EQUIPMENT AT HOME AND HAVING HER SPOUSE AND TWO ADULT SONS TO ASSIST WITH CARE NEEDED. CM DISCUSSED THERAPY NOTES AND NEED FOR REHAB SERVICES. PT REFUSED AND STATES SHE WILL ACCEPT HOME HEALTH BUT ASSURES CM SHE IS GOING HOME AND FAMILY WILL TRANSPORT HOME AT DISCHARGE. IMPORTANT MESSAGE FROM MEDICARE PROVIDED AND EXPLAINED. CM TO FOLLOW AND ASSIST NEEDED. CM PROVIDED LISTING OF HOME HEALTH PROVIDERS, PT HAS NO CHOICE ON HOME HEALTH PROVIDER, CHOICE COMPLETED AND SIGNED. PT REFUSED REHAB AND RETIREMENT FACILITY PLACEMENT, REPORTS HAVING ALL NEEDED MEDICAL EQUIPMENT AND TIGER MACHINE OPERATOR FAMILY ASSISTANCE AT HOME. PT WILL ACCEPT HOME HEALTH SERVICES. CM TO ARRANGE HOME HEALTH SERVICES WITH PHYSICAN AGREEMENT AND ORDER; PCP DR. ADAMS. CM TO CONTINUE TO FOLLOW AND ASSIST NEEDED. Abraham Price, CASE MANAGEMENT DCP- Discharge Planning Updated by [email or web address]: Annette Cole on 04/08/19 8:[address] DC PLAN: Return home with if able. ANTICIPATED DC NEEDS: Unknown at this time. Patient on the vent. CM met with patient who is on the vent and unable to complete assessment. CM called her and phone went to voice mail. CM called her sister, next emergency contact, Mariel Purdy [phone] to complete initial dc planning assessment. CM educated Mariel on the CM role and verbal consent given by Mariel to complete assessment. CM verified patient's address, phone number, and emergency contact phone numbers. Patient's phone number is actually [phone]. Patient lives at home with her who is her primary caregiver. Mariel reports he assists her in all areas of her ADL's. She wears oxygen at 3 liters all the time and she does have portability. She is not sure who her DME provider is nor does she know what pharmacy she gets her medication from. She stated the patient stays in her bedroom most of the time. At discharge the patient will return home with her if able. Being the patient is on the vent the dc plan will have to be re-evaluated once she closer to discharge. CM tried to contact patient's but voice mail was an automated voice mail with no name given. No message left. CM will continue to follow and will assist as needed with dc plans/needs. Annette Cloe RN, [facility] DCPIA - Discharge Planning Initial Assessment Updated by [email or web address]: Annette Cole on 04/08/19 8:52 am * Is the patient Alert and Oriented? No * PCP Dr. Adams * Pharmacy Sister unsure of pharmacy * Preadmission Environment Home with Family * ADLs Partial Dependent * Partial ADLs (Assistance needed) Ambulation Bathing Dressing Medication Management Toileting Transfers * Equipment Bedside Commode Nebulizer Oxygen Rolling Walker * Other Equipment Sister unsure who O2 provider is. She does have portability. She is pretty sure the patient has a nebulizer at home. * List name and contact numbers for known caregivers / representatives who currently or will assist patient after discharge: Arcadio Calvillo - spouse - [phone] Mariel Purdy - sister - [phone] * Verbal permission to speak to the caregivers and representatives has been obtained from the patient. Yes * Community resources currently utilized None * Can the patient safely return to the preadmission environment? Yes * Has this patient been hospitalized within the prior 30 days at any hospital? No Coverage Notice Reviewer: [id number] Gabbie Price Notice Issued Date-Time: 04/22/2019 9:35 Notice Type: Patient Choice Letter Notice Delivered To: Patient Relationship to Patient: Lands Resource Manager Name: Delivery Method: HAND - Hand Delivered Desiree Days: Prior Verbal Notification: Recipient Understood Notice: Yes Recipient Signature: Yes Med Rec Note Co-signed by Attending: Coverage Notice Comment: NO HOME HEALTH PROVIDER PREFERENCE Reviewer: [id number] Gabbie Price Notice Issued Date-Time: 04/25/2019 11:22 Notice Type: Patient Choice Letter Notice Delivered To: Patient Relationship to Patient: Lands Resource Manager Name: Delivery Method: HAND - Hand Delivered Desiree Days: Prior Verbal Notification: Recipient Understood Notice: Yes Recipient Signature: Yes Med Rec Note Co-signed by Attending: Coverage Notice Comment: REFUSAL OF REHAB SERVICES Last DP export: 04/26/19 9:39 a Patient Name: ANNY CALVILLO Page [id number] at 1138 All edits/amendments must be made on the electronic document DICTATION DATE: 05/01/191136 FINISH MENDER: ELE 05/01/191136 RPT#: [id number] [place] DATE: STATUS: ADM IN [facility] [address] [place] [address] END OF REPORT
--- NOTE | 2019-05-01 11:40 | NUR ---
[place] D/C WITH CATHETER TIP INTACT AND BALLOON DEFLATED. 600MLS DARK, YELLOW URINE NOTED. PT SITTING UP IN CHAIR AT THIS TIME. CALL LIGHT WITHIN REACH. PT TOLD TO CALL ANIMAL TRAINER SUPERVISOR LIGHT WHEN SHE FEELS THE URGE TO URINATE. PT FAMILY BROUGHT CLOTHES AND O2 TANK FOR D/C AFTER URINATION.
--- NOTE | 2019-05-01 11:45 | MORECARE ---
CASE MANAGEMENT DISCHARGE SUMMARY PATIENT: ANNY CALVILLO UNIT: [id number] ADM DATE: 04/08/19 AGE: 59 : 62 SEX: F ROOM/BED: D.2585 AUTHOR: SUZI GROVE PHYSICIAN: REFERRING PHYSICIAN: PRIYA HARDING MD DATE OF SERVICE: 05/01/19 Discharge Plan Patient Name: ANNY CALVILLO Facility: [facility]:[place] : 1960 Planned Disposition: Home with Home Health Anticipated Discharge Date: 05/01/19 Discharge Date: Expected LOS: 23 Initial Reviewer: [id number] Initial Review Date: 04/08/2019 Generated: 05/01/19 12:45 pm Comments DCP- Discharge Planning Updated by [email or web address]: Abraham Price on 05/01/19 10:[address] Patient Name: ANNY CALVILLO Encounter No: [id number] : 1960 Primary Insurance: QUALCHOICE PRVT OPTIONS [place] Anticipated DC Date: 05-01-2019 Planned Disposition: Home with Home Health External Planned Provider: [facility] DCP follow-up note: CM NOTIFIED SLIM OF [facility] OF DISCHARAGE. THEY HAVE ACCEPTED PT FOR HOME HEALTH. CM FAXED DISCHARGE INFORMATION TO [facility] AT [phone]. WEI Moseley DCP- Discharge Planning Updated by [email or web address]: Poppy Faustin on 04/26/19 9:[address] Patient Name: ANNY CALVILLO Admission Status: Elective Accout number: [id number] Admission Date: 04-08-2019 : 1960 Admission Diagnosis: Attending: PRIYA HARDING Current LOS: 18 Anticipated DC Date: 04-25-2019 Planned Disposition: Home with Home Health Primary Insurance: QUALCHOICE PRVT OPTIONS [place] Discharge Planning Comments: CALL MARIEL PURDY, SISTER, AT [phone] WHEN READY FOR DISCHARGE. Record Clerk Salesperson: Poppy Faustin DCP- Discharge Planning Updated by [email or web address]: Abraham Price on 04/25/19 1:[address] Patient Name: ANNY CALVILLO Encounter No: [id number] : 1960 Primary Insurance: QUALCHOICE PRVT OPTIONS [place] Anticipated DC Date: 04-25-2019 Planned Disposition: Home with Home Health External [facility] Provider[facility] DCP follow-up note: CM WAS DIRECTED BY CM SUPPLY CHAIN LOGISTICS MANAGER DURING MULTIDICIPLINARY TEAM MEETING TO GET PT TO SIGN REFUSAL OF REHAB SERVICES THERAPY IS RECOMMENDING REHAB TO PT. CM SPOKE TO PT IN ROOM TO DISCUSS DISCHARGE NEEDS AND PLANNING. PT STATES SHE HAS NOT CHANGED HER MIND, SHE IS STILL GOING HOME. CM INFORMED PT THAT THERAPY RECOMMENDS REHAB BEFORE GOING HOME, PT STATES SHE HAS FAMILY TO CARE FOR HER AND SHE CAN GET THERAPY AT HOME. REFUSAL OF REHAB SERVICES SIGNED BY PT. CM SPOKE TO [facility] OF [facility]. THEY HAVE ACCEPTED PT FOR HOME HEALTH. PT PLANS TO DISCHARGE HOME WITH FAMILY. FOR DISCHARGE, NOTIFY [facility], , FAX DISCHARGE INFORMATION TO [facility] AT [phone]. Abraham Price CASE MANAGEMENT DCP- Discharge Planning Updated by [id number]: Abraham Price on 04/24/19 4:[address] Patient Name: ANNY CALVILLO Encounter No: [id number] : 1960 Primary Insurance: QUALCHOICE PRVT OPTIONS [place] Anticipated DC Date: 04-25-2019 Planned Disposition: Home with Home Health External Planned Provider: [facility] DCP follow-up note: CM RECEIVED CALL FROM [facility] OF [facility]. PT'S INSURANCE APPROVED HOME HEALTH FOR 10 VISITS FOR [facility], PHYSICAL THERAPY AND SPEECH THERAPY. PT PLANS TO DISCHARGE HOME WITH FAMILY. FOR DISCHARGE, NOTIFY [facility], , FAX DISCHARGE INFORMATION TO [facility] AT [phone]. Abraham Price CASE MANAGEMENT DCP- Discharge Planning Updated by [email or web address]: Abraham Price on 04/23/19 3:[address] Patient Name: ANNY CALVILLO Encounter No: [id number] : 1960 Primary Insurance: QUALCHOICE PRVT OPTIONS [place] Anticipated DC Date: 04-25-2019 Planned Disposition: Home with Home Health External Planned Provider: [facility] DCP follow-up note: CM RECEIVED HOME HEALTH ORDER, CALLED [facility], , SPOKE TO SLIM WHO INFORMED CM THAT THEY WILL HAVE TO CONTACT PT'S INSURANCE COMPANY FOR PRIOR AUTHORIZATION OF SERVICES AND WILL NOTIFY CM WHAT SERVICES INSURANCE WILL COVER. CM PROVIDED REFERRAL INFORMATION, FAXED REFERRAL TO [facility] AT [phone]. CM WAITING FOR [facility] TO RECEIVE PRIOR AUTHORIZATION FOR HOME HEALTH SERVICES FROM PT'S INSURANCE COMPANY. Abraham Price CASE MANAGEMENT DCP- Discharge Planning Updated by [email or web address]: Abraham Price on 04/22/19 10:[address] Patient Name: ANNY CALVILLO Encounter No: [id number] : 1960 Primary Insurance: QUALBebitosICE PRVT OPTIONS [place] Anticipated DC Date: 04-11-2019 Planned Disposition: Home with Home Health External Planned Provider: TO BE DETERMINED, NO PREFERENCE ON PROVIDER DCP follow-up note: CM MET WITH PT IN ROOM TO DISCUSS DISCHARGE NEEDS AND PLANNING. CM DISCUSSED AVAILABILITY OF HOME HEALTH, REHAB SERVICES AND MEDICAL EQUIPMENT. PT DENIES NEED OF REHAB SERVICES AND PLACEMENT; PT REPORTS HAVING ALL NEEDED MEDICAL EQUIPMENT AT HOME AND HAVING HER SPOUSE AND TWO ADULT SONS TO ASSIST WITH CARE NEEDED. CM DISCUSSED THERAPY NOTES AND NEED FOR REHAB SERVICES. PT REFUSED AND STATES SHE WILL ACCEPT HOME HEALTH BUT ASSURES CM SHE IS GOING HOME AND FAMILY WILL TRANSPORT HOME AT DISCHARGE. IMPORTANT MESSAGE FROM MEDICARE PROVIDED AND EXPLAINED. CM TO FOLLOW AND ASSIST NEEDED. CM PROVIDED LISTING OF HOME HEALTH PROVIDERS, PT HAS NO CHOICE ON HOME HEALTH PROVIDER, CHOICE COMPLETED AND SIGNED. PT REFUSED REHAB AND [facility] FACILITY PLACEMENT, REPORTS HAVING ALL NEEDED MEDICAL EQUIPMENT AND APPLICATION PROGRAMMER ANALYST FAMILY ASSISTANCE AT HOME. PT WILL ACCEPT HOME HEALTH SERVICES. CM TO ARRANGE HOME HEALTH SERVICES WITH PHYSICAN AGREEMENT AND ORDER; PCP DR. ADAMS. CM TO CONTINUE TO FOLLOW AND ASSIST NEEDED. Abraham Price, CASE MANAGEMENT DCP- Discharge Planning Updated by [email or web address]: Annette Cole on 04/08/19 8:[address] DC PLAN: Return home with if able. ANTICIPATED DC NEEDS: Unknown at this time. Patient on the vent. CM met with patient who is on the vent and unable to complete assessment. CM called her and phone went to voice mail. CM called her sister, next emergency contact, Mariel Purdy [phone] to complete initial dc planning assessment. CM educated Mariel on the CM role and verbal consent given by Mariel to complete assessment. CM verified patient's address, phone number, and emergency contact phone numbers. Patient's phone number is actually [phone]. Patient lives at home with her who is her primary caregiver. Mariel reports he assists her in all areas of her ADL's. She wears oxygen at 3 liters all the time and she does have portability. She is not sure who her DME provider is nor does she know what pharmacy she gets her medication from. She stated the patient stays in her bedroom most of the time. At discharge the patient will return home with her if able. Being the patient is on the vent the dc plan will have to be re-evaluated once she closer to discharge. CM tried to contact patient's but voice mail was an automated voice mail with no name given. No message left. CM will continue to follow and will assist as needed with dc plans/needs. Annette Cole RN, [facility] DCPIA - Discharge Planning Initial Assessment Updated by [email or web address]: Annette Cole on 04/08/19 8:52 am * Is the patient Alert and Oriented? No * PCP Dr. Adams * Pharmacy Sister unsure of pharmacy * Preadmission Environment Home with Family * ADLs Partial Dependent * Partial ADLs (Assistance needed) Ambulation Bathing Dressing Medication Management Toileting Transfers * Equipment Bedside Commode Nebulizer Oxygen Rolling Walker * Other Equipment Sister unsure who O2 provider is. She does have portability. She is pretty sure the patient has a nebulizer at home. * List name and contact numbers for known caregivers / representatives who currently or will assist patient after discharge: Arcadio Calvillo - spouse - [phone] Mariel Purdy - sister - [phone] * Verbal permission to speak to the caregivers and representatives has been obtained from the patient. Yes * Community resources currently utilized None * Can the patient safely return to the preadmission environment? Yes * Has this patient been hospitalized within the prior 30 days at any hospital? No Coverage Notice Reviewer: [id number] - Abraham Price Notice Issued Date-Time: 04/22/2019 9:35 Notice Type: Patient Choice Letter Notice Delivered To: Patient Relationship to Patient: Deckhand Sponge Boat Name: Delivery Method: HAND - Hand Delivered Desiree Days: Prior Verbal Notification: Recipient Understood Notice: Yes Recipient Signature: Yes Med Rec Note Co-signed by Attending: Coverage Notice Comment: NO HOME HEALTH PROVIDER PREFERENCE Reviewer: [id number] Gabbie Price Notice Issued Date-Time: 04/25/2019 11:22 Notice Type: Patient Choice Letter Notice Delivered To: Patient Relationship to Patient: Deckhand Sponge Boat Name: Delivery Method: HAND - Hand Delivered Desiree Days: Prior Verbal Notification: Recipient Understood Notice: Yes Recipient Signature: Yes Med Rec Note Co-signed by Attending: Coverage Notice Comment: REFUSAL OF REHAB SERVICES Last DP export: 05/01/19 10:38 Patient Name: ANNY CALVILLO Page [phone] at 1145 All edits/amendments must be made on the electronic document DICTATION DATE: 05/01/19 1145 POLICE CHIEF: ELE 05/01/19 1145 RPT#: [id number] DC DATE: STATUS: ADM IN [facility] [address] [place] [address] END OF REPORT
[2019-05-01 12:00] VITALS: BP 155/74
--- NOTE | 2019-05-01 13:42 | NUR ---
Nutrition Follow-up: Pt reports improved PO intake; states she ate a good portion of breakfast this AM and has been drinking 3 Glucerna/day. Noted d/c orders. Diet: Diabetic, Puree, Glucerna TID No new wt (last wt - 223.7# on 04/19) Last BM: 04/30 Labs reviewed Meds noted: Pepcid, Megace, Humulin, Lantus, Lactulose -Continue current diet with consistencies per ST. -Need new wt. -RD following.
--- NOTE | 2019-05-01 13:57 | NUR ---
Skin dry and peeling. No blisters noted at this time. Scabs noted on the back of both legs. Legs edematous but no weeping noted. Wound care continues to monitor.
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
--- NOTE | 2019-05-01 16:00 | NUR ---
PT FAMILY HERE FOR D/C. WAS WAITING ON O2 TANK TO ARRIVE. PT ASSITED WITH GETTING DRESSED. BM AND VOID X1. TRANSFERRED TO WHEELCHAIR. D/C INSTRUCTIONS REVIEWED WITH PT AND FAMILY MEMBER. BOTH VERBALIZED AGREEMENT AND DENIES FURTHER QUESTIONS AT THIS TIME. NO PIV NOTED. LEFT VIA WHEELCHAIR WITH ALL BELONGINGS TO FAMILY MEMBER'S VEHICLE.
== END 2019-05-01 16:36 | disposition home health service (06) | DRG 871 ==
LOC: D.ER 05:23 → D.ICU 08:16 → D.M2 08:16
PROVIDERS: Family Medicine; General Practice; Internal Medicine; Internal Medicine Hematology & Oncology; Internal Medicine Nephrology; Internal Medicine Pulmonary Disease; Specialist; ADMIT Family Medicine; ATTEND Family Medicine
PROC: 5A1945Z Respiratory Ventilation, 24-96 Consecutive Hours (ICD-10-PCS; 2019-04-08)
PROC: 0BH17EZ Insertion of Endotracheal Airway into Trachea, Via Natural or Artificial Opening (ICD-10-PCS; 2019-04-08)
PROC: 0B9B8ZZ Drainage of Left Lower Lobe Bronchus, Via Natural or Artificial Opening Endoscopic (ICD-10-PCS; principal; 2019-04-09)
PROC: 0B968ZZ Drainage of Right Lower Lobe Bronchus, Via Natural or Artificial Opening Endoscopic (ICD-10-PCS; 2019-04-09)
PROC: 05HM33Z Insertion of Infusion Device into Right Internal Jugular Vein, Percutaneous Approach (ICD-10-PCS; 2019-04-16)
DX: A41.9 Sepsis, unspecified organism (principal); J96.22 Acute and chronic respiratory failure with hypercapnia; I50.23 Acute on chronic systolic (congestive) heart failure; N17.0 Acute kidney failure with tubular necrosis; J69.0 Pneumonitis due to inhalation of food and vomit; J96.21 Acute and chronic respiratory failure with hypoxia; E43 Unspecified severe protein-calorie malnutrition; J44.1 Chronic obstructive pulmonary disease with (acute) exacerbation; N39.0 Urinary tract infection, site not specified; E87.0 Hyperosmolality and hypernatremia; Z68.43 Body mass index [BMI] 50.0-59.9, adult; C79.51 Secondary malignant neoplasm of bone; G47.33 Obstructive sleep apnea (adult) (pediatric); I11.0 Hypertensive heart disease with heart failure; I95.9 Hypotension, unspecified; E87.5 Hyperkalemia; E78.5 Hyperlipidemia, unspecified; E11.21 Type 2 diabetes mellitus with diabetic nephropathy; E11.42 Type 2 diabetes mellitus with diabetic polyneuropathy; E66.01 Morbid (severe) obesity due to excess calories; C50.919 Malignant neoplasm of unspecified site of unspecified female breast; F32.9 Major depressive disorder, single episode, unspecified

== ENCOUNTER 2019-05-09 10:42 | Inpatient (IN) | payer MEDICAID ==
[2019-05-09] VITALS (7 sets, daily range): BP systolic 108–166; BP diastolic 54–85
[~2019-05-09] VITALS: Ht 149.9 cm; Wt 104.1 kg
[~2019-05-09 10:42] MED LIST changes: +COREG6.25 MG PO; +PROCARDIA10 MG PO
--- NOTE | 2019-05-09 10:54 | NUR ---
FSBS= 109 MG/DL
[2019-05-09 11:11] LABS: BASOPHILS 0.5 % (0-2); EOSINOPHILS 5.4 % (0-7); HEMATOCRIT 34.9 % (36.0-48.0); IMMATURE GRANULOCYTES 0.2 % (0-5); LYMPHOCYTES 26.6 % (15-50); MCH 28.3 pg (26.0-34.0); MCHC 31.5 g/dL (31.0-37.0); MCV 89.7 fL (80.0-100.0); MEAN PLATELET VOLUME 9.6 fL (7.4-10.4); MONOCYTES 16.9 % (2-11); NEUTROPHILS 50.4 % (40-80); RBC 3.89 10x6/uL (4.00-5.40); RDW 15.3 % (11.5-14.5); WBC 6.1 10x3/uL (4.8-10.8)
[2019-05-09 11:17] LABS: CALC OSMOLALITY 279 mosm/kg (275-300); CALCIUM 9.5 mg/dL (8.5-10.1); CARBON DIOXIDE 28.9 mmol/L (21.0-32.0); CHLORIDE - SERUM 101 mmol/L (98-107); CREATININE - SERUM 0.8 mg/dL (0.6-1.3); GLUCOSE 107 mg/dL (74-106); POTASSIUM - SERUM 4.1 mmol/L (3.5-5.1); SODIUM 139 mmol/L (136-145); UREA NITROGEN 19 mg/dL (7-18); eGFR NON AFRICAN AMERICAN 78 mL/min (90-120)
[2019-05-09 11:26] LABS: ALBUMIN 3.2 g/dL (3.4-5.0); ALKALINE PHOSPHATASE 71 U/L (46-116); ALT (SGPT) 58 U/L (10-68); AMYLASE - SERUM 95 U/L (25-115); LIPASE 682 U/L (73-393); PLATELET COUNT 280 10x3/uL (130-400); PROTEIN - SERUM 7.4 g/dL (6.4-8.2); TROPONIN-I 0.021 ng/mL (0.000-0.060)
[2019-05-09 11:38] LABS: APPEARANCE HAZY (CLEAR); BILIRUBIN NEGATIVE (NEGATIVE); COLOR YELLOW (YELLOW); GLUCOSE NEGATIVE (NEGATIVE); KETONE SMALL mg/dL (NEGATIVE); NITRITE NEGATIVE (NEGATIVE); PROTEIN TRACE mg/dL (NEGATIVE); RED CELLS - URINE OCC /hpf (0-5); SPECIFIC GRAVITY 1.015 (1.005-1.020); UROBILINOGEN NORMAL (NORMAL); WHITE CELLS - URINE OCC /hpf (NEGATIVE)
[2019-05-09 11:39] LABS: BACTERIA MODERATE /hpf (NEGATIVE); EPITHELIAL CELLS 0-5 /hpf (0-5); HYALINE CAST OCC /lpf (NONE SEEN); MUCUS >1+ /lpf (NONE SEEN); WAXY CAST OCC /lpf (NONE SEEN)
--- NOTE | 2019-05-09 12:15 | NUR ---
TO CT VIA STRETCHER WITH GAS PLANT TECHNICIAN
[2019-05-09] MEDS ORDERED: TAMOXIFEN CITRA20 MG PO (12:27)
--- NOTE | 2019-05-09 12:28 | NUR ---
RTND TO ER#15. CONTINUES TO C/O PAIN. NOTIFIED
--- NOTE | 2019-05-09 14:44 | NUR ---
REPORT TO NAVID FRIAS
--- NOTE | 2019-05-09 15:05 | NUR ---
TRANSPORTED TP ROOM #2237, CONDITION STABLE
[2019-05-09 15:51] LABS: % SATURATION 20 % (15-55); IRON 57 ug/dl (35-150); TOTAL IRON BIND CAPACITY 277 ug/dl (260-445); UNSAT IRON BIND CAPACITY 220 ug/dl (150-375)
[2019-05-09 16:58] LABS: INR 1.04 (0.85-1.17); PROTIME 13.1 SECONDS (11.6-15.0)
--- NOTE | 2019-05-09 19:45 | NUR ---
AWAKE,ALERT SITTING ON SIDE OF BED. IV TO RAC INTACT WITHOUT REDNESS OR EDEMA NOTED. DENIES DISCOMFORT A THIS TIME.CL IN REACH
[2019-05-09] MEDS ORDERED: PROCARDIA XL30 MG PO (20:12)
[2019-05-10] VITALS (10 sets, daily range): BP systolic 94–139; BP diastolic 43–87; Ht 149.9 cm; Wt 104.1 kg
--- NOTE | 2019-05-10 03:20 | NUR ---
I have reviewed this patient and I concur with the Shift Assessment completed by the Licensed Practical Nurse today this shift.
[2019-05-10 07:34] LABS: BASOPHILS 0.4 % (0-2); EOSINOPHILS 6.2 % (0-7); HEMATOCRIT 35.9 % (36.0-48.0); HEMOGLOBIN 10.7 g/dL (12-16); IMMATURE GRANULOCYTES 0.4 % (0-5); LYMPHOCYTES 16.6 % (15-50); MCH 28.3 pg (26.0-34.0); MCHC 29.8 g/dL (31.0-37.0); MEAN PLATELET VOLUME 10.1 fL (7.4-10.4); MONOCYTES 13.6 % (2-11); NEUTROPHILS 62.8 % (40-80); PLATELET COUNT 212 10x3/uL (130-400); RBC 3.78 10x6/uL (4.00-5.40); RDW 15.8 % (11.5-14.5); WBC 10.1 10x3/uL (4.8-10.8)
[2019-05-10 07:49] LABS: ANION GAP 11.4 mmol/L (8-16); BILIRUBIN - TOTAL 0.38 mg/dL (0.2-1.3); CALCIUM 8.9 mg/dL (8.5-10.1); CARBON DIOXIDE 27.3 mmol/L (21.0-32.0); CREATININE - SERUM 1.3 mg/dL (0.6-1.3); POTASSIUM - SERUM 4.7 mmol/L (3.5-5.1)
--- NOTE | 2019-05-10 07:51 | NUR ---
RESTING IN BED, NO DISTRESS NOTED, LAB IN ROOM, IV INFUSING, CONT TO MONITOR BOWEL MOVEMENTS
--- NOTE | 2019-05-10 15:29 | NUR ---
UP TO BSC WITH 1 ASSIST, FOUL SMELL NOTED, CIRCLES ON LINENS, PT VOIDED SMALL AMT IN BSC AND VERY SMALL SOFT DARK STOOL, SPECIMEN TO LAB
--- NOTE | 2019-05-10 17:06 | NUR ---
SUGAR 63, SUPPER TRAY IN ROOM, ENC PT TO TAKE JUICE OR SODA ROSMERY
--- NOTE | 2019-05-10 19:50 | NUR ---
PATIENT WITH LABORED RESP. NOTED. SP02@ 81% O2 @ 4L PER NC ON. UPDRAFT GIVEN PER RT. ABG DRAWN. DR KELLY NOTIFIED OF ABG RESULTS. ORDERS RECEIVED TO TRANSFER TO ICU. SUPERINTENDENT STORAGE AREA NOTIFIED. FAMILY NOTIFIED..
--- NOTE | 2019-05-10 20:15 | NUR ---
PATIENT PLACED ON BIPAP AT THIS TIME. REPORT CALLED TO CLAUDIA SHOEMAKER IN ICU.
--- NOTE | 2019-05-10 20:30 | NUR ---
PT ARRIVED ON UNIT, HOOKED TO MONITORS, PT ON 40% BIPAP WITH 97% O2 SAT. ALL PPP, VSS, WILL CON'T TO MONITOR
--- NOTE | 2019-05-10 20:41 | NUR ---
PATIENT TRANSFERRED TO ICU ROOM 2301.BELONGINGS SENT WITH JASMYNE
--- NOTE | 2019-05-10 23:20 | NUR ---
REASSESSMENT COMPLETE, NO CHANGES NOTED, PT RESTING COMFORTABLY AT THIS TIME, VSS, CALL LIGHT IN REACH
[2019-05-11] VITALS (23 sets, daily range): BP systolic 90–165; BP diastolic 44–96
--- NOTE | 2019-05-11 01:00 | NUR ---
PT RESTING AT THIS TIME, VSS, CALL LIGHT IN REACH
--- NOTE | 2019-05-11 03:15 | NUR ---
REASSESSMENT COMPLETE, NO CHANGES NOTED,
[2019-05-11 03:45] LABS: BASOPHILS 0.2 % (0-2); EOSINOPHILS 5.8 % (0-7); HEMATOCRIT 32.4 % (36.0-48.0); HEMOGLOBIN 9.8 g/dL (12-16); IMMATURE GRANULOCYTES 0.4 % (0-5); LYMPHOCYTES 16.8 % (15-50); MCH 28.4 pg (26.0-34.0); MCHC 30.2 g/dL (31.0-37.0); MCV 93.9 fL (80.0-100.0); MEAN PLATELET VOLUME 10.2 fL (7.4-10.4); MONOCYTES 11.3 % (2-11); NEUTROPHILS 65.5 % (40-80); PLATELET COUNT 250 10x3/uL (130-400); RBC 3.45 10x6/uL (4.00-5.40); RDW 15.7 % (11.5-14.5); WBC 9.4 10x3/uL (4.8-10.8)
[2019-05-11 04:14] LABS: ALBUMIN 2.9 g/dL (3.4-5.0); ANION GAP 13.6 mmol/L (8-16); BILIRUBIN - DIRECT 0.17 mg/dL (0.00-0.30); BILIRUBIN - INDIRECT 0.24 mg/dL (0.00-1.00); BILIRUBIN - TOTAL 0.41 mg/dL (0.2-1.3); CALCIUM 7.9 mg/dL (8.5-10.1); CARBON DIOXIDE 24.2 mmol/L (21.0-32.0); CREATININE - SERUM 1.6 mg/dL (0.6-1.3); POTASSIUM - SERUM 4.8 mmol/L (3.5-5.1); PROTEIN - SERUM 6.8 g/dL (6.4-8.2)
--- NOTE | 2019-05-11 05:15 | NUR ---
PT DENIES ANY WANTS/NEEDS AT THIS TIME, WILL CON'T TO MONITOR
--- NOTE | 2019-05-11 09:05 | NUR ---
AT BEDSIDE WITH PT. NO NEW ORDERS. WILL CONTINUE TO MONITOR.
--- NOTE | 2019-05-11 19:15 | NUR ---
REPORT RECIEVED, SHIFT ASSESSMENT COMPLETE, PT IS ALERT AND ORIENTED, ON 4L NC WITH 94% O2 SAT. ALL PPP, VSS, CALL LIGHT IN REACH
--- NOTE | 2019-05-11 21:00 | NUR ---
NO VISITORS AT THIS TIME, WILL CON'T TO MONITOR
--- NOTE | 2019-05-11 23:00 | NUR ---
REASSESSMENT COMPLETE, NO CHANGES NOTED, PT RESTING AT THIS TIME, VSS, CALL LIGHT IN REACH
[2019-05-12] VITALS (16 sets, daily range): BP systolic 91–176; BP diastolic 49–135
--- NOTE | 2019-05-12 01:00 | NUR ---
PT RESTING COMFORTABLY AT THIS TIME, VSS, CALL LIGHT IN REACH
--- NOTE | 2019-05-12 03:16 | NUR ---
REASSESSMENT COMPLETE, NO CHANGES NOTED, WILL CON'T TO MONITOR
[2019-05-12 05:20] LABS: BASOPHILS 0 % (0-2); EOSINOPHILS 0 % (0-7); HEMATOCRIT 27.3 % (36.0-48.0); HEMOGLOBIN 8.4 g/dL (12-16); IMMATURE GRANULOCYTES 0.5 % (0-5); LYMPHOCYTES 14.7 % (15-50); MCH 28.1 pg (26.0-34.0); MCHC 30.8 g/dL (31.0-37.0); MONOCYTES 7.6 % (2-11); NEUTROPHILS 77.2 % (40-80); PLATELET COUNT 237 10x3/uL (130-400); RBC 2.99 10x6/uL (4.00-5.40); RDW 15.2 % (11.5-14.5)
[2019-05-12 05:31] LABS: MCV 91.3 fL (80.0-100.0); WBC 4.1 10x3/uL (4.8-10.8)
[2019-05-12 05:50] LABS: ANION GAP 14.2 mmol/L (8-16); CALCIUM 8.2 mg/dL (8.5-10.1); CARBON DIOXIDE 24.1 mmol/L (21.0-32.0); POTASSIUM - SERUM 5.3 mmol/L (3.5-5.1)
--- NOTE | 2019-05-12 08:58 | NUR ---
Nutrition follow-up: Diet: ADA consistent CHO PO intake is usually good Labs reviewed WT: 332# RDN following.
--- NOTE | 2019-05-12 15:03 | NUR ---
PT AWAKE AND ORIENTED, ARRIVED VIA WHEELCHAIR. FRIENDLY, NO COMPLAINTS/CONCERNS. CL IN REACH,S RX2.
--- NOTE | 2019-05-12 17:00 | MORECARE ---
CASE MANAGEMENT DISCHARGE SUMMARY PATIENT: ANNY HERRERA UNIT: [id number] ADM DATE: 05/10/19 AGE: 59 : 62 SEX: F ROOM/BED: D.2104 AUTHOR: SUZI GROVE PHYSICIAN: REFERRING PHYSICIAN: KEIKO KELLY MD DATE OF SERVICE: 05/12/19 Discharge Plan Patient Name: ANNY HERRERA Facility: [facility]:[place] : 1960 Planned Disposition: Anticipated Discharge Date: Discharge Date: Expected LOS: Initial Reviewer: [email or web address] Initial Review Date: 05/12/2019 Generated: 05/12/19 6:00 pm Patient Name: ANNY HERRERA Page 43590 at 1700 All edits/amendments must be made on the electronic document DICTATION DATE: 05/12/191699 MOBILE UI DESIGNER: ELE 05/12/191699 RPT#: [id number] DC DATE: STATUS: ADM IN [facility] [address] [place] [address] END OF REPORT
--- NOTE | 2019-05-12 17:09 | MORECARE ---
CASE MANAGEMENT DISCHARGE SUMMARY PATIENT: ANNY HERRERA UNIT: [id number] ADM DATE: 05/10/19 AGE: 59 : 62 SEX: F ROOM/BED: D.2104 AUTHOR: SUZI GROVE PHYSICIAN: REFERRING PHYSICIAN: KEIKO KELLY MD DATE OF SERVICE: 05/12/19 Discharge Plan Patient Name: ANNY HERRERA Facility: [facility]:[place] : 1960 Planned Disposition: Anticipated Discharge Date: Discharge Date: Expected LOS: Initial Reviewer: [email or web address] Initial Review Date: 05/12/2019 Generated: 05/12/19 6:09 pm DCPIA - Discharge Planning Initial Assessment Updated by [email or web address]: Madhavi Malik on 05/12/19 5:05 pm * Is the patient Alert and Oriented? Yes * How many steps to enter\exit or inside your home? * PCP ANGIE * Pharmacy [facility] IN [place] * Preadmission Environment Home with Family * ADLs Independent * Other Equipment CPAP, HOME 02 / PORTABLE, NEBULIZER, WALKER * List name and contact numbers for known caregivers / representatives who currently or will assist patient after discharge: ALMA HERRERA - SPOUSE - [phone] * Verbal permission to speak to the caregivers and representatives has been obtained from the patient. Yes * Community resources currently utilized Home Health * Please name any agencies selected above. [facility] PER LAST ADMISSION * Additional services required to return to the preadmission environment? No * Can the patient safely return to the preadmission environment? Yes * Has this patient been hospitalized within the prior 30 days at any hospital? Yes Last DP export: 05/12/19 4:00 Patient Name: ANNY HERRERA Page 49319 at 1706 All edits/amendments must be made on the electronic document DICTATION DATE: 05/12/191708 OPTICAL ENGINEERING MANAGER: ELE 05/12/191708 RPT#: [id number] DC DATE: STATUS: ADM IN [place] [address] [place] [address] END OF REPORT
--- NOTE | 2019-05-12 17:17 | MORECARE ---
CASE MANAGEMENT DISCHARGE SUMMARY PATIENT: ANNY HERRERA UNIT: [id number] ADM DATE: 05/10/19 AGE: 59 : 62 SEX: F ROOM/BED: D.5835 AUTHOR: MAINE,DOC PHYSICIAN: REFERRING PHYSICIAN: KEIKO KELLY MD DATE OF SERVICE: 05/12/19 Discharge Plan Patient Name: ANNY HERRERA Facility: [facility]:[place] : 1960 Planned Disposition: Anticipated Discharge Date: Discharge Date: Expected LOS: Initial Reviewer: [email or web address] Initial Review Date: 05/12/2019 Generated: 05/12/19 6:16 pm Comments DCP- Discharge Planning Updated by [email or web address]: Madhavi Malik on 05/12/19 4:[address] Patient Name: ANNY HERRERA Admission Status: ER Accout number: [id number] Admission Date: 05-10-2019 : 1960 Admission Diagnosis: Attending: KEIKO KELLY Current LOS: 2 Anticipated DC Date: Planned Disposition: Primary Insurance: [employer] OPT[employer] SONIA Discharge Planning Comments: CM met with patient to complete initial dc planning assessment. CM educated patient on the CM role and verbal consent given by patient to complete assessment. Patient lives at home with her where she is independent with her care. At discharge patient plans to return home and feels this is a safe discharge. CM discussed availability of home health, rehab services, and medical equipment. Patient has a nebulizer, CPAP and home o2 ( LINCARE). Patient states that she has home health and plans to resume care with them, but can't remember provider. CM looked back at previous admission and she had Home Health with [facility]. CM will need to get JELLY signed for [facility]. Patient denied known discharge needs at this time. CM will continue to follow and will assist as needed with dc plans/needs. Child Care Sitter: Madhavi Malik DCPIA - Discharge Planning Initial Assessment Updated by [email or web address]: Madhavi Malik on 05/12/19 5:05 pm * Is the patient Alert and Oriented? Yes * How many steps to enter\exit or inside your home? * PCP ADAMS * Pharmacy [facility] IN [place] * Preadmission Environment Home with Family * ADLs Independent * Other Equipment CPAP, HOME 02 / PORTABLE, NEBULIZER, WALKER * List name and contact numbers for known caregivers / representatives who currently or will assist patient after discharge: ALMA HERRERA - SPOUSE - [phone] * Verbal permission to speak to the caregivers and representatives has been obtained from the patient. Yes * Community resources currently utilized Home Health * Please name any agencies selected above. [facility] PER LAST [facility]MISSION * Additional services required to return to the preadmission environment? No * Can the patient safely return to the preadmission environment? Yes * Has this patient been hospitalized within the prior 30 days at any hospital? Yes Last DP export: 05/12/19 4:09 Patient Name: ANNY HERRERA Page 25390 at 1717 All edits/amendments must be made on the electronic document DICTATION DATE: 05/12/191715 POULTRY SEXER: ELE 05/12/191715 RPT#: [id number] DC DATE: STATUS: ADM IN [facility] [address] [place] [address] END OF REPORT
--- NOTE | 2019-05-12 19:05 | NUR ---
REPORT RECEIVED, WILL CONTINUE POC. PATIENT IS AAOX4, BEDFAST. NO S/S OF DISTRESS OBSERVED, RR EVEN AND UNLABORED ON 3L O2 VIA NC. F/C DRAINING TO RT SIDE OF BED BY GRAVITY. PATIENT DENIES NEEDS AT THIS TIME. FAMILY IN ROOM. CL IN REACH, BED LOCKED AND LOWERED. WILL CTM.
[2019-05-13 00:09] VITALS: BP 133/61
--- NOTE | 2019-05-13 02:08 | NUR ---
I have reviewed this patient and I concur with the Shift Assessment completed by the Licensed Practical Nurse today this shift.
[2019-05-13 04:00] VITALS: BP 145/52
[2019-05-13 05:11] LABS: BASOPHILS 0 % (0-2); EOSINOPHILS 0 % (0-7); HEMATOCRIT 30.3 % (36.0-48.0); HEMOGLOBIN 9.4 g/dL (12-16); IMMATURE GRANULOCYTES 0.6 % (0-5); LYMPHOCYTES 12.9 % (15-50); MCH 27.9 pg (26.0-34.0); MCV 89.9 fL (80.0-100.0); MEAN PLATELET VOLUME 10.2 fL (7.4-10.4); MONOCYTES 2.8 % (2-11); NEUTROPHILS 83.7 % (40-80); PLATELET COUNT 271 10x3/uL (130-400); RBC 3.37 10x6/uL (4.00-5.40); RDW 15.3 % (11.5-14.5); WBC 4.7 10x3/uL (4.8-10.8)
[2019-05-13 05:38] LABS: ANION GAP 13.2 mmol/L (8-16); CALCIUM 8.6 mg/dL (8.5-10.1); POTASSIUM - SERUM 5.2 mmol/L (3.5-5.1)
--- NOTE | 2019-05-13 07:30 | NUR ---
RECEIVED REPORT. ASSUMED CARE OF PATIENT. CALL LIGHT WITHIN REACH. PATINET AWAKE AND ALERT, SITTING UP IN BED, AM MEAL IS BEING SERVED AT THIS TIME. NO DISTRESS. DENIES NEEDS AT THIS TIME.
--- NOTE | 2019-05-13 08:17 | MORECARE ---
CASE MANAGEMENT DISCHARGE SUMMARY PATIENT: ANNY HERRERA UNIT: [id number] ADM DATE: 05/10/19 AGE: 59 : 62 SEX: F ROOM/BED: D.1124 AUTHOR: MAINE,DOC PHYSICIAN: REFERRING PHYSICIAN: KEIKO KELLY MD DATE OF SERVICE: 05/13/19 Discharge Plan Patient Name: ANNY HERRERA Facility: [facility]:[place] : 1960 Planned Disposition: Anticipated Discharge Date: Discharge Date: Expected LOS: Initial Reviewer: [email or web address] Initial Review Date: 05/12/2019 Generated: 05/13/19 9:17 am Comments DCP- Discharge Planning Updated by [email or web address]: Madhavi Malik on 05/12/19 4:[address] Patient Name: ANNY HERRERA Admission Status: ER Accout number: [id number] Admission Date: 05-10-2019 : 1960 Admission Diagnosis: Attending: KEIKO KELLY Current LOS: 2 Anticipated DC Date: Planned Disposition: Primary Insurance: [employer] OPTIONS SONIA Discharge Planning Comments: CM met with patient to complete initial dc planning assessment. CM educated patient on the CM role and verbal consent given by patient to complete assessment. Patient lives at home with her where she is independent with her care. At discharge patient plans to return home and feels this is a safe discharge. CM discussed availability of home health, rehab services, and medical equipment. Patient has a nebulizer, CPAP and home o2 ( [facility]ARE). Patient states that she has home health and plans to resume care with them, but can't remember provider. CM looked back at previous admission and she had Home Health with [facility]. CM will need to get JELLY signed for [facility]. Patient denied known discharge needs at this time. CM will continue to follow and will assist as needed with dc plans/needs. Pantry Attendant: Madhavi Malik DCPIA - Discharge Planning Initial Assessment Updated by [email or web address]: Madhavi Malik on 05/12/19 5:05 pm * Is the patient Alert and Oriented? Yes * How many steps to enter\exit or inside your home? * PCP ADAMS * Pharmacy [facility] IN [place] * Preadmission Environment Home with Family * ADLs Independent * Other Equipment CPAP, HOME 02 / PORTABLE, NEBULIZER, WALKER * List name and contact numbers for known caregivers / representatives who currently or will assist patient after discharge: ALMA HERRERA - SPOUSE - [phone] * Verbal permission to speak to the caregivers and representatives has been obtained from the patient. Yes * Community resources currently utilized Home Health * Please name any agencies selected above. [facility] PER LAST ADMISSION * Additional services required to return to the preadmission environment? No * Can the patient safely return to the preadmission environment? Yes * Has this patient been hospitalized within the prior 30 days at any hospital? Yes Last DP export: 05/12/19 4:17 Patient Name: ANNY HERRERA Page 25092 at 0817 All edits/amendments must be made on the electronic document DICTATION DATE: 05/13/19816 CASH SHORTAGE INVESTIGATOR: ELE 05/13/19816 RPT#: [id number] DC DATE: STATUS: ADM IN [facility] [address] [place] [address] END OF REPORT
--- NOTE | 2019-05-13 08:41 | NUR ---
CALLED PHARMACY AND SPOKE TO BALA ABOUT [facility] BALA WILL PRINT A LABEL AND SENT IT UP TO THE FLOOR THIS AM.
[2019-05-13 09:19] VITALS: BP 128/83
[2019-05-13 09:59] LABS: ALT (SGPT) 71 U/L (10-68)
--- NOTE | 2019-05-13 10:08 | NUR ---
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
--- NOTE | 2019-05-13 11:27 | NUR ---
FSBS 216. 4 UNITS HUMULIN R ADMINISTERED PER SLIDING SCALE. NO DISTRESS.
--- NOTE | 2019-05-13 12:06 | NUR ---
Rehab Note- Acute Inpatient Rehab prescreen order received. THe patient has [employer] private insurance and will require a PreAuth prior to an acute inpatient rehab stay. WIll contact insurance when avaliable due to the holiday. Will need an OT Eval also for PreAuth process. Will follow at this time. THank you for this referral! Nela Hutton RN Clinical Liaison, [facility] Rehab
[2019-05-13 12:13] VITALS: BP 123/50
--- NOTE | 2019-05-13 12:33 | MORECARE ---
CASE MANAGEMENT DISCHARGE SUMMARY PATIENT: ANNY HERRERA UNIT: [id number] ADM DATE: 05/10/19 AGE: 59 : 62 SEX: F ROOM/BED: D.2100 AUTHOR: MAINE,DOC PHYSICIAN: REFERRING PHYSICIAN: KEIKO KELLY MD DATE OF SERVICE: 05/13/19 Discharge Plan Patient Name: ANNY HERRERA Facility: [facility]:[place] : 1960 Planned Disposition: Home with Home Health Anticipated Discharge Date: Discharge Date: Expected LOS: Initial Reviewer: [email or web address] Initial Review Date: 05/12/2019 Generated: 05/13/19 1:33 pm Comments DCP- Discharge Planning Updated by [email or web address]: Abraham Price on 05/13/19 11:[address] Patient Name: ANNY HERRERA Encounter No: [id number] : 1960 [facility] Anticipated DC Date: Planned Disposition: Home with Home Health External Planned Provider: [facility] DCP follow-up note: CM MET WITH PT IN ROOM TO DISCUSS DISCHARGE NEEDS AND PLANNING. CM DISCUSSED AVAILABILITY OF HOME HEALTH, REHAB SERVICES AND MEDICAL EQUIPMENT. PT REPORTS PLAN TO RETURN HOME WITH [facility]. CM ASKED PT TO CONSIDER GOING TO REHAB PRIOR TO DISCHARGE AND TO LET CM EXPLORE THE OPTION FOR HER. PT DECLINED AND SIGNED CONSENT FOR [facility]. PT REPORTS HER SPOUSE AND CHILDREN ARE CARING FOR HER AT HOME AND SHE WILL RETURN THERE AT DISCHARGE, SPOUSE TO TRANSPORT HOME AT DISCHARGE. CM NOTIFIED SLIM OF [facility] WHO WILL NOTIFY HIS OFFICE. CM FAXED REFERRAL TO [facility] AT [phone]/ FOR DISHCARGE, NOTIFY [facility] FOR RESUMPTION, , FAX DISCHARGE INFORMATION TO [facility] AT [phone]. WEI Moseley DCP- Discharge Planning Updated by [email or web address]: Madhavi Malik on 05/12/19 4:[address] Patient Name: ANNY HERRERA Admission Status: ER Accout number: [id number] Admission Date: 05-10-2019 : 1960 Admission Diagnosis: Attending: KEIKO KELLY Current LOS: 2 Anticipated DC Date: Planned Disposition: [facility] Discharge Planning Comments: CM met with patient to complete initial dc planning assessment. CM educated patient on the CM role and verbal consent given by patient to complete assessment. Patient lives at home with her where she is independent with her care. At discharge patient plans to return home and feels this is a safe discharge. CM discussed availability of home health, rehab services, and medical equipment. Patient has a nebulizer, CPAP and home o2 ( [facility]). Patient states that she has home health and plans to resume care with them, but can't remember provider. CM looked back at previous admission and she had Home Health with [facility]. CM will need to get JELLY signed for [facility]. Patient denied known discharge needs at this time. CM will continue to follow and will assist as needed with dc plans/needs. Cold Roll Catcher: Madhavi Malik DCPIA - Discharge Planning Initial Assessment Updated by [email or web address]: Madhavi Malik on 05/12/19 5:05 pm * Is the patient Alert and Oriented? Yes * How many steps to enter\exit or inside your home? * PCP ADAMS * Pharmacy [facility] IN [place] * Preadmission Environment Home with Family * ADLs Independent * Other Equipment CPAP, HOME 02 / PORTABLE, NEBULIZER, WALKER * List name and contact numbers for known caregivers / representatives who currently or will assist patient after discharge: ALMA HERRERA - [facility] - [phone] * Verbal permission to speak to the caregivers and representatives has been obtained from the patient. Yes * Community resources currently utilized Home Health * Please name any agencies selected above. [facility] PER LAST ADMISSION * Additional services required to return to the preadmission environment? No * Can the patient safely return to the preadmission environment? Yes * Has this patient been hospitalized within the prior 30 days at any hospital? Yes Coverage Notice Reviewer: [id number] - Abraham Price Notice Issued Date-Time: 05/13/2019 9:50 Notice Type: Patient Choice Letter Notice Delivered To: Patient Relationship to Patient: Concrete Mixing Plant Laborer Name: Delivery Method: HAND - Hand Delivered Desiree Days: Prior Verbal Notification: Recipient Understood Notice: Yes Recipient Signature: Yes Med Rec Note Co-signed by Attending: Coverage Notice Comment: [facility] Last DP export: 05/13/19 7:17 Patient Name: ANNY HERRERA Page 08855 at 1233 All edits/amendments must be made on the electronic document DICTATION DATE: 05/13/19 1233 CUSTOMER LOYALTY REPRESENTATIVE: ELE 05/13/19 1233 RPT#: [id number] DC DATE: STATUS: ADM IN [facility] [address] [place] [address] END OF REPORT
--- NOTE | 2019-05-13 12:41 | MORECARE ---
CASE MANAGEMENT DISCHARGE SUMMARY PATIENT: ANNY HERRERA UNIT: [id number] ADM DATE: 05/10/19 AGE: 59 : 62 SEX: F ROOM/BED: D.9372 AUTHOR: MAINE,DOC PHYSICIAN: REFERRING PHYSICIAN: KEIKO KELLY MD DATE OF SERVICE: 05/13/19 Discharge Plan Patient Name: ANNY HERRERA Facility: [facility]:[place] : 1960 Planned Disposition: Home with Home Health Anticipated Discharge Date: Discharge Date: Expected LOS: Initial Reviewer: [email or web address] Initial Review Date: 05/12/2019 Generated: 05/13/19 1:40 pm Comments DCP- Discharge Planning Updated by [email or web address]: Abraham Price on 05/13/19 11:[address] Patient Name: ANNY HERRERA Encounter No: [id number] : 1960 [facility] Anticipated DC Date: Planned Disposition: Home with Home Health External Planned Provider: [facility] DCP follow-up note: CM MET WITH PT IN ROOM TO DISCUSS DISCHARGE NEEDS AND PLANNING. CM DISCUSSED AVAILABILITY OF HOME HEALTH, REHAB SERVICES AND MEDICAL EQUIPMENT. PT REPORTS PLAN TO RETURN HOME WITH [facility]. CM ASKED PT TO CONSIDER GOING TO REHAB PRIOR TO DISCHARGE AND TO LET CM EXPLORE THE OPTION FOR HER. PT DECLINED AND SIGNED CONSENT FOR [facility]. PT REPORTS HER SPOUSE AND CHILDREN ARE CARING FOR HER AT HOME AND SHE WILL RETURN THERE AT DISCHARGE, SPOUSE TO TRANSPORT HOME AT DISCHARGE. CM NOTIFIED SLIM OF [facility] WHO WILL NOTIFY HIS OFFICE. CM FAXED REFERRAL TO [facility] AT [phone]. CM SPOKE TO PT TO LET HER KNOW THAT [facility] WOULD ACCEPT BACK, PT INFORMED CM THAT SHE WILL SPEAK TO HER SPOUSE TODAY REGARDING THE POSSIBLITY OF GOING TO REHAB AND WILL LET CM KNOW WHAT THEY DECIDE. FOR DISCHARGE, NOTIFY [facility] FOR RESUMPTION, , FAX DISCHARGE INFORMATION TO [facility] AT [phone]. PT IS CONSIDERING REHAB AND WILL SPEAK TO HER SPOUSE ABOUT IT. CM TO CONTINUE TO FOLLOW AND ASSIST NEEDED. Abraham Dee, CASE MANAGEMENT DCP- Discharge Planning Updated by [email or web address]: Madhavi Malik on 05/12/19 4:[address] Patient Name: ANNY HERRERA Admission Status: ER Accout number: [id number] Admission Date: 05-10-2019 : 1960 Admission Diagnosis: Attending: KEIKO KELLY Current LOS: 2 Anticipated DC Date: Planned Disposition: Primary [facility] SON[facility] Discharge Planning Comments: CM met with patient to complete initial dc planning assessment. CM educated patient on the CM role and verbal consent given by patient to complete assessment. Patient lives at home with her where she is independent with her care. At discharge patient plans to return home and feels this is a safe discharge. CM discussed availability of home health, rehab services, and medical equipment. Patient has a nebulizer, CPAP and home o2 ( LINCARE). Patient states that she has home health and plans to resume care with them, but can't remember provider. CM looked back at previous admission and she had Home Health with [facility]. CM will need to get JELLY signed for [facility]. Patient denied known discharge needs at this time. CM will continue to follow and will assist as needed with dc plans/needs. Warranty Manager: Madhavi Malik DCPIA - Discharge Planning Initial Assessment Updated by [email or web address]: Madhavi Malik on 05/12/19 5:05 pm * Is the patient Alert and Oriented? Yes * How many steps to enter\exit or inside your home? * PCP ANGIE * Pharmacy [facility] * Preadmission Environment Home with Family * ADLs Independent * Other Equipment CPAP, HOME 02 / PORTABLE, NEBULIZER, WALKER * List name and contact numbers for known caregivers / representatives who currently or will assist patient after discharge: ALMA HERRERA - SPOUSE - [phone] * Verbal permission to speak to the caregivers and representatives has been obtained from the patient. Yes * Community resources currently utilized Home Health * Please name any agencies selected above. [facility] PER LAST ADMISSION * Additional services required to return to the preadmission environment? No * Can the patient safely return to the preadmission environment? Yes * Has this patient been hospitalized within the prior 30 days at any hospital? Yes External Providers External Provider: [facility] Next Contact Date: 05/15/2019 Service Request Date: Service Type: Resolution: Reviewer: Comments: Coverage Notice Reviewer: [email or web address] Gabbie Price Notice Issued Date-Time: 05/13/2019 9:50 Notice Type: Patient Choice Letter Notice Delivered To: Patient Relationship to Patient: Steel Molder Name: Delivery Method: HAND - Hand Delivered Desiree Days: Prior Verbal Notification: Recipient Understood Notice: Yes Recipient Signature: Yes Med Rec Note Co-signed by Attending: Coverage Notice Comment: [facility] Last DP export: 05/13/19 11:33 Patient Name: ANNY HERRERA Page 02330 at 1241 All edits/amendments must be made on the electronic document DICTATION DATE: 05/13/191239 TELEVISION SPECIALIST: ELE 05/13/19 1240 RPT#: [id number] DC DATE: STATUS: ADM IN [facility] [address] [place] [address] END OF REPORT
--- NOTE | 2019-05-13 17:07 | NUR ---
FSBS 174. 2 UNITS HUMULIN R ADMINISTERED PER SLIDING SCALE.
[2019-05-13 17:43] VITALS: BP 120/79
--- NOTE | 2019-05-13 19:10 | NUR ---
AWAKE AND ALERT WITH BIPAP IN PLACE ASSISTED WITH COMFORT AND NEEDS BED IS LOW AND LOCKED CALL LIGHT IS WITH PT SR X1
[2019-05-13 20:00] VITALS: BP 109/67
--- NOTE | 2019-05-13 22:30 | NUR ---
I have reviewed this patient and I concur with the Shift Assessment completed by the Licensed Practical Nurse today this shift.
[2019-05-14] VITALS: BP 116/46
[2019-05-14 04:00] VITALS: BP 119/46
[2019-05-14 05:26] LABS: ANION GAP 13.1 mmol/L (8-16); CALCIUM 8.4 mg/dL (8.5-10.1); CARBON DIOXIDE 27.9 mmol/L (21.0-32.0); CREATININE - SERUM 0.9 mg/dL (0.6-1.3)
[2019-05-14 07:21] LABS: BASOPHILS 0.1 % (0-2); EOSINOPHILS 0 % (0-7); HEMATOCRIT 31.8 % (36.0-48.0); HEMOGLOBIN 9.8 g/dL (12-16); IMMATURE GRANULOCYTES 1.1 % (0-5); LYMPHOCYTES 11.5 % (15-50); MCH 27.9 pg (26.0-34.0); MCHC 30.8 g/dL (31.0-37.0); MCV 90.6 fL (80.0-100.0); MEAN PLATELET VOLUME 10.2 fL (7.4-10.4); MONOCYTES 11.7 % (2-11); NEUTROPHILS 75.6 % (40-80); PLATELET COUNT 320 10x3/uL (130-400); RBC 3.51 10x6/uL (4.00-5.40); RDW 15.9 % (11.5-14.5)
[2019-05-14 07:26] LABS: WBC 8.1 10x3/uL (4.8-10.8)
[2019-05-14 08:07] VITALS: BP 121/64
--- NOTE | 2019-05-14 10:06 | NUR ---
PATIENT IS SITTING UP IN BED. DENIES ANY NEEDS AT THIS TIME. PAIN MEDICINE GIVEN PRN ORDERED FOR PAIN. FAMILY AT BEDSIDE.
[2019-05-14 11:05] VITALS: BP 135/59
[2019-05-14 15:16] VITALS: BP 128/47
[2019-05-14 20:00] VITALS: BP 104/48
--- NOTE | 2019-05-14 21:52 | NUR ---
PT RESTING IN BED ON PHONE. RR EVEN AND UNLABORED. NO S/S OF DISTRESS AT THIS TIME. BED LOW CALL LIGHT WITHIN REACH. WILL CONTINUE TO MONITOR.
[2019-05-15] VITALS (7 sets, daily range): BP systolic 103–140; BP diastolic 44–81
--- NOTE | 2019-05-15 03:04 | NUR ---
I have reviewed this patient and I concur with the Shift Assessment completed by the Licensed Practical Nurse today this shift.
[2019-05-15 05:05] LABS: BASOPHILS 0.1 % (0-2); EOSINOPHILS 0 % (0-7); HEMATOCRIT 30.3 % (36.0-48.0); HEMOGLOBIN 9.3 g/dL (12-16); IMMATURE GRANULOCYTES 1.4 % (0-5); LYMPHOCYTES 15.9 % (15-50); MCHC 30.7 g/dL (31.0-37.0); MCV 91.3 fL (80.0-100.0); MEAN PLATELET VOLUME 10.1 fL (7.4-10.4); MONOCYTES 14.5 % (2-11); NEUTROPHILS 68.1 % (40-80); PLATELET COUNT 328 10x3/uL (130-400); RBC 3.32 10x6/uL (4.00-5.40); WBC 8.4 10x3/uL (4.8-10.8)
[2019-05-15 05:12] LABS: ANION GAP 11.3 mmol/L (8-16); CALCIUM 8.5 mg/dL (8.5-10.1); CREATININE - SERUM 0.9 mg/dL (0.6-1.3); POTASSIUM - SERUM 4.3 mmol/L (3.5-5.1)
--- NOTE | 2019-05-15 07:23 | NUR ---
PT RECEIVED SLEEPING IN BED WITH BIPAP IN USE. AWAKES TO VOICE. WAITING ON BREAKFAST. NO COMPLAINTS.
--- NOTE | 2019-05-15 13:55 | NUR ---
Nutrition Follow-up: Reports eating well this AM. Likes Glucerna. Diet: Diabetic PO intake: 25-75% Wt: 104# (05/15); 331# (05/12); 257# (05/10) Last BM: 05/14 Labs noted: Glu 112 Meds noted: Prednisone, Glucotrol, Humulin -+Glucerna with meals. -Need accurate wt. -RD following.
--- NOTE | 2019-05-15 14:34 | MORECARE ---
CASE MANAGEMENT DISCHARGE SUMMARY PATIENT: ANNY HERRERA UNIT: [id number] ADM DATE: 05/10/19 AGE: 59 : 62 SEX: F ROOM/BED: D.3802 AUTHOR: MAINE,DOC PHYSICIAN: REFERRING PHYSICIAN: KEIKO KELLY MD DATE OF SERVICE: 05/15/19 Discharge Plan Patient Name: ANNY HERRERA Facility: [facility]:[place] : 1960 Planned Disposition: Inpatient Rehab Anticipated Discharge Date: Discharge Date: Expected LOS: Initial Reviewer: [id number] Initial Review Date: 05/12/2019 Generated: 05/15/19 3:34 pm Comments DCP- Discharge Planning Updated by [id number]: Abraham Price on 05/13/19 11:[address] Patient Name: ANNY HERRERA Encounter No: [id number] : 1960 [facility] [place] Anticipated DC Date: Planned Disposition: Home with Home Health External Planned Provider: [facility] DCP follow-up note: CM MET WITH PT IN ROOM TO DISCUSS DISCHARGE NEEDS AND PLANNING. CM DISCUSSED AVAILABILITY OF HOME HEALTH, REHAB SERVICES AND MEDICAL EQUIPMENT. PT REPORTS PLAN TO RETURN HOME WITH [facility]. CM ASKED PT TO CONSIDER GOING TO REHAB PRIOR TO DISCHARGE AND TO LET CM EXPLORE THE OPTION FOR HER. PT DECLINED AND SIGNED CONSENT FOR [facility]. PT REPORTS HER SPOUSE AND CHILDREN ARE CARING FOR HER AT HOME AND SHE WILL RETURN THERE AT DISCHARGE, SPOUSE TO TRANSPORT HOME AT DISCHARGE. CM NOTIFIED SLIM OF [facility] WHO WILL NOTIFY HIS OFFICE. CM FAXED REFERRAL TO [facility] AT [phone]. CM SPOKE TO PT TO LET HER KNOW THAT [facility] WOULD ACCEPT BACK, PT INFORMED CM THAT SHE WILL SPEAK TO HER SPOUSE TODAY REGARDING THE POSSIBLITY OF GOING TO REHAB AND WILL LET CM KNOW WHAT THEY DECIDE. FOR DISCHARGE, NOTIFY [facility] FOR RESUMPTION, , FAX DISCHARGE INFORMATION TO [facility] AT [phone]. PT IS CONSIDERING REHAB AND WILL SPEAK TO HER SPOUSE ABOUT IT. CM TO CONTINUE TO FOLLOW AND ASSIST NEEDED. Abraham Price, CASE MANAGEMENT DCP- Discharge Planning Updated by [id number]: Madhavi Malik on 05/12/19 4:[address] Patient Name: ANNY HERRERA Admission Status: ER Accout number: [id number] Admission Date: 05-10-2019 : 1960 Admission Diagnosis: Attending: KEIKO KELLY Current LOS: 2 Anticipated DC Date: Planned Disposition: Primary Insurance: [facility] OPTIONS SNOIA Discharge Planning Comments: CM met with patient to complete initial dc planning assessment. CM educated patient on the CM role and verbal consent given by patient to complete assessment. Patient lives at home with her where she is independent with her care. At discharge patient plans to return home and feels this is a safe discharge. CM discussed availability of home health, rehab services, and medical equipment. Patient has a nebulizer, CPAP and home o2 ( [facility]). Patient states that she has home health and plans to resume care with them, but can't remember provider. CM looked back at previous admission and she had [facility] with [facility]. CM will need to get JELLY signed for [facility]. Patient denied known discharge needs at this time. CM will continue to follow and will assist as needed with dc plans/needs. Gis Database Administrator: Madhavi Malik DCPIA - Discharge Planning Initial Assessment Updated by [email or web address]: Madhavi Malik on 05/12/19 5:05 pm * Is the patient Alert and Oriented? Yes * How many steps to enter\exit or inside your home? * PCP ANGIE * Pharmacy [facility] IN [place] * Preadmission Environment Home with Family * ADLs Independent * Other Equipment CPAP, HOME 02 / PORTABLE, NEBULIZER, WALKER * List name and contact numbers for known caregivers / representatives who currently or will assist patient after discharge: ALMA HERRERA - SPOUSE - [phone] * Verbal permission to speak to the caregivers and representatives has been obtained from the patient. Yes * Community resources currently utilized Home Health * Please name any agencies selected above. [facility] PER LA[facility]MISSION * Additional services required to return to the preadmission environment? No * Can the patient safely return to the preadmission environment? Yes * Has this patient been hospitalized within the prior 30 days at any hospital? Yes Coverage Notice Reviewer: [id number] - Abraham Price Notice Issued Date-Time: 05/13/2019 9:50 Notice Type: Patient Choice Letter Notice Delivered To: Patient Relationship to Patient: Geriatric Nurse Practitioner Name: Delivery Method: HAND - Hand Delivered Desiree Days: Prior Verbal Notification: Recipient Understood Notice: Yes Recipient Signature: Yes Med Rec Note Co-signed by Attending: Coverage Notice Comment: [facility] Last DP export: 05/13/19 11:41 Patient Name: ANNY HERRERA Page [id number] at 1434 All edits/amendments must be made on the electronic document DICTATION DATE: 05/15/19 1434 EPIC TRAINER: ELE 05/15/19 1434 RPT#: [id number] [place] DATE: STATUS: ADM IN [facility] [address] [place] [address] END OF REPORT
--- NOTE | 2019-05-15 14:43 | MORECARE ---
CASE MANAGEMENT DISCHARGE SUMMARY PATIENT: ANNY HERRERA UNIT: [id number] ADM DATE: 05/10/19 AGE: 59 : 62 SEX: F ROOM/BED: D.7884 AUTHOR: MAINE,DOC PHYSICIAN: REFERRING PHYSICIAN: KEIKO KELLY MD DATE OF SERVICE: 05/15/19 Discharge Plan Patient Name: ANNY HERRERA Facility: [facility]:[place] : 1960 Planned Disposition: Inpatient Rehab Anticipated Discharge Date: Discharge Date: Expected LOS: Initial Reviewer: [id number] Initial Review Date: 05/12/2019 Generated: 05/15/19 3:42 pm Comments DCP- Discharge Planning Updated by [id number]: Abraham Price on 05/15/19 1:[address] Patient Name: ANNY HERRERA Encounter No: [id number] : 1960 Primary Insurance: [employer] OPTIONS SONIA Anticipated DC Date: Planned Disposition: Inpatient Rehab External Planned Provider: [facility] IN[facility]IENT [facility] DCP follow-up note: CM SPOKE TO PT IN ROOM REGARDING INPATIENT REHAB PRESCREENING ORDER. PT STATES SHE TALKED TO THE DOCTOR AND NOW WILL GO TO REHAB BEFORE GOING HOME. PT HAS NOT TOLD HER CHILDREN OR GRANDCHILDREN SHE HAS CANCER AND JUST TOLD HER TODAY. PT IS NOT SURE WHAT TREATMENT THE DOCTOR WILL BE ABLE TO DO FOR HER CANCER BUT PT IS STILL WANTING TO FIGHT. CM NOTIFIED [facility] WHO WILL SUBMIT FOR INSURANCE AUTHORIZATION AND ADVISED THAT PT'S INSURANCE WILL TERMINATE ON 05-20-19. CM NOTIFIED PT WHO ASKED CM TO CALL HER SPOUSE. CM CALLED ALMA HERRERA, . ALMA IN AGREEMENT WITH REHAB AND WILL CONTACT INSURANCE COMPANY TO SEE WHAT HE NEEDS TO DO TO KEEP INSURANCE FOR PT. RAMY WAITING INSURANCE DETERMINATION FOR INPATIENT REHAB AT [facility]. WEI Moseley DCP- Discharge Planning Updated by [id number]: Abraham Price on 05/13/19 11:[address] Patient Name: ANNY HERRERA Encounter No: [id number] : 1960 Primary Insurance: [employer] OPTIONS SONIA Anticipated DC Date: Planned Disposition: Home with Home Health External Planned Provider: [facility] DCP follow-up note: CM MET WITH PT IN ROOM TO DISCUSS DISCHARGE NEEDS AND PLANNING. CM DISCUSSED AVAILABILITY OF HOME HEALTH, REHAB SERVICES AND MEDICAL EQUIPMENT. PT REPORTS PLAN TO RETURN HOME WITH [facility]. CM ASKED PT TO CONSIDER GOING TO REHAB PRIOR TO DISCHARGE AND TO LET CM EXPLORE THE OPTION FOR HER. PT DECLINED AND SIGNED CONSENT FOR [facility]. PT REPORTS HER SPOUSE AND CHILDREN ARE CARING FOR HER AT HOME AND SHE WILL RETURN THERE AT DISCHARGE, SPOUSE TO TRANSPORT HOME AT DISCHARGE. CM NOTIFIED SLIM OF [facility] WHO WILL NOTIFY HIS OFFICE. CM FAXED REFERRAL TO [facility] AT [phone]. CM SPOKE TO PT TO LET HER KNOW THAT [facility] WOULD ACCEPT BACK, PT INFORMED CM THAT SHE WILL SPEAK TO HER SPOUSE TODAY REGARDING THE POSSIBLITY OF GOING TO REHAB AND WILL LET CM KNOW WHAT THEY DECIDE. FOR DISCHARGE, NOTIFY [facility] FOR RESUMPTION, , FAX DISCHARGE INFORMATION TO [facility] AT [phone]. PT IS CONSIDERING REHAB AND WILL SPEAK TO HER SPOUSE ABOUT IT. CM TO CONTINUE TO FOLLOW AND ASSIST NEEDED. Abraham Price, CASE MANAGEMENT DCP- Discharge Planning Updated by [id number]: Madhavi Malik on 05/12/19 4:[address] Patient Name: ANNY HERRERA Admission Status: ER Accout number: [id number] Admission Date: 05-10-2019 : 1960 Admission Diagnosis: Attending: KEIKO KELLY Current LOS: 2 Anticipated DC Date: Planned Disposition: Primary Insurance: [employer] PRVT OPTIONS [facility] Discharge Planning Comments: CM met with patient to complete initial dc planning assessment. CM educated patient on the CM role and verbal consent given by patient to complete assessment. Patient lives at home with her where she is independent with her care. At discharge patient plans to return home and feels this is a safe discharge. CM discussed availability of home health, rehab services, and medical equipment. Patient has a nebulizer, CPAP and home o2 ( [facility]). Patient states that she has home health and plans to resume care with them, but can't remember provider. CM looked back at previous admission and she had Home [facility] with [facility]. CM will need to get JELLY signed for [facility]. Patient denied known discharge needs at this time. CM will continue to follow and will assist as needed with dc plans/needs. Biogeographer: Madhavi Malik DCPIA - Discharge Planning Initial Assessment Updated by [id number]: Madhavi Mailk on 05/12/19 5:05 pm * Is the patient Alert and Oriented? Yes * How many steps to enter\exit or inside your home? * PCP ADAMS * Pharmacy [facility] IN [place] * Preadmission Environment Home with Family * ADLs Independent * Other Equipment CPAP, HOME 02 / PORTABLE, NEBULIZER, WALKER * List name and contact numbers for known caregivers / representatives who currently or will assist patient after discharge: ALMA HERRERA - SPOUSE - [phone] * Verbal permission to speak to the caregivers and representatives has been obtained from the patient. Yes * Community resources currently utilized Home Health * Please name any agencies selected above. [facility] * Additional services required to return to the preadmission environment? No * Can the patient safely return to the preadmission environment? Yes * Has this patient been hospitalized within the prior 30 days at any hospital? Yes Coverage Notice Reviewer: [id number] - Abraham Price Notice Issued Date-Time: 05/13/2019 9:50 Notice Type: Patient Choice Letter Notice Delivered To: Patient Relationship to Patient: [employer] Name: Delivery Method: HAND - Hand Delivered Desiree Days: Prior Verbal Notification: Recipient Understood Notice: Yes Recipient Signature: Yes Med Rec Note Co-signed by Attending: Coverage Notice Comment: [facility] Last DP export: 05/15/19 1:34 Patient Name: ANNY HERRERA Page 19793 at 1443 All edits/amendments must be made on the electronic document DICTATION DATE: 05/15/191441 DOG BEHAVIORIST: ELE 05/15/191441 RPT#: [id number] DC DATE: STATUS: ADM IN [facility] [address] [place] [address] END OF REPORT
--- NOTE | 2019-05-15 15:27 | NUR ---
PT WITH SORE TO RIGHT GREAT TOE. NO DRAINAGE, SCABBED, NO DRESSING. SOCK OVER IT AT PRESENT.
--- NOTE | 2019-05-15 16:58 | NUR ---
OT NOTE: PT COMPLETED BED MOB TASK WITH MOD A. PT COMPLETED SIDE ROLLING WITH MOD A OPTIMAL POSITIONING FOR INCREASED SAFETY WITH FEEDING TASKS. PT COMPLETED FACE WASH WITH MIN/MOD A. PT COMPLETED UE AROM AXS. [phone] THANK YOU, PARVEZ SIMPSON
--- NOTE | 2019-05-15 19:45 | NUR ---
PT SITTING UP IN BED ALERT AND ORIENTED X4. RR EVEN AND UNLABORED AT THIS TIME. NO S/S OF DISTRESS. PT DENIES ANY PAIN OR FURTHER NEEDS AT THIS TIME. BED LOW CALL LIGHT WITHIN REACH. WILL CONTINUE TO MONITOR.
[2019-05-16 03:50] VITALS: BP 126/60
--- NOTE | 2019-05-16 07:46 | NUR ---
REPORT RECIEVED. PT SITTING UP IN BED. RR EVEN AND UNLABORED ON 3L NC. SHE HAS A R FA PIV THAT IS SL. BED LOCKED AND IN LOWEST POSITION, CALL LIGHT WTIHIN REACH. WILL CTM
[2019-05-16 09:43] VITALS: BP 127/64
[2019-05-16 12:14] VITALS: BP 128/54
[2019-05-16] MEDS ORDERED: LEXAPRO10 MG PO (12:42)
[2019-05-16] MEDS ORDERED: PULMICORT0.5 MG/21 UPD (12:43)
[2019-05-16] MEDS ORDERED: PROTONIX40 MG PO (12:44)
--- NOTE | 2019-05-16 13:20 | MORECARE ---
CASE MANAGEMENT DISCHARGE SUMMARY PATIENT: ANNY HERRERA UNIT: [id number] ADM DATE: 05/10/19 AGE: 59 : 62 SEX: F ROOM/BED: D.2104 AUTHOR: MAINE,DOC PHYSICIAN: REFERRING PHYSICIAN: KEIKO KELLY MD DATE OF SERVICE: 05/16/19 Discharge Plan Patient Name: ANNY HERRERA Facility: [facility]:[place] : 1960 Planned Disposition: Inpatient Rehab Anticipated Discharge Date: 05/16/19 Discharge Date: Expected LOS: 6 Initial Reviewer: [id number] Initial Review Date: 05/12/2019 Generated: 05/16/19 2:19 pm Comments DCP- Discharge Planning Updated by [id number]: Abraham Price on 05/15/19 1:[address] Patient Name: ANNY HERRERA Encounter No: [id number] : 1960 Primary Insurance: [employer] PR[employer] OPTIONS SONIA Anticipated DC Date: Planned Disposition: Inpatient Rehab External Planned Provider: [facility] INPATIENT [facility] DCP follow-up note: CM SPOKE TO PT IN ROOM REGARDING INPATIENT REHAB PRESCREENING ORDER. PT STATES SHE TALKED TO THE DOCTOR AND NOW WILL GO TO REHAB BEFORE GOING HOME. PT HAS NOT TOLD HER CHILDREN OR GRANDCHILDREN SHE HAS CANCER AND JUST TOLD HER TODAY. PT IS NOT SURE WHAT TREATMENT THE DOCTOR WILL BE ABLE TO DO FOR HER CANCER BUT PT IS STILL WANTING TO FIGHT. CM NOTIFIED [facility] WHO WILL SUBMIT FOR INSURANCE AUTHORIZATION AND ADVISED THAT PT'S INSURANCE WILL TERMINATE ON 05-20-19. CM NOTIFIED PT WHO ASKED CM TO CALL HER SPOUSE. CM CALLED ALMA EHRRERA, . ALMA IN AGREEMENT WITH REHAB AND WILL CONTACT INSURANCE COMPANY TO SEE WHAT HE NEEDS TO DO TO KEEP INSURANCE FOR PT. RAMY WAITING INSURANCE DETERMINATION FOR INPATIENT REHAB AT [facility]. WEI Moseley DCP- Discharge Planning Updated by [id number]: Abraham Price on 05/13/19 11:[address] Patient Name: ANNY HERRERA Encounter No: [id number] : 1960 Primary Insurance: [employer] PRVT OPTIONS SONIA Anticipated DC Date: Planned Disposition: Home with Home Health External Planned Provider: [facility] DCP follow-up note: CM MET WITH PT IN ROOM TO DISCUSS DISCHARGE NEEDS AND PLANNING. CM DISCUSSED AVAILABILITY OF HOME HEALTH, REHAB SERVICES AND MEDICAL EQUIPMENT. PT REPORTS PLAN TO RETURN HOME WITH [facility]. CM ASKED PT TO CONSIDER GOING TO REHAB PRIOR TO DISCHARGE AND TO LET CM EXPLORE THE OPTION FOR HER. PT DECLINED AND SIGNED CONSENT FOR [facility]. PT REPORTS HER SPOUSE AND CHILDREN ARE CARING FOR HER AT HOME AND SHE WILL RETURN THERE AT DISCHARGE, SPOUSE TO TRANSPORT HOME AT DISCHARGE. CM NOTIFIED SLIM OF [facility] WHO WILL NOTIFY HIS OFFICE. CM FAXED REFERRAL TO [facility] AT [phone]. CM SPOKE TO PT TO LET HER KNOW THAT [facility] WOULD ACCEPT BACK, PT INFORMED CM THAT SHE WILL SPEAK TO HER SPOUSE TODAY REGARDING THE POSSIBLITY OF GOING TO REHAB AND WILL LET CM KNOW WHAT THEY DECIDE. FOR DISCHARGE, NOTIFY [facility] FOR RESUMPTION, , FAX DISCHARGE INFORMATION TO [facility] AT [phone]. PT IS CONSIDERING REHAB AND WILL SPEAK TO HER SPOUSE ABOUT IT. CM TO CONTINUE TO FOLLOW AND ASSIST NEEDED. Abraham Price, CASE MANAGEMENT DCP- Discharge Planning Updated by [id number]: Madhavi Malik on 05/12/19 4:[address] Patient Name: ANNY HERRERA Admission Status: ER Accout number: [id number] Admission Date: 05-10-2019 : 1960 Admission Diagnosis: Attending: KEIKO KELLY Current LOS: 2 Anticipated DC Date: Planned Disposition: Primary Insurance: [employer] OPTIONS [employer] Discharge Planning Comments: CM met with patient to complete initial dc planning assessment. CM educated patient on the CM role and verbal consent given by patient to complete assessment. Patient lives at home with her where she is independent with her care. At discharge patient plans to return home and feels this is a safe discharge. CM discussed availability of home health, rehab services, and medical equipment. Patient has a nebulizer, CPAP and home o2 ( [facility]). Patient states that she has home health and plans to resume care with them, but can't remember provider. CM looked back at previous admission and she had [facility] with [facility]. CM will need to get JELLY signed for [facility]. Patient denied known discharge needs at this time. CM will continue to follow and will assist as needed with dc plans/needs. Shift Engineer: Mahdavi Furr DCPIA - Discharge Planning Initial Assessment Updated by [id number]: Madhavi Malik on 05/12/19 5:05 pm * Is the patient Alert and Oriented? Yes * How many steps to enter\exit or inside your home? * PCP ADAMS * Pharmacy [facility] IN [place] * Preadmission Environment Home with Family * ADLs Independent * Other Equipment CPAP, HOME 02 / PORTABLE, NEBULIZER, WALKER * List name and contact numbers for known caregivers / representatives who currently or will assist patient after discharge: ALMA JAVIER - SPOUSE - [phone] * Verbal permission to speak to the caregivers and representatives has been obtained from the patient. Yes * Community resources currently utilized Home Health * Please name any agencies selected above. [facility]ION * Additional services required to return to the preadmission environment? No * Can the patient safely return to the preadmission environment? Yes * Has this patient been hospitalized within the prior 30 days at any hospital? Yes Coverage Notice Reviewer: [id number] - Abraham Price Notice Issued Date-Time: 05/13/2019 9:50 Notice Type: Patient Choice Letter Notice Delivered To: Patient Relationship to Patient: Bender Machine Name: Delivery Method: HAND - Hand Delivered Desiree Days: Prior Verbal Notification: Recipient Understood Notice: Yes Recipient Signature: Yes Med Rec Note Co-signed by Attending: Coverage Notice Comment: [facility] Last DP export: 05/15/19 1:43 Patient Name: ANNY HERRERA Page 33610 at 1320 All edits/amendments must be made on the electronic document DICTATION DATE: 05/16/191318 CHRONOGRAPH OPERATOR: ELE 05/16/191318 RPT#: [id number] DC DATE: STATUS: ADM IN [facility] [address] [place] [address] END OF REPORT
--- NOTE | 2019-05-16 13:28 | MORECARE ---
CASE MANAGEMENT DISCHARGE SUMMARY PATIENT: ANNY HERRERA UNIT: [id number] ADM DATE: 05/10/19 AGE: 59 : 62 SEX: F ROOM/BED: D.2104 AUTHOR: MAINE,DOC PHYSICIAN: REFERRING PHYSICIAN: KEIKO KELLY MD DATE OF SERVICE: 05/16/19 Discharge Plan Patient Name: ANNY HERRERA Facility: [facility]:[place] : 1960 Planned Disposition: Inpatient Rehab Anticipated Discharge Date: 05/16/19 Discharge Date: Expected LOS: 6 Initial Reviewer: [id number] Initial Review Date: 05/12/2019 Generated: 05/16/19 2:28 pm Comments DCP- Discharge Planning Updated by [id number]: Abraham Price on 05/16/19 12:[address] Patient Name: ANNY HERRERA Encounter No: [id number] : 1960 Primary Insurance: [employer]IONS SONIA Anticipated DC Date: 05-16-2019 Planned Disposition: Inpatient Rehab External Planned Provider: [facility] DCP follow-up note: CM SPOKE TO [facility], THEY RECEIVED INSURANCE APPROVAL AND PLAN TO ACCEPT PT TODAY FOR REHAB. PT NOTIFIED, IN AGREEMENT WITH DISCHARGE TO INPATIENT REHAB. LYNDSAY CREWS NOTIFIED WHO PROVIDED DISCHARGE ORDER TO REHAB. CM NOTIFIED SLIM WITH [facility]. [facility] TO CONTACT MED 2 NURSE WITH ROOM NUMBER WHEN READY TO ACCEPT PT AND NURSE REPORT. Abraham Price, CASE MANAGEMENT DCP- Discharge Planning Updated by [email or web address]: Abraham Price on 05/15/19 1:[address] Patient Name: ANNY HERRERA Encounter No: [id number] : 1960 Primary Insurance: [employer] OPTIONS SONIA Anticipated DC Date: Planned Disposition: Inpatient Rehab External Planned Provider: [facility] DCP follow-up note: CM SPOKE TO PT IN ROOM REGARDING INPATIENT REHAB PRESCREENING ORDER. PT STATES SHE TALKED TO THE DOCTOR AND NOW WILL GO TO REHAB BEFORE GOING HOME. PT HAS NOT TOLD HER CHILDREN OR GRANDCHILDREN SHE HAS CANCER AND JUST TOLD HER TODAY. PT IS NOT SURE WHAT TREATMENT THE DOCTOR WILL BE ABLE TO DO FOR HER CANCER BUT PT IS STILL WANTING TO FIGHT. CM NOTIFIED [facility] OF INPAITENT REHAB WHO WILL SUBMIT FOR INSURANCE AUTHORIZATION AND ADVISED THAT PT'S INSURANCE WILL TERMINATE ON 05-20-19. CM NOTIFIED PT WHO ASKED CM TO CALL HER SPOUSE. CM CALLED ALMA HERRERA, . ALMA IN AGREEMENT WITH REHAB AND WILL CONTACT INSURANCE COMPANY TO SEE WHAT HE NEEDS TO DO TO KEEP INSURANCE FOR PT. CM WAITING INSURANCE DETERMINATION FOR INPATIENT REHAB AT [facility]. Abraham Price, CASE MANAGEMENT DCP- Discharge Planning Updated by [id number]: Abraham Price on 05/13/19 11:[address] Patient Name: ANNY HERRERA Encounter No: [id number] : 1960 Primary Insurance: [employer] OPTIONS SONIA Anticipated DC Date: Planned Disposition: Home with Home Health External Planned Provider: [facility] DCP follow-up note: CM MET WITH PT IN ROOM TO DISCUSS DISCHARGE NEEDS AND PLANNING. CM DISCUSSED AVAILABILITY OF HOME HEALTH, REHAB SERVICES AND MEDICAL EQUIPMENT. PT REPORTS PLAN TO RETURN HOME WITH [facility]. CM ASKED PT TO CONSIDER GOING TO REHAB PRIOR TO DISCHARGE AND TO LET CM EXPLORE THE OPTION FOR HER. PT DECLINED AND SIGNED CONSENT FOR [facility]. PT REPORTS HER SPOUSE AND CHILDREN ARE CARING FOR HER AT HOME AND SHE WILL RETURN THERE AT DISCHARGE, SPOUSE TO TRANSPORT HOME AT DISCHARGE. CM NOTIFIED SLIM OF [facility] WHO WILL NOTIFY HIS OFFICE. CM FAXED REFERRAL TO [facility] AT [phone]. CM SPOKE TO PT TO LET HER KNOW THAT [facility] WOULD ACCEPT BACK, PT INFORMED CM THAT SHE WILL SPEAK TO HER SPOUSE TODAY REGARDING THE POSSIBLITY OF GOING TO REHAB AND WILL LET CM KNOW WHAT THEY DECIDE. FOR DISCHARGE, NOTIFY [facility] FOR RESUMPTION, , FAX DISCHARGE INFORMATION TO [facility] AT [phone]. PT IS CONSIDERING REHAB AND WILL SPEAK TO HER SPOUSE ABOUT IT. CM TO CONTINUE TO FOLLOW AND ASSIST NEEDED. Abraham Price, CASE MANAGEMENT DCP- Discharge Planning Updated by [id number]: Madhavi Malik on 05/12/19 4:[address] Patient Name: ANNY HERRERA Admission Status: ER Accout number: [id number] Admission Date: 05-10-2019 : 1960 Admission Diagnosis: Attending: KEIKO KELLY Current LOS: 2 Anticipated DC Date: Planned Disposition: Primary [facility] Discharge Planning Comments: CM met with patient to complete initial dc planning assessment. CM educated patient on the CM role and verbal consent given by patient to complete assessment. Patient lives at home with her where she is independent with her care. At discharge patient plans to return home and feels this is a safe discharge. CM discussed availability of home health, rehab services, and medical equipment. Patient has a nebulizer, CPAP and home o2 ( [facility]). Patient states that she has home health and plans to resume care with them, but can't remember provider. CM looked back at previous admission and she had Home Health with [facility]. CM will need to get JELLY signed for [facility]. Patient denied known discharge needs at this time. CM will continue to follow and will assist as needed with dc plans/needs. Brain Wave Technician: Madhavi Malik DCPIA - Discharge Planning Initial Assessment Updated by [email or web address]: Madhavi Malik on 05/12/19 5:05 pm * Is the patient Alert and Oriented? Yes * How many steps to enter\exit or inside your home? * PCP ANGIE * Pharmacy [facility] * Preadmission Environment Home with Family * ADLs Independent * Other Equipment CPAP, HOME 02 / PORTABLE, NEBULIZER, WALKER * List name and contact numbers for known caregivers / representatives who currently or will assist patient after discharge: ALMA HERRERA - SPOUSE - [phone] * Verbal permission to speak to the caregivers and representatives has been obtained from the patient. Yes * Community resources currently utilized Home Health * Please name any agencies selected above. [facility] PER LAST ADMISSION * Additional services required to return to the preadmission environment? No * Can the patient safely return to the preadmission environment? Yes * Has this patient been hospitalized within the prior 30 days at any hospital? Yes Coverage Notice Reviewer: [id number] Gabbie Price Notice Issued Date-Time: 05/13/2019 9:50 Notice Type: Patient Choice Letter Notice Delivered To: Patient Relationship to Patient: Residential Gas Heat Technician Name: Delivery Method: HAND - Hand Delivered Desiree Days: Prior Verbal Notification: Recipient Understood Notice: Yes Recipient Signature: Yes Med Rec Note Co-signed by Attending: Coverage Notice Comment: [facility] Last DP export: 05/16/19 12:20 Patient Name: ANNY HERRERA Page [phone] at 1328 All edits/amendments must be made on the electronic document DICTATION DATE: 05/16/191327 ATTACHE: ELE 05/16/19 1328 RPT#: [id number] DC DATE: STATUS: ADM IN [facility] [address] [place] [address] END OF REPORT
--- NOTE | 2019-05-16 13:28 | NUR ---
PATIENT DID NOT HAVE A FLU SHOT UPON ADMIT. REFUSED ONE WITH ASKED .
[2019-05-16 16:17] VITALS: BP 117/56
--- NOTE | 2019-05-16 16:17 | NUR ---
OT NOTE: PT COMPLETED BED MOB WITH MOD A. PT REQUIRED MOD A FOR LE MANAGEMENT OFF SIDE OF BED. PT COMPLETE SIT TO STAND WITH SIDE STEPS REQUIRED CGA. PT COMPLETED BUE AROM AXS FOR POSITIONING IN BED. PT COMPLETED HAIR GROOMING AT EOB WITH SET UP. [phone] THANK YOU,PARVEZ SIMPSON
--- NOTE | 2019-05-16 16:20 | NUR ---
REPORT CALLED TO REHAB. SPOKE TO CLAUDIA.
--- NOTE | 2019-05-16 17:08 | NUR ---
PT TAKEN TO REHAB VIA WHEELCHAIR. PT HAS A MCCULLOUGH AND A Jeferson STONER PIV THAT IS SL. CLAUDIA SHOEMAKER SAID TO LEAVE IV IN.
--- NOTE | 2019-05-19 10:02 | CN ---
PATIENT NAME:ANNY CALVILLO MEDICAL RECORD: [id number] : 62 LOCATION:D.M2 D.2104 ADMIT DATE: 05/10/19 ACCOUNT: [id number] CONSULTING PHYSICIAN: ROOPA BRYANT MD REFERRING PHYSICIAN: KEIKO CASTRO MD DATE OF CONSULTATION: 05/11/2019 CONSULTATION REQUESTING PHYSICIAN: Keiko Castro MD REASON FOR CONSULTATION: Iyipi-cd-kwhrtfs hypoxic hypercapnic respiratory failure and respiratory acidosis. HISTORY OF PRESENT ILLNESS: Ms. Calvillo is a 59-year-old female who has a history of COPD, obesity, CA of the breast with metastasis to the bone, obstructive sleep apnea, chronic hypoxic respiratory failure. The patient was in respiratory failure, intubated in March of this year. The patient was initially admitted to the medical floor 2 days ago with dark colored stool. She is requiring narcotics for chronic pain. Yesterday, the patient became dyspneic and mental status changes. ABG was done and the pH was 7.14 and the pCO2 was 82.5. The patient was transferred to the ICU and put on BiPAP and now she is more awake and alert. Denies any cough. There is no sputum production. She does have shortness of breath with exertion. REVIEW OF SYSTEMS: Mainly in the history of present illness. PAST MEDICAL HISTORY: 1. Obstructive sleep apnea. 2. Congestive heart failure with the EF of 40%. 3. Chronic obstructive pulmonary disease. 4. Chronic hypoxic respiratory, on home oxygen 2 liters nasal cannula. 5. Coronary artery disease. 6. Hypertension. 7. Hyperlipidemia. 8. Ex-smoker. PAST SURGICAL HISTORY: 1. Cholecystectomy. 2. Tubal ligation. 3. Bilateral mastectomy. ALLERGIES: SHE IS ALLERGIC TO XANAX AND LYRICA. MEDICATIONS: [employer] is reviewed. PERSONAL AND SOCIAL HISTORY: The patient is an ex-smoker. She is a nondrinker. FAMILY HISTORY: Noncontributory. PHYSICAL EXAMINATION: GENERAL: Now, the patient is lying comfortably in bed. She is not in acute distress. VITAL SIGNS: The blood pressure is 132/66, pulse is 89, respirations 17, temperature is 98.5, SpO2 95% to 98% on 3 liters nasal cannula. HEENT: Conjunctivae are pink. Sclerae are not icteric. NECK: Supple, no JVD. CONSULT REPORT [id number] ANNY CALVILLO CHEST: The chest excursion is minimal on both sides. There are wheeze on forceful expiration. No crackles. HEART: Rhythm regular, normal sound, no murmur. ABDOMEN: Soft, bowel sounds present. No hepatosplenomegaly. RECTAL: Deferred. EXTREMITIES: No cyanosis, no clubbing. There are 1+ pedal edema. CENTRAL NERVOUS SYSTEM: The patient is awake and alert. There are no obvious cranial nerve abnormality. The gait was not tested. Now, the patient will oriented to time and space. LABORATORY DATA: ABG: The pH is 7.14, pCO2 was 82.5, pO2 was 68, bicarbonate is 28.5. CBC: WBC 9.4, hemoglobin 9.8, hematocrit 32.4, the platelet count is 250. Chemistry: Sodium 135, potassium 4.8, BUN is 28, creatinine 1.6. AST is 88, ALT is 123, alkaline phosphatase 129. The total bilirubin is 0.41. Albumin is 2.9. D-dimer were negative. IMPRESSION: 1. Kkhgg-xx-fyaxnim hypoxic hypercapnic respiratory failure, most likely secondary to narcotics, most likely obesity hypoventilation with obstructive sleep apnea. 2. Respiratory acidosis. 3. Acute exacerbation of chronic obstructive pulmonary disease. 4. Obstructive sleep apnea. 5. Obesity hypoventilation syndrome. 6. Chronic kidney disease 7. History of CA of breast with bone metastasis, status post bilateral mastectomy. 8. High liver enzymes. RECOMMENDATION: 1. BiPAP at night and during the day when the patient is tiring out at the present setting. 2. Supplemental nasal cannula oxygen. 3. Albuterol/ipratropium nebulizer. 4. Brovana/budesonide nebulizer. 5. Start methylprednisolone IV. 6. Adjust the dose of Levaquin. 7. DVT prophylaxis. 8. Follow up labs and chest radiograph. 9. Check TSH and ammonia level and follow up on the LFTs. Dr. Castro, thank you for involving me in the care of Ms. Calvillo. TRANSINT:[id number] Voice Confirmation ID: [id number] DOCUMENT ID: [id number] ROOPA BRYANT MD at 1002 CC: [id number] DICTATION DATE: 05/11/19 1407 TRUCK BODY BUILDER APPRENTICE: 05/11/19 1617 DIS IN 05/16/19 [facility] [address] [place] [address]
== END 2019-05-16 17:10 | DRG 811 ==
LOC: D.ER 10:42 → D.MS 13:26 → OBSVTIME 13:26 → D.ICU 05-10 14:11 → D.M2 05-10 14:11 → D.MS 05-10 14:11 → D.ICU 05-10 20:45 → D.M2 05-12 15:00
PROVIDERS: Family Medicine; Internal Medicine Pulmonary Disease; ADMIT Internal Medicine Nephrology; ATTEND Internal Medicine Nephrology
DX: D64.9 Anemia, unspecified (principal); J96.22 Acute and chronic respiratory failure with hypercapnia; J96.21 Acute and chronic respiratory failure with hypoxia; N39.0 Urinary tract infection, site not specified; K92.2 Gastrointestinal hemorrhage, unspecified; I50.22 Chronic systolic (congestive) heart failure; N17.9 Acute kidney failure, unspecified; C79.51 Secondary malignant neoplasm of bone; J44.1 Chronic obstructive pulmonary disease with (acute) exacerbation; E66.2 Morbid (severe) obesity with alveolar hypoventilation; Z68.43 Body mass index [BMI] 50.0-59.9, adult; I13.0 Hypertensive heart and chronic kidney disease with heart failure and stage 1 through stage 4 chronic kidney disease, or unspecified chronic kidney disease; Z99.81 Dependence on supplemental oxygen; F32.9 Major depressive disorder, single episode, unspecified; K59.00 Constipation, unspecified; G47.00 Insomnia, unspecified; E78.5 Hyperlipidemia, unspecified; N18.9 Chronic kidney disease, unspecified

== ENCOUNTER 2019-05-16 16:02 | Inpatient (IN) | payer MEDICAID ==
--- NOTE | 2019-05-13 23:30 | NUR ---
QUIET HOURS. PT LYING IN BED EYES CLOSED RESTING. RR EVEN AND UNLABORED. CPAP IN USE. CL IN REACH
[~2019-05-16] VITALS: Ht 149.9 cm; Wt 104.3 kg
--- NOTE | ~2019-05-16 | RHP ---
PATIENT: ANNY HERRERA MEDICAL RECORD: [id number] ACCOUNT: [id number] LOCATION:[facility]1118 : [birth year] ADMISSION DATE: 05/16/19 REHABILITATION HISTORY AND PHYSICAL EXAMINATION POST ADMISSION PHYSICIAN EXAMINATION ADMITTING DIAGNOSIS: Respiratory failure. HISTORY OF PRESENT ILLNESS: The patient is a 59-year-old female patient who presented to the Emergency Room on 05/09/2019 with complaints of abdominal pain and black stools. Her symptoms have been going on for about a week. She was discharged from the hospital on 05/01/2019 where she had been in for UTI. States that the pain came on suddenly and she was in constant pain at times. It was exacerbated by palpation and moving. Chest x-ray showed no acute findings. CT of her abdomen and pelvis showed stable, multifocal, mixed lytic/sclerotic bone lesion seen in skeletal regions. She has a history of CHF, got a history of breast cancer status post mastectomy with bone mets, peripheral neuropathy, depression, anxiety and insomnia. She was admitted for telemetry bed. On 05/10/2019, she became lethargic and had labored respirations. Had a sat of 81% on 4 liters. She was transferred to the ICU. X-rays of her chest showed a mildly enlarged heart with slightly increased perihilar vascular congestion. The patient had pulmonary and oncology consult. During her stay, she was placed on BiPAP at 40% and had recovery, satting 97%, pulmonary inspiration. Impression was acute hypoxic hypercapnic respiratory failure and respiratory acidosis. She was started on BiPAP at night and during the day. The patient was tired out at certain settings, supplemental O2 has been applied. She is actually doing somewhat better. She has been on methylprednisolone IV. She is on Levaquin. DVT prophylaxis. Followup chest x-rays and treatment. The patient has slowly improved, was transferred out of ICU on 05/13/2019. I believe she was living with her spouse, was moderately independent with rolling walker and O2 for ADLs and mobility. Currently, she is mod to max assist for ADLs and mobility. She has low endurance, generalized weakness, fatigue and tires out easily. She wants to be able to return home at her prior level of functioning. COMORBIDITIES: Include acute kidney injury, coronary artery disease, debility, diabetes, acute respiratory failure, anemia, COPD, fatigue, peripheral neuropathy and weakness. PAST MEDICAL HISTORY: Significant for CVA in the past, diabetes, hyperlipidemia. She has got a history of breast cancer, COPD. PAST SURGICAL HISTORY: Includes a gallbladder surgery, tubal ligation. She has had coronary artery bypass grafting, coronary stents and mastectomy. ALLERGIES: XANAX AND LYRICA. CURRENT MEDICATIONS: Include nystatin cream as needed; Calmoseptine; she is on Nolvadex 20 mg daily; she is on nifedipine XL 30 mg daily; Lexapro 10 mg daily; Plavix 75 mg daily; Glucotrol-XL 10 mg daily; Coreg 6.125 mg b.i.d. with meals; Ventolin updrafts as needed; Protonix 40 mg b.i.d.; she is on a low-resistant sliding scale with Humulin; she is on Neurontin 900 mg t.i.d.; Pulmicort 0.5 mg b.i.d.; Brovana 15 mcg b.i.d.; Zanaflex 8 mg at bedtime; DuoNeb updrafts and Wild Horse 10/325 one tab q.i.d. p.r.n. HISTORY AND PHYSICAL [id number] ANNY HERRERA HABITS: No current alcohol or tobacco use. FAMILY HISTORY: Noncontributory. SOCIAL HISTORY: The patient hopes to return back home with her spouse and get back to her prior level of functioning. REVIEW OF SYSTEMS: GENERAL: Does complain of some weakness and fatigue. HEENT: Denies cold, cough, or congestion. CARDIOVASCULAR: Denies any chest pain. LUNGS: Does complain of some shortness of breath at times. PHYSICAL EXAMINATION: VITAL SIGNS: Stable. She is afebrile. GENERAL: A somewhat obese female, in no acute distress upon exam. HEENT: Normocephalic and atraumatic. Mucosa moist. NECK: Supple. No lymphadenopathy. LUNGS: Clear in upper hdz. She does have decreased breath sounds in both bases. HEART: Regular rate and rhythm. No murmurs, rubs or gallops. ABDOMEN: Soft, benign and nondistended. Positive bowel sounds times 4. EXTREMITIES: No clubbing, cyanosis or edema. NEUROLOGIC: She does have noted proximal muscle weakness. LABORATORY DATA: Her white count is 11,000, H&H of 9.9 and 32.1 and platelet count is 316. Sodium 139, potassium 4.2, BUN and creatinine of 38 and 0.8 and blood sugar is noted to be 129. ASSESSMENT: This is a 59-year-old female patient admitted to rehab with a working diagnosis of respiratory failure and debility from this. The patient has potential to make improvement. We instituted the following multidisciplinary therapies include, but not limited to physical, occupational, respiratory, speech, nutritional services, prosthetics and orthotics. Given her complex medical condition and risks for more complications, rehabilitation services cannot be provided at a low level of care such as skilled nurse facility. PLAN: 1. Admit to [facility] for intensive inpatient therapy to include the following disciplines; A. Physical therapy to improve gait, all transfer skills and bed mobility to a modified independent level. B. Occupational therapy to a modified independent level. C. Case management to assist with discharge planning and placement options. D. Nutrition to assist with nutritional needs. E. Rehabilitation nursing to assist in monitoring the patient's underlying medical conditions and to assist with any type of bowel or bladder management. 2. The patient's current medication and medical care will be continued. 3. The patient will be placed on standard fall precautions. 4. The patient's estimated length of stay is approximately 7-10 days. 5. We will discuss this patient during care team staff meeting this week. TRANSINT:[id number] Voice Confirmation ID: [id number] DOCUMENT ID: [id number] 05/22/2019 Edited for earlene SALVADOR. HISTORY AND PHYSICAL [id number] ANNY HERRERA notes whether there has been none or any medical/functional change since admission: - No change since preadmission screen. MODESTO attests patient continues to be appropriate for IRF: - Continues to be appropriate. MARKOS CORREA MD CC: [id number] DICTATION DATE: 05/17/19 1247 INDUSTRIAL HYGIENE MANAGER: 05/17/19 1357 ADM IN [facility] [address] [place] [address]
[~2019-05-16 16:02] MED LIST changes: +LEXAPRO10 MG PO; +PROCARDIA XL30 MG PO; +PULMICORT0.5 MG/21 UPD; +TAMOXIFEN CITRA20 MG PO
--- NOTE | 2019-05-16 19:40 | NUR ---
BEDSIDE REPORT COMPLETE. PT LYING IN BED WATCHING TV. ALERT AND ORIENTED X4. C/O GENERALIZED PAIN 11/27 WILL ADMINISTER PAIN MEDS ACCORDING TO ORDERS. ORIENTATED TO UNIT, FUNCTIONS OF REMOTE AND EXPECTATIONS OF UNIT. PT STATES THAT IF SHE HURTS IN THE MORNING THAT SHE WILL NOT GET UP TO DO THERAPY AND WE CANT MAKE HER. I INFORMED PT THAT NO WE CAN NOT MAKE HER DO THERAPY BUT SHE SHOULD MAKE AN EFFORT TO AT LEAST TRY. PT STATES "SHE WILL THINK ABOUT IT". CL IN REACH. FALL PRECAUTIONS IN PLACE. WILL CONTINUE TO MONITOR
--- NOTE | 2019-05-16 23:02 | NUR ---
UNCLAMMPED MCCULLOUGH
[2019-05-16 23:44] VITALS: BP 99/55; BMI 46.5
--- NOTE | 2019-05-17 03:37 | NUR ---
PT LYING IN BED EYES CLOSED RESTING. RR EVEN AND UNLABORED. CL IN REACH
[2019-05-17 05:55] LABS: BASOPHILS 0.1 % (0-2); EOSINOPHILS 0.3 % (0-7); HEMATOCRIT 32.1 % (36.0-48.0); HEMOGLOBIN 9.9 g/dL (12-16); IMMATURE GRANULOCYTES 1.9 % (0-5); LYMPHOCYTES 14.4 % (15-50); MCH 27.9 pg (26.0-34.0); MCHC 30.8 g/dL (31.0-37.0); MCV 90.4 fL (80.0-100.0); MEAN PLATELET VOLUME 10.1 fL (7.4-10.4); MONOCYTES 11.2 % (2-11); NEUTROPHILS 72.1 % (40-80); PLATELET COUNT 316 10x3/uL (130-400); RBC 3.55 10x6/uL (4.00-5.40); RDW 15.9 % (11.5-14.5); WBC 11.2 10x3/uL (4.8-10.8)
--- NOTE | 2019-05-17 06:11 | NUR ---
PT SITTING UP IN BED PARTICIPATING IN PT WITH JESUS
[2019-05-17 06:23] LABS: CALC OSMOLALITY 288 mosm/kg (275-300); CALCIUM 8.5 mg/dL (8.5-10.1); CHLORIDE - SERUM 106 mmol/L (98-107); CREATININE - SERUM 0.8 mg/dL (0.6-1.3); GLUCOSE 129 mg/dL (74-106); POTASSIUM - SERUM 4.2 mmol/L (3.5-5.1); SODIUM 139 mmol/L (136-145); UREA NITROGEN 38 mg/dL (7-18); eGFR NON AFRICAN AMERICAN 78 mL/min (90-120)
[2019-05-17 06:27] LABS: CARBON DIOXIDE 27.7 mmol/L (21.0-32.0)
[2019-05-17 08:00] VITALS: BP 154/98
--- NOTE | 2019-05-17 09:50 | NUR ---
HAS BEEN UP WORKING WITH THERAPY THIS MORNING. NOW BACK IN ROOM SITTING IN WC WATCHING TV. STATED SHE IS CONSIDERING HOSPICE AT THIS TIME AND WANTS TO TALK TO HER . NURSE ANSWERED QUESTIONS AND OFFERED TO PROVIDE MORE INFO IF PT REQUESTED IT. CALL LIGHT IN REACH
--- NOTE | 2019-05-17 13:01 | NUR ---
SITTING IN WC IN ROOM FINISHING LUNCH. DENIES INCREASED PAIN OR SOB. CALL LIGHT IN REACH
[2019-05-17 13:50] VITALS: Ht 149.9 cm; Wt 104.3 kg
--- NOTE | 2019-05-17 15:33 | NUR ---
HAS SAT IN WC MOST OF DAY. MAX ASST X2 TO TRANSFER TO TOILET, WC AND BED. TIRES VERY EASILY. OXYGEN IN PLACE ORDERED. DENIES INCREASE OF PAIN OR SOB. KIM LIGHT IN REACH
--- NOTE | 2019-05-17 16:58 | NUR ---
RESTING QUIETLY IN BED. NO S/S DISTRESS. CALL LIGHT IN REACH. HEAD OF BED ELEVATED TO 45 DEGREES. WEARING OXYGEN BUT NOT CPAP AT PRESENT. CALL LIGHT IN REACH
[2019-05-17 19:15] VITALS: BP 126/65
--- NOTE | 2019-05-17 19:15 | NUR ---
BEDSIDE REPORT COMPLETE. PT SITTING UP IN BED VISITING WITH FAMILY. DENIES ANY NEEDS. C/O GENERALIZED MILD DISCOMFORT. CONTINUES ON 3L VIA HF NC. VS STABLE. SHIFT ASSESSMENT COMPLETE. CL IN REACH. FALL PRECAUTIONS IN PLACE. WILL CONTINUE TO MONITOR
--- NOTE | 2019-05-17 23:48 | NUR ---
QUIET HOURS. PT LYING IN BED EYES CLOSED RESTING QUIETLY. RR EVEN AND UNLABORED. BIPAP IN USE. CL IN REACH
--- NOTE | 2019-05-18 01:56 | NUR ---
PT LYING IN BED WATCHING TV. C/O HOT FLASHES CHECKED BS 145. DENIES ANY OTHER NEEDS OR PAIN. RR EVEN AND UNLABORED. CONTINUES ON 3L VIA NC. CL IN REACH
--- NOTE | 2019-05-18 05:02 | NUR ---
PT LYING IN BED EYES CLOSED RESTING COMFORTABLY. RR EVEN AND UNLABORED. CL IN REACH.
--- NOTE | 2019-05-18 06:15 | NUR ---
CHANGED SOILED CHUX. PLACED PT ON BEDPAN. PT VOIDED MODERATE AMOUNT AND SMALL FORMED BM. DENIES ANY OTHER NEEDS. PLACED PT ON BIPAP PER PT REQUEST. CL IN REACH
[2019-05-18 14:22] VITALS: BP 96/46
[2019-05-18 19:30] VITALS: BP 99/41
--- NOTE | 2019-05-18 19:30 | NUR ---
BEDSIDE REPORT COMPLETE. PT LYING IN BED WATCHING TV. C/O GENERALIZED PAIN 10/28 INFORMED PT UNABLE TO ADMININSTER PAIN MEDICATION D/T BEING TO EARLY. PT VERBALIZED UNDERSTANDING. REPOSITIONED PT. VS STABLE. SHIFT ASSESSMENT COMPLETE. CL IN REACH. BIPAP IN USE. FALL PRECAUTIONS IN PLACE. WILL CONTINUE TO MONITOR.
--- NOTE | 2019-05-19 00:07 | NUR ---
QUIET HOURS. PT LYING IN BED EYES CLOSED RESTING. BIPAP IN USE. NO SIGNS OF ACUTE DISTRESS NOTED. CL IN REACH
--- NOTE | 2019-05-19 03:56 | NUR ---
PT LYING IN BED SUPINE EYES CLOSED RESTING. CONTINUES ON 3L VIA NC. RR EVEN AND UNLABORED. CL IN REACH
[2019-05-19 06:15] LABS: BASOPHILS 0.1 % (0-2); EOSINOPHILS 1.1 % (0-7); HEMATOCRIT 29.6 % (36.0-48.0); IMMATURE GRANULOCYTES 1.4 % (0-5); LYMPHOCYTES 18.4 % (15-50); MCH 27.8 pg (26.0-34.0); MCHC 30.4 g/dL (31.0-37.0); MCV 91.4 fL (80.0-100.0); MEAN PLATELET VOLUME 10.2 fL (7.4-10.4); MONOCYTES 8.9 % (2-11); NEUTROPHILS 70.1 % (40-80); PLATELET COUNT 271 10x3/uL (130-400); RBC 3.24 10x6/uL (4.00-5.40); RDW 16.3 % (11.5-14.5); WBC 10.2 10x3/uL (4.8-10.8)
--- NOTE | 2019-05-19 06:15 | NUR ---
INCONTINENCY CARE PERFORMED AND BED LINEN CHANGED. PT PLACED ON BIPAP. CL IN REACH
[2019-05-19 06:29] LABS: CALC OSMOLALITY 293 mosm/kg (275-300); CALCIUM 8.1 mg/dL (8.5-10.1); CARBON DIOXIDE 29.6 mmol/L (21.0-32.0); CHLORIDE - SERUM 107 mmol/L (98-107); CREATININE - SERUM 0.8 mg/dL (0.6-1.3); GLUCOSE 114 mg/dL (74-106); POTASSIUM - SERUM 4.3 mmol/L (3.5-5.1); SODIUM 143 mmol/L (136-145); UREA NITROGEN 35 mg/dL (7-18); eGFR NON AFRICAN AMERICAN 78 mL/min (90-120)
[2019-05-19 08:00] VITALS: BP 167/104
--- NOTE | 2019-05-19 08:00 | NUR ---
PATIENT IS ALERT/ORIENT. SITTING UP IN WHEELCHAIR TO EAT BREAKFAST. VOICES NO NEEDS AT THIS TIME. WILL CONTINUE WITH PLAN OF CARE
--- NOTE | 2019-05-19 10:41 | NUR ---
PATIENT WORKING WITH PHYSICAL THERAPIST. DENIES ANY PAIN/DISC AT THIS TIME.
--- NOTE | 2019-05-19 11:32 | NUR ---
PRN PAIN MEDICATION GIVEN TO PATIENT PER PATIENT REQUEST
--- NOTE | 2019-05-19 14:26 | NUR ---
PATIENT ADMITTED TO REHAB FROM ACUTE FLOOR. HER PCP IS DR. ADAMS. DME AT HOME IS A C-PAP, O2 AND A WALKER. SHE IS A CLIENT OF [address] WILL CONTINUE TO FOLLOW WITH PATIENT.
--- NOTE | 2019-05-19 19:05 | NUR ---
BEDSIDE REPORT COMPLETE. PT SITTING UP IN W/C WATCHING TV. DENIES ANY NEEDS OR PAIN. RR EVEN AND UNLABORED. CONTINUES ON 3L VIA NC. CL IN REACH. FALL PRECAUTIONS IN PLACE. WILL CONTINUE TO MONITOR
[2019-05-19 21:14] VITALS: BP 147/80
--- NOTE | 2019-05-20 00:40 | NUR ---
QUIET HOURS. PT LYING IN BED EYES CLOSED RESTING QUIETLY. RR EVEN AND UNLABORED. CL IN REACH
--- NOTE | 2019-05-20 03:48 | NUR ---
PT LYING IN BED EYES CLOSED RESTING. BIPAP IN USE. RR EVEN AND UNLABORED. CL IN REACH
--- NOTE | 2019-05-20 05:49 | NUR ---
PT LYING IN BED EYES CLOSED RESTING. NO SIGNS OF ACUTE DISTRESS NOTED. CL IN REACH
--- NOTE | 2019-05-20 07:34 | NUR ---
PT RESTING IN BED WITH EYES OPEN CALL LIGHT IN REACH WILL MONITER
--- NOTE | 2019-05-20 13:18 | NUR ---
CARE TEAM MEETING: PATIENT IS NEW TO UNIT AND WILL BE RA AT NEXT MEETING. WILL CONTINUE TO FOLLOW WITH PATIENT.
--- NOTE | 2019-05-20 14:08 | NUR ---
Nutrition Follow-up: Diet: Diabetic PO intake: ~58% average x last 6 meals. States that her appetite is not the greatest. She ate only her cheeseburger today. She likes guzman. She wants Glucerna with meals. Last BM: 05/19/19. WT: 230# (05/17/19) Meds noted: glipizide, SSI. Labs noted: POC Glu 150. Recommend continue current diet. Will add Glucerna to meal trays per patient request. Will continue to monitor PO intake and wt trend. RD following.
--- NOTE | 2019-05-20 18:16 | NUR ---
PT RESTING IN BED WITH EYES OPEN CALL LIGHT IN REACH NO PROBLEMS WILL MONITER
--- NOTE | 2019-05-20 19:45 | NUR ---
PATIENT RECEIVED SITTING UP IN WHEELCHAIR. ASSESSMENT & VITAL SIGNS DONE. PATIENT TOILETED & HAD VOID & BM. PATIENT CHANGED INTO GOWN & TRANSFERRED INTO BED WITH MOD ASSIST. BED LOW. CALL LIGHT WITHIN REACH. ALARM ON. WILL CONTINUE TO MONITOR.
[2019-05-20 21:13] VITALS: BP 178/83
--- NOTE | 2019-05-21 00:22 | NUR ---
I have reviewed this patient and I concur with the Shift Assessment completed by the Licensed Practical Nurse today this shift.
--- NOTE | 2019-05-21 04:26 | NUR ---
PATIENT EYES CLOSED. RESPIRATIONS 18 & EVEN. O2NC ON. PATIENT REFUSED BIPAP. BED LOW. ALARM ON. CALL LIGHT WITHIN REACH.WILL CONTINUE TO MONITOR.
[2019-05-21 06:16] LABS: BASOPHILS 0.2 % (0-2); EOSINOPHILS 1.2 % (0-7); HEMATOCRIT 29.8 % (36.0-48.0); HEMOGLOBIN 9.2 g/dL (12-16); LYMPHOCYTES 14.5 % (15-50); MCH 28.4 pg (26.0-34.0); MCHC 30.9 g/dL (31.0-37.0); MEAN PLATELET VOLUME 10.5 fL (7.4-10.4); MONOCYTES 10.1 % (2-11); PLATELET COUNT 251 10x3/uL (130-400); RBC 3.24 10x6/uL (4.00-5.40); RDW 16.2 % (11.5-14.5)
[2019-05-21 06:30] LABS: CALCIUM 8.9 mg/dL (8.5-10.1); CARBON DIOXIDE 30.6 mmol/L (21.0-32.0); CREATININE - SERUM 0.9 mg/dL (0.6-1.3); POTASSIUM - SERUM 4.6 mmol/L (3.5-5.1)
[2019-05-21 08:00] VITALS: BP 119/60
--- NOTE | 2019-05-21 08:15 | NUR ---
PT RESTING IN BED WITH EYES OPEN CALL LIGHT IN REACH WILL MONITER
--- NOTE | 2019-05-21 19:47 | NUR ---
REPORT RECIEVED AND ROUNDING COMPLETE. PATIENT SITTING UP IN HER WHEEL CHAIR. PATIENT COMPLAINS OF HAVING HEART BURN, ASKED FOR A SODA TO HELP. PATIENT WEARING O2 AT 3L. PATIENT HAS NO OTHER NEEDS AT THIS TIME. PATIENT SHOWS NO S/SX OF DISTRESS AT THIS TIME. CALL LIGHT WITHIN REACH AND BED IN LOWEST LOCKED POSITION.
[2019-05-21 20:43] VITALS: BP 142/75
--- NOTE | 2019-05-21 22:22 | NUR ---
ASSISTED PATIENT TO THE BATHROOM AND THEN BACK TO BED. PATIENT SITTING UP ON THE SIDE OF BED. PATIENT UPSET THAT SHE WAS PRESCRIBED A WATER PILL AT NIGHT. PATIENT STATES SHE WILL BE GETTING NO SLEEP.
--- NOTE | 2019-05-21 23:32 | NUR ---
PATIENT CALLED AND WANTED HELP TO GET HER LEGS IN BED TO LAY DOWN. ASSISTED PATIENT WITH THIS. ASKED IF I COULD ASSIST HER WITH PUTTING HER BIPAP ON AND SHE STATED SHE DIDNT WANT TO WEAR IT AT THIS TIME. SHE SAID SHE WOULD CALL WHEN SHE WAS READY TO WEAR IT.
--- NOTE | 2019-05-22 00:25 | NUR ---
I have reviewed this patient and I concur with the Shift Assessment completed by the Licensed Practical Nurse today this shift.
--- NOTE | 2019-05-22 02:59 | NUR ---
PATIENT REQUESTED PAIN MED. ADMINISTERED PER MAR. PATIENT ASKED TO BE TAKEN OFF BIPAP AT THIS TIME. NASAL CANNULA PLACED BACK ON PATIENT.
--- NOTE | 2019-05-22 07:36 | NUR ---
REPORT RECIEVED. PT RESTING QUIETLY WITH EYES CLOSED. RISE AND FALL OF CHEST NOTED. RR EVEN AND UNLABORED ON BIPAP. BED LOCKED AND IN LOWEST POSITION, CALL LIGHT WITHIN REACH. WILL CTM
[2019-05-22 08:00] VITALS: BP 90/58
--- NOTE | 2019-05-22 15:03 | NUR ---
Nutrition Follow-up: Diet: Diabetic + Glucerna with meals PO intake: ~63% average x last 12 meals. Reports appetite is "okay", she is drinking Glucerna. Last BM: 05/21/19 x 2. WT: 230# (05/17/19) Meds noted: lasix, glipizide, SSI. Labs noted: POC Glu 141mg/dL. Continue current diet. RD following.
--- NOTE | 2019-05-22 15:06 | NUR ---
CLINICAL UPDATES FAXED TO [facility] , FAXED TO , AUTH. #[id number] WITH CONFORMATION RECIEVED
--- NOTE | 2019-05-22 15:31 | NUR ---
PRN PAIN MEDICATION GIVEN FOR GENERAL ALL OVER PAIN/DISC
--- NOTE | 2019-05-22 19:57 | NUR ---
PATIENT RECEIVED SITTING UP IN WHEELCHAIR. ASSESSMENT & VITAL SIGNS DONE. NO C/O PAIN OR DISTRESS. CALL LIGHT WITHIN REACH. WILL CONTINUE TO MONITOR.
[2019-05-22 20:24] VITALS: BP 123/64
--- NOTE | 2019-05-23 00:07 | NUR ---
I have reviewed this patient and I concur with the Shift Assessment completed by the Licensed Practical Nurse today this shift.
--- NOTE | 2019-05-23 04:12 | NUR ---
PATIENT C/O GENERALIZED PAIN & MUSCLE SPASMS. PATIENT GIVEN HER PERCOCET & ZANAFLEX. PATIENT TOILETED & RETURNED TO BED. CALL LIGHT WITHIN REACH. WILL CONTINUE TO MONITOR.
[2019-05-23 07:21] VITALS: BP 104/45
--- NOTE | 2019-05-23 17:01 | NUR ---
PT RESTING IN BED WITH EYES OPEN CALL LIGHT IN REACH NO PROBLEMS WILL MONITER
--- NOTE | 2019-05-23 17:04 | NUR ---
PT RESTING IN BED WITH EYES OPEN CALL LIGHT IN REACH WILL MONITER
[2019-05-23 19:10] VITALS: BP 121/57
--- NOTE | 2019-05-23 19:10 | NUR ---
BEDSIDE REPORT COMPLETE. PT SITTING UP IN W/C WATCHING TV. DENIES ANY NEEDS. C/O GENERALIZED PAIN 10/28 WILL ADMINISTER PAIN MEDS ACCORDINGLY. NO SIGNS OF ACUTE DISTRESS NOTED. VS STABLE. SHIFT ASSESSMENT COMPLETE. CL IN REACH. FALL PRECAUTIONS IN PLACE. WILL CONTINUE TO MONITOR
--- NOTE | 2019-05-24 01:00 | NUR ---
QUIET HOURS. PT SITTING UP IN W/C WATCHING TV. DENIES ANY NEEDS OR PAIN. RR EVEN AND UNLABORED. CL IN REACH
--- NOTE | 2019-05-24 03:51 | NUR ---
PT SITTING UP IN W/C EYES CLOSED RESTING. EASILY AROUSED WITH VERBAL STIMULI. PT REFUSES TO GO TO BED STATES SHE FEELS LIKE SHE WILL IF SHE LIES DOWN IN THE BED. CL IN REACH
--- NOTE | 2019-05-24 05:31 | NUR ---
PT REFUSED TO ALLOW NURSE TO CHANGE SOILED BRIEF. I EDUCATED PT ON IMPORTANCE OF INCONTINENCE CARE AND KEEPING SKIN FREE FROM URINE AND FECES PT STATES "I DO NOT CARE I DO NOT WANT TO BE CHANGED" THIS BEHAVIOR IS NOT USUAL FOR THIS PT. WILL TRY AGAIN TO GET PT CHANGED.
--- NOTE | 2019-05-24 05:51 | NUR ---
PT AGREED TO GOING TO BATHROOM AND GETTING CHANGED. PT PERFORMED HER OWN PERICARE. WHILE USING ASSISTIVE DEVICE TO HELP CLEAN HERSELF PT SCRATCH HER RIGHT BUTTCHEEK APPLIED CALMOSEPTINE. PT SITTING UP IN W/C WATCHING TV. NO OTHER NEEDS VOICED.
[2019-05-24 06:33] LABS: BASOPHILS 0.2 % (0-2); EOSINOPHILS 1.2 % (0-7); HEMATOCRIT 31.6 % (36.0-48.0); HEMOGLOBIN 9.7 g/dL (12-16); IMMATURE GRANULOCYTES 0.7 % (0-5); LYMPHOCYTES 12.5 % (15-50); MCH 28.4 pg (26.0-34.0); MCHC 30.7 g/dL (31.0-37.0); MCV 92.7 fL (80.0-100.0); MEAN PLATELET VOLUME 10.6 fL (7.4-10.4); MONOCYTES 10.6 % (2-11); NEUTROPHILS 74.8 % (40-80); PLATELET COUNT 258 10x3/uL (130-400); RBC 3.41 10x6/uL (4.00-5.40); RDW 16.4 % (11.5-14.5); WBC 10.4 10x3/uL (4.8-10.8)
[2019-05-24 07:00] LABS: ANION GAP 14.4 mmol/L (8-16); CREATININE - SERUM 0.9 mg/dL (0.6-1.3); POTASSIUM - SERUM 4.4 mmol/L (3.5-5.1)
[2019-05-24 08:00] VITALS: BP 152/83
--- NOTE | 2019-05-24 14:17 | NUR ---
SITTING IN RECLINER CHAIR IN HER ROOM. WAS IN WC AND BACK OF LEGS WHERE WC WAS IS RED AND IRRITATED LOOKING. MAX ASST TO TRANSFER, CHANGE UNDERWEAR AND SWITCH CHAIRS. SHE WEARS OXYGEN AND USES BIPAP MACHINE. SHE STATED SHE WILL NOT GET BACK IN BED DUE TO IT "FEELS LIKE I WILL NEVER GET OUT AGAIN". SHE WILL ONLY SIT IN CHAIR AND RECLINERS. BLE ARE 4+ WITH EDEMA. THEY ARE HARD TO THE TOUCH. SHE REFUSES TO GET IN BED AND ELEVATE THEM. CALL LIGHT IN REACH
[2019-05-24 19:20] VITALS: BP 136/70
--- NOTE | 2019-05-24 19:20 | NUR ---
BEDSIDE REPORT COMPLETE. PT SITTING UP IN W/C VISITING WITH FAMILY. ALERT AND ORIENTED X4. DENIES ANY NEEDS OR PAIN. NO SIGNS OF ACUTE DISTRESS NOTED. CONTINUES ON 3L VIA NC. BLE EDEMA +4. VS STABLE. SHIFT ASSESSMENT COMPLETE. CL IN REACH. FALL PRECAUTIONS IN PLACE. WILL CONTINUE TO MONITOR
--- NOTE | 2019-05-24 21:30 | NUR ---
PT REFUSED TO TAKE SHOWER. PT STATES " I AM IN TOO MUCH PAIN" INFORMED PT THAT IT WOULD BE SUNDAY BEFORE HER NEXT SHOWER. VERBALIZED UNDERSTANDING
--- NOTE | 2019-05-24 23:21 | NUR ---
QUIET HOURS. PT SITTING UP IN RECLINER WATCHING TV. DENIES ANY NEEDS OR PAIN. RR EVEN AND UNLABORED. CONTINUES ON 3L VIA NC. CL IN REACH
--- NOTE | 2019-05-25 01:51 | NUR ---
PT SITTING UP IN RECLINER WATCHING TV. DENIES ANY NEEDS C/O PAIN IN LEGS AND LOWER BACK ADVISED PT NEXT PAIN MEDICATION NOT AVAILABLE UNTIL APPROX 3AM. PT VERBALIZED UNDERSTANDING.
--- NOTE | 2019-05-25 05:32 | NUR ---
PT SITTING UP IN RECLINER AWAKE AND WATCHING TV. PT REFUSES TO RECLINE TO ELEVATE FEET. EDUCATED PT ON IMPORTANCE OF KEEPING SWELLING DOWN IN LOWER EXTREMITIES PT STATES "I DON'T CARE IT IS UNCOMFORTABLE" WILL CONTIUE TO MONITOR
[2019-05-25 08:00] VITALS: BP 174/98
--- NOTE | 2019-05-25 14:46 | NUR ---
LAYING IN RECLINER IN ROOM. THE FOOT PART OF RECLINER IS NOT ELEVATED, PT REFUSES TO RAISE FOOT PART. SHE STATES SHE CAN REST WELL IN THIS POSITION.....OXYGEN IN USE. SHE STILL REFUSES TO GET IN BED OR ELEVATE BLE WHICH STILL HAVE 4+ EDEMA TO THEM. CALL LIGHT IN REACH
[2019-05-25 19:15] VITALS: BP 127/72
--- NOTE | 2019-05-25 19:15 | NUR ---
BEDSIDE REPORT COMPLETE. PT SITTING UP IN RECLINER WATCHING TV. DENIES ANY NEEDS. C/O GENERALIZED PAIN ESPECIALLY IN LOWER EXTREMITIES. NO PAIN MEDICATION AVAILABLE UNTIL 2314. NO SIGNS OF ACUTE DISTRESS NOTED. CL IN REACH. FALL PRECAUTIONS IN PLACE. WILL CONTINUE TO MONITOR
--- NOTE | 2019-05-25 23:36 | NUR ---
QUIET HOURS. PT SITTING UP IN RECLINER EYES CLOSED RESTING. RR EVEN AND UNLABORED. CONTINUES ON 3L VIA NC. CL IN REACH
--- NOTE | 2019-05-26 01:52 | NUR ---
PT REFUSED TO ALLOW NURSE TO CHANGE SOILED BRIEF. PT WAS EDUCATED ON IMPORTANCE OF INCONTINENCE CARE.
--- NOTE | 2019-05-26 04:19 | NUR ---
PT SITTING UP IN RECLINER EYES CLOSED RESTING. RR EVEN AND UNLABORED. CL IN REACH
[2019-05-26 07:59] VITALS: BP 122/41
[2019-05-26 09:16] LABS: BASOPHILS 0.3 % (0-2); EOSINOPHILS 1.4 % (0-7); HEMATOCRIT 31.2 % (36.0-48.0); HEMOGLOBIN 9.5 g/dL (12-16); IMMATURE GRANULOCYTES 0.4 % (0-5); LYMPHOCYTES 12.9 % (15-50); MCH 28.2 pg (26.0-34.0); MCHC 30.4 g/dL (31.0-37.0); MCV 92.6 fL (80.0-100.0); MEAN PLATELET VOLUME 10.6 fL (7.4-10.4); MONOCYTES 7.2 % (2-11); NEUTROPHILS 77.8 % (40-80); PLATELET COUNT 264 10x3/uL (130-400); RBC 3.37 10x6/uL (4.00-5.40); RDW 16.4 % (11.5-14.5); WBC 12.1 10x3/uL (4.8-10.8)
[2019-05-26 09:28] LABS: ANION GAP 11.8 mmol/L (8-16); CALCIUM 9.2 mg/dL (8.5-10.1); CARBON DIOXIDE 31.1 mmol/L (21.0-32.0); CREATININE - SERUM 1.1 mg/dL (0.6-1.3); POTASSIUM - SERUM 3.9 mmol/L (3.5-5.1)
--- NOTE | 2019-05-26 13:45 | NUR ---
SITTING UP IN WC IN THERAPY ROOM. IS SLOW TO MOVE AND C/O INCREASED PAIN 'ALL OVER" WHEN SHE MOVES.
--- NOTE | 2019-05-26 13:52 | NUR ---
PT IN THERAPY NO TX GIVEN
--- NOTE | 2019-05-26 17:45 | NUR ---
SITTING IN RECLINER AGAIN. APPETITE FAIR TO POOR. ANXIOUS TO GO HOME. WEARS OXYGEN. DECLINES BIPAP. CALL LIGHT IN REACH
[2019-05-26 19:00] VITALS: BP 113/47
--- NOTE | 2019-05-26 19:00 | NUR ---
BEDSIDE REPORT COMPLETE. PT SITTING UP IN W/C WATCHING TV. STATES SHE NEEDS TO GO TO RESTROOM ATTEMPTED TO ASSIST PT TO RESTROOM AND PT STATES SHE DOES NOT WANT TO GO TO RESTROOM AT THIS TIME HER LEGS ARE "KILLING" HER. VS STABLE. SHIFT ASSESSMENT COMPLETE. CL IN REACH. FALL PRECAUTIONS IN PLACE. WILL CONTINUE TO MONITOR
--- NOTE | 2019-05-27 00:10 | NUR ---
QUIET HOURS. PT LYING IN BED EYES CLOSED RESTING COMFORTABLY. RR EVEN AND UNLABORED. CONTINUES ON 3L VIA NC. CL IN REACH
--- NOTE | 2019-05-27 03:33 | NUR ---
PT LYING IN BED EYES CLOSED RESTING COMFORTABLY. RR EVEN AND UNLABORED. CL IN REACH
--- NOTE | 2019-05-27 06:26 | NUR ---
PT LYING IN BED EYES CLOSED RESTING COMFORTABLY. NO SIGNS OF ACUTE DISTRESS NOTED. BRIEF CLEAN AND DRY. CONTINUES ON 3L VIA NC. CL IN REACH
[2019-05-27 07:45] VITALS: BP 82/33
--- NOTE | 2019-05-27 08:00 | NUR ---
SHIFT ASSMT COMPLETED.
--- NOTE | 2019-05-27 19:42 | NUR ---
PATIENT RECEIVED SITTING UP IN WHEELCHAIR. ASSESSMENT & VITAL SIGNS DONE. NO C/O PAIN OR DISTRESS. CALL LIGHT WITHIN REACH. WILL CONTINUE TO MONITOR.
[2019-05-27 20:00] VITALS: BP 135/40
--- NOTE | 2019-05-28 00:15 | NUR ---
PATIENT TRANSFERRED FROM WHEELCHAIR ONTO COMMODE. PATIENT HAD INCONTINENCE OF URINE. PATIENT TRANFERRED BACK INTO WHEELCHAIR. WILL CALL WHEN REACDY TO TRANSFER INTO BED. CALL LIGHT WITHIN REACH. WILL CONTINUE TO MONITOR.
--- NOTE | 2019-05-28 01:41 | NUR ---
PATIENT GIVEN PAIN MEDICINE FOR LEVEL 8 GENERALIZED PAIN. PATIENT STOOD UP & TRANSFERED FROM WHEELCHAIR TO BED, MINIMAL ASSIST. BED LOW. BIPAP ON. ALARM ON. CALL LIGHT WITHIN REACH. WILL CONTINUE TO MONITOR.
--- NOTE | 2019-05-28 02:32 | NUR ---
I have reviewed this patient and I concur with the Shift Assessment completed by the Licensed Practical Nurse today this shift.
--- NOTE | 2019-05-28 02:34 | NUR ---
PATIENT EYES CLOSED. BIPAP ON. BED LOW. ALARM ON. CALL LIGHT WITHIN REACH. WILL CONTINUE TO MONITOR.
[2019-05-28 08:00] VITALS: BP 129/29
[2019-05-28 08:00] LABS: BASOPHILS 0.4 % (0-2); EOSINOPHILS 1.7 % (0-7); HEMATOCRIT 30.2 % (36.0-48.0); HEMOGLOBIN 9.2 g/dL (12-16); IMMATURE GRANULOCYTES 0.3 % (0-5); LYMPHOCYTES 18.6 % (15-50); MCH 28.5 pg (26.0-34.0); MCHC 30.5 g/dL (31.0-37.0); MCV 93.5 fL (80.0-100.0); MEAN PLATELET VOLUME 11.1 fL (7.4-10.4); MONOCYTES 7.9 % (2-11); NEUTROPHILS 71.1 % (40-80); PLATELET COUNT 216 10x3/uL (130-400); RBC 3.23 10x6/uL (4.00-5.40); RDW 16.6 % (11.5-14.5); WBC 9.6 10x3/uL (4.8-10.8)
[2019-05-28 08:25] LABS: ANION GAP 14.4 mmol/L (8-16); CALCIUM 8.9 mg/dL (8.5-10.1); CARBON DIOXIDE 29.3 mmol/L (21.0-32.0); CREATININE - SERUM 0.9 mg/dL (0.6-1.3); POTASSIUM - SERUM 3.7 mmol/L (3.5-5.1)
[2019-05-28] MEDS ORDERED: PERCOCET 10-321 EAC1 PO (08:41)
[2019-05-28] MEDS ORDERED: BUMEX2 MG PO (08:41)
--- NOTE | 2019-05-28 09:30 | NUR ---
PATIENT DISCHARGING HOME WITH FAMILY. [facility] WILL PROVIDE THERAPY AT HOME. [facility] WILL WILL PROVIDE A WHEELCHAIR. DR. ADAMS 06/04/2019 @ 11:00, DR. CASTRO 06/03/2019 @ 10:30. PATIENT CHOICE FORM WITH COMPARE DATA REVIEWED WITH PATIENT AND SHE VOICED UNDERSTANDING. [facility] FORM SIGNED, COPY GIVEN TO PATIENT AND FILED IN CHART. DISCHARGE INSTRUCTIONS FAXED TO PCP, HOME HEALTH AND REVIEWED WITH PATIENT.[facility] AUTH. [id number] WITH CONFORMATION RECIEVED
--- NOTE | 2019-05-28 16:30 | NUR ---
DC'D TO HOME WITH ;ON PORTABLE O2 TANK AT 3L/NC.REVIEWED MEDS AND MEDS CALLED TO PATIENT PHARMACY.
== END 2019-05-28 17:08 | disposition home health service (06) | DRG 947 ==
LOC: D.REHAB 16:02
PROVIDERS: ADMIT Emergency Medicine; ATTEND Emergency Medicine
DX: R53.81 Other malaise (principal); J96.02 Acute respiratory failure with hypercapnia; J96.01 Acute respiratory failure with hypoxia; N17.9 Acute kidney failure, unspecified; E87.2 Acidosis; J44.1 Chronic obstructive pulmonary disease with (acute) exacerbation; N39.0 Urinary tract infection, site not specified; I50.20 Unspecified systolic (congestive) heart failure; Z68.42 Body mass index [BMI] 45.0-49.9, adult; I25.10 Atherosclerotic heart disease of native coronary artery without angina pectoris; E11.9 Type 2 diabetes mellitus without complications; D64.9 Anemia, unspecified; J44.9 Chronic obstructive pulmonary disease, unspecified; R53.1 Weakness; R53.83 Other fatigue; G62.9 Polyneuropathy, unspecified; E78.5 Hyperlipidemia, unspecified; E11.65 Type 2 diabetes mellitus with hyperglycemia; Z99.81 Dependence on supplemental oxygen; I11.0 Hypertensive heart disease with heart failure; Z85.3 Personal history of malignant neoplasm of breast; F41.8 Other specified anxiety disorders; G47.00 Insomnia, unspecified; E66.01 Morbid (severe) obesity due to excess calories